=== PATIENT | male | born 1945 | race Caucasian/White ===

== ENCOUNTER 2020-07-26 14:06 | Inpatient (IN) | payer MEDICARE, MEDICAID, SELFPAY ==
[2020-07-29 03:23] VITALS: BMI 21.7
[2020-07-30] VITALS (7 sets, daily range): BP systolic 111–156; BP diastolic 56–92; PULSE 70–107; RESP 16–18; TEMP 36.6–37.3; O2SAT 96–99
--- NOTE | 2020-07-30 | CT_ITS ---
EXAMINATION: FACIAL CT WITH CONTRAST CLINICAL INFORMATION: Evaluate for abscess. Deeper infection. COMPARISON: Soft tissue neck CT scan 07/26/2020. TECHNIQUE: Road Driver images were obtained. A CT acquisition of the face was performed after the intravenous administration of 85 mL Omnipaque 350. Data was reformatted into multiplanar images at the acquisition workstation. This CT examination was performed using dose optimization techniques as appropriate, including one or more of the following: Automated exposure control, iterative reconstruction, and adjustment of technique factors (mA and/or kVp) according to patient size (this includes techniques or standardized protocols for targeted exams where dose is matched to indication/reason for exam). DLP: 496 mGy-cm. FINDINGS: There is asymmetric inflammation and enhancement of the right buccal soft tissues and the patient's lower lobe. Mild inflammatory stranding is also visualized within the subcutaneous soft tissues of the anterior neck. No discrete drainable fluid collection. There is a remnant of tooth within a socket visualized at the posterior margin of the right mandibular alveolar process best illustrated on coronal image 37 of 102 series 6 that could theoretically represent the site of inflammatory disease. Otherwise no evidence of a retained foreign body. A few scattered symmetrically seated cervical lymph nodes are visualized within levels IA and II, none of which demonstrate evidence of capsular invasion or central necrosis. The pharyngeal mucosal spaces are symmetric. Parapharyngeal fat is preserved. Press Pipe Inspector spaces are unremarkable. The parotid and submandibular glands are normal. The tongue base and epiglottis are normal. Preepiglottic fat is preserved. Glottic and subglottic airways are patent. 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 There is some heterogeneity within the left lobe the thyroid gland indicating the presence of a few small cysts and/or nodules. The remainder of the visualized visceral soft tissues are normal. Lung apices are clear. Scattered atheromatous caliber indication involve the aortic arch apex and both carotid bifurcations. The left vertebral artery appears chronically occluded. Internal jugular veins fill symmetrically. There is no acute osseous finding. Specifically no worrisome lytic or blastic osseous lesion. There is relatively advanced degenerative arthrosis of the atlantodental joint. Incidental note of atlantooccipital assimilation. Limited visualization of the intracranial compartment reveals no abnormal finding. IMPRESSION: There is inflammatory stranding within the right buccal soft tissues and the subcutaneous soft tissues of the anterior neck with no evidence of a discrete drainable fluid collection. The source of inflammation is difficult to accurately determine on the basis of this examination. There is a rim of lucency surrounding a retained tooth fragment located at the posterior margin of the right mandibular alveolar process that could theoretically represent the source of infection. Otherwise no evidence of a retained foreign body or abscess elsewhere within the [id number] of this examination. There are a few scattered symmetrically distributed cervical lymph nodes that are likely reactive.
[2020-07-30] MEDS: Ampicillin Sodium/Sulbactam Na 3 GM in 0.9 % Sodium Chloride 100 ML IV ×4 (04:44→23:23)
[2020-07-30] MEDS: 0.9 % Sodium Chloride Flush 3 ML SYRINGE 2 ML IVFLUSH ×3 (04:44→15:59)
[2020-07-30] MEDS: Heparin Sodium,Porcine 5,000 UNIT/ML VIAL 5000 UNIT SUBCUT ×2 (04:44→15:58)
[2020-07-30 06:46] LABS: Hematocrit 41.4 % (42-52); Hemoglobin 13.9 g/dl (14.0-18.0); Mean Corpuscular HGB Conc 33.6 g/dl (31.0-36.0); Mean Corpuscular Hemoglobin 32.4 pg (27.0-33.0); Mean Corpuscular Volume 96.5 fL (80-98); Mean Platelet Volume 10.9 fL (9.4-12.4); Platelet Count 185 X10*3/uL (160-400); Red Blood Count 4.29 X10*6/uL (4.60-5.80); Red Cell Distribution Width 13.4 % (11.0-16.0); White Blood Count 7.8 X10*3/uL (4.8-10.8)
[2020-07-30 06:54] LABS: Anion Gap 14 (12-20); Blood Urea Nitrogen 15 mg/dL (9-16); Carbon Dioxide 21 mmol/L (22-29); Chloride 108 mmol/L (96-108); Creatinine Clr Calc Pharmacy 80.4; Estimated Glomerular Filt Rate > 60; Glucose Random 87 mg/dL (60-115); Potassium 3.7 mmol/l (3.3-5.1); Sodium 139 mmol/L (135-145)
--- NOTE | 2020-07-30 09:09 | MHC.SLORD ---
[address] [address] Speech & Hearing [phone] Patient was seen on 07/27/20 for a bedside dysphagia evaluation. Patient displayed limited ROM of oral structures and significant anterior loss of bolus. Due to oral dysphagia secondary to significant facial swelling, patient was recommended PUREED (NDD1) solids and THIN liquids by teaspoon, with pills CRUSHED in PUREE. OUTCOMES ANALYST recommended spoon to be placed posteriorly on blade of tongue when patient is being fed to reduce anterior spillage and improve AP transport. Further ST intervention is no longer warranted as of 07/29/20 as patient consistently tolerated this diet. There is potential for upgrade if patient's swelling significantly improves. Please re-refer to speech as needed. Name: Javi Hardy Date of : 1945 Age: 74 Date of Registration: 07/26/20 Speech Language Pathology Order Status: Patient Seen
[2020-07-30] MEDS: OXcarbazepine 150 MG TABLET PO ×2 (09:38→23:23)
[2020-07-30] MEDS: amLODIPine Besylate 2.5 MG TABLET PO (09:39)
[2020-07-30] MEDS: Dolutegravir Sodium 50 MG TABLET PO (09:39)
--- NOTE | 2020-07-30 10:15 | PM.IMPN ---
Subjective Subjective Date of Service: 07/30/20 Interval History: Patient seen and examined this morning He denies any difficulty swallowing Feels his swelling is less Physical Exam Vital Signs and I&O and Narrative: Vital Signs and I&O: Vital Signs Temp 97.9 F 07/30/20 08:00 Pulse 78 07/30/20 08:00 Resp 18 07/30/20 08:00 BP 156/69 H 07/30/20 08:00 Pulse Ox 98 07/30/20 08:00 Intake & Output 07/29/20 07/30/20 07/30/20 18:59 06:59 18:59 Intake Total 340 / 340 Balance 340 / 340 Intake: Intake, Oral Coral unt 240 / 240 Intake, IV Amoun t 100 / 100 Ampicillin Sod ium/Sulbactam Na 100 / 100 3 gm In 0.9 % Sodium Chloride 100 ml @ 200 m ls/hr IV Q6H [facility] Rx#:[id number] Body Mass Index 21.7 Const: General: cooperative HENMT: Head images: 1. edema, lip Resp: Effort & Inspection: normal respiratory effort Auscultation: clear to auscultation bilaterally Cardio: Heart sounds: S1 normal heart sound present and S2 normal heart sound present Objective Data Current Medications Generic Name Dose Route Start Last Admin Trade Name Freq PRN Reason Stop Dose Admin Abacavir/Lamivudine 1 tab 07/30/20 09:00 Abacavir/Lamivudine 600/300 Tablet PO DAILY [facility] Acetaminophen 650 mg 07/30/20 00:00 Acetaminophen 325 Mg Tablet PO Q6H PRN FEVER/PAIN,MILD (SCALE 1-3) Albuterol Sulfate 2 puff 07/30/20 00:00 Albuterol Sulfate 90 Mcg 18 Gm Inhaler INHALE Q4H PRN Shortness of Breath/Wheezing Amlodipine Besylate 2.5 mg 07/30/20 09:00 Amlodipine Besylate 2.5 Mg Tablet PO DAILY [facility] Artificial Tears 2 drop 07/30/20 05:00 Artificial Tears 15 Ml Drops EYE-BOTH Q4H PRN Dry Eyes Dolutegravir Sodium 50 mg 07/30/20 09:00 Dolutegravir Sodium 50 Mg Tablet PO DAILY [facility] Heparin Sodium (Porcine) 5,000 unit 07/30/20 04:00 07/30/20 04:44 Heparin Sodium,Porcine 5,000 Unit/Ml Vial SUBCUT 5,000 unit Q12H [facility] Administration Ampicillin Sodium/Sulbactam 100 mls @ 200 mls/hr 07/30/20 04:00 07/30/20 05:51 Sodium 3 gm/ Sodium Chloride IV Infused Q6H [facility] Infusion Levothyroxine Sodium 75 mcg 07/30/20 06:00 07/30/20 06:09 Levothyroxine Sodium 75 Mcg Tablet PO Not Given DAILY@0600 [facility] Methylprednisolone Sodium Succinate 40 mg 07/30/20 10:15 Methylprednisolone Sod Succ/Pf 40 Mg/Ml Vial IVPUSH Q12H [facility] Morphine Sulfate 3 mg 07/30/20 00:00 Morphine Sulfate 4 Mg/Ml Cartridge IVPUSH Q4H PRN Pain, Severe (Pain Scale 7-10) Multivitamins/Minerals 1 tab 07/30/20 09:00 Multivitamin With Minerals Tablet PO DAILY [facility] Omeprazole 20 mg 07/30/20 06:30 07/30/20 06:09 Omeprazole 20 Mg Capsule.Dr PO Not Given BID@0630,1630 [facility] Ondansetron HCl 4 mg 07/30/20 00:00 Ondansetron Hcl 4 Mg/2 Ml Vial IVPUSH Q8H PRN Nausea and Vomiting Oxcarbazepine 150 mg 07/30/20 09:00 Oxcarbazepine 150 Mg Tablet PO BID [facility] Senna 8.6 mg 07/30/20 00:00 Sennosides 8.6 Mg Tablet PO BEDTIME PRN Constipation Sodium Chloride 2 ml 07/30/20 00:00 07/30/20 04:44 0.9 % Sodium Chloride Flush 3 Ml Syringe IVFLUSH 2 ml QSHIFT [facility] Administration Tamsulosin HCl 0.4 mg 07/30/20 09:00 Tamsulosin Hcl 0.4 Mg Capsule PO DAILY [facility] Labs CBC & Chem 7: 07/30/20 06:00 07/30/20 05:30 Labs: Laboratory Results - last 24 hr 07/27/20 07/27/20 07/27/20 05:28 05:28 21:00 MCV 95.3 MCH 33.0 MCHC 34.6 RDW RDW Coeff of Luis Alfredo 13.4 Plt Count 189 MPV 10.7 Immature Gran % (Auto) 0.8 H Neut % (Auto) 90.6 H Lymph % (Auto) 3.6 L [place] % (Auto) 4.9 Eos % (Auto) 0.0 Baso % (Auto) 0.1 Abs Immat Gran (auto) 0.16 H Absolute Lymphs (auto) 0.8 L Absolute Monos (auto) 1.0 Absolute Eos (auto) 0.0 Absolute Basos (auto) 0.0 Absolute Nucleated RBC 0.000 Nucleated RBC % (auto) 0.0 Absolute Neutrophils 18.8 H Smear Tech's Comments VERIFIED Bicarbonate 20 L Anion Gap 14 Estimated Creat Clear 80.4 Estim Creat Clear Calc Estimated GFR Est GFR (Non-Af Amer) > 60 Random Glucose 106 Fasting Glucose Calcium 9.2 D Vancomycin Trough Cancelled 07/28/20 07/28/20 07/29/20 05:36 05:36 05:35 MCV 95.2 MCH 32.9 MCHC 34.6 RDW RDW Coeff of Luis Alfredo 13.4 Plt Count 195 MPV 10.7 Immature Gran % (Auto) Neut % (Auto) Lymph % (Auto) [place] % (Auto) Eos % (Auto) Baso % (Auto) Abs Immat Gran (auto) Absolute Lymphs (auto) Absolute Monos (auto) Absolute Eos (auto) Absolute Basos (auto) Absolute Nucleated RBC 0.000 Nucleated RBC % (auto) 0.0 Absolute Neutrophils Smear Tech's Comments Bicarbonate 22 21 L Anion Gap 15 16 Estimated Creat Clear 80.4 82.5 Estim Creat Clear Calc Estimated GFR Est GFR (Non-Af Amer) > 60 > 60 Random Glucose 73 Fasting Glucose 80 Calcium 9.1 Vancomycin Trough 07/29/20 07/30/20 07/30/20 05:35 05:30 05:30 MCV 97.0 96.5 MCH 32.7 32.4 MCHC 33.7 33.6 RDW 13.4 RDW Coeff of Luis Alfredo 13.5 Plt Count 172 185 MPV 11.4 10.9 Immature Gran % (Auto) Neut % (Auto) Lymph % (Auto) [place] % (Auto) Eos % (Auto) Baso % (Auto) Abs Immat Gran (auto) Absolute Lymphs (auto) Absolute Monos (auto) Absolute Eos (auto) Absolute Basos (auto) Absolute Nucleated RBC 0.000 0.000 Nucleated RBC % (auto) 0.0 0.0 Absolute Neutrophils Smear Tech's Comments Bicarbonate Anion Gap 14 Estimated Creat Clear Estim Creat Clear Calc 80.4 Estimated GFR > 60 Est GFR (Non-Af Amer) Random Glucose 87 Fasting Glucose Calcium 9.0 Vancomycin Trough 07/30/20 07/30/20 06:00 06:00 MCV Not Rcvd MCH Not Rcvd MCHC Not Rcvd RDW RDW Coeff of Luis Alfredo Not Rcvd Plt Count Not Rcvd MPV Not Rcvd Immature Gran % (Auto) Neut % (Auto) Lymph % (Auto) [place] % (Auto) Eos % (Auto) Baso % (Auto) Abs Immat Gran (auto) Absolute Lymphs (auto) Absolute Monos (auto) Absolute Eos (auto) Absolute Basos (auto) Absolute Nucleated RBC Not Rcvd Nucleated RBC % (auto) Not Rcvd Absolute Neutrophils Smear Tech's Comments Bicarbonate Cancelled Anion Gap Cancelled Estimated Creat Clear Cancelled Estim Creat Clear Calc Estimated GFR Est GFR (Non-Af Amer) Cancelled Random Glucose Cancelled Fasting Glucose Calcium Vancomycin Trough Progress Note: A&P (1) Facial cellulitis: Status: Acute Assessment and Plan: this is a 74-year-old male of [place] with a past medical history of HIV who presented to the hospital with sepsis and severe facial swelling likely secondary to facial cellulitis presumably from a dental source. 1. Sepsis due to facial cellulitis Sepsis resolved Status post vancomycin, Zosyn, clinda Now on Unasyn Will repeat CT scan of the facial bones as there has been no significant improvement in his edema Start Solu-Medrol 40 b.i.d. 2. Hypertension, stable Lisinopril discontinue Continue Norvasc, up titrate as needed 3. COPD Not in exacerbation Continue p.r.n. bronchodilators 4. HIV continueu HAART 5. Hypothyroidism Synthroid DVT prophylaxis, heparin
[2020-07-30] MEDS: Abacavir/lamiVUDine 600/300 TABLET 1 TAB PO (10:36)
[2020-07-30] MEDS: Tamsulosin HCL 0.4 MG CAPSULE PO (10:37)
[2020-07-30] MEDS: iohexoL 350 MG/ML 100 ML INFUS..BTL 85 ML IV (12:18)
[2020-07-30] MEDS: Omeprazole 20 MG CAPSULE.DR PO (15:58)
[2020-07-31 03:36] VITALS: BP 132/60; PULSE 72; RESP 16; TEMP 36.2; O2SAT 97
[2020-07-31] MEDS: Ampicillin Sodium/Sulbactam Na 3 GM in 0.9 % Sodium Chloride 100 ML IV ×4 (04:13→21:54)
[2020-07-31] MEDS: Heparin Sodium,Porcine 5,000 UNIT/ML VIAL 5000 UNIT SUBCUT (04:14)
[2020-07-31] MEDS: Levothyroxine Sodium 75 MCG TABLET PO (05:52)
[2020-07-31] MEDS: Omeprazole 20 MG CAPSULE.DR PO (05:52)
[2020-07-31 07:00] VITALS: BP 136/65; PULSE 68; RESP 18; TEMP 36.7; O2SAT 97
[2020-07-31 07:07] LABS: Anion Gap 17 (12-20); Blood Urea Nitrogen 19 mg/dL (9-16); Carbon Dioxide 18 mmol/L (22-29); Chloride 108 mmol/L (96-108); Creatinine Clr Calc Pharmacy 77.3; Estimated Glomerular Filt Rate > 60; Glucose Random 138 mg/dL (60-115); Potassium 4.1 mmol/l (3.3-5.1); Sodium 139 mmol/L (135-145)
[2020-07-31] MEDS: 0.9 % Sodium Chloride Flush 3 ML SYRINGE 2 ML IVFLUSH ×4 (07:51→23:40)
[2020-07-31 09:57] VITALS: BP 136/65; PULSE 68
[2020-07-31] MEDS: Dolutegravir Sodium 50 MG TABLET PO (09:57)
[2020-07-31] MEDS: lamiVUDine 150 MG TABLET 300 MG PO (09:57)
[2020-07-31] MEDS: amLODIPine Besylate 2.5 MG TABLET PO (09:57)
[2020-07-31] MEDS: Tamsulosin HCL 0.4 MG CAPSULE PO (09:57)
[2020-07-31] MEDS: OXcarbazepine 150 MG TABLET PO ×2 (09:58→19:59)
[2020-07-31 11:00] VITALS: BP 136/72; PULSE 77; RESP 18; TEMP 36.9; O2SAT 99
--- NOTE | 2020-07-31 11:32 | P.PNIM_ITS ---
Subjective Subjective Interval History: Seen in follow up for facial swelling ? Cellulitis vs allergic reaction of some sort. Swelling is much better today Physical Exam Vital Signs and I&O and Narrative: Vital Signs and I&O: Vital Signs Temp 98.1 F 07/31/20 07:00 Pulse 68 07/31/20 09:57 Resp 18 07/31/20 07:00 BP 136/65 07/31/20 09:57 Pulse Ox 97 07/31/20 07:00 Intake & Output Const: General: cooperative Resp: Effort & Inspection: normal respiratory effort Auscultation: clear to auscultation bilaterally Cardio: Heart sounds: S1 normal heart sound present and S2 normal heart sound present Skin: Full body images: 1. swelling Objective Data Current Medications Generic Name Dose Route Start Last Admin Trade Name Freq PRN Reason Stop Dose Admin Abacavir Sulfate 600 mg 07/31/20 09:00 07/31/20 09:57 Abacavir Sulfate 300 Mg Tablet PO 600 mg DAILY [facility] Administration Acetaminophen 650 mg 07/30/20 00:00 Acetaminophen 325 Mg Tablet PO Q6H PRN FEVER/PAIN,MILD (SCALE 1-3) Albuterol Sulfate 2 puff 07/30/20 00:00 Albuterol Sulfate 90 Mcg 18 Gm Inhaler INHALE Q4H PRN Shortness of Breath/Wheezing Amlodipine Besylate 2.5 mg 07/30/20 09:00 07/31/20 09:57 Amlodipine Besylate 2.5 Mg Tablet PO 2.5 mg DAILY [facility] Administration Artificial Tears 2 drop 07/30/20 05:00 Artificial Tears 15 Ml Drops EYE-BOTH Q4H PRN Dry Eyes Dolutegravir Sodium 50 mg 07/30/20 09:00 07/31/20 09:57 Dolutegravir Sodium 50 Mg Tablet PO 50 mg DAILY [facility] Administration Heparin Sodium (Porcine) 5,000 unit 07/30/20 04:00 07/31/20 04:14 Heparin Sodium,Porcine 5,000 Unit/Ml Vial SUBCUT 5,000 unit Q12H [facility] Administration Ampicillin Sodium/Sulbactam 100 mls @ 200 mls/hr 07/30/20 04:00 07/31/20 10:58 Sodium 3 gm/ Sodium Chloride IV Infused Q6H [facility] Infusion Lamivudine 300 mg 07/31/20 09:00 07/31/20 09:57 Lamivudine 150 Mg Tablet PO 300 mg DAILY [facility] Administration Levothyroxine Sodium 75 mcg 07/30/20 06:00 07/31/20 05:52 Levothyroxine Sodium 75 Mcg Tablet PO 75 mcg DAILY@0600 [facility] Administration Methylprednisolone Sodium Succinate 40 mg 07/30/20 11:00 07/31/20 09:58 Methylprednisolone Sod Succ/Pf 40 Mg/Ml Vial IVPUSH 40 mg Q12H [facility] Administration Morphine Sulfate 3 mg 07/30/20 00:00 Morphine Sulfate 4 Mg/Ml Cartridge IVPUSH Q4H PRN Pain, Severe (Pain Scale 7-10) Multivitamins/Minerals 1 tab 07/30/20 09:00 07/31/20 09:57 Multivitamin With Minerals Tablet PO 1 tab DAILY [facility] Administration Omeprazole 20 mg 07/30/20 06:30 07/31/20 05:52 Omeprazole 20 Mg Capsule. PO 20 mg BID@0630,1630 [facility] Administration Ondansetron HCl 4 mg 07/30/20 00:00 Ondansetron Hcl 4 Mg/2 Ml Vial IVPUSH Q8H PRN Nausea and Vomiting Oxcarbazepine 150 mg 07/30/20 09:00 07/31/20 09:58 Oxcarbazepine 150 Mg Tablet PO 150 mg BID [facility] Administration Senna 8.6 mg 07/30/20 00:00 Sennosides 8.6 Mg Tablet PO BEDTIME PRN Constipation Sodium Chloride 2 ml 07/30/20 00:00 07/31/20 07:51 0.9 % Sodium Chloride Flush 3 Ml Syringe IVFLUSH 2 ml QSHIFT [facility] Administration Tamsulosin HCl 0.4 mg 07/30/20 09:00 07/31/20 09:57 Tamsulosin Hcl 0.4 Mg Capsule PO 0.4 mg DAILY [facility] Administration Labs CBC & Chem 7: 07/30/20 06:00 07/31/20 05:17 Labs: Laboratory Results - last 24 hr 07/31/20 05:17 Anion Gap 17 Estim Creat Clear Calc 77.3 Estimated GFR > 60 Random Glucose 138 H D Calcium 9.0 Assessment and Plan (1) Facial cellulitis: Status: Acute Assessment and Plan: 74-year-old male of [employer] [facility] with a past medical history of HIV who presented to the hospital with sepsis and severe facial swelling likely seconda ry to facial cellulitis presumably from a dental source. 1. Sepsis due to facial cellulitis Sepsis resolved Status post vancomycin, Zosyn, clinda Now on Unasyn Will repeat CT 07/30 shows inflamatory changes of but no abscess continue IV solumedrol for one more day 2. Hypertension, stable Lisinopril discontinued Continue Norvasc, up titrate as needed 3. COPD Not in exacerbation Continue p.r.n. bronchodilators 4. HIV continueu HAART 5. Hypothyroidism Synthroid Anticipate d/c in one to 2 days DVT prophylaxis, heparin
--- NOTE | 2020-07-31 13:27 | MHC.CM.PN ---
Patient continues on steroids and IV ABT with some improvement to cellulitis. Discharge plan is to return to [facility] possibly tomorrow. CM will continue to follow for discharge needs.
[2020-07-31 15:00] VITALS: BP 117/58; PULSE 71; RESP 18; O2SAT 97
[2020-07-31] MEDS: Acetaminophen 325 MG TABLET 650 MG PO (20:00)
[2020-07-31] MEDS: Artificial Tears 15 ML DROPS 2 DROP EYE-BOTH (20:02)
[2020-07-31 21:44] VITALS: BP 132/61; PULSE 62; O2SAT 99
[2020-08-01 02:00] VITALS: BP 166/77; RESP 16; O2SAT 96
[2020-08-01] MEDS: Ampicillin Sodium/Sulbactam Na 3 GM in 0.9 % Sodium Chloride 100 ML IV ×3 (03:58→14:47)
[2020-08-01] MEDS: Heparin Sodium,Porcine 5,000 UNIT/ML VIAL 5000 UNIT SUBCUT ×2 (04:03→14:48)
[2020-08-01 04:45] VITALS: BP 141/66; PULSE 65; RESP 16; TEMP 35.8; O2SAT 95
--- NOTE | 2020-08-01 06:07 | PC.NURSE ---
PT IMPULSIVE, KEPT TRYING TO GET UP OUT OF RECLINER. DID NOT FOLLOW DIRECTIONS AND AT TIMES WAS COMBATIVE, KICKING AND SHOVING. PT GIVEN A BEDSIDE PSYCH NP FOR SAFETY REASONS. BACK TO BED WITH 2 ASSISTS FOR SLEEP. SLEEPING MOSTLY IN NAPS. RIGHT FACE IS SLIGHTLY EDEMATOUS. NO DIFFICULTY SWALLOWING. PT SLEEPING FOR MEDS DUE AT 0630 AND REFUSING TO TAKE AT THIS TIME. WILL PASS ON TO NEXT RN TO TRY TO GIVE THESE ON THE NEXT ROUNDS, LEVOTHYROXINE AND PRILOSEC.
[2020-08-01] MEDS: 0.9 % Sodium Chloride Flush 3 ML SYRINGE 2 ML IVFLUSH ×2 (07:50→14:48)
[2020-08-01 08:00] VITALS: BP 141/74; PULSE 56; RESP 18; TEMP 36.1; O2SAT 99
[2020-08-01] MEDS: Dolutegravir Sodium 50 MG TABLET PO (09:20)
[2020-08-01] MEDS: lamiVUDine 150 MG TABLET 300 MG PO (09:21)
[2020-08-01] MEDS: OXcarbazepine 150 MG TABLET PO (09:21)
[2020-08-01] MEDS: Tamsulosin HCL 0.4 MG CAPSULE PO (09:21)
[2020-08-01 09:28] VITALS: PULSE 56
[2020-08-01 12:00] VITALS: BP 128/60; PULSE 70; RESP 18; TEMP 37.5; O2SAT 100
--- NOTE | 2020-08-01 12:40 | P.DS_ITS ---
DS: Providers Provider Date of admission: 07/26/20 14:06 Primary care physician: Adrián Singh DO Consults: 07/29/20 03:26 Consult to Infectious Diseases Routine Consulting Provider: Yesenia Rothman Reason for consultation: Facial Cellulitis DS: Diagnosis Discharge Diagnosis (1) Facial cellulitis: Status: Acute (2) Sepsis: Status: Acute DS: Summary Hospital Course Hospital Course: Patient was admitted for sepsis due to facial cellulitis. He was given vancomycin Zosyn and clinda, he was seen by infectious disease recommended changing to Unasyn. He was also given some IV steroids which improved swelling. Patient's sepsis resolved, Erythema improved, he will be transitioned to Augmentin for 1 week. Patient's lips were swollen and there was some concern of angioedema, therefore his lisinopril will be discontinued. Time Spent with Patient Time attestation: Total time spent providing and/or coordinating discharge services: Physical Exam Vital Signs and I&O and Narrative: Vital Signs and I&O: Vital Signs Temp 96.9 F 08/01/20 08:00 Pulse 56 08/01/20 09:28 Resp 18 08/01/20 08:00 BP 141/74 H 08/01/20 08:00 Pulse Ox 99 08/01/20 08:00 Intake & Output 07/31/20 08/01/20 08/01/20 18:59 06:59 18:59 Intake Total 680 / 1080 400 / 1080 280 / 280 Balance 680 / 1080 400 / 1080 280 / 280 Intake: Intake, Oral Coral unt 480 / 480 180 / 180 Intake, Other Am ount 200 / 200 Intake, IV Amoun t 200 / 400 200 / 400 100 / 100 Ampicillin Sod ium/Sulbactam Na 200 / 400 200 / 400 100 / 100 3 gm In 0.9 % Sodium Chloride 100 ml @ 200 m ls/hr IV Q6H [facility] Rx#:[id number] Other: Meal Refused No NPO No Breakfast % Eate n 25% 100% Lunch % Eaten 75% Number of Incont inent Voids 2 Number of Bowel Movements 2 Number of Incont inent Bowel 2 Movements Stool Inct Stool Color Brown Stool Consistenc y Formed Body Mass Index 21.7 Const: General: cooperative Resp: Effort & Inspection: normal respiratory effort Auscultation: clear to auscultation bilaterally Cardio: Heart sounds: S1 normal heart sound present and S2 normal heart sound present Discharge Plan Discharge Patient Disposition: [facility] Referrals: Adrián Singh DO [Primary Care Provider] - Discharge Medications: New amoxicillin-pot clavulanate [Augmentin] 875-125 mg tablet 1 tab PO Q12H Qty: 14 RF: 0 Continued albuterol sulfate 90 mcg/actuation Hfa Aerosol Inhaler 2 puff INHALATION Q4H PRN (Reason: Shortness Of Breath Or Wheezing) RF: 0 Triumeq 600-50-300 mg Tablet 1 tab PO DAILY RF: 0 lactulose 20 gram Packet 20 g PO DAILY PRN (Reason: Constipation) RF: 0 levothyroxine 75 mcg Tablet 75 mcg PO DAILY RF: 0 multivitamin with iron Tablet 1 tab PO DAILY RF: 0 oxcarbazepine [Trileptal] 150 mg Tablet 150 mg PO BID RF: 0 tamsulosin [Flomax] 0.4 mg Capsule 0.4 mg PO DAILY RF: 0 sennosides 8.6 mg Capsule 8.6 mg PO BEDTIME PRN (Reason: Constipation) RF: 0 omeprazole 20 mg Tablet,Delayed Release (Dr/Ec) 20 mg PO BID RF: 0 Discontinued lisinopril 5 mg Tablet 5 mg PO DAILY RF: 0 Discharge Orders: Discharge Order (Routine); Ordered 08/01/20 Ordered By: Jac Fan Activity on Discharge: As tolerated Visit Report Forms: Patient Portal Discharge page Care Plan Goals: recovery Health Concerns: facial cellultis Plan of Treatment: augmentin for one week, stop lisinopril as some suspicion for angioedema
--- NOTE | 2020-08-01 13:57 | MHC.CM.PN ---
at approximatley 1000 hours, TIFFANY alerted [facility] liaison that pt is cleared to DC today. TIFFANY informed the pts clinicals will have to be reviewed by the admin on duty as they will have to approve the pts return. Clinicals were forwarded for review. Once [facility] approves pts return, he will need a rapid covid swab and Dian nolasco ([phone]) will be notified
[2020-08-01 14:19] LABS: SARS COV2 PCR INHOUSE NEGATIVE (Negative)
[2020-08-01] MEDS: Omeprazole 20 MG CAPSULE.DR PO (14:49)
--- NOTE | 2020-08-01 15:10 | MHC.CM.PN ---
PT CLEARED TO DC TODAY BACK TO [facility] [place] AT 1630 HOURS. CM CONTACTED PTS GUARDIAN, NIMESH RUSSO ([phone]) WHO IS IN AGREEMENT WITH DC PLAN. PER NOTES, SECOND IMM DELIVERED ON 07/31/20
[2020-08-01 15:59] VITALS: BP 140/69; PULSE 65; RESP 19; TEMP 36.4; O2SAT 100
== END 2020-08-01 16:35 | disposition skilled nursing facility (03) | DRG 872 ==
PROVIDERS: Internal Medicine; Admitting Provider Family Medicine; Emergency Provider Physician Assistant; PCP Hospitalist; Visit Provider Internal Medicine
DX: A41.9 Sepsis, unspecified organism (principal); L03.211 Cellulitis of face; I10 Essential (primary) hypertension; J44.9 Chronic obstructive pulmonary disease, unspecified; N40.0 Benign prostatic hyperplasia without lower urinary tract symptoms; Z21 Asymptomatic human immunodeficiency virus [HIV] infection status; T78.3XXA Angioneurotic edema, initial encounter; T46.4X5A Adverse effect of angiotensin-converting-enzyme inhibitors, initial encounter; Y92.9 Unspecified place or not applicable; F03.90 Unspecified dementia, unspecified severity, without behavioral disturbance, psychotic disturbance, mood disturbance, and anxiety; K08.9 Disorder of teeth and supporting structures, unspecified; E78.5 Hyperlipidemia, unspecified; E03.9 Hypothyroidism, unspecified; Z79.890 Hormone replacement therapy; Z79.899 Other long term (current) drug therapy
CPT/HCPCS: 36415; 70487; 70491; 71045; 80048; 80051; 80076; 81001; 82565; 82947; 83605; 83735; 84520; 85025; 85027; 87040; 87088; 87635; 92526; 92610; 96361; 96365; 96375; 99285; J0295; J2060; J2543; J2920; J3370; Q9967

== ENCOUNTER 2020-11-17 22:09 | Inpatient (IN) | payer MEDICARE, MEDICAID, SELFPAY ==
[2020-11-17 22:16] VITALS: BP 194/101; PULSE 83; RESP 18; TEMP 36.9; O2SAT 98; BMI 26.6
--- NOTE | 2020-11-17 22:21 | ED_ITS ---
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 Currently, patient denies any chest pain and en-route declined nitro. Otherwise, patient denies shortness of breath, headache, dizziness. Of note, patient is a poor historian. Related Data Home Medications Medication Instructions Recorded Confirmed Triumeq 1 tab PO DAILY 07/30/20 11/17/20 albuterol sulfate 2 puff INHALATION Q4H PRN 07/30/20 11/17/20 lactulose 20 g PO DAILY PRN 07/30/20 11/17/20 levothyroxine 75 mcg PO DAILY 07/30/20 11/17/20 multivitamin with iron 1 tab PO DAILY 07/30/20 11/17/20 omeprazole 20 mg PO BID 07/30/20 11/17/20 oxcarbazepine [Trileptal] 150 mg PO BID 07/30/20 11/17/20 sennosides 8.6 mg PO BEDTIME PRN 07/30/20 11/17/20 tamsulosin [Flomax] 0.4 mg PO DAILY 07/30/20 11/17/20 acetaminophen 650 mg PO Q4H PRN 11/17/20 11/17/20 albuterol sulfate [ProAir HFA] 2 puff INHALATION Q4-6H PRN 11/17/20 11/17/20 artificial tears solution 1 drp OPHTHALMIC (EYE) Q4H 11/17/20 11/17/20 benztropine 1 mg PO BID 11/17/20 11/17/20 guaifenesin 200 mg PO Q4H PRN 11/17/20 11/17/20 guaifenesin [Guaifenesin LA] 600 mg PO BID 11/17/20 11/17/20 haloperidol lactate 1.2 mg PO BID 11/17/20 11/17/20 loperamide 2 mg PO Q6H PRN 11/17/20 11/17/20 megestrol 400 mg PO DAILY 11/17/20 11/17/20 nystatin 1 appl TOPICAL BID 11/17/20 11/17/20 sucralfate 10 ml PO QID 11/17/20 11/17/20 Allergies Allergy/AdvReac Type Severity Reaction Status Date / Time chlorpromazine Allergy Unknown UNKNOWN Verified 07/31/20 15:42 [From THORAZINE] Review of Systems Review of Systems: Pertinent positives and negatives as stated in HPI and 10 point review of systems is otherwise negative. [facility] Past Medical History Source: nursing notes reviewed Medical History Anemia BPH (benign prostatic hyperplasia) CHF (congestive heart failure) Constipation Dementia Duodenal ulcer Dysphagia GERD (gastroesophageal reflux disease) HIV (human immunodeficiency virus infection) Hyperlipidemia Hypertension Hypothyroid Social History Social History Advance Directives: No Physical Exam Vital Signs: Vital Signs: Last Vital Signs Temp 98.4 F 11/17/20 22:16 Pulse 83 11/17/20 22:16 Resp 18 11/17/20 22:16 BP 194/101 H 11/17/20 22:16 Pulse Ox 98 11/17/20 22:16 Body Mass Index 26.6 VITAL SIGNS: Reviewed. GENERAL: Well developed, well nourished, in no acute distress. HEAD: Normocephalic/atraumatic, EYES: PERRLA, EOMI EARS: Ext canals without abnormality, TMs non-bulging and non-erythematous NOSE: Nares patent bilateral OROPHARYNX: no oral lesions noted, posterior pharynx clear NECK: Supple, no adenopathy LUNGS: Normal breath sounds. SpO2<98> CARDIOVASCULAR: Regular rate and rhythm without noted murmurs, no JVD or lower extremity edema. ABDOMEN: Soft, mild tenderness in epigastrium, non-distended with bowel sounds. MUSCULOSKELETAL: No tenderness, deformities, or effusions noted on gross inspe ction. EXTREMITIES: No cyanosis, clubbing or edema. SKIN: Inspection of the skin reveals no rashes NEUROLOGIC: Arousable and oriented x 1. Strength and sensation to light touch were grossly intact x 4. Course Course Course Narrative: This is a 74-year-old male with history and clinical presentation consistent with ACS, and on review of initial EKG there is noted deepening of ST segments in V4 V5 as well as deep and T-wave inversions in V2 and V3 despite patient being asymptomatic at present. Review of all investigations This case was discussed with the inpatient hospitalist team after discussing with Cardiology and they are aware that patient is to be admitted for ACS, trend troponins, and if troponins are positive to treat with Lovenox. Reevaluation(s) Reevaluation #1: I spoke with Dr. Khoury regarding the EKG changes and his recommendations are to admit the patient and trend troponins and if they are p ositive to treat with Lovenox and he will see the patient in the morning. Time: 22:40 MDM - Chest Pain Lab Data Result diagrams: 11/17/20 23:19 11/17/20 23:19 Labs: Lab Results 11/17/20 11/17/20 Range/Units 23:19 23:19 WBC 7.4 (4.8-10.8) X10*3/uL RBC 4.54 L (4.60-5.80) X10*6/uL Hgb 14.8 (14.0-18.0) g/dl Hct 42.9 (42-52) % MCV 94.5 (80-98) fL MCH 32.6 (27.0-33.0) pg MCHC 34.5 (31.0-36.0) g/dl RDW 13.4 (11.0-16.0) % Plt Count 221 (160-400) X10*3/uL MPV 9.6 (9.4-12.4) fL Immature Gran % (Auto) 0.5 H (0.0-0.4) % Neut % (Auto) 66.9 (45-73) % Lymph % (Auto) 22.7 (20-40) % [place] % (Auto) 7.9 (2-11) % Eos % (Auto) 1.3 (0-4) % Baso % (Auto) 0.7 (0-2) % Lymph # (Auto) 1.7 (1.2-4.9) X10*3/uL [place] # (Auto) 0.6 (0.1-1.2) X10*3/uL Eos # (Auto) 0.1 (0.0-0.4) X10*3/uL Baso # (Auto) 0.1 (0.0-0.2) X10*3/uL Abs Immat Gran (auto) 0.04 H (0.00-0.03) X10*3/uL Absolute Neuts (auto) 5.0 (2.0-8.3) X10*3/uL Absolute Nucleated RBC 0.000 (0.0-0.012) X10*3/uL Nucleated RBC % (auto) 0.0 (0.0-0.2) /100WBC Troponin I High Sens 24.1 (<3.5-35.0) ng/L ECG Data ECG #1: Attestation: I personally reviewed and interpreted this ECG as follows: Prior ECG tracings: available for review (01/11/2019 there are some subtle changes as annotated below.) Interpretation: Sinus rhythm, HR -69, noted ischemic changes with ST depressions in V3-V5, with T-wave inversions in V2, MD/QRS/QTC are within normal limits. Discharge Plan Discharge Clinical Impression: ACS (acute coronary syndrome) Patient Disposition: Admitted As Inpatient Prescriptions: No Action albuterol sulfate 90 mcg/actuation Hfa Aerosol Inhaler 2 puff INHALATION Q4H PRN (Reason: Shortness Of Breath Or Wheezing) RF: 0 Triumeq 600-50-300 mg Tablet 1 tab PO DAILY RF: 0 lactulose 20 gram Packet 20 g PO DAILY PRN (Reason: Constipation) RF: 0 levothyroxine 75 mcg Tablet 75 mcg PO DAILY RF: 0 multivitamin with iron Tablet 1 tab PO DAILY RF: 0 oxcarbazepine [Trileptal] 150 mg Tablet 150 mg PO BID RF: 0 tamsulosin [Flomax] 0.4 mg Capsule 0.4 mg PO DAILY RF: 0 sennosides 8.6 mg Capsule 8.6 mg PO BEDTIME PRN (Reason: Constipation) RF: 0 omeprazole 20 mg Tablet,Delayed Release (Dr/Ec) 20 mg PO BID RF: 0 acetaminophen 325 mg Tablet 650 mg PO Q4H PRN (Reason: Mild Pain (Scale Score 1-4)) RF: 0 Guaifenesin LA 600 mg Tablet Extended Release 600 mg PO BID RF: 0 sucralfate 100 mg/mL Suspension 10 ml PO QID RF: 0 artificial tears solution Drops 1 drp OPHTHALMIC (EYE) Q4H RF: 0 loperamide 2 mg Tablet 2 mg PO Q6H PRN (Reason: Diarrhea) RF: 0 guaifenesin 100 mg/5 mL Liquid 200 mg PO Q4H PRN (Reason: Cough) RF: 0 benztropine 1 mg Tablet 1 mg PO BID RF: 0 nystatin 100,000 unit/gram Powder 1 appl TOPICAL BID RF: 0 albuterol sulfate [ProAir HFA] 90 mcg/actuation Hfa Aerosol Inhaler 2 puff INHALATION Q4-6H PRN (Reason: Dyspnea) RF: 0 haloperidol lactate 2 mg/mL Concentrate 1.2 mg PO BID RF: 0 megestrol 400 mg/10 mL (10 mL) Suspension 400 mg PO DAILY RF: 0
--- NOTE | 2020-11-17 22:27 | XR_ITS ---
EXAMINATION: XR CHEST CLINICAL INFORMATION: Chest pain COMPARISON: 07/26/2020 TECHNIQUE: Frontal view of the chest was obtained. FINDINGS: Cardiac leads overlie the chest. The lungs are well expanded. Patchy opacities are seen at the right mid to lower lung and possibly at the left midlung. No pleural effusion or pneumothorax. The cardiomediastinal silhouette is normal in size with a tortuous and calcified aorta. XR/XR chest 1V IMPRESSION: Patchy right mid to lower lung opacities and possible left midlung opacities could be infectious or inflammatory.
--- NOTE | 2020-11-17 22:27 | ECG_ITS ---
Test Reason : CHEST PAIN Blood Pressure : / mmHG Vent. Rate : 069 BPM Atrial Rate : 069 BPM P-R Int : 156 ms QRS Dur : 092 ms QT Int : 430 ms P-R-T Axes : 029 017 173 degrees QTc Int : 460 ms Normal sinus rhythm ST & T wave abnormality, consider anterolateral ischemia Prolonged QT Abnormal ECG When compared to the previous EKG of 11 january 2019, T inversion more prominent Referred By: Randi Haider Electronically Signed By:VINEET WILLS
[2020-11-17 23:27] LABS: MANUAL DIFF FLAG NO
[2020-11-17 23:28] LABS: Basophils Absolute Auto 0.1 X10*3/uL (0.0-0.2); Basophils Percent Auto 0.7 % (0-2); Eosinophils Absolute Auto 0.1 X10*3/uL (0.0-0.4); Eosinophils Percent Auto 1.3 % (0-4); Hematocrit 42.9 % (42-52); Hemoglobin 14.8 g/dl (14.0-18.0); Imm Gran Abs Auto 0.04 X10*3/uL (0.00-0.03); Imm Gran Pct Auto 0.5 % (0.0-0.4); Lymphocytes Absolute Auto 1.7 X10*3/uL (1.2-4.9); Lymphocytes Percent Auto 22.7 % (20-40); Mean Corpuscular HGB Conc 34.5 g/dl (31.0-36.0); Mean Corpuscular Hemoglobin 32.6 pg (27.0-33.0); Mean Corpuscular Volume 94.5 fL (80-98); Mean Platelet Volume 9.6 fL (9.4-12.4); Monocytes Absolute Auto 0.6 X10*3/uL (0.1-1.2); Monocytes Percent Auto 7.9 % (2-11); Neutrophils Percent Auto 66.9 % (45-73); Platelet Count 221 X10*3/uL (160-400); Red Blood Count 4.54 X10*6/uL (4.60-5.80); Red Cell Distribution Width 13.4 % (11.0-16.0); White Blood Count 7.4 X10*3/uL (4.8-10.8)
[2020-11-17 23:52] LABS: Troponin-I High Sensitivity 24.1 ng/L (<3.5-35.0)
[2020-11-17 23:56] VITALS: BP 201/110; PULSE 76
[2020-11-17 23:56] LABS: Alanine Aminotransferase 17 U/L (0-40); Albumin Level 4.4 g/dL (3.5-5.0); Alkaline Phosphatase 83 U/L (39-117); Anion Gap 15 (12-20); Aspartate Amino Transferase 15 U/L (5-37); Bilirubin Total 0.7 mg/dL (0.0-1.0); Blood Urea Nitrogen 14 mg/dL (9-16); Calcium 9.4 mg/dL (8.4-10.2); Carbon Dioxide 24 mmol/L (22-29); Chloride 102 mmol/L (96-108); Creatinine Clr Calc Pharmacy 75.3; Estimated Glomerular Filt Rate > 60; Glucose Random 97 mg/dL (60-115); Lipase 27 U/L (8-78); Potassium 3.9 mmol/l (3.3-5.1); Sodium 137 mmol/L (135-145); Total Protein 7.3 g/dL (6.5-8.0)
[2020-11-17] MEDS: Labetalol HCL 100 MG/20 ML VIAL IVPUSH (23:56)
[2020-11-18] VITALS (12 sets, daily range): BP systolic 149–202; BP diastolic 70–96; PULSE 56–71; RESP 16–19; TEMP 36.9; O2SAT 96–98
[2020-11-18 00:07] LABS: Influenza A PCR NEGATIVE (Negative); Influenza B PCR NEGATIVE (Negative); Resp Syncy Virus RNA Qual PCR NEGATIVE (Negative); SARS COV2 PCR INHOUSE NEGATIVE (Negative)
[2020-11-18 00:36] LABS: Procalcitonin 0.03 ng/mL
[2020-11-18] MEDS: Enoxaparin Sodium 40 MG/0.4 ML SYRINGE SUBCUT (01:18)
--- NOTE | 2020-11-18 05:24 | PM.IMHP ---
History of Present Illness Date of Service: 11/17/20 Chief Complaint: Chest pain This is a pleasantly confused 74-year-old male with past medical history of CHF, hypertension, HIV, HLD, hypothyroidism, baseline dementia, BPH, anemia who presents to the hospital from [facility] with complaints of chest pain. Patient is Scottish-speaking, completely not oriented to place or time and unable to give much history therefore history is obtained mostly from EMR as well as ED staff. According to the report from EMS patient woke up complaining of midsternal chest pain, 1 episode of vomiting then felt better. He currently denies any chest pain, abdominal pain, no nausea or vomiting and answers no to all my questions of review of system. On arrival to the ED patient has a temp of 98.4?, heart rate of 83, respiratory rate of 18, blood pressure 194/101, satting 98% on room air Labs are significant for WBC count 7.4, hemoglobin 14.8, sodium of 137, potassium 3.9, COVID-19 negative, initial troponin of 24.1. Has procalcitonin level of 0.[address] depressions in the lateral leads V4 V6 which were present on previous EKG. 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 management Chest x-ray is also demonstrating patchy right mid to lower lung opacities and possible left mid lung opacity History is obtained from chart as patient is confused and unable to give any Past medical history: COVID positive in December, CHF, hypertension, HIV, hyperlipidemia, hypothyroidism, dementia, BPH on my anemia surgical history:Unknown Family history: Unknown Social history: Unknown Review of Systems Review of Systems: Yes Unobtainable due to mental condition and Unobtainable due to mental status [facility] Medical History Anemia BPH (benign prostatic hyperplasia) CHF (congestive heart failure) Constipation Dementia Duodenal ulcer Dysphagia GERD (gastroesophageal reflux disease) HIV (human immunodeficiency virus infection) Hyperlipidemia Hypertension Hypothyroid Social History Advance Directives: No Meds Allergies Allergy/AdvReac Type Severity Reaction Status Date / Time chlorpromazine Allergy Unknown UNKNOWN Verified 07/31/20 15:42 [From THORAZINE] Home Medications Medication Instructions Recorded Confirmed Type Triumeq 1 tab PO DAILY 07/30/20 11/17/20 History albuterol sulfate 2 puff INHALATION Q4H PRN 07/30/20 11/17/20 History lactulose 20 g PO DAILY PRN 07/30/20 11/17/20 History levothyroxine 75 mcg PO DAILY 07/30/20 11/17/20 History multivitamin with iron 1 tab PO DAILY 07/30/20 11/17/20 History omeprazole 20 mg PO BID 07/30/20 11/17/20 History oxcarbazepine [Trileptal] 150 mg PO BID 07/30/20 11/17/20 History sennosides 8.6 mg PO BEDTIME PRN 07/30/20 11/17/20 History tamsulosin [Flomax] 0.4 mg PO DAILY 07/30/20 11/17/20 History acetaminophen 650 mg PO Q4H PRN 11/17/20 11/17/20 History albuterol sulfate [ProAir HFA] 2 puff INHALATION Q4-6H PRN 11/17/20 11/17/20 History artificial tears solution 1 drp OPHTHALMIC (EYE) Q4H 11/17/20 11/17/20 History benztropine 1 mg PO BID 11/17/20 11/17/20 History guaifenesin 200 mg PO Q4H PRN 11/17/20 11/17/20 History guaifenesin [Guaifenesin LA] 600 mg PO BID 11/17/20 11/17/20 History haloperidol lactate 1.2 mg PO BID 11/17/20 11/17/20 History loperamide 2 mg PO Q6H PRN 11/17/20 11/17/20 History megestrol 400 mg PO DAILY 11/17/20 11/17/20 History nystatin 1 appl TOPICAL BID 11/17/20 11/17/20 History sucralfate 10 ml PO QID 11/17/20 11/17/20 History Physical Exam Vital Signs and Narrative: Vital Signs: Last Vital Signs Temp 98.4 F 11/17/20 22:16 Pulse 71 11/18/20 00:05 Resp 18 11/18/20 00:05 BP 177/79 H 11/18/20 04:40 Pulse Ox 98 11/17/20 22:16 Body Mass Index 26.6 Const: Other: Scottish-speaking, pleasantly confused, oriented to self not place or time General: cooperative and no acute distress Eyes: General: appearance normal, both eyes and all related structures Resp: Effort & Inspection: normal respiratory effort and able to speak in complete sentences Cardio: Rate: regular rate Rhythm: regular rhythm GI: Palpation (GI): Soft to palpation Auscultation: normal bowel sounds Skin: General skin exam: no rashes or lesions noted Neuro: Cognition (Neuro): normal cognition Extrem: General: Yes normal to inspection and Yes no pedal edema Results Labs CBC and Chem 7: 11/17/20 23:19 11/17/20 23:19 Labs: Laboratory Results - last 24 hr 11/17/20 11/17/20 11/17/20 23:14 23:19 23:19 MCV 94.5 MCH 32.6 MCHC 34.5 RDW 13.4 Plt Count 221 MPV 9.6 Immature Gran % (Auto) 0.5 H Neut % (Auto) 66.9 Lymph % (Auto) 22.7 [place] % (Auto) 7.9 Eos % (Auto) 1.3 Baso % (Auto) 0.7 Lymph # (Auto) 1.7 [place] # (Auto) 0.6 Eos # (Auto) 0.1 Baso # (Auto) 0.1 Abs Immat Gran (auto) 0.04 H Absolute Neuts (auto) 5.0 Absolute Nucleated RBC 0.000 Nucleated RBC % (auto) 0.0 Anion Gap 15 Estim Creat Clear Calc 75.3 Estimated GFR > 60 Random Glucose 97 Calcium 9.4 Total Bilirubin 0.7 AST 15 ALT 17 Alkaline Phosphatase 83 Troponin I High Sens Total Protein 7.3 Albumin 4.4 Lipase 27 Procalcitonin Coronavirus (PCR) NEGATIVE Influenza Type A (PCR) NEGATIVE Influenza Type B (PCR) NEGATIVE RSV RNA Qual (PCR) NEGATIVE 11/17/20 11/17/20 23:19 23:19 MCV MCH MCHC RDW Plt Count MPV Immature Gran % (Auto) Neut % (Auto) Lymph % (Auto) [place] % (Auto) Eos % (Auto) Baso % (Auto) Lymph # (Auto) [place] # (Auto) Eos # (Auto) Baso # (Auto) Abs Immat Gran (auto) Absolute Neuts (auto) Absolute Nucleated RBC Nucleated RBC % (auto) Anion Gap Estim Creat Clear Calc Estimated GFR Random Glucose Calcium Total Bilirubin AST ALT Alkaline Phosphatase Troponin I High Sens 24.1 Total Protein Albumin Lipase Procalcitonin 0.03 Coronavirus (PCR) Influenza Type A (PCR) Influenza Type B (PCR) RSV RNA Qual (PCR) Imaging Radiologist's Impressions: Impressions Chest X-Ray 11/17/20 22:27 IMPRESSION: Patchy right mid to lower lung opacities and possible left midlung opacities could be infectious or inflammatory. Assessment and Plan (1) ACS (acute coronary syndrome): Status: Acute (2) Chest pain: Status: Acute (3) Pulmonary infiltrate on chest x-ray: Status: Acute This is a 74-year-old male with past medical history as above who presents with a reported complaint of chest pain. # chest pain - possibly secondary to ACS although the EKG changes seen on leads V4 to V5 are chronic and not new - initial high sensitivity troponin of 24 pending repeat - patient was also very hypertensive when he came in so this elevated troponin may be type 2 Plan: - pending 2nd troponin, if delta positive will start him on Lovenox - will obtain echocardiogram - cardiology consulted # pulmonary infiltrate on chest x-ray - patient has no clinical cough, has no hypoxia, no leukocytosis, afebrile - procalcitonin level of 0.03 - COVID-19 PCR negative - has history of COVID infection in December Plan: - given 0 evidence of respiratory infection will hold off on given him any antibiotics - monitor respiratory status and for any signs or evidence of infection including fever or leukocytosis # hypothyroidism - Continue levothyroxine For all his other chronic issues will continue his home medications DVT prophylaxis: Lovenox
[2020-11-18 05:38] LABS: Basophils Absolute Auto 0.1 X10*3/uL (0.0-0.2); Basophils Percent Auto 0.7 % (0-2); Eosinophils Absolute Auto 0.1 X10*3/uL (0.0-0.4); Eosinophils Percent Auto 1.2 % (0-4); Hematocrit 42.7 % (42-52); Hemoglobin 14.7 g/dl (14.0-18.0); Imm Gran Abs Auto 0.05 X10*3/uL (0.00-0.03); Imm Gran Pct Auto 0.7 % (0.0-0.4); Lymphocytes Absolute Auto 1.7 X10*3/uL (1.2-4.9); Lymphocytes Percent Auto 22.9 % (20-40); MANUAL DIFF FLAG NO; Mean Corpuscular HGB Conc 34.4 g/dl (31.0-36.0); Mean Corpuscular Hemoglobin 32.3 pg (27.0-33.0); Mean Corpuscular Volume 93.8 fL (80-98); Monocytes Absolute Auto 0.7 X10*3/uL (0.1-1.2); Monocytes Percent Auto 9.3 % (2-11); Neutrophils Absolute Auto 4.8 X10*3/uL (2.0-8.3); Neutrophils Percent Auto 65.2 % (45-73); Platelet Count 216 X10*3/uL (160-400); Red Blood Count 4.55 X10*6/uL (4.60-5.80); Red Cell Distribution Width 13.4 % (11.0-16.0); White Blood Count 7.3 X10*3/uL (4.8-10.8)
[2020-11-18 06:14] LABS: Anion Gap 14 (12-20); Blood Urea Nitrogen 11 mg/dL (9-16); Calcium 9.6 mg/dL (8.4-10.2); Carbon Dioxide 24 mmol/L (22-29); Chloride 105 mmol/L (96-108); Estimated Glomerular Filt Rate > 60; Glucose Random 86 mg/dL (60-115); Potassium 3.7 mmol/l (3.3-5.1); Sodium 139 mmol/L (135-145)
[2020-11-18 06:19] LABS: Troponin-I High Sensitivity 30.8 ng/L (<3.5-35.0)
--- NOTE | 2020-11-18 07:00 | PC.NURSE ---
received report from kiara nazario pt is currently resting in the stretcher, respirations even and unlabored. pt awaiting room assignment
[2020-11-18] MEDS: Sucralfate Oral Suspension 1 GM/10 ML ORAL.SUSP PO ×4 (07:55→21:28)
[2020-11-18] MEDS: Levothyroxine Sodium 75 MCG TABLET PO (07:57)
[2020-11-18] MEDS: Tamsulosin HCL 0.4 MG CAPSULE PO (07:57)
[2020-11-18] MEDS: OXcarbazepine 150 MG TABLET PO ×2 (07:58→21:31)
[2020-11-18] MEDS: Omeprazole 20 MG CAPSULE.DR PO ×2 (07:58→21:29)
[2020-11-18] MEDS: Benztropine Mesylate 1 MG TABLET PO ×2 (07:58→21:31)
[2020-11-18] MEDS: Megestrol Acetate 400 MG/10 ML ORAL.SUSP PO (07:58)
--- NOTE | 2020-11-18 08:27 | PC.NURSE ---
pt given his morning medications crushed with ice cream pt incontinent of urine, changed over into clean hospital attire. pt provided breakfast [place]
--- NOTE | 2020-11-18 09:26 | PC.NURSE ---
Pt resting in be with eyes closed.
[2020-11-18] MEDS: 0.9 % Sodium Chloride Flush 3 ML SYRINGE IVFLUSH ×2 (09:27→18:31)
--- NOTE | 2020-11-18 10:48 | P.CONCA_ITS ---
History of Present Illness History of Present Illness Date of Service: 11/18/20 Consult reason: chest pain Chief complaint: NSTEMI Narrative: This is a cardiology consultation regarding chest pain and abnormal EKG. Patient himself is a very poor historian. In spite of using a deckhand crab boat, he is not able to really say much. As a questioned him as to why he is here, he states that he really does not know. Then I asked him if he had any chest pain and then he points towards his lower abdomen near the scrotum. Hence not entirely clear as to how reliable he is. He initially presented with chest pain. Even at that time, he was not completely oriented to time or place unable to give much history. He apparently has had complaint of midsternal chest pain and then 1 episode of vomiting and then subsequently felt better. At this time however, he states he does not know why he is here. Review of Systems Review of Systems: Yes Unobtainable due to mental status [facility] Past Medical History Medical History Anemia BPH (benign prostatic hyperplasia) CHF (congestive heart failure) Constipation Dementia Duodenal ulcer Dysphagia GERD (gastroesophageal reflux disease) HIV (human immunodeficiency virus infection) Hyperlipidemia Hypertension Hypothyroid Social History Social History Advance Directives: No Meds Allergies Allergy/AdvReac Type Severity Reaction Status Date / Time chlorpromazine Allergy Unknown UNKNOWN Verified 07/31/20 15:42 [From THORAZINE] Home Medications Medication Instructions Recorded Confirmed Type Triumeq 1 tab PO DAILY 07/30/20 11/17/20 History albuterol sulfate 2 puff INHALATION Q4H PRN 07/30/20 11/17/20 History lactulose 20 g PO DAILY PRN 07/30/20 11/17/20 History levothyroxine 75 mcg PO DAILY 07/30/20 11/17/20 History multivitamin with iron 1 tab PO DAILY 07/30/20 11/17/20 History omeprazole 20 mg PO BID 07/30/20 11/17/20 History oxcarbazepine [Trileptal] 150 mg PO BID 07/30/20 11/17/20 History sennosides 8.6 mg PO BEDTIME PRN 07/30/20 11/17/20 History tamsulosin [Flomax] 0.4 mg PO DAILY 07/30/20 11/17/20 History acetaminophen 650 mg PO Q4H PRN 11/17/20 11/17/20 History albuterol sulfate [ProAir HFA] 2 puff INHALATION Q4-6H PRN 11/17/20 11/17/20 History artificial tears solution 1 drp OPHTHALMIC (EYE) Q4H 11/17/20 11/17/20 History benztropine 1 mg PO BID 11/17/20 11/17/20 History guaifenesin 200 mg PO Q4H PRN 11/17/20 11/17/20 History guaifenesin [Guaifenesin LA] 600 mg PO BID 11/17/20 11/17/20 History haloperidol lactate 1.2 mg PO BID 11/17/20 11/17/20 History loperamide 2 mg PO Q6H PRN 11/17/20 11/17/20 History megestrol 400 mg PO DAILY 11/17/20 11/17/20 History nystatin 1 appl TOPICAL BID 11/17/20 11/17/20 History sucralfate 10 ml PO QID 11/17/20 11/17/20 History Physical Exam Vital Signs: Vital Signs: Last Vital Signs Temp 98.4 F 11/17/20 22:16 Pulse 56 11/18/20 08:16 Resp 18 11/18/20 08:16 BP 186/84 H 11/18/20 08:16 Pulse Ox 96 11/18/20 08:16 Body Mass Index 26.6 Const: General: cooperative, comfortable and no acute distress Orien tation/consciousness: patient oriented x3 HENMT: Other: Unremarkable Neck: Neck: Yes normal visual inspection Chest: Chest palpation & inspection: normal inspection of the chest Resp: Auscultation: clear to auscultation bilaterally, no crackles and no wheezes Cardio: Jugular venous distension: no JVD Palpation: normal PMI Heart sounds: S1 normal heart sound present, S2 abnormal (soft), no gallops, Murmur heart sound present systolic early, III/ and at the right sternal border and no rubs GI: Palpation (GI): Soft to palpation Back/Spine/Pelvis: Other: unremarkable Skin: General skin exam: no rashes or lesions noted Neuro: General: patient oriented x3 Extrem: General: Yes no clubbing, cyanosis or edema Psych: Mental Status: mental status grossly normal Results Labs and Meds Result diagrams: 11/18/20 05:32 11/18/20 05:32 Lab results: Laboratory Results - last 24 hr 11/17/20 11/17/20 11/17/20 23:14 23:19 23:19 WBC 7.4 RBC 4.54 L Hgb 14.8 Hct 42.9 MCV 94.5 MCH 32.6 MCHC 34.5 RDW 13.4 Plt Count 221 MPV 9.6 Immature Gran % (Auto) 0.5 H Neut % (Auto) 66.9 Lymph % (Auto) 22.7 [place] % (Auto) 7.9 Eos % (Auto) 1.3 Baso % (Auto) 0.7 Lymph # (Auto) 1.7 [place] # (Auto) 0.6 Eos # (Auto) 0.1 Baso # (Auto) 0.1 Abs Immat Gran (auto) 0.04 H Absolute Neuts (auto) 5.0 Absolute Nucleated RBC 0.000 Nucleated RBC % (auto) 0.0 Sodium 137 Potassium 3.9 Chloride 102 Carbon Dioxide 24 Anion Gap 15 BUN 14 Creatinine 0.86 Estim Creat Clear Calc 75.3 Estimated GFR > 60 Random Glucose 97 Calcium 9.4 Total Bilirubin 0.7 AST 15 ALT 17 Alkaline Phosphatase 83 Troponin I High Sens Total Protein 7.3 Albumin 4.4 Lipase 27 Procalcitonin Coronavirus (PCR) NEGATIVE Influenza Type A (PCR) NEGATIVE Influenza Type B (PCR) NEGATIVE RSV RNA Qual (PCR) NEGATIVE 11/17/20 11/17/20 11/18/20 23:19 23:19 05:32 WBC 7.3 RBC 4.55 L Hgb 14.7 Hct 42.7 MCV 93.8 MCH 32.3 MCHC 34.4 RDW 13.4 Plt Count 216 MPV 10.0 Immature Gran % (Auto) 0.7 H Neut % (Auto) 65.2 Lymph % (Auto) 22.9 [place] % (Auto) 9.3 Eos % (Auto) 1.2 Baso % (Auto) 0.7 Lymph # (Auto) 1.7 [place] # (Auto) 0.7 Eos # (Auto) 0.1 Baso # (Auto) 0.1 Abs Immat Gran (auto) 0.05 H Absolute Neuts (auto) 4.8 Absolute Nucleated RBC 0.000 Nucleated RBC % (auto) 0.0 Sodium Potassium Chloride Carbon Dioxide Anion Gap BUN Creatinine Estim Creat Clear Calc Estimated GFR Random Glucose Calcium Total Bilirubin AST ALT Alkaline Phosphatase Troponin I High Sens 24.1 Total Protein Albumin Lipase Procalcitonin 0.03 Coronavirus (PCR) Influenza Type A (PCR) Influenza Type B (PCR) RSV RNA Qual (PCR) 11/18/20 11/18/20 05:32 05:32 WBC RBC Hgb Hct MCV MCH MCHC RDW Plt Count MPV Immature Gran % (Auto) Neut % (Auto) Lymph % (Auto) [place] % (Auto) Eos % (Auto) Baso % (Auto) Lymph # (Auto) [place] # (Auto) Eos # (Auto) Baso # (Auto) Abs Immat Gran (auto) Absolute Neuts (auto) Absolute Nucleated RBC Nucleated RBC % (auto) Sodium 139 Potassium 3.7 Chloride 105 Carbon Dioxide 24 Anion Gap 14 BUN 11 Creatinine 0.81 Estim Creat Clear Calc 80.0 Estimated GFR > 60 Random Glucose 86 Calcium 9.6 Total Bilirubin AST ALT Alkaline Phosphatase Troponin I High Sens 30.8 Total Protein Albumin Lipase Procalcitonin Coronavirus (PCR) Influenza Type A (PCR) Influenza Type B (PCR) RSV RNA Qual (PCR) ECG Attestation: I personally reviewed and interpreted this ECG as follows: Interpretation: EKG with sinus rhythm and T inversions across the precordial chest leads as well as anterolateral leads to a smaller extent. Findings were seen before. Imaging Radiologist's impression: Impressions Chest X-Ray 11/17/20 22:27 IMPRESSION: Patchy right mid to lower lung opacities and possible left midlung opacities could be infectious or inflammatory. Assessment and Plan (1) Precordial chest pain: Status: Acute (2) Uncontrolled hypertension: Status: Acute EKG shows T inversions across the precordium that are chronic. High sensitivity troponins are 24 and 30 which are still within limits. His blood pressure seems to be quite high. As much as 201/110mmHg. Chest pain could be from uncontrolled hypertension. At this time, no clear evidence of any ACS. Due to dementia and lack of any understanding, recommend conservative medical care. Aggressive blood pressure management. We can get an echocardiogram but otherwise no specific ischemia workup at this time.
--- NOTE | 2020-11-18 12:21 | P.PNIM_ITS ---
Subjective Subjective Date of Service: 11/18/20 Interval History: Patient being followed for chest pain, patient is unable to provide any meaningful history denies chest pain, no complaints since admission noted to have elevated blood pressure overnight. Review of system unable to obtain due to underlying dementia Physical Exam Vital Signs: Vital Signs: Last Vital Signs Temp 98.5 F 11/18/20 11:15 Pulse 67 11/18/20 11:15 Resp 19 11/18/20 11:15 BP 165/96 H 11/18/20 11:15 Pulse Ox 98 11/18/20 11:15 Body Mass Index 26.6 Const: Other: General patient resting comfortably in no acute distress, pleasantly confused. Neck no JVD. CVS regular rate rhythm, Respiratory lungs clear to auscultation, no respiratory distress Gastrointestinal abdomen soft, nontender, bowel sounds audible, Extremities no edema. Neuro moving all 4 extremity speech clear. Skin no rash Objective Data Current Medications Generic Name Dose Route Start Last Admin Trade Name Freq PRN Reason Stop Dose Admin Acetaminophen 650 mg 11/17/20 23:46 Acetaminophen 325 Mg Tablet PO Q6H PRN Pain, Mild (Pain Scale 1-3) Albuterol Sulfate 2 puff 11/17/20 23:46 Albuterol Sulfate 90 Mcg 8 Gm Inhaler INHALE Q4H PRN Dyspnea Artificial Tears 1 drop 11/18/20 06:30 11/18/20 11:13 Artificial Tears 15 Ml Drops EYE-BOTH Not Given Q4H [facility] Benztropine Mesylate 1 mg 11/18/20 09:00 11/18/20 11:11 Benztropine Mesylate 1 Mg Tablet PO Not Given BID [facility] Docusate Sodium 100 mg 11/17/20 23:46 Docusate Sodium 100 Mg Capsule PO DAILY PRN Constipation Enoxaparin Sodium 40 mg 11/17/20 23:46 11/18/20 01:18 Enoxaparin Sodium 40 Mg/0.4 Ml Syringe SUBCUT 40 mg Q24H KYRA Administration Guaifenesin 10 ml 11/17/20 23:46 Guaifenesin 100 Mg/5 Ml Liquid PO Q4H PRN Cough Haloperidol Lactate 1.2 mg 11/17/20 23:46 11/18/20 11:11 Haloperidol Lactate 10 Mg/5 Ml Oral.Conc PO Not Given BID KYRA Lactulose 20 gm 11/17/20 23:46 Lactulose 20 Gm/30 Ml Solution PO DAILY PRN Constipation Levothyroxine Sodium 75 mcg 11/18/20 09:00 11/18/20 11:11 Levothyroxine Sodium 75 Mcg Tablet PO Not Given DAILY [facility] Lisinopril 10 mg 11/18/20 11:45 Lisinopril 10 Mg Tablet PO DAILY [facility] Protocol Megestrol Acetate 400 mg 11/18/20 09:00 11/18/20 11:11 Megestrol Acetate 400 Mg/10 Ml Oral.Susp PO Not Given DAILY [facility] Metoprolol Succinate 25 mg 11/18/20 11:45 Metoprolol Succinate Er 25 Mg Tab.Er.24h PO DAILY [facility] Protocol Non-Formulary Medication 1 tab 11/18/20 09:00 [id number]-Nkuubvt [Triumeq] PO DAILY [facility] Nystatin 1 appl 11/18/20 09:00 11/18/20 11:12 Nystatin Powder 15 Gm Bottle TOPICAL Not Given BID [facility] Protocol Omeprazole 20 mg 11/18/20 09:00 11/18/20 11:12 Omeprazole 20 Mg Capsule.Dr PO Not Given BID [facility] Ondansetron HCl 4 mg 11/17/20 23:46 Ondansetron Hcl 4 Mg/2 Ml Vial IVPUSH Q8H PRN Nausea and Vomiting Oxcarbazepine 150 mg 11/18/20 09:00 11/18/20 11:12 Oxcarbazepine 150 Mg Tablet PO Not Given BID [facility] Sodium Chloride 3 ml 11/18/20 00:00 11/18/20 09:27 0.9 % Sodium Chloride Flush 3 Ml Syringe IVFLUSH 3 ml QSHIFT [facility] Administration Sucralfate 1 gm 11/18/20 07:30 11/18/20 07:55 Sucralfate Oral Suspension 1 Gm/10 Ml Oral.Susp PO 1 gm QIDACHS [facility] Administration Tamsulosin HCl 0.4 mg 11/18/20 09:00 11/18/20 11:12 Tamsulosin Hcl 0.4 Mg Capsule PO Not Given DAILY [facility] Labs CBC & Chem 7: 11/18/20 05:32 11/18/20 05:32 Assessment and Plan (1) ACS (acute coronary syndrome): Status: Acute (2) Chest pain: Status: Acute (3) Pulmonary infiltrate on chest x-ray: Status: Acute Assessment and Plan: This is a 74-year-old male with past medical history of CHF, hypertension, HIV, hyperlipidemia, hypothyroidism dementia BPH anemia was brought into [facility] from [facility] and since patient Complained of midsternal chest pain and had 1 episode of vomiting, patient in the emergency room denies any chest pain abdominal pain nausea or vomiting. # chest pain no ACS Resolved, EKG with chronic changes, troponin remains flat patient seen by [facility] diology they do not feel patient has acute coronary syndrome, the field G chest pain likely related to uncontrolled hypertension Follow echocardiogram Continue conservative medical management will add low-dose beta blockers, Arpit, check lipid profile, blood sugars stable, add aspirin # pulmonary infiltrate on chest x-ray patient has no clinical cough, has no hypoxia, no leukocytosis, afebrile, procalcitonin level of 0.03, COVID-19 PCR negative, has history of COVID infection in December Hold off on antibiotic and follow clinical course # hypothyroidism Continue levothyroxine For all his other chronic issues will continue his home medications DVT prophylaxis: Lovenox
[2020-11-18 12:52] LABS: Glucose, Whole Blood 89 mg/dL (60-115)
--- NOTE | 2020-11-18 13:01 | MHC.CM.PN ---
Attempted to meet with patient in regards to discharge planning. Patient has a history of dementia and has a guardian. Patient is a [facility] care resident [facility]. Attempted to speak with patient's guardian, Dian Charles via telephone at [phone]. Dian did not answer the phone and her voicemail was full, so a message could not be left. IMM sent via certified mail. Anticipate patient will return to [facility] via [facility] when medically stable. Continue to monitor for d/c needs.
[2020-11-18] MEDS: Aspirin Enteric Coated 81 MG TABLET.DR PO (13:14)
[2020-11-18] MEDS: Metoprolol Succinate ER 25 MG TAB.ER.24H PO (13:15)
--- NOTE | 2020-11-18 13:40 | PC.NURSE ---
Update given to Caroline at [facility]. Pt cooperative but does not wish to eat his lunch. He spit back the turkey and the rice but it willingly eating a cupcake. Per report he ate most of his breakfast.
--- NOTE | 2020-11-18 17:33 | PC.NURSE ---
Pt cleaned of urine by ED techs. Pt remains calm and cooperative with care.
--- NOTE | 2020-11-18 21:02 | PC.NURSE ---
pt transferred to hospital bed for comfort, sleeping since 7pm.
[2020-11-18 22:02] LABS: Glucose Urine UA NEG (NEG); Nitrite Urine NEG (NEG); Specific Gravity - Urine 1.025 (1.005-1.025); Urine Blood 2+ (NEG); Urine Ketones NEG (NEG); Urine Protein 2+ MG/DL (NEG-TRACE)
[2020-11-18 22:14] LABS: Appearance Urine TURBID; Color Urine YELLOW; Leukocyte Esterase Urine 3+ (NEG)
[2020-11-18 22:15] LABS: Bacteria Urine 1+ /LPF; Mucus Urine 1+ /LPF; Squamous Epithelial Cell Urine TRACE /LPF; WBC Urine TNTC /HPF (0-4)
--- NOTE | 2020-11-18 22:30 | PC.NURSE ---
pt took all medications crushed in apple sauce, also took prilosec capsule whole with apple sauce. pt needed urinal. sample sent down was yellow and cloudy, was not clean catch.
[2020-11-18] MEDS: Nystatin Powder 15 GM BOTTLE 1 APPL TOPICAL (22:49)
[2020-11-18] MEDS: Artificial Tears 15 ML DROPS 1 DROP EYE-BOTH (22:50)
--- NOTE | 2020-11-18 23:46 | CA_ITS ---
Transthoracic Echocardiogram Patient (Last, First, Middle): Javi Hardy, Gender: Male Date of : 1945 Age: 74 Procedure Date: 11/18/2020 Procedure Type: Transthoracic Echocardiogram Location: ER Height: 175.26 cm Weight: 81.65 kg BSA: 1.98 m2 Heart Rate: bpm BP: 163 / 84 mmHg Certified Ophthalmic Medical Technician: Referring MD: Greta Dey MD Symptoms: NSTEMI Study Quality: Fair ECG Rhythm: Sinus Conclusions: - The left ventricular systolic function is normal. The visually estimated ejection fraction is between 55-60%. - There is mild to moderate aortic valve stenosis. Findings Left Ventricle Normal left ventricular cavity size. There is moderately increased left ventricular wall thickness. The left ventricular systolic function is normal. The visually estimated ejection fraction is between 55-60%. E/E prime ratio is between 8 and 15 consistent with indeterminate filling pressures. Evidence suggests grade I (mild) diastolic dysfunction. Right Ventricle Normal right ventricular cavity size and systolic function. Atria The left atrium is mildly dilated. The right atrium is normal in size. Aortic Valve The aortic valve was not well visualized. There is severe calcification of the aortic valve. There is mild to moderate aortic valve stenosis. The peak aortic velocity is 3.20 m/s with a calculated peak gradient of 41 mmHg. The mean gradient is 23 mmHg. The aortic valve area is 1.02 cm2. There is trace (trivial) aortic valve regurgitation. Mitral Valve The mitral valve appears normal. There is trace mitral valve regurgitation. There is no mitral valve stenosis. Pulmonic Valve The pulmonic valve was not well visualized. Tricuspid Valve Normal tricuspid valve structure. There is trace tricuspid valve regurgitation. The pulmonary artery systolic pressure is normal. Great Vessels The aortic annulus, sinuses of valsalva, and asc aorta are normal in size. Venous The inferior vena cava is normal in size and collapses greater than 50% with inspiration. Pericardium/Pleural There is no evidence of pericardial effusion. Prior Study Comparison No significant change compared to prior study dated: 10/12/2018. Measurements 2D Linear Measurements IVSd: 1.39 0.6-0.9/0.6-1.0 cm LVIDd: 4.13 3.9-5.3/4.2-5.9 cm LVIDd Index: 2.09 2.4-3.2/2.2-3.1 cm/m2 LVIDs: 2.81 2.0-3.6 cm LVPWd: 1.32 0.7-1.1 cm Ao Root: 3.40 2.1-3.5 cm LA Diam: 3.50 2.7-3.8/3.0-4.0 cm LAIDs Index: 1.77 1.5-2.3 cm/m2 LV Mass: 259.55 67-162/88-224 g LV Mass Index: 131.09 43-95/49-115 g/m2 LVOT Diam: 2.30 3.0+(-)1.3 cm 2D Systolic Function EF 4C: 60.20 >55% EF 2C: 57.70 >55% EF BiP: 59.80 >55% Mitral Valve MV Pk E: 0.71 MV PK A: 0.69 MV Decel Time: 232.00 E/A: 1.00 E'Lateral: 6.58 E'Medial: 4.84 E/E' Med: 14.70 E/E' Lat: 10.80 PHT: 68.00 MVA PHT: 3.24 Decel [place]: 3.07 Aortic Valve AoV Pk Donte: 3.20 AoV Mn Donte: 2.23 AoV VTI: 0.70 AoV Pk Grad: 41.00 Aov Mn Grad: 23.00 BALDO Cont.VTI: 1.02 LVOT LVOT Pk Donte: 0.81 LVOT Mn Donte: 0.50 LVOT VTI: 0.17 LVOT Pk Grad: 3.00 LVOT Mn Grad: 1.00 LVOT Diam: 2.30 LVOT Area: 4.15 Diastolic Function MV Pk E: 0.71 MV Pk A: 0.69 E/A: 1.00 E'Medial: 4.84 E/E' Med: 14.70 E' Laterial: 6.58 E/E' Lat: 10.80 Tricuspid Valve TR Pk Donte: 1.82 TR Pk Grad: 13.00 Great Vessels Aorta Ao Root-2D: 3.40 2.0-3.7 cm Pulmonary Valve PV Pk Donte: 1.03 Peak PV Grad: 4.00 Updated in Other Vendor System with Status of Final Jeffery Khoury MD electronically signed on 11/18/2020 5:05:17 PM with status of Final
[2020-11-19] VITALS: BP 152/76; PULSE 61; RESP 16; TEMP 36.4; O2SAT 96
[2020-11-19 00:06] LABS: Glucose, Whole Blood 94 mg/dL (60-115)
[2020-11-19] MEDS: Artificial Tears 15 ML DROPS 1 DROP EYE-BOTH ×2 (00:38→09:17)
[2020-11-19] MEDS: cefTRIAXone sodium 1 GM in 0.9 % Sodium Chloride 50 ML IV (00:40)
[2020-11-19] MEDS: 0.9 % Sodium Chloride Flush 3 ML SYRINGE IVFLUSH ×2 (00:45→09:17)
[2020-11-19] MEDS: Enoxaparin Sodium 40 MG/0.4 ML SYRINGE SUBCUT (01:44)
[2020-11-19 05:40] VITALS: RESP 16
[2020-11-19 05:52] LABS: Glucose, Whole Blood 73 mg/dL (60-115)
--- NOTE | 2020-11-19 08:20 | PC.NURSE ---
ATE A SMALL AMT OF BREAKFAST, AGITATED AT TIMES BUT SITTER WAS ABLE TO REDIRECT, SAT IN [place] CHAIR FOR ABOUT AN HOUR, REMOVED MONITOR AND AT THIS TIME WILL NOT ALLOW US TO PLACE BACK ON, RESP EVEN AND UNLABORED AND NOW RESTING W EYES CLOSED
[2020-11-19] MEDS: Sucralfate Oral Suspension 1 GM/10 ML ORAL.SUSP PO (09:08)
[2020-11-19 09:09] VITALS: BP 138/66; PULSE 62
[2020-11-19] MEDS: Levothyroxine Sodium 75 MCG TABLET PO (09:09)
[2020-11-19] MEDS: OXcarbazepine 150 MG TABLET PO (09:09)
[2020-11-19] MEDS: Megestrol Acetate 400 MG/10 ML ORAL.SUSP PO (09:09)
[2020-11-19] MEDS: Metoprolol Succinate ER 25 MG TAB.ER.24H PO (09:09)
[2020-11-19 09:11] VITALS: BP 138/66; PULSE 62
[2020-11-19] MEDS: Tamsulosin HCL 0.4 MG CAPSULE PO (09:11)
[2020-11-19] MEDS: Aspirin Enteric Coated 81 MG TABLET.DR PO (09:11)
[2020-11-19] MEDS: Omeprazole 20 MG CAPSULE.DR PO (09:11)
[2020-11-19] MEDS: Benztropine Mesylate 1 MG TABLET PO (09:11)
[2020-11-19] MEDS: lamiVUDine 150 MG TABLET 300 MG PO (09:23)
[2020-11-19] MEDS: Dolutegravir Sodium 50 MG TABLET PO (09:23)
--- NOTE | 2020-11-19 09:40 | MHC.CM.PN ---
Received notification from Dr Sorenson that patient can discharge back to [facility] today. Reached out to [facility] Specialist, Elva. Waiting for return telephone call. Continue to monitor for d/c needs.
--- NOTE | 2020-11-19 10:17 | MHC.CM.PN ---
Addendum entered by Mckenzie Shanks 11/19/20 12:04: Attempted to notify guardian, Dian. Left a voicemail at [phone] explainging discharge plan with contact info. Original Note: Spoke with Caroline Wolff of [facility] via telephone at [phone]. Patient can return. Caroline requesting Covid swab be ordered and patient leave at 2pm. Dr Sorenson aware. [facility] booked. Continue to monitor for d/c needs.
[2020-11-19 11:01] VITALS: BP 170/73; PULSE 63; RESP 16; O2SAT 96
[2020-11-19 11:52] LABS: COVID-19 Test Negative (Negative)
[2020-11-19 12:28] LABS: Cholesterol 181 mg/dL; HDL Cholesterol 26 mg/dL; LDL Cholesterol Calculated 107 mg/dl; Triglycerides 243 mg/dL
--- NOTE | 2020-11-19 12:51 | PM.DS ---
DS: Providers Provider Date of Service: 11/19/20 Date of admission: 11/17/20 23:46 Primary care physician: Unknown Physician Consults: 11/17/20 23:46 Consult to Cardiology Routine Consulting Provider: Jeffery Khoury Reason for consultation: NSTEMI Has provider been notified: Yes DS: Diagnosis Discharge Diagnosis (1) ACS (acute coronary syndrome): Status: Acute (2) Chest pain: Status: Acute (3) Pulmonary infiltrate on chest x-ray: Status: Acute DS: Medications Discharge Medications Home Medications: Home Medications Medication Instructions Recorded Confirmed Triumeq 1 tab PO DAILY 07/30/20 11/17/20 albuterol sulfate 2 puff INHALATION Q4H PRN 07/30/20 11/17/20 lactulose 20 g PO DAILY PRN 07/30/20 11/17/20 levothyroxine 75 mcg PO DAILY 07/30/20 11/17/20 multivitamin with iron 1 tab PO DAILY 07/30/20 11/17/20 omeprazole 20 mg PO BID 07/30/20 11/17/20 oxcarbazepine [Trileptal] 150 mg PO BID 07/30/20 11/17/20 sennosides 8.6 mg PO BEDTIME PRN 07/30/20 11/17/20 tamsulosin [Flomax] 0.4 mg PO DAILY 07/30/20 11/17/20 acetaminophen 650 mg PO Q4H PRN 11/17/20 11/17/20 albuterol sulfate [ProAir HFA] 2 puff INHALATION Q4-6H PRN 11/17/20 11/17/20 artificial tears solution 1 drp OPHTHALMIC (EYE) Q4H 11/17/20 11/17/20 benztropine 1 mg PO BID 11/17/20 11/17/20 guaifenesin 200 mg PO Q4H PRN 11/17/20 11/17/20 guaifenesin [Guaifenesin LA] 600 mg PO BID 11/17/20 11/17/20 haloperidol lactate 1.2 mg PO BID 11/17/20 11/17/20 loperamide 2 mg PO Q6H PRN 11/17/20 11/17/20 megestrol 400 mg PO DAILY 11/17/20 11/17/20 nystatin 1 appl TOPICAL BID 11/17/20 11/17/20 sucralfate 10 ml PO QID 11/17/20 11/17/20 DS: Summary Hospital Course Hospital Course: History of presenting illness Chief Complaint: Chest pain 74-year-old male resident of [facility] with past medical history of CHF, hypertension, HIV, HLD, hypothyroidism, baseline dementia, BPH, anemia who presents to the hospital from [facility] with complaints of chest pain. Patient is Mongolian-speaking, completely not oriented to place or time and unable to give much history therefore history is obtained mostly from EMR as well as ED staff. According to the report from EMS patient woke up complaining of midsternal chest pain, 1 episode of vomiting then felt better. He currently denies any chest pain, abdominal pain, no nausea or vomiting and answers no to all my questions of review of system. On arrival to the ED patient has a temp of 98.4?, heart rate of 83, respiratory rate of 18, blood pressure 194/101, satting 98% on room air Labs are significant for WBC count 7.4, hemoglobin 14.8, sodium of 137, potassium 3.9, COVID-19 negative, initial troponin of 24.1. Has procalcitonin level of 0.[address] depressions in the lateral leads V4 V6 which were present on previous EKG. 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 # chest pain patient had no further complaints of chest pain,EKG with chronic changes, troponin remains flat patient seen by Cardiology they do not feel patient has acute coronary syndrome, chest pain likely related to uncontrolled hypertension, an echocardiogram showed an EF 55-60% and grade 1 mild diastolic dysfunction with moderately increased left ventricular wall thickness likely related to hypertension patient has been started on metoprolol XL 25 mg and lisinopril 10 mg daily, lipid profile showed an LDL of 107, blood sugars stable Will discharge patient on aspirin statin beta cedric and RAMU-inhibitor, recommend to follow BP closely and increase dose of lisinopril if BP remains elevated. # pulmonary infiltrate on chest x-ray patient has no clinical cough, has no hypoxia, no leukocytosis, afebrile, procalcitonin level of 0.03, COVID-19 PCR negative, has history of COVID infection in December # abnormal UA urine culture is pending patient treated with 2 days of IV ceftriaxone now being discharged on by mouth Ceftin for 3 more days please follow blood culture and urine culture that are currently pending # hypothyroidism Continue levothyroxine Recommend to continue all other home medications as previously prescribed Time Spent with Patient Time attestation: Total time spent providing and/or coordinating discharge services: Discharge coordination time: Greater than 30 minutes Physical Exam Vital Signs: Vital Signs: Last Vital Signs Temp 97.6 F 11/19/20 00:00 Pulse 63 11/19/20 11:01 Resp 16 11/19/20 11:01 BP 170/73 H 11/19/20 11:01 Pulse Ox 96 11/19/20 11:01 Body Mass Index 26.6 General patient resting comfortably in no acute distress, pleasantly confused. Neck no JVD. CVS regular rate rhythm, Respiratory lungs clear to auscultation, no respiratory distress Gastrointestinal abdomen soft, nontender, bowel sounds audible, Extremities no edema. Neuro moving all 4 extremity Skin no rash DS: Data Data Completed and Pending Labs on day of discharge: Laboratory Tests 11/17/20 11/17/20 11/17/20 23:14 23:19 23:19 WBC 7.4 RBC 4.54 L Hgb 14.8 Hct 42.9 MCV 94.5 MCH 32.6 MCHC 34.5 RDW 13.4 Plt Count 221 MPV 9.6 Immature Gran % (Auto) 0.5 H Neut % (Auto) 66.9 Lymph % (Auto) 22.7 [place] % (Auto) 7.9 Eos % (Auto) 1.3 Baso % (Auto) 0.7 Lymph # (Auto) 1.7 [place] # (Auto) 0.6 Eos # (Auto) 0.1 Baso # (Auto) 0.1 Abs Immat Gran (auto) 0.04 H Absolute Neuts (auto) 5.0 Absolute Nucleated RBC 0.000 Nucleated RBC % (auto) 0.0 Sodium 137 Potassium 3.9 Chloride 102 Carbon Dioxide 24 Anion Gap 15 BUN 14 Creatinine 0.86 Estim Creat Clear Calc 75.3 Estimated GFR > 60 POC Glucose Random Glucose 97 Calcium 9.4 Total Bilirubin 0.7 AST 15 ALT 17 Alkaline Phosphatase 83 Troponin I High Sens Total Protein 7.3 Albumin 4.4 Triglycerides Cholesterol LDL Cholesterol, Calc HDL Cholesterol Lipase 27 Procalcitonin Urine Color Urine Appearance Urine pH Ur Specific [place] Urine Protein Urine Glucose (UA) Urine Ketones Urine Blood Urine Nitrite Ur Leukocyte Esterase Urine RBC Urine WBC Ur Squamous Epith Cells Urine Bacteria Urine Mucus Coronavirus (PCR) NEGATIVE COVID-19 (MARY) COVID-19 Clin Com Influenza Type A (PCR) NEGATIVE Influenza Type B (PCR) NEGATIVE RSV RNA Qual (PCR) NEGATIVE 11/17/20 11/17/20 11/18/20 23:19 23:19 05:32 WBC 7.3 RBC 4.55 L Hgb 14.7 Hct 42.7 MCV 93.8 MCH 32.3 MCHC 34.4 RDW 13.4 Plt Count 216 MPV 10.0 Immature Gran % (Auto) 0.7 H Neut % (Auto) 65.2 Lymph % (Auto) 22.9 [place] % (Auto) 9.3 Eos % (Auto) 1.2 Baso % (Auto) 0.7 Lymph # (Auto) 1.7 [place] # (Auto) 0.7 Eos # (Auto) 0.1 Baso # (Auto) 0.1 Abs Immat Gran (auto) 0.05 H Absolute Neuts (auto) 4.8 Absolute Nucleated RBC 0.000 Nucleated RBC % (auto) 0.0 Sodium Potassium Chloride Carbon Dioxide Anion Gap BUN Creatinine Estim Creat Clear Calc Estimated GFR POC Glucose Random Glucose Calcium Total Bilirubin AST ALT Alkaline Phosphatase Troponin I High Sens 24.1 Total Protein Albumin Triglycerides Cholesterol LDL Cholesterol, Calc HDL Cholesterol Lipase Procalcitonin 0.03 Urine Color Urine Appearance Urine pH Ur Specific [place] Urine Protein Urine Glucose (UA) Urine Ketones Urine Blood Urine Nitrite Ur Leukocyte Esterase Urine RBC Urine WBC Ur Squamous Epith Cells Urine Bacteria Urine Mucus Coronavirus (PCR) COVID-19 (MARY) COVID-19 Clin Com Influenza Type A (PCR) Influenza Type B (PCR) RSV RNA Qual (PCR) 11/18/20 11/18/20 11/18/20 05:32 05:32 12:48 WBC RBC Hgb Hct MCV MCH MCHC RDW Plt Count MPV Immature Gran % (Auto) Neut % (Auto) Lymph % (Auto) [place] % (Auto) Eos % (Auto) Baso % (Auto) Lymph # (Auto) [place] # (Auto) Eos # (Auto) Baso # (Auto) Abs Immat Gran (auto) Absolute Neuts (auto) Absolute Nucleated RBC Nucleated RBC % (auto) Sodium 139 Potassium 3.7 Chloride 105 Carbon Dioxide 24 Anion Gap 14 BUN 11 Creatinine 0.81 Estim Creat Clear Calc 80.0 Estimated GFR > 60 POC Glucose 89 Random Glucose 86 Calcium 9.6 Total Bilirubin AST ALT Alkaline Phosphatase Troponin I High Sens 30.8 Total Protein Albumin Triglycerides Cholesterol LDL Cholesterol, Calc HDL Cholesterol Lipase Procalcitonin Urine Color Urine Appearance Urine pH Ur Specific [place] Urine Protein Urine Glucose (UA) Urine Ketones Urine Blood Urine Nitrite Ur Leukocyte Esterase Urine RBC Urine WBC Ur Squamous Epith Cells Urine Bacteria Urine Mucus Coronavirus (PCR) COVID-19 (MARY) COVID-19 Clin Com Influenza Type A (PCR) Influenza Type B (PCR) RSV RNA Qual (PCR) 11/18/20 11/19/20 11/19/20 21:46 00:02 05:47 WBC RBC Hgb Hct MCV MCH MCHC RDW Plt Count MPV Immature Gran % (Auto) Neut % (Auto) Lymph % (Auto) [place] % (Auto) Eos % (Auto) Baso % (Auto) Lymph # (Auto) [place] # (Auto) Eos # (Auto) Baso # (Auto) Abs Immat Gran (auto) Absolute Neuts (auto) Absolute Nucleated RBC Nucleated RBC % (auto) Sodium Potassium Chloride Carbon Dioxide Anion Gap BUN Creatinine Estim Creat Clear Calc Estimated GFR POC Glucose 94 73 Random Glucose Calcium Total Bilirubin AST ALT Alkaline Phosphatase Troponin I High Sens Total Protein Albumin Triglycerides Cholesterol LDL Cholesterol, Calc HDL Cholesterol Lipase Procalcitonin Urine Color YELLOW Urine Appearance TURBID Urine pH 7.0 Ur Specific [place] 1.025 Urine Protein 2+ H Urine Glucose (UA) NEG Urine Ketones NEG Urine Blood 2+ H Urine Nitrite NEG Ur Leukocyte Esterase 3+ H Urine RBC 5-9 H Urine WBC TNTC H Ur Squamous Epith Cells TRACE Urine Bacteria 1+ Urine Mucus 1+ Coronavirus (PCR) COVID-19 (MARY) COVID-19 Clin Com Influenza Type A (PCR) Influenza Type B (PCR) RSV RNA Qual (PCR) 11/19/20 11/19/20 11:29 11:46 WBC RBC Hgb Hct MCV MCH MCHC RDW Plt Count MPV Immature Gran % (Auto) Neut % (Auto) Lymph % (Auto) [place] % (Auto) Eos % (Auto) Baso % (Auto) Lymph # (Auto) [place] # (Auto) Eos # (Auto) Baso # (Auto) Abs Immat Gran (auto) Absolute Neuts (auto) Absolute Nucleated RBC Nucleated RBC % (auto) Sodium Potassium Chloride Carbon Dioxide Anion Gap BUN Creatinine Estim Creat Clear Calc Estimated GFR POC Glucose Random Glucose Calcium Total Bilirubin AST ALT Alkaline Phosphatase Troponin I High Sens Total Protein Albumin Triglycerides 243 Cholesterol 181 LDL Cholesterol, Calc 107 HDL Cholesterol 26 Lipase Procalcitonin Urine Color Urine Appearance Urine pH Ur Specific [place] Urine Protein Urine Glucose (UA) Urine Ketones Urine Blood Urine Nitrite Ur Leukocyte Esterase Urine RBC Urine WBC Ur Squamous Epith Cells Urine Bacteria Urine Mucus Coronavirus (PCR) COVID-19 (MARY) Negative COVID-19 Clin Com See Note Influenza Type A (PCR) Influenza Type B (PCR) RSV RNA Qual (PCR) Preliminary micro results at discharge 11/18/20 22:00 Urine Culture - Preliminary Urine clean catch - Clean Catch Midstream Culture in progress. Discharge Plan Discharge Patient Disposition: Xfer SNF Referrals: [facility] [Outside] Adrián Singh DO [Physician] - Discharge Medications: New aspirin 81 mg Tablet,Delayed Release (Dr/Ec) 81 mg PO DAILY Qty: 30 RF: 0 lisinopril 10 mg Tablet 10 mg PO DAILY Qty: 30 RF: 0 metoprolol succinate 25 mg Tablet Extended Release 24 Hr 25 mg PO DAILY Qty: 30 RF: 0 atorvastatin [Lipitor] 40 mg tablet 40 mg PO BEDTIME Qty: 30 RF: 0 cefuroxime axetil 500 mg Tablet 500 mg PO Q12H Qty: 6 RF: 0 Continued Triumeq 600-50-300 mg Tablet 1 tab PO DAILY RF: 0 lactulose 20 gram Packet 20 g PO DAILY PRN (Reason: Constipation) RF: 0 levothyroxine 75 mcg Tablet 75 mcg PO DAILY RF: 0 multivitamin with iron Tablet 1 tab PO DAILY RF: 0 oxcarbazepine [Trileptal] 150 mg Tablet 150 mg PO BID RF: 0 tamsulosin [Flomax] 0.4 mg Capsule 0.4 mg PO DAILY RF: 0 sennosides 8.6 mg Capsule 8.6 mg PO BEDTIME PRN (Reason: Constipation) RF: 0 omeprazole 20 mg Tablet,Delayed Release (Dr/Ec) 20 mg PO BID RF: 0 acetaminophen 325 mg Tablet 650 mg PO Q4H PRN (Reason: Mild Pain (Scale Score 1-4)) RF: 0 sucralfate 100 mg/mL Suspension 10 ml PO QID RF: 0 artificial tears solution Drops 1 drp OPHTHALMIC (EYE) Q4H RF: 0 loperamide 2 mg Tablet 2 mg PO Q6H PRN (Reason: Diarrhea) RF: 0 guaifenesin 100 mg/5 mL Liquid 200 mg PO Q4H PRN (Reason: Cough) RF: 0 benztropine 1 mg Tablet 1 mg PO BID RF: 0 nystatin 100,000 unit/gram Powder 1 appl TOPICAL BID RF: 0 albuterol sulfate [ProAir HFA] 90 mcg/actuation Hfa Aerosol Inhaler 2 puff INHALATION Q4-6H PRN (Reason: Dyspnea) RF: 0 haloperidol lactate 2 mg/mL Concentrate 1.2 mg PO BID RF: 0 megestrol 400 mg/10 mL (10 mL) Suspension 400 mg PO DAILY RF: 0 Discontinued albuterol sulfate 90 mcg/actuation Hfa Aerosol Inhaler 2 puff INHALATION Q4H PRN (Reason: Shortness Of Breath Or Wheezing) RF: 0 Guaifenesin LA 600 mg Tablet Extended Release 600 mg PO BID RF: 0 Discharge Orders: Discharge Order (Routine); Ordered 11/19/20 Ordered By: Gian Sorenson Diet: low fat, low cholesterol Activity on Discharge: As tolerated Stand Alone Forms: Patient Portal Discharge page Care Plan Goals: Continue all medications as before Health Concerns: Hypertension Plan of Treatment: Follow-up with primary care physician in 1 week
--- NOTE | 2020-11-19 14:00 | PC.NURSE ---
PT REFUSED ABT RX AND SUCRALFATE THIS AM. REPORT GIVEN TO ROSANGELA ORELLANA. TRANSPORTED THERE VIA [facility]
== END 2020-11-19 14:46 | disposition skilled nursing facility (03) | DRG 313 ==
LOC: HO.ED 23:54 → HO.EDOVER 11-18 03:54
PROVIDERS: Hospitalist; Admitting Provider Internal Medicine; Emergency Provider Student in an Organized Health Care Education/Training Program; Visit Provider Internal Medicine
DX: R07.9 Chest pain, unspecified (principal); F03.90 Unspecified dementia, unspecified severity, without behavioral disturbance, psychotic disturbance, mood disturbance, and anxiety; K21.9 Gastro-esophageal reflux disease without esophagitis; E03.9 Hypothyroidism, unspecified; R91.8 Other nonspecific abnormal finding of lung field; N40.0 Benign prostatic hyperplasia without lower urinary tract symptoms; I50.9 Heart failure, unspecified; E78.5 Hyperlipidemia, unspecified; I11.0 Hypertensive heart disease with heart failure; Z21 Asymptomatic human immunodeficiency virus [HIV] infection status; Z86.16 Personal history of COVID-19; Z79.82 Long term (current) use of aspirin; Z79.890 Hormone replacement therapy; Z79.899 Other long term (current) drug therapy
CPT/HCPCS: 0241U; 36415; 71045; 80048; 80053; 80061; 81001; 81003; 82947; 83690; 84145; 84484; 85025; 87040; 87086; 87088; 87186; 87635; 93005; 93306; 99284; J0696; J1650

== ENCOUNTER → 2021-03-25 13:23 | Outpatient (BNVA) | payer MEDICARE, MEDICAID, SELFPAY | PROVIDERS: PCP Hospitalist; Visit Provider Urology | DX: N40.0 Benign prostatic hyperplasia without lower urinary tract symptoms (principal); R39.15 Urgency of urination | CPT/HCPCS: 51798; 99212 ==

== ENCOUNTER 2021-08-17 22:20 | Emergency (ER) | payer MEDICARE, MEDICAID, SELFPAY ==
--- NOTE | 2021-08-17 | ECG_ITS ---
Test Reason : cp Blood Pressure : / mmHG Vent. Rate : 072 BPM Atrial Rate : 072 BPM P-R Int : 160 ms QRS Dur : 090 ms QT Int : 402 ms P-R-T Axes : 047 008 149 degrees QTc Int : 440 ms Normal sinus rhythm with sinus arrhythmia ST & T wave abnormality, consider anterolateral ischemia Abnormal ECG No significant changes seen Referred By: Ivis Garcia Electronically Signed By:MANOLO MEYER MD
--- NOTE | ~2021-08-17 | CT_ITS ---
EXAMINATION: CT ABDOMEN AND PELVIS WITHOUT CONTRAST CLINICAL INFORMATION: Abdominal pain and vomiting COMPARISON: CT abdomen pelvis 11/03/2016 TECHNIQUE: Multidetector volumetric imaging was performed from the superior aspect of the liver through the pubic symphysis. Sagittal and coronal reformatted images were obtained on the technologist's workstation. The exam is suboptimal secondary to the patient's inability to cooperate and inability to suspend respirations. In addition, the patient could not lay supine and the scan was performed in the left lateral decubitus position. This CT examination was performed using dose optimization techniques as appropriate, variously including the following: *Automated exposure control *Adjustment of mA and/or kV according to patient size (this includes techniques or standardized protocols for targeted exams where dose is matched to indication/reason for exam; i.e. extremities or head) *Use of iterative reconstruction technique DLP: 816 mGy-cm FINDINGS: LUNG BASES: The visualized lung bases show no gross abnormality. LIVER, GALLBLADDER, AND BILIARY TREE: The liver is normal in size, shape, and attenuation. No focal hepatic lesion or biliary ductal dilatation is present. The gallbladder is unremarkable with no evidence of radiopaque gallstones, gallbladder wall thickening, or obvious pericholecystic inflammatory changes. PANCREAS: Unremarkable. SPLEEN: Unremarkable. ADRENAL GLANDS: Unremarkable. KIDNEYS AND URETERS: The kidneys are normal in size, shape, and attenuation. Intrarenal calcifications are most likely vascular. No hydronephrosis, hydroureter, or definite collecting system calculi seen. No perinephric stranding. BLADDER: Unremarkable. GASTROINTESTINAL TRACT: The small and large bowel are unremarkable. There are a few scattered colonic diverticula without diverticulitis. The appendix is unremarkable. ABDOMINAL WALL: No significant hernia is appreciated. LYMPH NODES: No retroperitoneal lymphadenopathy. VASCULAR: Calcific plaque present in the aorta and iliofemoral vessels. No aneurysm. PELVIC VISCERA: Prostate and seminal vesicles appear normal. OSSEOUS STRUCTURES: Minimal degenerative changes present in the spine. No bony destructive lesions seen. CT/CT abdomen pelvis wo con IMPRESSION: No acute abnormality is seen to account for the patient's abdominal pain and vomiting.
--- NOTE | 2021-08-17 22:42 | ED.GENADULT ---
HPI - General Adult General Chief complaint: Chest Pain Stated complaint: cp Time Seen by Provider: 08/17/21 22:27 Source: EMS Mode of arrival: EMS Limitations: other (Advanced dementia, [place]er-speaking) History of Present Illness HPI narrative: Patient comes to emergency room complaining of chest pain/abdominal pain. According to EMS, patient was picked up from [facility], the nurses report that the patient was complaining of chest pain. On arrival to the emergency room, patient states that he is nauseous and has abdominal pain, denies chest pain, no shortness of breath. Patient has history of advanced dementia, patient is poor historian. Reviewing patient's records, patient was seen here on 11/19/2020 for a similar episode. Patient presented with chest pain, was admitted for chest pain and EKG changes. Per discharge summary, patient symptoms and EKG changes likely related to uncontrolled hypertension, echocardiogram showed an ejection fraction of 55-60%, patient was started on metoprolol 25 mg daily and lisinopril 10 mg daily. On arrival, patient had 1 episode of emesis. Related Data Home Medications Medication Instructions Recorded Confirmed abacavir 600 mg-dolutegravir 50 1 tab PO DAILY 07/30/20 11/17/20 mg-lamivudine 300 mg tablet (Triumeq) lactulose 20 gram oral packet 20 g PO DAILY PRN 07/30/20 11/17/20 levothyroxine 75 mcg tablet 75 mcg PO DAILY 07/30/20 11/17/20 multivitamin with iron 1 tab PO DAILY 07/30/20 11/17/20 omeprazole 20 mg tablet,delayed 20 mg PO BID 07/30/20 11/17/20 release oxcarbazepine 150 mg tablet 150 mg PO BID 07/30/20 11/17/20 (Trileptal) sennosides 8.6 mg capsule 8.6 mg PO BEDTIME PRN 07/30/20 11/17/20 tamsulosin 0.4 mg capsule (Flomax) 0.4 mg PO DAILY 07/30/20 11/17/20 acetaminophen 325 mg tablet 650 mg PO Q4H PRN 11/17/20 11/17/20 albuterol sulfate 90 mcg/actuation 2 puff INHALATION Q4-6H PRN 11/17/20 11/17/20 aerosol inhaler (ProAir HFA) artificial tears solution eye drops 1 drp OPHTHALMIC (EYE) Q4H 11/17/20 11/17/20 benztropine 1 mg tablet 1 mg PO BID 11/17/20 11/17/20 guaifenesin 100 mg/5 mL oral liquid 200 mg PO Q4H PRN 11/17/20 11/17/20 haloperidol lactate 2 mg/mL oral 1.2 mg PO BID 11/17/20 11/17/20 concentrate loperamide 2 mg tablet 2 mg PO Q6H PRN 11/17/20 11/17/20 megestrol 400 mg/10 mL (10 mL) 400 mg PO DAILY 11/17/20 11/17/20 oral suspension nystatin 100,000 unit/gram topical 1 appl TOPICAL BID 11/17/20 11/17/20 powder sucralfate 100 mg/mL oral 10 ml PO QID 11/17/20 11/17/20 suspension Previous Rx's Medication Instructions Recorded aspirin 81 mg tablet,delayed 81 mg PO DAILY #30 tab 11/19/20 release atorvastatin 40 mg tablet (Lipitor) 40 mg PO BEDTIME #30 tab 11/19/20 cefuroxime axetil 500 mg tablet 500 mg PO Q12H #6 tab 11/19/20 lisinopril 10 mg tablet 10 mg PO DAILY #30 tab 11/19/20 metoprolol succinate 25 mg 25 mg PO DAILY #30 tab 11/19/20 tablet,extended release 24 hr tamsulosin 0.4 mg capsule 0.8 mg PO BEDTIME 90 Days #180 cap 03/25/21 ondansetron HCl 4 mg tablet 4 mg PO Q6H PRN #14 tab 08/18/21 (Zofran) Allergies Allergy/AdvReac Type Severity Reaction Status Date / Time chlorpromazine Allergy Unknown UNKNOWN Verified 03/25/21 14:07 [From [facility]OR[facility]] Review of Systems Review of Systems: Complaining of nausea and abdominal pain Yes Unobtainable due to mental condition PMFSH Past Medical History Medical History Anemia BPH (benign prostatic hyperplasia) CHF (congestive heart failure) Constipation Dementia Duodenal ulcer Dysphagia GERD (gastroesophageal reflux disease) HIV (human immunodeficiency virus infection) Hyperlipidemia Hypertension Hypothyroid Social History Social History Advance Directives: No Advance Directives Information Provided: No service: No Current occupational status: disabled Physical Exam Vital Signs: Vital Signs: Last Vital Signs Temp 99.1 F 08/17/21 22:44 Pulse 55 08/18/21 01:33 Resp 14 08/18/21 01:33 BP 157/69 H 08/18/21 01:33 Pulse Ox 99 08/17/21 22:44 Body Mass Index 22.7 Const: Other: Appearance: Alert. Oriented x1, complaining of nausea Eyes: Pupils equal, round and reactive to light. ENT: Pharynx normal. Neck: Normal inspection. Neck supple. No lymph nodes noted. No crepitus CVS: Normal heart rate and rhythm. Pulses normal. Normal S1 and S2 Respiratory: No respiratory distress. Breath sounds normal. No Wheezing. No rales Abdomen: Soft , seems to have mild to moderate abdominal pain to palpation in epigastric area, No rigidity. No distention Skin: Skin warm and dry. Normal skin color. Normal skin turgor. Extremities: No lower extremity edema. No Lacerations. No Rash Neuro: Oriented X 3. No motor deficit. No sensory deficit. Moving all extermities. No slurred speech. Course Course Course Narrative: Patient was asked repeatedly if he has chest pain or shortness of breath , patient denies both, patient had 1 episode of vomiting, states he feels better now. Patient was given Zofran, patient no longer vomiting, no longer complaining of chest pain or abdominal pain. Troponins are at baseline. As mentioned above EKG shows no acute abnormality Medical Decision Making Lab Data Result diagrams: 08/17/21 22:38 08/17/21 22:38 Labs: Lab Results 08/17/21 08/17/21 08/17/21 Range/Units 22:38 22:38 22:38 WBC 8.1 (4.8-10.8) X10*3/uL RBC 4.68 (4.60-5.80) X10*6/uL Hgb 14.7 (14.0-18.0) g/dl Hct 43.2 (42-52) % MCV 92.3 (80-98) fL MCH 31.4 (27.0-33.0) pg MCHC 34.0 (31.0-36.0) g/dl RDW 13.6 (11.0-16.0) % Plt Count 212 (160-400) X10*3/uL MPV 10.1 (9.4-12.4) fL Immature Gran % (Auto) 0.6 H (0.0-0.4) % Neut % (Auto) 68.6 (45-73) % Lymph % (Auto) 21.2 (20-40) % Victoria % (Auto) 7.9 (2-11) % Eos % (Auto) 1.2 (0-4) % Baso % (Auto) 0.5 (0-2) % Lymph # (Auto) 1.7 (1.2-4.9) X10*3/uL Victoria # (Auto) 0.6 (0.1-1.2) X10*3/uL Eos # (Auto) 0.1 (0.0-0.4) X10*3/uL Baso # (Auto) 0.0 (0.0-0.2) X10*3/uL Abs Immat Gran (auto) 0.05 H (0.00-0.03) X10*3/uL Absolute Neuts (auto) 5.6 (2.0-8.3) X10*3/uL Absolute Nucleated RBC 0.000 (0.0-0.012) X10*3/uL Nucleated RBC % (auto) 0.0 (0.0-0.2) /100WBC PT 15.5 H (9.9-13.0) SEC INR 1.4 H (0.9-1.1) Sodium 138 (135-145) mmol/L Potassium 4.8 (3.3-5.1) mmol/L Chloride 103 (96-108) mmol/L Carbon Dioxide 21 L (22-29) mmol/L Anion Gap 19 (12-20) BUN 21 H D (9-16) mg/dL Creatinine 1.11 (0.5-1.4) mg/dL Estim Creat Clear Calc 56.8 Estimated GFR > 60 Random Glucose 124 H D (60-115) mg/dL Calcium 10.2 D (8.4-10.2) mg/dL Total Bilirubin 0.9 (0.0-1.0) mg/dL Direct Bilirubin 0.3 (0.0-0.5) mg/dL AST 19 (5-37) U/L ALT 12 (0-40) U/L Alkaline Phosphatase 96 (39-117) U/L Troponin I High Sens (<3.5-35.0) ng/L Total Protein 7.8 (6.5-8.0) g/dL Albumin 4.7 (3.5-5.0) g/dL Lipase 43 (8-78) U/L COVID-19 (MARY) (Negative) COVID-19 Clin Com 08/17/21 08/17/21 08/18/21 Range/Units 22:38 22:38 01:48 WBC (4.8-10.8) X10*3/uL RBC (4.60-5.80) X10*6/uL Hgb (14.0-18.0) g/dl Hct (42-52) % MCV (80-98) fL MCH (27.0-33.0) pg MCHC (31.0-36.0) g/dl RDW (11.0-16.0) % Plt Count (160-400) X10*3/uL MPV (9.4-12.4) fL Immature Gran % (Auto) (0.0-0.4) % Neut % (Auto) (45-73) % Lymph % (Auto) (20-40) % Victoria % (Auto) (2-11) % Eos % (Auto) (0-4) % Baso % (Auto) (0-2) % Lymph # (Auto) (1.2-4.9) X10*3/uL Victoria # (Auto) (0.1-1.2) X10*3/uL Eos # (Auto) (0.0-0.4) X10*3/uL Baso # (Auto) (0.0-0.2) X10*3/uL Abs Immat Gran (auto) (0.00-0.03) X10*3/uL Absolute Neuts (auto) (2.0-8.3) X10*3/uL Absolute Nucleated RBC (0.0-0.012) X10*3/uL Nucleated RBC % (auto) (0.0-0.2) /100WBC PT (9.9-13.0) SEC INR (0.9-1.1) Sodium (135-145) mmol/L Potassium (3.3-5.1) mmol/L Chloride (96-108) mmol/L Carbon Dioxide (22-29) mmol/L Anion Gap (12-20) BUN (9-16) mg/dL Creatinine (0.5-1.4) mg/dL Estim Creat Clear Calc Estimated GFR Random Glucose (60-115) mg/dL Calcium (8.4-10.2) mg/dL Total Bilirubin (0.0-1.0) mg/dL Direct Bilirubin (0.0-0.5) mg/dL AST (5-37) U/L ALT (0-40) U/L Alkaline Phosphatase (39-117) U/L Troponin I High Sens 10.7 12.7 (<3.5-35.0) ng/L Total Protein (6.5-8.0) g/dL Albumin (3.5-5.0) g/dL Lipase (8-78) U/L COVID-19 (MARY) Negative (Negative) COVID-19 Clin Com See Note Imaging Data CT scan - abdomen: Radiologist's impression: FINDINGS: LUNG BASES: The visualized lung bases show no gross abnormality.? LIVER, GALLBLADDER, AND BILIARY TREE: The liver is normal in size, shape, and attenuation. No focal hepatic lesion or biliary ductal dilatation is present. The gallbladder is unremarkable with no evidence of radiopaque gallstones, gallbladder wall thickening, or obvious pericholecystic inflammatory changes.? PANCREAS: Unremarkable.? SPLEEN: Unremarkable.? ADRENAL GLANDS: Unremarkable.? KIDNEYS AND URETERS: The kidneys are normal in size, shape, and attenuation. Intrarenal calcifications are most likely vascular. No hydronephrosis, hydroureter, or definite collecting system calculi seen. No perinephric stranding. ? BLADDER: Unremarkable.? GASTROINTESTINAL TRACT: The small and large bowel are unremarkable. There are a few scattered colonic diverticula without diverticulitis. The appendix is unremarkable.? ABDOMINAL WALL: No significant hernia is appreciated.? LYMPH NODES: No retroperitoneal lymphadenopathy. VASCULAR: Calcific plaque present in the aorta and iliofemoral vessels. No aneurysm. PELVIC VISCERA: Prostate and seminal vesicles appear normal.? OSSEOUS STRUCTURES: Minimal degenerative changes present in the spine. No bony destructive lesions seen.? CT/CT abdomen pelvis wo con IMPRESSION: No acute abnormality is seen to account for the patient's abdominal pain and vomiting.? ECG Data Attestation: I personally reviewed and interpreted this ECG as follows: (Sinus rhythm, heart rate 72, ST segment depression in V3 through V6, T-wave inversion in V2 through V6, no EKG changes since October 2020, QTC 440) Discharge Plan Discharge Clinical Impression: Abdominal pain, Vomiting Patient Disposition: Xfer Other Transfer Details: [facility] Instructions: Acute Nausea and Vomiting (ED), Abdominal Pain (ED) Additional Instructions: Please follow-up with your primary care physician tomorrow. If you have any worsening or new symptoms, please return to the emergency room or call 911 Prescriptions: New ondansetron HCl [Zofran] 4 mg tablet 4 mg PO Q6H PRN (Reason: nausea and vomiting) Qty: 14 RF: 0 No Action Triumeq 600-50-300 mg Tablet 1 tab PO DAILY RF: 0 lactulose 20 gram Packet 20 g PO DAILY PRN (Reason: Constipation) RF: 0 levothyroxine 75 mcg Tablet 75 mcg PO DAILY RF: 0 multivitamin with iron Tablet 1 tab PO DAILY RF: 0 oxcarbazepine [Trileptal] 150 mg Tablet 150 mg PO BID RF: 0 tamsulosin [Flomax] 0.4 mg Capsule 0.4 mg PO DAILY RF: 0 sennosides 8.6 mg Capsule 8.6 mg PO BEDTIME PRN (Reason: Constipation) RF: 0 omeprazole 20 mg Tablet,Delayed Release (Dr/Ec) 20 mg PO BID RF: 0 acetaminophen 325 mg Tablet 650 mg PO Q4H PRN (Reason: Mild Pain (Scale Score 1-4)) RF: 0 sucralfate 100 mg/mL Suspension 10 ml PO QID RF: 0 artificial tears solution Drops 1 drp OPHTHALMIC (EYE) Q4H RF: 0 loperamide 2 mg Tablet 2 mg PO Q6H PRN (Reason: Diarrhea) RF: 0 guaifenesin 100 mg/5 mL Liquid 200 mg PO Q4H PRN (Reason: Cough) RF: 0 benztropine 1 mg Tablet 1 mg PO BID RF: 0 nystatin 100,000 unit/gram Powder 1 appl TOPICAL BID RF: 0 albuterol sulfate [ProAir HFA] 90 mcg/actuation Hfa Aerosol Inhaler 2 puff INHALATION Q4-6H PRN (Reason: Dyspnea) RF: 0 haloperidol lactate 2 mg/mL Concentrate 1.2 mg PO BID RF: 0 megestrol 400 mg/10 mL (10 mL) Suspension 400 mg PO DAILY RF: 0 aspirin 81 mg Tablet,Delayed Release (Dr/Ec) 81 mg PO DAILY Qty: 30 RF: 0 lisinopril 10 mg Tablet 10 mg PO DAILY Qty: 30 RF: 0 metoprolol succinate 25 mg Tablet Extended Release 24 Hr 25 mg PO DAILY Qty: 30 RF: 0 atorvastatin [Lipitor] 40 mg tablet 40 mg PO BEDTIME Qty: 30 RF: 0 cefuroxime axetil 500 mg Tablet 500 mg PO Q12H Qty: 6 RF: 0 tamsulosin 0.4 mg capsule 0.8 mg PO BEDTIME 90 Days Qty: 180 RF: 1
[2021-08-17 22:44] VITALS: BP 209/81; PULSE 58; RESP 16; TEMP 37.3; O2SAT 99; BMI 22.7
[2021-08-17 22:44] LABS: MANUAL DIFF FLAG NO
[2021-08-17 22:45] LABS: Basophils Percent Auto 0.5 % (0-2); Eosinophils Absolute Auto 0.1 X10*3/uL (0.0-0.4); Eosinophils Percent Auto 1.2 % (0-4); Hematocrit 43.2 % (42-52); Hemoglobin 14.7 g/dl (14.0-18.0); Imm Gran Abs Auto 0.05 X10*3/uL (0.00-0.03); Imm Gran Pct Auto 0.6 % (0.0-0.4); Lymphocytes Absolute Auto 1.7 X10*3/uL (1.2-4.9); Lymphocytes Percent Auto 21.2 % (20-40); Mean Corpuscular Hemoglobin 31.4 pg (27.0-33.0); Mean Corpuscular Volume 92.3 fL (80-98); Mean Platelet Volume 10.1 fL (9.4-12.4); Monocytes Absolute Auto 0.6 X10*3/uL (0.1-1.2); Monocytes Percent Auto 7.9 % (2-11); Neutrophils Absolute Auto 5.6 X10*3/uL (2.0-8.3); Neutrophils Percent Auto 68.6 % (45-73); Platelet Count 212 X10*3/uL (160-400); Red Blood Count 4.68 X10*6/uL (4.60-5.80); Red Cell Distribution Width 13.6 % (11.0-16.0); White Blood Count 8.1 X10*3/uL (4.8-10.8)
[2021-08-17] MEDS: ondansetron HCL 4 MG/2 ML VIAL IVPUSH (22:50)
[2021-08-17] MEDS: 0.9 % Sodium Chloride 1,000 ML 999 ML IVCONT (22:50)
[2021-08-17 23:00] LABS: COVID-19 Test Negative (Negative)
[2021-08-17 23:04] LABS: INTERNATIONAL NORM RATIO 1.4 (0.9-1.1); Prothrombin Time 15.5 SEC (9.9-13.0)
[2021-08-17 23:16] LABS: Troponin-I High Sensitivity 10.7 ng/L (<3.5-35.0)
[2021-08-17 23:18] LABS: Alanine Aminotransferase 12 U/L (0-40); Albumin Level 4.7 g/dL (3.5-5.0); Alkaline Phosphatase 96 U/L (39-117); Anion Gap 19 (12-20); Aspartate Amino Transferase 19 U/L (5-37); Bilirubin Direct 0.3 mg/dL (0.0-0.5); Bilirubin Total 0.9 mg/dL (0.0-1.0); Blood Urea Nitrogen 21 mg/dL (9-16); Calcium 10.2 mg/dL (8.4-10.2); Carbon Dioxide 21 mmol/L (22-29); Chloride 103 mmol/L (96-108); Creatinine Clr Calc Pharmacy 56.8; Estimated Glomerular Filt Rate > 60; Glucose Random 124 mg/dL (60-115); Lipase 43 U/L (8-78); Potassium 4.8 mmol/L (3.3-5.1); Sodium 138 mmol/L (135-145); Total Protein 7.8 g/dL (6.5-8.0)
[2021-08-18 01:33] VITALS: BP 157/69; PULSE 55; RESP 14
[2021-08-18 02:12] LABS: Troponin-I High Sensitivity 12.7 ng/L (<3.5-35.0)
[2021-08-18 04:00] VITALS: BP 167/62; PULSE 57; RESP 18; O2SAT 97
[2021-08-18 06:00] VITALS: BP 164/68; PULSE 57; RESP 16; O2SAT 97
--- NOTE | 2021-08-18 07:18 | PC.NURSE ---
rn report given to dr. singletary on pt's return to facility. pt aware of plan of care for transfer via ambulance to facility. pt's eating breakfast at this time.
== END 2021-08-18 08:34 | disposition skilled nursing facility (03) ==
PROVIDERS: Emergency Provider Emergency Medicine
DX: R10.9 Unspecified abdominal pain (principal); R11.10 Vomiting, unspecified; I11.0 Hypertensive heart disease with heart failure; I50.9 Heart failure, unspecified; F03.90 Unspecified dementia, unspecified severity, without behavioral disturbance, psychotic disturbance, mood disturbance, and anxiety; Z79.899 Other long term (current) drug therapy; Z20.822 Contact with and (suspected) exposure to COVID-19
CPT/HCPCS: 36415; 74176; 80048; 80076; 83690; 84484; 85025; 85610; 87635; 93005; 96361; 96374; 99284; J2405

== ENCOUNTER → 2022-02-10 08:46 | Outpatient (BNVA) | payer MEDICARE, MEDICAID, SELFPAY | PROVIDERS: PCP Hospitalist; Visit Provider Urology | DX: N40.1 Benign prostatic hyperplasia with lower urinary tract symptoms (principal); R39.15 Urgency of urination | CPT/HCPCS: 51798; 99212 ==

== ENCOUNTER 2022-04-07 07:03 | Emergency (ER) | payer MEDICARE, MEDICAID, SELFPAY ==
--- NOTE | ~2022-04-07 | XR_ITS ---
EXAMINATION: XR CHEST CLINICAL INFORMATION: Cough. COMPARISON: 11/17/2020 chest radiograph. TECHNIQUE: Frontal view of the chest was obtained. FINDINGS: No significant abnormality is noted involving the heart, lungs, mediastinum, bony thorax or soft tissues. XR/XR chest 1V IMPRESSION: No acute cardiopulmonary process.
--- NOTE | ~2022-04-07 | CT_ITS ---
EXAMINATION: CT HEAD WITHOUT CONTRAST CLINICAL INFORMATION: Unwitnessed fall COMPARISON: CT head from 07/04/2020 TECHNIQUE: Contiguous axial imaging was performed from the skull base to vertex without intravenous administration of contrast. This CT examination was performed using dose optimization techniques as appropriate, variously including the following: *Automated exposure control *Adjustment of mA and/or kV according to patient size (this includes techniques or standardized protocols for targeted exams where dose is matched to indication/reason for exam; i.e. extremities or head) *Use of iterative reconstruction technique DLP: 670.12mGy/cm2 FINDINGS: There is no evidence of acute intracranial hemorrhage or territorial infarction. Chronic white matter small vessel ischemic changes. Cerebral atrophy with commensurate ventricular prominence. No abnormal mass effect or midline shift is seen. Gtz to white matter differentiation is well preserved. No extra-axial fluid collections are identified. There is no abnormal attenuation within the brain parenchyma. The osseous structures and soft tissues are normal. The mastoid air cells and visualized portions of the paranasal sinuses are well aerated. CT/CT cervical spine wo con IMPRESSION: 1. No acute intracranial pathology. 2. Chronic white matter small vessel ischemic changes. 3. Cerebral atrophy with commensurate ventricular prominence. EXAMINATION: Noncontrast CT scan of the cervical spine. INDICATION: Unwitnessed fall COMPARISON: CT cervical spine from 07/04/2020 TECHNIQUE: Helical, multidetector axial images were obtained from the occiput to the upper thorax. Coronal and sagittal reformats of the cervical spine were provided for interpretation. DLP: 670.12mGy/cm2 FINDINGS: Motion artifact slightly limits evaluation. No acute fractures or dislocations of the cervical spine are seen. Moderate multilevel degenerative changes disc space narrowing, endplate sclerosis, osteophyte formation, and facet arthropathy. Anatomic alignment and positioning of the vertebral bodies and posterior elements is noted. The atlantoaxial joint and craniovertebral articulations are normal without evidence of subluxation. There is no prevertebral soft tissue swelling. The thyroid gland and visualized portions of the lung apices and mediastinum are unremarkable. IMPRESSION: 1. Motion artifact slightly limits evaluation. 2. No acute fractures or dislocations. 3. Moderate multilevel degenerative changes.
[2022-04-07 07:30] VITALS: BP 166/74; BP 186/82; PULSE 55; RESP 16; TEMP 36.7; O2SAT 100; O2SAT 99; BMI 22.8
[2022-04-07 07:33] VITALS: PULSE 52
--- NOTE | 2022-04-07 07:42 | PC.NURSE ---
Pt able to answer simple questions but noted with difficulty following commands. Denies dizziness prior or after fall. Laceration to posterior head dsg intact from EMS. David on tele rate 50s.
--- NOTE | 2022-04-07 07:58 | ED_ITS ---
HPI - Fall General Chief Complaint: Fall Stated Complaint: fall Time Seen by Provider: 04/07/22 07:57 Source: patient and EMS Mode of arrival: EMS Limitations: no limitations History of Present Illness HPI Narrative: 76 y/o male with history of HIV, HLD, hypothyroidiam, dementia, anemia, HFpEF who presents to the ER via EMS from [facility] after an unwitnessed fall. He reportedly was standing and fell, hit the back of his head on the ground. He sustained a laceration that was controlled with direct pressure. He arrives the bandage on the back of his head. He says he has a headache. He denies any neck pain. He is not on anticoagulation. He is a poor historian. MD complaint: fall Onset (ago): hour(s) Fall from: standing Fall witnessed: no Place fall occurred: long[facility]term[facility] Loss of consciousness: unsure Prolonged down time: no Location of injury: head Severity: moderate Quality: aching Associated symptoms (after fall): headache Related Data Home Medications Medication Instructions Recorded Confirmed abacavir 600 mg-dolutegravir 50 1 tab PO DAILY 07/30/20 11/17/20 mg-lamivudine 300 mg tablet (Triumeq) lactulose 20 gram oral packet 20 g PO DAILY PRN Constipation 07/30/20 11/17/20 levothyroxine 75 mcg tablet 75 mcg PO DAILY 07/30/20 11/17/20 multivitamin with iron 1 tab PO DAILY 07/30/20 11/17/20 omeprazole 20 mg tablet,delayed 20 mg PO BID 07/30/20 11/17/20 release oxcarbazepine 150 mg tablet 150 mg PO BID 07/30/20 11/17/20 (Trileptal) sennosides 8.6 mg capsule 8.6 mg PO BEDTIME PRN Constipation 07/30/20 11/17/20 tamsulosin 0.4 mg capsule (Flomax) 0.4 mg PO DAILY 07/30/20 11/17/20 acetaminophen 325 mg tablet 650 mg PO Q4H PRN Mild Pain (Scale 11/17/20 11/17/20 Score 1-4) albuterol sulfate 90 mcg/actuation 2 puff inhalation Q4-6H PRN Dyspnea 11/17/20 11/17/20 aerosol inhaler (ProAir HFA) artificial tears solution eye drops 1 drp ophthalmic (eye) Q4H 11/17/20 11/17/20 benztropine 1 mg tablet 1 mg PO BID 11/17/20 11/17/20 guaifenesin 100 mg/5 mL oral liquid 200 mg PO Q4H PRN Cough 11/17/20 11/17/20 haloperidol lactate 2 mg/mL oral 1.2 mg PO BID 11/17/20 11/17/20 concentrate loperamide 2 mg tablet 2 mg PO Q6H PRN Diarrhea 11/17/20 11/17/20 megestrol 400 mg/10 mL (10 mL) 400 mg PO DAILY 11/17/20 11/17/20 oral suspension nystatin 100,000 unit/gram topical 1 appl topical BID 11/17/20 11/17/20 powder sucralfate 100 mg/mL oral 10 ml PO QID 11/17/20 11/17/20 suspension Previous Rx's Medication Instructions Recorded aspirin 81 mg tablet,delayed 81 mg PO DAILY #30 tabs 11/19/20 release atorvastatin 40 mg tablet (Lipitor) 40 mg PO BEDTIME #30 tabs 11/19/20 cefuroxime axetil 500 mg tablet 500 mg PO Q12H #6 tabs 11/19/20 lisinopril 10 mg tablet 10 mg PO DAILY #30 tabs 11/19/20 metoprolol succinate 25 mg 25 mg PO DAILY #30 tabs 11/19/20 tablet,extended release 24 hr tamsulosin 0.4 mg capsule 0.8 mg PO BEDTIME 90 days #180 caps 03/25/21 ondansetron HCl 4 mg tablet 4 mg PO Q6H PRN nausea and 08/18/21 (Zofran) vomiting #14 tabs mirabegron 25 mg tablet,extended 25 mg PO DAILY 90 days #90 tabs 02/10/22 release 24 hr cefuroxime axetil 250 mg tablet 250 mg PO BID 7 days #14 tabs 04/07/22 Allergies Allergy/AdvReac Type Severity Reaction Status Date / Time chlorpromazine Allergy Unknown UNKNOWN Verified 02/10/22 08:55 [From [facility]OR[facility]] Review of Systems Review of Systems: Constitutional: No Fever, No Chills ENT/Mouth: No sore throat, No Rhinorrhea, No Swallowing Difficulty Eyes: No Eye Pain, No Swelling, No Redness Cardiovascular: No Chest Pain, No SOB, No Orthopnea, No Edema Respiratory: No Cough, No Sputum, No Wheezing, No dyspnea Gastrointestinal: No Nausea, No Vomiting, No Diarrhea, No abdominal Pain, No Hematochezia, No Melena Genitourinary: No Dysuria, No Urinary Frequency, No Hematuria Musculoskeletal: No joint pain, No Myalgias Skin:+ Skin Lesions, No rash Neuro: No Weakness, No Numbness, No Dizziness, + Headache Psych: No Anxiety/Panic, No Depression Heme/Lymph: No Bruising, No Lymphadenopathy Endocrine: No Polyuria, No Polydipsia [facility] Past Medical History Medical History Anemia BPH (benign prostatic hyperplasia) CHF (congestive heart failure) Constipation Dementia Duodenal ulcer Dysphagia GERD (gastroesophageal reflux disease) HIV (human immunodeficiency virus infection) Hyperlipidemia Hypertension Hypothyroid Social History Social History Patient Tobacco Use Status: Never used Tobacco Use of substances other than those prescribed or required for medical reasons: No Advance Directives: No Advance Directives Information Provided: No service: No Current occupational status: disabled Physical Exam Vital Signs: Vital Signs: Last Vital Signs Temp 98.1 F 04/07/22 07:30 Pulse 61 04/07/22 13:51 Resp 20 04/07/22 13:51 BP 183/83 H 04/07/22 13:51 Pulse Ox 98 04/07/22 13:51 O2 Del Method 04/07/22 13:51 BMI result Body Mass Index 22.8 Appearance: Alert. Oriented X3. No acute distress. Head: vertical linear laceration x4 cm with superficial abrasion above and below, no active bleeding. no palpable skull fracture or depression. Eyes: Pupils equal, round and reactive to light. ENT: Pharynx normal. Neck: In cervical collar. no midline tenderness CVS: Normal heart rate and rhythm. Pulses normal. Respiratory: No respiratory distress. Breath sounds normal. Abdomen: Soft and nontender. +BS x4 Skin: Skin warm and dry. Normal skin color. Normal skin turgor. No rashes. Extremities: No lower extremity edema. No evidence of traumatic injury x4. Neuro: Oriented X 1. Speech is difficult to understand at times. Moves all extremities and follows simple commands. Course Course Course Narrative: 76 y/o male with history of HIV, dementia, HTN, HFpEF who presents to the ER with a head laceration s/p unwitnessed fall. He is awake and alert and at his baseline mental status per nursing. Nonfocal neuro exam. He has a head lace ration posteriorly amenable to staple closure. Will get EKG and basic labs along with CT head/neck. Reevaluation(s) Reevaluation #1: CT head/neck without acute injuries. C-collar removed, no tenderness. Labs are unremarkable. EKG with deep t-wave inversions which are old. Troponin only 11 which is less than his baseline. He has a congested cough, hx PNA on prior CXR in 2020. Will get CXR today. He also has a pending UA with history of UTI in the past. Straight cath ordered. Reevaluation #2: UA is consistent with infection. Hx proteus UTI in the past, sensitive to ceft riaxone. Will start on ceftin PO. He has no leukocytosis or evidence of sepsis at this time. He is stable for discharge back to [facility]. Procedures Laceration Laceration 1: Site: scalp Size (cm): 4 Description: linear Depth: simple, single layer Pre-repair: irrigated extensively and deep structures intact Skin layer closed with: other (luis x4) MDM - Fall Medical Records Attestation: I reviewed the patient's medical records. Lab Data Attestation: I reviewed the patient's lab results. Result diagrams: 04/07/22 08:54 04/07/22 08:54 Labs: Lab Results 04/07/22 04/07/22 04/07/22 Range/Units 08:54 08:54 08:54 WBC 7.7 (4.8-10.8) X10*3/uL RBC 4.59 L (4.60-5.80) X10*6/uL Hgb 15.0 (14.0-18.0) g/dl Hct 44.1 (42.0-52.0) % MCV 96.1 (80.0-98.0) fL MCH 32.7 (27.0-33.0) pg MCHC 34.0 (31.0-36.0) g/dl RDW 14.2 (11.0-16.0) % Plt Count 162 (160-400) X10*3/uL MPV 10.8 (9.4-12.4) fL Immature Gran % (Auto) 0.5 H (0.0-0.4) % Neut % (Auto) 71.1 (45-73) % Lymph % (Auto) 18.2 L (20-40) % Pepin % (Auto) 8.1 (2-11) % Eos % (Auto) 1.4 (0-4) % Baso % (Auto) 0.7 (0-2) % Lymph # (Auto) 1.4 (1.2-4.9) X10*3/uL Pepin # (Auto) 0.6 (0.1-1.2) X10*3/uL Eos # (Auto) 0.1 (0.0-0.4) X10*3/uL Baso # (Auto) 0.1 (0.0-0.2) X10*3/uL Abs Immat Gran (auto) 0.04 H (0.00-0.03) X10*3/uL Absolute Neuts (auto) 5.4 (2.0-8.3) x10*3/uL Absolute Nucleated RBC 0.000 (0.0-0.012) X10*3/uL Nucleated RBC % (auto) 0.0 (0.0-0.2) /100WBC Sodium 137 (135-145) mmol/L Potassium 4.2 (3.3-5.1) mmol/L Chloride 107 (96-108) mmol/L Carbon Dioxide 20 L (22-29) mmol/L Anion Gap 14 (12-20) BUN 12 (9-16) mg/dL Creatinine 0.97 (0.5-1.4) mg/dL Estim Creat Clear Calc 64.4 Estimated GFR > 60 Random Glucose 90 (60-115) mg/dL Calcium 9.9 (8.4-10.2) mg/dL Magnesium 2.3 (1.6-2.6) mg/dL Total Bilirubin 1.3 H (0.0-1.0) mg/dL Direct Bilirubin 0.5 (0.0-0.5) mg/dL AST 22 (5-37) U/L ALT 19 (0-40) U/L Alkaline Phosphatase 84 (39-117) U/L Total Creatine Kinase 125 (38-174) U/L Troponin I High Sens 11.4 (<3.5-35.0) ng/L Total Protein 7.9 (6.5-8.0) g/dL Albumin 4.6 (3.5-5.0) g/dL Urine Color Urine Appearance Urine pH (5.0-8.0) Ur Specific Haines (1.005-1.025) Urine Protein (NEG-TRACE) MG/DL Urine Glucose (UA) (NEG) MG/DL Urine Ketones (NEG) MG/DL Urine Blood (NEG) Urine Nitrite (NEG) Ur Leukocyte Esterase (NEG) Urine RBC (0) /HPF Urine WBC (0-4) /HPF Ur Squamous Epith Cells /LPF Urine Bacteria /LPF 04/07/22 Range/Units 12:38 WBC (4.8-10.8) X10*3/uL RBC (4.60-5.80) X10*6/uL Hgb (14.0-18.0) g/dl Hct (42.0-52.0) % MCV (80.0-98.0) fL MCH (27.0-33.0) pg MCHC (31.0-36.0) g/dl RDW (11.0-16.0) % Plt Count (160-400) X10*3/uL MPV (9.4-12.4) fL Immature Gran % (Auto) (0.0-0.4) % Neut % (Auto) (45-73) % Lymph % (Auto) (20-40) % Pepin % (Auto) (2-11) % Eos % (Auto) (0-4) % Baso % (Auto) (0-2) % Lymph # (Auto) (1.2-4.9) X10*3/uL Pepin # (Auto) (0.1-1.2) X10*3/uL Eos # (Auto) (0.0-0.4) X10*3/uL Baso # (Auto) (0.0-0.2) X10*3/uL Abs Immat Gran (auto) (0.00-0.03) X10*3/uL Absolute Neuts (auto) (2.0-8.3) x10*3/uL Absolute Nucleated RBC (0.0-0.012) X10*3/uL Nucleated RBC % (auto) (0.0-0.2) /100WBC Sodium (135-145) mmol/L Potassium (3.3-5.1) mmol/L Chloride (96-108) mmol/L Carbon Dioxide (22-29) mmol/L Anion Gap (12-20) BUN (9-16) mg/dL Creatinine (0.5-1.4) mg/dL Estim Creat Clear Calc Estimated GFR Random Glucose (60-115) mg/dL Calcium (8.4-10.2) mg/dL Magnesium (1.6-2.6) mg/dL Total Bilirubin (0.0-1.0) mg/dL Direct Bilirubin (0.0-0.5) mg/dL AST (5-37) U/L ALT (0-40) U/L Alkaline Phosphatase (39-117) U/L Total Creatine Kinase (38-174) U/L Troponin I High Sens (<3.5-35.0) ng/L Total Protein (6.5-8.0) g/dL Albumin (3.5-5.0) g/dL Urine Color YELLOW Urine Appearance CLOUDY Urine pH 7.0 (5.0-8.0) Ur Specific Haines 1.020 (1.005-1.025) Urine Protein TRACE (NEG-TRACE) MG/DL Urine Glucose (UA) NEG (NEG) MG/DL Urine Ketones NEG (NEG) MG/DL Urine Blood 1+ H (NEG) Urine Nitrite NEG (NEG) Ur Leukocyte Esterase 3+ H (NEG) Urine RBC 1-4 (0) /HPF Urine WBC TNTC H (0-4) /HPF Ur Squamous Epith Cells TRACE /LPF Urine Bacteria 3+ /LPF ECG Data Attestation: I personally reviewed and interpreted this ECG as follows: ECG interpretation date: 04/07/22 ECG interpretation time: 08:27 Prior ECG tracings: available for review Interpretation: sinus bradycardia, HR 50 bpm, VA interval normal 172 MS, deep t-wave inversions in V2-V6 which are old compared to prior Critical Care Time Critical Care Time Critical Care Time: No Discharge Plan Discharge Clinical Impression: Laceration of head, Acute UTI Patient Disposition: er [facility] Transfer Details[facility] Instructions: Urinary Tract Infection in Men (ED), Head Laceration (ED) Additional Instructions: Your luis will need to be removed in 10 days. Your urine test showed infection - take the prescribed antibiotic as directed - complete the entire course Follow up with your doctor. If you develop new or worsening symptoms call 911 or come back to the ER for further evaluation. Prescriptions: New cefuroxime axetil 250 mg tablet 250 mg PO BID 7 Days Qty: 14 0RF No Action Triumeq 600-50-300 mg Tablet 1 tab PO DAILY lactulose 20 gram Packet 20 g PO DAILY PRN (Reason: Constipation) levothyroxine 75 mcg Tablet 75 mcg PO DAILY multivitamin with iron Tablet 1 tab PO DAILY oxcarbazepine [Trileptal] 150 mg Tablet 150 mg PO BID tamsulosin [Flomax] 0.4 mg Capsule 0.4 mg PO DAILY sennosides 8.6 mg Capsule 8.6 mg PO BEDTIME PRN (Reason: Constipation) omeprazole 20 mg Tablet,Delayed Release (Dr/Ec) 20 mg PO BID acetaminophen 325 mg Tablet 650 mg PO Q4H PRN (Reason: Mild Pain (Scale Score 1-4)) Rx Instructions: OR FEVER sucralfate 100 mg/mL Suspension 10 ml PO QID artificial tears solution Drops 1 drp OPHTHALMIC (EYE) Q4H loperamide 2 mg Tablet 2 mg PO Q6H PRN (Reason: Diarrhea) guaifenesin 100 mg/5 mL Liquid 200 mg PO Q4H PRN (Reason: Cough) benztropine 1 mg Tablet 1 mg PO BID nystatin 100,000 unit/gram Powder 1 appl TOPICAL BID Rx Instructions: TO GROINS albuterol sulfate [ProAir HFA] 90 mcg/actuation Hfa Aerosol Inhaler 2 puff INHALATION Q4-6H PRN (Reason: Dyspnea) haloperidol lactate 2 mg/mL Concentrate 1.2 mg PO BID megestrol 400 mg/10 mL (10 mL) Suspension 400 mg PO DAILY aspirin 81 mg Tablet,Delayed Release (Dr/Ec) 81 mg PO DAILY Qty: 30 0RF lisinopril 10 mg Tablet 10 mg PO DAILY Qty: 30 0RF Protocol: Hold for SBP< HOLD for SBP < : 90 metoprolol succinate 25 mg Tablet Extended Release 24 Hr 25 mg PO DAILY Qty: 30 0RF Protocol: Hold for SBP/HR < HOLD for SBP < : 90 HOLD for HR < : 60 atorvastatin [Lipitor] 40 mg tablet 40 mg PO BEDTIME Qty: 30 0RF cefuroxime axetil 500 mg Tablet 500 mg PO Q12H Qty: 6 0RF ondansetron HCl [Zofran] 4 mg tablet 4 mg PO Q6H PRN (Reason: nausea and vomiting) Qty: 14 0RF tamsulosin 0.4 mg capsule 0.8 mg PO BEDTIME 90 Days Qty: 180 1RF mirabegron 25 mg tablet extended release 24 hr 25 mg PO DAILY 90 Days Qty: 90 1RF Print Language: Welsh
--- NOTE | 2022-04-07 07:58 | ECG_ITS ---
Test Reason : fall Blood Pressure : / mmHG Vent. Rate : 050 BPM Atrial Rate : 050 BPM P-R Int : 172 ms QRS Dur : 088 ms QT Int : 508 ms P-R-T Axes : 000 -12 254 degrees QTc Int : [address] & Marked T wave abnormality, consider anterolateral ischemia Prolonged QT Abnormal ECG When compared with ECG of 17-AUG-2021 22:31, T wave inversion now evident in Inferior leads T wave inversion less evident in Lateral leads Referred By: April Perales Electronically Signed By:VINEET WILLS
[2022-04-07 08:59] LABS: MANUAL DIFF FLAG NO
[2022-04-07 09:02] LABS: Basophils Absolute Auto 0.1 X10*3/uL (0.0-0.2); Basophils Percent Auto 0.7 % (0-2); Eosinophils Absolute Auto 0.1 X10*3/uL (0.0-0.4); Eosinophils Percent Auto 1.4 % (0-4); Hematocrit 44.1 % (42.0-52.0); Imm Gran Abs Auto 0.04 X10*3/uL (0.00-0.03); Imm Gran Pct Auto 0.5 % (0.0-0.4); Lymphocytes Absolute Auto 1.4 X10*3/uL (1.2-4.9); Lymphocytes Percent Auto 18.2 % (20-40); Mean Corpuscular Hemoglobin 32.7 pg (27.0-33.0); Mean Corpuscular Volume 96.1 fL (80.0-98.0); Mean Platelet Volume 10.8 fL (9.4-12.4); Monocytes Absolute Auto 0.6 X10*3/uL (0.1-1.2); Monocytes Percent Auto 8.1 % (2-11); Neutrophils Absolute Auto 5.4 x10*3/uL (2.0-8.3); Neutrophils Percent Auto 71.1 % (45-73); Platelet Count 162 X10*3/uL (160-400); Red Blood Count 4.59 X10*6/uL (4.60-5.80); Red Cell Distribution Width 14.2 % (11.0-16.0); White Blood Count 7.7 X10*3/uL (4.8-10.8)
[2022-04-07 09:24] LABS: Alanine Aminotransferase 19 U/L (0-40); Albumin Level 4.6 g/dL (3.5-5.0); Alkaline Phosphatase 84 U/L (39-117); Anion Gap 14 (12-20); Aspartate Amino Transferase 22 U/L (5-37); Bilirubin Direct 0.5 mg/dL (0.0-0.5); Bilirubin Total 1.3 mg/dL (0.0-1.0); Blood Urea Nitrogen 12 mg/dL (9-16); Calcium 9.9 mg/dL (8.4-10.2); Carbon Dioxide 20 mmol/L (22-29); Chloride 107 mmol/L (96-108); Creatinine Clr Calc Pharmacy 64.4; Estimated Glomerular Filt Rate > 60; Glucose Random 90 mg/dL (60-115); Magnesium 2.3 mg/dL (1.6-2.6); Potassium 4.2 mmol/L (3.3-5.1); Sodium 137 mmol/L (135-145); Total Protein 7.9 g/dL (6.5-8.0)
[2022-04-07 09:25] LABS: Troponin-I High Sensitivity 11.4 ng/L (<3.5-35.0)
[2022-04-07 13:00] LABS: Appearance Urine CLOUDY; Color Urine YELLOW; Glucose Urine UA NEG (NEG); Leukocyte Esterase Urine 3+ (NEG); Nitrite Urine NEG (NEG); UACC Culture Trigger YES; Urine Blood 1+ (NEG); Urine Ketones NEG (NEG); Urine Protein TRACE MG/DL (NEG-TRACE)
[2022-04-07 13:12] LABS: Squamous Epithelial Cell Urine TRACE /LPF; WBC Urine TNTC /HPF (0-4)
[2022-04-07 13:14] LABS: Bacteria Urine 3+ /LPF
[2022-04-07 13:51] VITALS: BP 183/83; PULSE 61; RESP 20; O2SAT 98
== END 2022-04-07 15:44 | disposition skilled nursing facility (03) ==
PROVIDERS: Physician Assistant; Emergency Provider Emergency Medicine; PCP Hospitalist
DX: S01.01XA Laceration without foreign body of scalp, initial encounter (principal); W17.89XA Other fall from one level to another, initial encounter; Z91.81 History of falling; Y93.89 Activity, other specified; Y92.129 Unspecified place in nursing home as the place of occurrence of the external cause; Y99.9 Unspecified external cause status
CPT/HCPCS: 12002; 36415; 51701; 70450; 71045; 72125; 80048; 80076; 81001; 81003; 82550; 83735; 84484; 85025; 87086; 87088; 93005; 99284

== ENCOUNTER 2022-10-15 12:39 | Emergency (ER) | payer MEDICARE, MEDICAID, SELFPAY ==
--- NOTE | ~2022-10-15 | XR_ITS ---
EXAMINATION: XR CHEST CLINICAL INFORMATION: Cough with yellow sputum COMPARISON: 04/07/2022 TECHNIQUE: 2 views of the chest were obtained. FINDINGS: Chronic atelectasis or scar in the right lateral midlung. Chronic coarse interstitial opacity. No focal consolidation. No pleural effusion or pneumothorax. Normal heart size. Degenerative changes of the shoulders and spine. XR/XR chest 2V IMPRESSION: No acute pulmonary disease. Chronic coarse interstitial opacity can be seen in the setting of chronic bronchitis or reactive airways disease.
--- NOTE | ~2022-10-15 | CT_ITS ---
EXAMINATION: CT FACIAL BONES WITHOUT CONTRAST CLINICAL INFORMATION: Right facial redness. COMPARISON: CT head 04/07/2022. Facial bone CT 07/30/2020. CT neck 07/26/2020. TECHNIQUE: Unenhanced maxillofacial CT with multiple coronal and sagittal reformatted images. This CT examination was performed using dose optimization techniques as appropriate, variously including the following: *Automated exposure control *Adjustment of mA and/or kV according to patient size (this includes techniques or standardized protocols for targeted exams where dose is matched to indication/reason for exam; i.e. extremities or head) *Use of iterative reconstruction technique DLP: 538 mGy-cm FINDINGS: Reticulation of the subcutaneous fat and adjacent dermal thickening is noted adjacent to the right body of the mandible extending to the right premaxillary region. No associated soft tissue tissue fluid collections are identified. Mild prominence of the right subdural mandibular lymph nodes is noted with lymph nodes in this region remain within normal limits of size. Multiple absent teeth are noted in the mandibular dentition. Close scrutiny of the mandible demonstrates no periapical lucencies or periodontal erosions associated with the remaining teeth. Multifocal mandibular crown erosions are present consistent with chronic dental caries. The maxillary dentition is edentulous. Minimal scattered mucosal thickening and retained secretions are noted within the right maxillary sinuses which are within expected limits of physiologic variation. Mild mucosal thickening is present in the alveolar recess of the left maxillary sinus. Opacification of a minimal number scattered ethmoid air cells is noted. The frontal sinuses and sphenoid sinus are clear. No mastoid or middle ear cavity effusions identified. Within the incidentally visualized intracranial structures, moderate-marked diffuse commensurate prominence of ventricles and sulci is noted. The orbits and globes are normal in appearance and no orbital emphysema. The parotid, submandibular and visualized components of the sublingual glands are normal in appearance. The larynx is not entirely included in the image [id number]. CT/CT facial bones wo IV con IMPRESSION: *Right maxillofacial cutaneous and subcutaneous soft tissue inflammatory changes most prominent adjacent to the right mandibular body and right premaxillary region. Findings are suspicious for cellulitis. No associated soft tissue fluid collections. No evidence of odontogenic origin of inflammatory changes.
[2022-10-15 12:53] VITALS: BP 170/105; BP 186/91; PULSE 62; PULSE 64; RESP 16; TEMP 37.1; O2SAT 94; O2SAT 95; BMI 26.6
--- NOTE | 2022-10-15 12:53 | ED.SKABFB ---
HPI - Skin/Abscess/Foreign Bdy General Chief complaint: Skin/Abscess/Foreign Body Stated complaint: FACIAL SWELLING XS 2 DAYS,? NEW MED/AUGMENTIN PER Time Seen by Provider: 10/15/22 12:44 Source: patient, EMS and RN notes reviewed Mode of arrival: EMS History of Present Illness HPI narrative: Patient presents from [facility] with increasing facial swelling with redness. No fever, has been on 1 day of augmentin. Patient is poor historian, can give some details, but most comes from nursing notes. MD complaint: rash Onset (ago): day(s) Location: face Severity: mild Associated symptoms: denies other symptoms Related Data Home Medications Medication Instructions Recorded Confirmed abacavir 600 mg-dolutegravir 50 1 tab PO DAILY 07/30/20 11/17/20 mg-lamivudine 300 mg tablet (Triumeq) lactulose 20 gram oral packet 20 g PO DAILY PRN Constipation 07/30/20 11/17/20 levothyroxine 75 mcg tablet 75 mcg PO DAILY 07/30/20 11/17/20 multivitamin with iron 1 tab PO DAILY 07/30/20 11/17/20 omeprazole 20 mg tablet,delayed 20 mg PO BID 07/30/20 11/17/20 release oxcarbazepine 150 mg tablet 150 mg PO BID 07/30/20 11/17/20 (Trileptal) sennosides 8.6 mg capsule 8.6 mg PO BEDTIME PRN Constipation 07/30/20 11/17/20 tamsulosin 0.4 mg capsule (Flomax) 0.4 mg PO DAILY 07/30/20 11/17/20 acetaminophen 325 mg tablet 650 mg PO Q4H PRN Mild Pain (Scale 11/17/20 11/17/20 Score 1-4) albuterol sulfate 90 mcg/actuation 2 puff inhalation Q4-6H PRN Dyspnea 11/17/20 11/17/20 aerosol inhaler (ProAir HFA) artificial tears solution eye drops 1 drp ophthalmic (eye) Q4H 11/17/20 11/17/20 benztropine 1 mg tablet 1 mg PO BID 11/17/20 11/17/20 guaifenesin 100 mg/5 mL oral liquid 200 mg PO Q4H PRN Cough 11/17/20 11/17/20 haloperidol lactate 2 mg/mL oral 1.2 mg PO BID 11/17/20 11/17/20 concentrate loperamide 2 mg tablet 2 mg PO Q6H PRN Diarrhea 11/17/20 11/17/20 megestrol 400 mg/10 mL (10 mL) 400 mg PO DAILY 11/17/20 11/17/20 oral suspension nystatin 100,000 unit/gram topical 1 appl topical BID 11/17/20 11/17/20 powder sucralfate 100 mg/mL oral 10 ml PO QID 11/17/20 11/17/20 suspension Previous Rx's Medication Instructions Recorded aspirin 81 mg tablet,delayed 81 mg PO DAILY #30 tabs 11/19/20 release atorvastatin 40 mg tablet (Lipitor) 40 mg PO BEDTIME #30 tabs 11/19/20 cefuroxime axetil 500 mg tablet 500 mg PO Q12H #6 tabs 11/19/20 lisinopril 10 mg tablet 10 mg PO DAILY #30 tabs 11/19/20 metoprolol succinate 25 mg 25 mg PO DAILY #30 tabs 11/19/20 tablet,extended release 24 hr tamsulosin 0.4 mg capsule 0.8 mg PO BEDTIME 90 days #180 caps 03/25/21 ondansetron HCl 4 mg tablet 4 mg PO Q6H PRN nausea and 08/18/21 (Zofran) vomiting #14 tabs cefuroxime axetil 250 mg tablet 250 mg PO BID 7 days #14 tabs 04/07/22 doxycycline monohydrate 100 mg 100 mg PO BID #20 caps 10/15/22 capsule Allergies Allergy/AdvReac Type Severity Reaction Status Date / Time chlorpromazine Allergy Unknown UNKNOWN Verified 02/10/22 08:55 [From [facility]] Review of Systems Review of Systems: Yes Unobtainable due to mental status Neurologic: Denies Sensory deficit (Neuro) ON LICENSE OF [facility] Past Medical History Medical History Anemia BPH (benign prostatic hyperplasia) CHF (congestive heart failure) Constipation Dementia Duodenal ulcer Dysphagia GERD (gastroesophageal reflux disease) HIV (human immunodeficiency virus infection) Hyperlipidemia Hypertension Hypothyroid Social History Social History Patient Tobacco Use Status: Never used Tobacco Smoked in Last 30 Days: No Use of substances other than those prescribed or required for medical reasons: No Advance Directives: No Advance Directives Information Provided: No service: No Current occupational status: disabled Physical Exam Vital Signs: Vital Signs: Last Vital Signs Temp 98.8 F 10/15/22 12:53 Pulse 64 10/15/22 12:53 Resp 16 10/15/22 12:53 BP 186/91 H 10/15/22 12:53 Pulse Ox 95 10/15/22 12:53 O2 Del Method 10/15/22 12:53 BMI result Body Mass Index 26.6 Const: Other: 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 able to answer simple questions Nutritional Appearance: average body habitus Orientation/consciousness: oriented to person Limitations: behavioral limitations HEENT: Other: right cheek with swelling and erythema Head: Yes normal to inspection Ears: external ears normal General nose exam: Normal external nose present Mouth: Normal oral and palatal mucosa present and oropharynx normal Throat: Yes posterior oropharynx normal Eyes: General: appearance normal, both eyes and all related structures Neck: Other: supple Neck: Yes normal visual inspection Chest: Chest palpation & inspection: normal inspection of the chest Resp: Auscultation: clear to auscultation bilaterally Cardio: Jugular venous distension: no JVD Rate: regular rate Rhythm: regular rhythm Heart sounds: S1 normal heart sound present and S2 normal heart sound present GI: Inspection: Yes normal to inspection Palpation (GI): Soft to palpation, nontender and No hepatosplenomegaly present Auscultation: normal bowel sounds : General: Yes no CVA tenderness Back/Spine/Pelvis: Back: no CVA tenderness Skin: Other: right cheek redness Neuro: General: oriented to person Cranial nerves: Yes CN's II-XII intact bilaterally Motor exam (neuro): 5/5 motor strength present throughout Sensory Exam: No Sensory deficit (Neuro) Extrem: General: Yes normal to inspection Psych: Appearance: grossly normal Course Reevaluation(s) Reevaluation #1: Will add doxy to cover pneumonia atypical and cellulitis MRsa and continue agumentin Time: 14:53 Medical Decision Making Differential Diagnosis erysipelas, sinusitis, dental abscess and cellulitis and pneumonia Admission/Observation Admission was considered but after discussion with Dr Samantha john dc home and add doxycycline Lab Data Result Diagrams: 10/15/22 13:05 10/15/22 13:05 Labs: Lab Results 12/17/22 12/17/22 Range/Units 13:05 13:05 WBC 11.8 H (4.8-10.8) X10*3/uL RBC 4.42 L (4.60-5.80) X10*6/uL Hgb 14.0 (14.0-18.0) g/dl Hct 40.8 L (42.0-52.0) % MCV 92.3 (80.0-98.0) fL MCH 31.7 (27.0-33.0) pg MCHC 34.3 (31.0-36.0) g/dl RDW 13.5 (11.0-16.0) % Plt Count 231 D (160-400) X10*3/uL MPV 10.0 (9.4-12.4) fL Immature Gran % (Auto) 0.5 H (0.0-0.4) % Neut % (Auto) 78.9 H (45-73) % Lymph % (Auto) 11.3 L (20-40) % [place] % (Auto) 8.0 (2-11) % Eos % (Auto) 1.0 (0-4) % Baso % (Auto) 0.3 (0-2) % Lymph # (Auto) 1.3 (1.2-4.9) X10*3/uL [place] # (Auto) 1.0 (0.1-1.2) X10*3/uL Eos # (Auto) 0.1 (0.0-0.4) X10*3/uL Baso # (Auto) 0.0 (0.0-0.2) X10*3/uL Abs Immat Gran (auto) 0.06 H (0.00-0.03) X10*3/uL Absolute Neuts (auto) 9.3 H (2.0-8.3) x10*3/uL Absolute Nucleated RBC 0.000 (0.0-0.012) X10*3/uL Nucleated RBC % (auto) 0.0 (0.0-0.2) /100WBC Sodium 136 (135-145) mmol/L Potassium 3.9 (3.3-5.1) mmol/L Chloride 104 (96-108) mmol/L Carbon Dioxide 23 (22-29) mmol/L Anion Gap 13 (12-20) BUN 9 (9-16) mg/dL Creatinine 0.98 (0.5-1.4) mg/dL Estim Creat Clear Calc 64.1 Estimated GFR > 60 Random Glucose 83 (60-115) mg/dL Calcium 9.6 (8.4-10.2) mg/dL Independent Interpretation I performed an independent interpretation of an: Plain X-Ray (Independent review of CXR show right upper lobe infiltrate) Discharge Plan Discharge Clinical Impression: Facial cellulitis, Pneumonia Patient Disposition: Home, Self-Care Instructions: Cellulitis (ED), Pneumonia (ED) Additional Instructions: doxycycline added to augmentin Prescriptions: New doxycycline monohydrate 100 mg capsule 100 mg PO BID Qty: 20 0RF No Action Triumeq 600-50-300 mg Tablet 1 tab PO DAILY lactulose 20 gram Packet 20 g PO DAILY PRN (Reason: Constipation) levothyroxine 75 mcg Tablet 75 mcg PO DAILY multivitamin with iron Tablet 1 tab PO DAILY oxcarbazepine [Trileptal] 150 mg Tablet 150 mg PO BID tamsulosin [Flomax] 0.4 mg Capsule 0.4 mg PO DAILY sennosides 8.6 mg Capsule 8.6 mg PO BEDTIME PRN (Reason: Constipation) omeprazole 20 mg Tablet,Delayed Release (Dr/Ec) 20 mg PO BID acetaminophen 325 mg Tablet 650 mg PO Q4H PRN (Reason: Mild Pain (Scale Score 1-4)) Rx Instructions: OR FEVER sucralfate 100 mg/mL Suspension 10 ml PO QID artificial tears solution Drops 1 drp OPHTHALMIC (EYE) Q4H loperamide 2 mg Tablet 2 mg PO Q6H PRN (Reason: Diarrhea) guaifenesin 100 mg/5 mL Liquid 200 mg PO Q4H PRN (Reason: Cough) benztropine 1 mg Tablet 1 mg PO BID nystatin 100,000 unit/gram Powder 1 appl TOPICAL BID Rx Instructions: TO GROINS albuterol sulfate [ProAir HFA] 90 mcg/actuation Hfa Aerosol Inhaler 2 puff INHALATION Q4-6H PRN (Reason: Dyspnea) haloperidol lactate 2 mg/mL Concentrate 1.2 mg PO BID megestrol 400 mg/10 mL (10 mL) Suspension 400 mg PO DAILY aspirin 81 mg Tablet,Delayed Release (Dr/Ec) 81 mg PO DAILY Qty: 30 0RF lisinopril 10 mg Tablet 10 mg PO DAILY Qty: 30 0RF Protocol: Hold for SBP< HOLD for SBP < : 90 metoprolol succinate 25 mg Tablet Extended Release 24 Hr 25 mg PO DAILY Qty: 30 0RF Protocol: Hold for SBP/HR < HOLD for SBP < : 90 HOLD for HR < : 60 atorvastatin [Lipitor] 40 mg tablet 40 mg PO BEDTIME Qty: 30 0RF cefuroxime axetil 500 mg Tablet 500 mg PO Q12H Qty: 6 0RF ondansetron HCl [Zofran] 4 mg tablet 4 mg PO Q6H PRN (Reason: nausea and vomiting) Qty: 14 0RF cefuroxime axetil 250 mg tablet 250 mg PO BID 7 Days Qty: 14 0RF tamsulosin 0.4 mg capsule 0.8 mg PO BEDTIME 90 Days Qty: 180 1RF Referrals: [facility] [Primary Care Provider] -
[2022-10-15 13:13] LABS: MANUAL DIFF FLAG NO
[2022-10-15 13:17] LABS: Basophils Percent Auto 0.3 % (0-2); Eosinophils Absolute Auto 0.1 X10*3/uL (0.0-0.4); Hematocrit 40.8 % (42.0-52.0); Imm Gran Abs Auto 0.06 X10*3/uL (0.00-0.03); Imm Gran Pct Auto 0.5 % (0.0-0.4); Lymphocytes Absolute Auto 1.3 X10*3/uL (1.2-4.9); Lymphocytes Percent Auto 11.3 % (20-40); Mean Corpuscular HGB Conc 34.3 g/dl (31.0-36.0); Mean Corpuscular Hemoglobin 31.7 pg (27.0-33.0); Mean Corpuscular Volume 92.3 fL (80.0-98.0); Neutrophils Absolute Auto 9.3 x10*3/uL (2.0-8.3); Neutrophils Percent Auto 78.9 % (45-73); Platelet Count 231 X10*3/uL (160-400); Red Blood Count 4.42 X10*6/uL (4.60-5.80); Red Cell Distribution Width 13.5 % (11.0-16.0); White Blood Count 11.8 X10*3/uL (4.8-10.8)
[2022-10-15 13:32] LABS: Anion Gap 13 (12-20); Blood Urea Nitrogen 9 mg/dL (9-16); Calcium 9.6 mg/dL (8.4-10.2); Carbon Dioxide 23 mmol/L (22-29); Chloride 104 mmol/L (96-108); Creatinine Clr Calc Pharmacy 64.1; Estimated Glomerular Filt Rate > 60; Glucose Random 83 mg/dL (60-115); Potassium 3.9 mmol/L (3.3-5.1); Sodium 136 mmol/L (135-145)
--- NOTE | 2022-10-15 13:44 | PC.NURSE ---
Right sided cheek and lip swelling and redness. Pt also noted with productive cough, CXR to be ordered
--- NOTE | 2022-10-15 15:22 | PC.NURSE ---
Pt is resting comfortably on stretcher at this time, awaiting ambulance transportation back to facility. Pt requesting food, this RN provided pt with ham sandwich. Pt reports feeling much better
== END 2022-10-15 17:47 | disposition skilled nursing facility (03) ==
PROVIDERS: Emergency Provider Emergency Medicine
DX: L03.211 Cellulitis of face (principal); J18.9 Pneumonia, unspecified organism; I11.0 Hypertensive heart disease with heart failure; I50.9 Heart failure, unspecified; E78.5 Hyperlipidemia, unspecified; B20 Human immunodeficiency virus [HIV] disease; Z79.82 Long term (current) use of aspirin; Z79.899 Other long term (current) drug therapy
CPT/HCPCS: 36415; 70486; 71046; 80048; 85025; 99284

== ENCOUNTER 2022-11-07 06:18 | Emergency (ER) | payer MEDICARE, MEDICAID, SELFPAY ==
--- NOTE | ~2022-11-07 | XR_ITS ---
EXAMINATION: XR CHEST CLINICAL INFORMATION: Recent pneumonia. COMPARISON: 10/15/2022 TECHNIQUE: Frontal view of the chest was obtained. FINDINGS: The patient is slightly rotated into a left anterior oblique position. Compared to 10/15/2022, there appear to be new small patchy opacities in the right mid to lower lung zone. Difficult to exclude any trace right pleural effusion on this limited exam. Cardiomediastinal silhouette has stable size and contour. There is atherosclerotic calcification of the aorta. Pulmonary vascular pattern is normal. No acute skeletal findings. XR/XR chest 1V IMPRESSION: Small patchy opacities in the right lung could represent infectious bronchiolitis and/or pneumonia and are new compared to 10/15/2022.
[2022-11-07 06:22] VITALS: BP 108/56; BP 121/48; PULSE 62; PULSE 73; RESP 20; TEMP 36.8; O2SAT 94; O2SAT 96; BMI 23.4
--- NOTE | 2022-11-07 06:53 | ED_ITS ---
HPI - URI/Sore Throat General Chief Complaint: Upper Respiratory Symptoms Stated Complaint: Cough Time Seen by Provider: 11/07/22 06:46 Source: patient Mode of arrival: ambulatory Limitations: other History of Present Illness HPI Narrative: 76 year old male unable to give any history he does not that his name is Javi Hardy. He was sent here from the senior care as they were concerned he wasn't wearing his nasal cannula. REcently treated for pneumonia and recieved prednisone. I saw a note showing pneumonia and facial cellulitis. Patient unable to give any history Related Data Home Medications Medication Instructions Recorded Confirmed abacavir 600 mg-dolutegravir 50 1 tab PO DAILY 07/30/20 11/17/20 mg-lamivudine 300 mg tablet (Triumeq) lactulose 20 gram oral packet 20 g PO DAILY PRN Constipation 07/30/20 11/17/20 levothyroxine 75 mcg tablet 75 mcg PO DAILY 07/30/20 11/17/20 multivitamin with iron 1 tab PO DAILY 07/30/20 11/17/20 omeprazole 20 mg tablet,delayed 20 mg PO BID 07/30/20 11/17/20 release oxcarbazepine 150 mg tablet 150 mg PO BID 07/30/20 11/17/20 (Trileptal) sennosides 8.6 mg capsule 8.6 mg PO BEDTIME PRN Constipation 07/30/20 11/17/20 tamsulosin 0.4 mg capsule (Flomax) 0.4 mg PO DAILY 07/30/20 11/17/20 acetaminophen 325 mg tablet 650 mg PO Q4H PRN Mild Pain (Scale 11/17/20 11/17/20 Score 1-4) albuterol sulfate 90 mcg/actuation 2 puff inhalation Q4-6H PRN Dyspnea 11/17/20 11/17/20 aerosol inhaler (ProAir HFA) artificial tears solution eye drops 1 drp ophthalmic (eye) Q4H 11/17/20 11/17/20 benztropine 1 mg tablet 1 mg PO BID 11/17/20 11/17/20 guaifenesin 100 mg/5 mL oral liquid 200 mg PO Q4H PRN Cough 11/17/20 11/17/20 haloperidol lactate 2 mg/mL oral 1.2 mg PO BID 11/17/20 11/17/20 concentrate loperamide 2 mg tablet 2 mg PO Q6H PRN Diarrhea 11/17/20 11/17/20 megestrol 400 mg/10 mL (10 mL) 400 mg PO DAILY 11/17/20 11/17/20 oral suspension nystatin 100,000 unit/gram topical 1 appl topical BID 11/17/20 11/17/20 powder sucralfate 100 mg/mL oral 10 ml PO QID 11/17/20 11/17/20 suspension Previous Rx's Medication Instructions Recorded aspirin 81 mg tablet,delayed 81 mg PO DAILY #30 tabs 11/19/20 release atorvastatin 40 mg tablet (Lipitor) 40 mg PO BEDTIME #30 tabs 11/19/20 cefuroxime axetil 500 mg tablet 500 mg PO Q12H #6 tabs 11/19/20 lisinopril 10 mg tablet 10 mg PO DAILY #30 tabs 11/19/20 metoprolol succinate 25 mg 25 mg PO DAILY #30 tabs 11/19/20 tablet,extended release 24 hr tamsulosin 0.4 mg capsule 0.8 mg PO BEDTIME 90 days #180 caps 03/25/21 ondansetron HCl 4 mg tablet 4 mg PO Q6H PRN nausea and 08/18/21 (Zofran) vomiting #14 tabs cefuroxime axetil 250 mg tablet 250 mg PO BID 7 days #14 tabs 04/07/22 doxycycline monohydrate 100 mg 100 mg PO BID #20 caps 10/15/22 capsule doxycycline monohydrate 100 mg 100 mg PO BID #20 caps 11/07/22 capsule Allergies Allergy/AdvReac Type Severity Reaction Status Date / Time chlorpromazine Allergy Unknown UNKNOWN Verified 02/10/22 08:55 [From [facility]] Review of Systems Review of Systems: Review of systems: unable to obtain very poor historian Yes all other systems are reviewed and are negative [facility] Past Medical History Medical History Anemia BPH (benign prostatic hyperplasia) CHF (congestive heart failure) Constipation Dementia Duodenal ulcer Dysphagia GERD (gastroesophageal reflux disease) HIV (human immunodeficiency virus infection) Hyperlipidemia Hypertension Hypothyroid Social History Social History Patient Tobacco Use Status: Never used Tobacco Advance Directives: Yes Advance Directives on File: Yes Advance Directives Date on File: 08/21/15 service: No Current occupational status: disabled Physical Exam Vital Signs: Vital Signs: Last Vital Signs Temp 98.3 F 11/07/22 06:22 Pulse 67 11/07/22 06:56 Resp 18 11/07/22 06:56 BP 102/51 L 11/07/22 06:56 Pulse Ox 91 L 11/07/22 06:56 O2 Del Method Nasal Cannula 11/07/22 06:56 O2 Flow Rate 3 11/07/22 06:56 BMI result Body Mass Index 23.4 General: Well-appearing well-nourished in no signs of distress HEENT: Normocephalic atraumatic Neck: No signs of JVD, no masses no tenderness or lymphadenopathy Cardiovascular: Regular rate and rhythm Respiratory: Clear to auscultation bilaterally Abdomen: Soft nontender no masses Extremities: Normal pedal pulses no signs of edema Skin: Dry warm no rashes Back: No tenderness full ROM Medical Decision Making Medical Decision Making [facility] Narrative: Patient here because the medical facility with these today was upset that he was not wearing his nasal cannula given his O2 saturation was in the 90s patient arrives here not requiring and patient is unable to give history since patient recently had pneumonia get an x-ray check labs including a lactic the patient septic and reassess. [id number] XR shows new infiltrates, labs are much improved no WBC count negative lactic. I will send home on doxycycline and have patient follow up with PCP. Differential Diagnosis Differential Diagnoses: The differential diagnosis associated with the presentation includes Pneumonia, sepsis noncompliance inappropriate transfer for medical care. Admission/Observation Consideration of admission/observation: Escalation of care including admission/observation considered Lab Data [facility] Lab Attestation statement: I reviewed the patient's lab results. 11/07/22 08:25 11/07/22 08:25 Labs: Lab Results 11/07/22 11/07/22 11/07/22 Range/Units 06:37 08:25 08:25 WBC 10.4 (4.8-10.8) X10*3/uL RBC 4.41 L (4.60-5.80) X10*6/uL Hgb 14.2 (14.0-18.0) g/dl Hct 40.8 L (42.0-52.0) % MCV 92.5 (80.0-98.0) fL MCH 32.2 (27.0-33.0) pg MCHC 34.8 (31.0-36.0) g/dl RDW 13.9 (11.0-16.0) % Plt Count 184 (160-400) X10*3/uL MPV 10.3 (9.4-12.4) fL Sodium 135 (135-145) mmol/L Potassium 3.9 (3.3-5.1) mmol/L Chloride 105 (96-108) mmol/L Carbon Dioxide 21 L (22-29) mmol/L Anion Gap 13 (12-20) BUN 14 (9-16) mg/dL Creatinine 0.83 (0.5-1.4) mg/dL Estim Creat Clear Calc 73.2 Estimated GFR > 60 Random Glucose 104 (60-115) mg/dL Lactic Acid (0.5-2.0) mmol/L Calcium 9.7 (8.4-10.2) mg/dL Influenza Type A (PCR) NEGATIVE (Negative) Influenza Type B (PCR) NEGATIVE (Negative) RSV RNA Qual (PCR) NEGATIVE (Negative) SARS-CoV-2 RNA (RT-PCR) NEGATIVE (Negative) 11/07/22 Range/Units 08:25 WBC (4.8-10.8) X10*3/uL RBC (4.60-5.80) X10*6/uL Hgb (14.0-18.0) g/dl Hct (42.0-52.0) % MCV (80.0-98.0) fL MCH (27.0-33.0) pg MCHC (31.0-36.0) g/dl RDW (11.0-16.0) % Plt Count (160-400) X10*3/uL MPV (9.4-12.4) fL Sodium (135-145) mmol/L Potassium (3.3-5.1) mmol/L Chloride (96-108) mmol/L Carbon Dioxide (22-29) mmol/L Anion Gap (12-20) BUN (9-16) mg/dL Creatinine (0.5-1.4) mg/dL Estim Creat Clear Calc Estimated GFR Random Glucose (60-115) mg/dL Lactic Acid 1.3 (0.5-2.0) mmol/L Calcium (8.4-10.2) mg/dL Influenza Type A (PCR) (Negative) Influenza Type B (PCR) (Negative) RSV RNA Qual (PCR) (Negative) SARS-CoV-2 RNA (RT-PCR) (Negative) Independent Interpretation I performed an independent interpretation of an: EKG and Plain X-Ray Radiology Impression Discussion of test interpretation with radiology: I have reviewed the radiologist's reading. Discharge Plan Discharge Clinical Impression: Pulmonary infiltrate on chest x-ray, Pneumonia Patient Disposition: Home, Self-Care Instructions: Pneumonia (ED) Additional Instructions: Please call to followup. Prescriptions: New doxycycline monohydrate 100 mg capsule 100 mg PO BID Qty: 20 0RF No Action Triumeq 600-50-300 mg Tablet 1 tab PO DAILY lactulose 20 gram Packet 20 g PO DAILY PRN (Reason: Constipation) levothyroxine 75 mcg Tablet 75 mcg PO DAILY multivitamin with iron Tablet 1 tab PO DAILY oxcarbazepine [Trileptal] 150 mg Tablet 150 mg PO BID tamsulosin [Flomax] 0.4 mg Capsule 0.4 mg PO DAILY sennosides 8.6 mg Capsule 8.6 mg PO BEDTIME PRN (Reason: Constipation) omeprazole 20 mg Tablet,Delayed Release (Dr/Ec) 20 mg PO BID acetaminophen 325 mg Tablet 650 mg PO Q4H PRN (Reason: Mild Pain (Scale Score 1-4)) Rx Instructions: OR FEVER sucralfate 100 mg/mL Suspension 10 ml PO QID artificial tears solution Drops 1 drp OPHTHALMIC (EYE) Q4H loperamide 2 mg Tablet 2 mg PO Q6H PRN (Reason: Diarrhea) guaifenesin 100 mg/5 mL Liquid 200 mg PO Q4H PRN (Reason: Cough) benztropine 1 mg Tablet 1 mg PO BID nystatin 100,000 unit/gram Powder 1 appl TOPICAL BID Rx Instructions: TO GROINS albuterol sulfate [ProAir HFA] 90 mcg/actuation Hfa Aerosol Inhaler 2 puff INHALATION Q4-6H PRN (Reason: Dyspnea) haloperidol lactate 2 mg/mL Concentrate 1.2 mg PO BID megestrol 400 mg/10 mL (10 mL) Suspension 400 mg PO DAILY aspirin 81 mg Tablet,Delayed Release (Dr/Ec) 81 mg PO DAILY Qty: 30 0RF lisinopril 10 mg Tablet 10 mg PO DAILY Qty: 30 0RF Protocol: Hold for SBP< HOLD for SBP < : 90 metoprolol succinate 25 mg Tablet Extended Release 24 Hr 25 mg PO DAILY Qty: 30 0RF Protocol: Hold for SBP/HR < HOLD for SBP < : 90 HOLD for HR < : 60 atorvastatin [Lipitor] 40 mg tablet 40 mg PO BEDTIME Qty: 30 0RF cefuroxime axetil 500 mg Tablet 500 mg PO Q12H Qty: 6 0RF ondansetron HCl [Zofran] 4 mg tablet 4 mg PO Q6H PRN (Reason: nausea and vomiting) Qty: 14 0RF cefuroxime axetil 250 mg tablet 250 mg PO BID 7 Days Qty: 14 0RF doxycycline monohydrate 100 mg capsule 100 mg PO BID Qty: 20 0RF tamsulosin 0.4 mg capsule 0.8 mg PO BEDTIME 90 Days Qty: 180 1RF
[2022-11-07 06:56] VITALS: BP 102/51; PULSE 67; RESP 18; O2SAT 91
[2022-11-07 07:18] LABS: Influenza A PCR NEGATIVE (Negative); Influenza B PCR NEGATIVE (Negative); Resp Syncy Virus RNA Qual PCR NEGATIVE (Negative); SARS COV2 PCR INHOUSE NEGATIVE (Negative)
--- NOTE | 2022-11-07 07:20 | PC.NURSE ---
patient refuses blood work
--- NOTE | 2022-11-07 07:27 | PC.NURSE ---
pt sleeping, wakes to verbal stimulus, vss, pt refusing labs/treatment, refusing to answer additional questions, provider notified.
[2022-11-07 08:29] LABS: Basophils Percent Auto 0.4 % (0-2); Eosinophils Percent Auto 0.1 % (0-4); Hematocrit 40.8 % (42.0-52.0); Hemoglobin 14.2 g/dl (14.0-18.0); Imm Gran Abs Auto 0.06 X10*3/uL (0.00-0.03); Imm Gran Pct Auto 0.6 % (0.0-0.4); Lymphocytes Absolute Auto 0.5 X10*3/uL (1.2-4.9); Lymphocytes Percent Auto 4.3 % (20-40); MANUAL DIFF FLAG SCAN; Mean Corpuscular HGB Conc 34.8 g/dl (31.0-36.0); Mean Corpuscular Hemoglobin 32.2 pg (27.0-33.0); Mean Corpuscular Volume 92.5 fL (80.0-98.0); Mean Platelet Volume 10.3 fL (9.4-12.4); Monocytes Absolute Auto 0.3 X10*3/uL (0.1-1.2); Monocytes Percent Auto 3.1 % (2-11); Neutrophils Absolute Auto 9.6 x10*3/uL (2.0-8.3); Neutrophils Percent Auto 91.5 % (45-73); Platelet Count 184 X10*3/uL (160-400); Red Blood Count 4.41 X10*6/uL (4.60-5.80); Red Cell Distribution Width 13.9 % (11.0-16.0); SCAN SMEAR FLAG 1; White Blood Count 10.4 X10*3/uL (4.8-10.8)
[2022-11-07 08:50] LABS: Anion Gap 13 (12-20); Blood Urea Nitrogen 14 mg/dL (9-16); Calcium 9.7 mg/dL (8.4-10.2); Carbon Dioxide 21 mmol/L (22-29); Chloride 105 mmol/L (96-108); Creatinine Clr Calc Pharmacy 73.2; Estimated Glomerular Filt Rate > 60; Glucose Random 104 mg/dL (60-115); Potassium 3.9 mmol/L (3.3-5.1); Sodium 135 mmol/L (135-145)
[2022-11-07 08:51] LABS: Lactic Acid 1.3 mmol/L (0.5-2.0)
[2022-11-07 09:10] LABS: SLIDE REVIEW VERIFIED
--- NOTE | 2022-11-07 09:35 | PC.NURSE ---
called report to [facility], they stated patient had his dose of doxy before coming to the ed, let provider know and will not give the dose of doxy here, will continue to monitor
== END 2022-11-07 11:25 ==
PROVIDERS: Emergency Medicine; Emergency Provider Student in an Organized Health Care Education/Training Program; PCP Hospitalist
DX: J18.9 Pneumonia, unspecified organism (principal); R91.8 Other nonspecific abnormal finding of lung field; Z20.822 Contact with and (suspected) exposure to COVID-19; Z20.828 Contact with and (suspected) exposure to other viral communicable diseases; B20 Human immunodeficiency virus [HIV] disease; I11.0 Hypertensive heart disease with heart failure; I50.9 Heart failure, unspecified; E78.5 Hyperlipidemia, unspecified; F03.90 Unspecified dementia, unspecified severity, without behavioral disturbance, psychotic disturbance, mood disturbance, and anxiety; Z79.899 Other long term (current) drug therapy; Z79.82 Long term (current) use of aspirin; Z79.02 Long term (current) use of antithrombotics/antiplatelets
CPT/HCPCS: 0241U; 36415; 71045; 80048; 83605; 85025; 99283

== ENCOUNTER → 2022-11-22 10:07 | Outpatient (BNVA) | payer MEDICARE, MEDICAID, SELFPAY | PROVIDERS: PCP Hospitalist; Visit Provider Urology | DX: N40.1 Benign prostatic hyperplasia with lower urinary tract symptoms (principal); R39.15 Urgency of urination | CPT/HCPCS: 51798; 99212 ==

== ENCOUNTER 2022-11-26 14:01 | Emergency (ER) | payer MEDICARE, MEDICAID, SELFPAY ==
--- NOTE | ~2022-11-26 | XR_ITS ---
EXAMINATION: XR CHEST CLINICAL INFORMATION: Cough. COMPARISON: Chest x-ray 11/07/2022 TECHNIQUE: Frontal view of the chest was obtained. FINDINGS: The lungs are well-expanded with patchy opacity seen in the right lung base. Rest of the lungs are clear. The heart size is borderline normal. Pulmonary vascularity is normal. No gross bony abnormality seen. XR/XR chest 1V IMPRESSION: 1. Patchy opacity right lung base likely infiltrate. Patient had a similar findings on the previous exam 11/07/2022 2. Borderline normal heart.
--- NOTE | 2022-11-26 14:01 | PC.NURSE ---
Addendum entered by Tabby Dumont 11/26/22 14:03: per facility pt just finished a course of abx/steroids, productive cough with thick yellow sputum, cultured by facility - culture came back negative. Original Note: expect from [facility]: pt had nose bleed for 10 mins, packed nostril, applied ice. pt is not on blood thinners, vss. per facility this happens when pt picks nose.
[2022-11-26 14:12] VITALS: BP 176/76; PULSE 54; RESP 20; TEMP 36.5; O2SAT 98; BMI 24.3
[2022-11-26] MEDS: Oxymetazoline HCl 0.05 % Nasal 15 ML SPRAY 2 SPRAY NOSTRIL-B (14:26)
[2022-11-26 16:31] LABS: MANUAL DIFF FLAG NO
[2022-11-26 16:33] LABS: Basophils Absolute Auto 0.1 X10*3/uL (0.0-0.2); Basophils Percent Auto 0.7 % (0-2); Eosinophils Absolute Auto 0.1 X10*3/uL (0.0-0.4); Eosinophils Percent Auto 1.4 % (0-4); Hematocrit 37.4 % (42.0-52.0); Hemoglobin 12.9 g/dl (14.0-18.0); Imm Gran Abs Auto 0.03 X10*3/uL (0.00-0.03); Imm Gran Pct Auto 0.4 % (0.0-0.4); Lymphocytes Absolute Auto 1.1 X10*3/uL (1.2-4.9); Lymphocytes Percent Auto 14.8 % (20-40); Mean Corpuscular HGB Conc 34.5 g/dl (31.0-36.0); Mean Corpuscular Hemoglobin 31.9 pg (27.0-33.0); Mean Corpuscular Volume 92.6 fL (80.0-98.0); Monocytes Absolute Auto 0.5 X10*3/uL (0.1-1.2); Monocytes Percent Auto 7.4 % (2-11); Neutrophils Absolute Auto 5.5 x10*3/uL (2.0-8.3); Neutrophils Percent Auto 75.3 % (45-73); Platelet Count 253 X10*3/uL (160-400); Red Blood Count 4.04 X10*6/uL (4.60-5.80); Red Cell Distribution Width 13.7 % (11.0-16.0); White Blood Count 7.3 X10*3/uL (4.8-10.8)
[2022-11-26 16:37] VITALS: BP 177/77; PULSE 53; RESP 20; TEMP 36.6; O2SAT 95
[2022-11-26 16:37] LABS: INTERNATIONAL NORM RATIO 1.4 (0.9-1.1); Prothrombin Time 16.7 SEC (10.0-13.1)
--- NOTE | 2022-11-26 17:00 | PC.NURSE ---
[facility]. PT ALERT, ORIENTED TO SELF. PER [facility] PT HAD A COUGHING SPELL THEN HIS R NOSTRIL STARTED BLEEDING, NURSE NOT ABLE TO STOP BLEED. TAMPON PLACED IN R NOSTRIL AND PT PULLED IT OUT X2. R NOSTRIL CAUTERIZED, BLEED STOPPED.
[2022-11-26 17:06] LABS: Anion Gap 12 (12-20); Blood Urea Nitrogen 13 mg/dL (9-16); Carbon Dioxide 23 mmol/L (22-29); Chloride 103 mmol/L (96-108); Creatinine Clr Calc Pharmacy 78.9; Estimated Glomerular Filt Rate > 60; Glucose Random 100 mg/dL (60-115); Potassium 3.9 mmol/L (3.3-5.1); Sodium 134 mmol/L (135-145)
--- NOTE | 2022-11-26 17:45 | ED_ITS ---
History of Present Illness General Chief Complaint: Epistaxis Stated Complaint: NOSEBLEED FROM SNF Time Seen by Provider: 11/26/22 14:21 Source: patient and EMS Mode of arrival: EMS Limitations: altered mental status History of Present Illness HPI Narrative: 76 y/o male with history of HIV, HLD, hypothyroidiam, dementia, anemia, HFpEF, currently being treated for pneumonia with doxycycline who [place] [facility] [place] [facility] with epistaxis for 20 minutes. No known injury or trauma. Patient has had a cough for the last few weeks with no reports of shortness of breath, chest pain or fever. Patient is not on any anticoagulation. Patient unable to provide any history of present illness. Patient is at baseline per staff Related Data Home Medications Medication Instructions Recorded Confirmed abacavir 600 mg-dolutegravir 50 1 tab PO DAILY 07/30/20 11/17/20 mg-lamivudine 300 mg tablet (Triumeq) lactulose 20 gram oral packet 20 g PO DAILY PRN Constipation 07/30/20 11/17/20 levothyroxine 75 mcg tablet 75 mcg PO DAILY 07/30/20 11/17/20 multivitamin with iron 1 tab PO DAILY 07/30/20 11/17/20 omeprazole 20 mg tablet,delayed 20 mg PO BID 07/30/20 11/17/20 release oxcarbazepine 150 mg tablet 150 mg PO BID 07/30/20 11/17/20 (Trileptal) sennosides 8.6 mg capsule 8.6 mg PO BEDTIME PRN Constipation 07/30/20 11/17/20 tamsulosin 0.4 mg capsule (Flomax) 0.4 mg PO DAILY 07/30/20 11/17/20 acetaminophen 325 mg tablet 650 mg PO Q4H PRN Mild Pain (Scale 11/17/20 11/17/20 Score 1-4) albuterol sulfate 90 mcg/actuation 2 puff inhalation Q4-6H PRN Dyspnea 11/17/20 11/17/20 aerosol inhaler (ProAir HFA) artificial tears solution eye drops 1 drp ophthalmic (eye) Q4H 11/17/20 11/17/20 benztropine 1 mg tablet 1 mg PO BID 11/17/20 11/17/20 guaifenesin 100 mg/5 mL oral liquid 200 mg PO Q4H PRN Cough 11/17/20 11/17/20 haloperidol lactate 2 mg/mL oral 1.2 mg PO BID 11/17/20 11/17/20 concentrate loperamide 2 mg tablet 2 mg PO Q6H PRN Diarrhea 11/17/20 11/17/20 megestrol 400 mg/10 mL (10 mL) 400 mg PO DAILY 11/17/20 11/17/20 oral suspension nystatin 100,000 unit/gram topical 1 appl topical BID 11/17/20 11/17/20 powder sucralfate 100 mg/mL oral 10 ml PO QID 11/17/20 11/17/20 suspension Previous Rx's Medication Instructions Recorded aspirin 81 mg tablet,delayed 81 mg PO DAILY #30 tabs 11/19/20 release atorvastatin 40 mg tablet (Lipitor) 40 mg PO BEDTIME #30 tabs 11/19/20 cefuroxime axetil 500 mg tablet 500 mg PO Q12H #6 tabs 11/19/20 lisinopril 10 mg tablet 10 mg PO DAILY #30 tabs 11/19/20 metoprolol succinate 25 mg 25 mg PO DAILY #30 tabs 11/19/20 tablet,extended release 24 hr tamsulosin 0.4 mg capsule 0.8 mg PO BEDTIME 90 days #180 caps 03/25/21 ondansetron HCl 4 mg tablet 4 mg PO Q6H PRN nausea and 08/18/21 (Zofran) vomiting #14 tabs cefuroxime axetil 250 mg tablet 250 mg PO BID 7 days #14 tabs 04/07/22 doxycycline monohydrate 100 mg 100 mg PO BID #20 caps 10/15/22 capsule doxycycline monohydrate 100 mg 100 mg PO BID #20 caps 11/07/22 capsule Allergies Allergy/AdvReac Type Severity Reaction Status Date / Time chlorpromazine Allergy Unknown UNKNOWN Verified 02/10/22 08:55 [From THORAZINE] Review of Systems Review of Systems: Yes all other systems are reviewed and are negative Constitutional: Constitutional: Reports no additional constitutional complaints, Denies body ache(s), Denies chills, Denies fever(s), Denies headache(s) and Denies weakness Eyes: Eyes: Reports no additional eye complaints and Denies change in vision ENT: Reports system reviewed and no additional complaints, except as documented, Denies dizziness, Denies headache(s), Reports epistaxis, Denies nasal congestion, Denies nasal discharge and Denies neck pain Cardiovascular: Cardiovascular: Reports no additional cardiovascular complaints, Denies chest pain, Denies leg edema and Denies dyspnea Respiratory: Respiratory: Reports no additional respiratory complaints, Reports cough and Denies dyspnea Gastrointestinal: Gastrointestinal: Reports no additional gastrointestinal complaints, Denies abdominal pain, Denies diarrhea, Denies nausea and Denies vomiting Genitourinary: Genitourinary: Denies urinary incontinence Musculoskeletal: Musculoskeletal: Reports no additional musculoskeletal complaints, Denies back pain, Denies arthralgias, Denies joint swelling, Denies neck pain, Denies numbness and Denies tingling Integumentary/Breasts: Skin/Breast: Reports system reviewed and no additional complaints, except as docu and Denies rash Neurologic: Reports system reviewed and no additional complaints, except as documented, Reports confusion, Denies dizziness, Denies headache(s), Denies numbness, Denies tingling and Denies weakness Psychiatric: Psychiatric: Reports confusion PMFSH Past Medical History Attestation statement: The following information was validated with the patient. Source: old records reviewed and nursing notes reviewed Medical History Anemia BPH (benign prostatic hyperplasia) CHF (congestive heart failure) Constipation Dementia Duodenal ulcer Dysphagia GERD (gastroesophageal reflux disease) HIV (human immunodeficiency virus infection) Hyperlipidemia Hypertension Hypothyroid Social History Social History Patient Tobacco Use Status: Never used Tobacco Advance Directives: No Advance Directives Date on File: 08/21/15 service: No Current occupational status: disabled Physical Exam Vital Signs: Vital Signs: Last Vital Signs Temp 97.9 F 11/26/22 16:37 Pulse 53 11/26/22 16:37 Resp 20 11/26/22 16:37 BP 177/77 H 11/26/22 16:37 Pulse Ox 95 11/26/22 16:37 O2 Del Method 11/26/22 16:37 BMI result Body Mass Index 24.3 Const: Other: At baseline General: cooperative, healthy appearing, comfortable, no acute distress, alert and confusion Orientation/consciousness: confusion Limitations: no limitations HEENT: Head: Yes normal to inspection Ears: hearing grossly normal bilaterally and TM's normal bilaterally General nose exam: Normal external nose present and Other nasal findings present (Active epistaxis right now) Face and sinus: Yes normal facial exam Mouth: Normal oral and palatal mucosa present Throat: Yes posterior oropharynx normal Eyes: General: appearance normal, both eyes and all related structures Pupils: Equal, round and reactive pupils present Neck: Neck: Yes normal visual inspection Chest: Chest palpation & inspection: normal inspection of the chest Resp: Effort & Inspection: normal respiratory effort Auscultation: clear to auscultation bilaterally Cardio: Rate: regular rate Rhythm: regular rhythm Peripheral pulses: Peripheral pulses 2+ throughout GI: Inspection: Yes normal to inspection Palpation (GI): Soft to palpation and nontender Auscultation: normal bowel sounds Back/Spine/Pelvis: Thoracic/Lumbar Spine: thoracic and lumbar spine normal to inspection Skin: General skin exam: no rashes or lesions noted Neuro: General: moves all extremities, normal sensation to monofilament and confusion Cranial nerves: Yes Equal, round and reactive pupils present Extrem: General: Yes normal to inspection Course Course Course Narrative: On discharge patient self removed the 2nd round of packing. We were able to vis ualize then nare (Dr Medina). There was no active bleeding at this time. Patient received additional dose of Afrin and he will be discharged back to [facility] with no packing in place Medications Administered Discontinued Medications Generic Name Dose Route Start Last Admin Trade Name Freq PRN Reason Stop Dose Admin Oxymetazoline HCl 2 spray 11/26/22 14:21 11/26/22 14:26 Oxymetazoline Hcl 0.05 % Nasal 15 Ml [place] NOSTRIL-B 11/26/22 14:22 2 spray ONCE ONE Administration Medical Decision Making Medical Decision Making [facility] Narrative: 76-year-old male coming from a senior care who is currently being treated for pneumonia with doxycycline who has had a cough for several weeks who presents with epistaxis for 20 minutes unrelieved with direct pressure at the senior care. On arrival patient with active right Arceo epistaxis. Unable to visualize due to bleeding. Patient received 4 sprays of Afrin and direct pressure was applied. 30 minutes later patient continues with active bleeding. Nasal packing was placed to the right Arceo. Patient removed the initial nasal packing. A 2nd nasal packing was placed with bleeding controlled Patient monitored in the emergency room for several hours with no additional bl eeding. Labs ordered as well as repeat chest x-ray to evaluate the patient's pneumonia Differential Diagnosis Differential Diagnoses: The differential diagnosis associated with the presentation includes Epistaxis, pneumonia Lab Data MDM Lab Attestation statement: I reviewed the patient's lab results. 11/26/22 16:24 11/26/22 16:24 Labs: Lab Results 11/26/22 11/26/22 11/26/22 Range/Units 16:24 16:24 16:24 WBC 7.3 (4.8-10.8) X10*3/uL RBC 4.04 L (4.60-5.80) X10*6/uL Hgb 12.9 L (14.0-18.0) g/dl Hct 37.4 L (42.0-52.0) % MCV 92.6 (80.0-98.0) fL MCH 31.9 (27.0-33.0) pg MCHC 34.5 (31.0-36.0) g/dl RDW 13.7 (11.0-16.0) % Plt Count 253 D (160-400) X10*3/uL MPV 10.0 (9.4-12.4) fL Immature Gran % (Auto) 0.4 (0.0-0.4) % Neut % (Auto) 75.3 H (45-73) % Lymph % (Auto) 14.8 L (20-40) % [place] % (Auto) 7.4 (2-11) % Eos % (Auto) 1.4 (0-4) % Baso % (Auto) 0.7 (0-2) % Lymph # (Auto) 1.1 L (1.2-4.9) X10*3/uL [place] # (Auto) 0.5 (0.1-1.2) X10*3/uL Eos # (Auto) 0.1 (0.0-0.4) X10*3/uL Baso # (Auto) 0.1 (0.0-0.2) X10*3/uL Abs Immat Gran (auto) 0.03 (0.00-0.03) X10*3/uL Absolute Neuts (auto) 5.5 (2.0-8.3) x10*3/uL Absolute Nucleated RBC 0.000 (0.0-0.012) X10*3/uL Nucleated RBC % (auto) 0.0 (0.0-0.2) /100WBC PT 16.7 H (10.0-13.1) SEC INR 1.4 H (0.9-1.1) Sodium 134 L (135-145) mmol/L Potassium 3.9 (3.3-5.1) mmol/L Chloride 103 (96-108) mmol/L Carbon Dioxide 23 (22-29) mmol/L Anion Gap 12 (12-20) BUN 13 (9-16) mg/dL Creatinine 0.77 (0.5-1.4) mg/dL Estim Creat Clear Calc 78.9 Estimated GFR > 60 Random Glucose 100 (60-115) mg/dL Calcium 9.0 D (8.4-10.2) mg/dL Independent Interpretation I performed an independent interpretation of an: Plain X-Ray Radiology Impression Discussion of test interpretation with radiology: I have reviewed the radiologist's reading. Radiologist Impression: [place] [id number] XRay Report Signed Patient: Javi Hardy MR#: [id number] : 1945 Acct:[id number] Age/Sex: 76 / M ADM Date: 11/26/22 Loc: .ED Attending Dr: Ordering Physician: Ariella Rich NP Date of Service: 11/26/22 Procedure(s): XR chest 1V Accession Number(s): [id number] cc: Ariella Rich NP~ EXAMINATION: XR CHEST CLINICAL INFORMATION: Cough. COMPARISON: Chest x-ray 11/07/2022 TECHNIQUE: Frontal view of the chest was obtained. FINDINGS: The lungs are well-expanded with patchy opacity seen in the right lung base. Rest of the lungs are clear. The heart size is borderline normal. Pulmonary vascularity is normal. No gross bony abnormality seen. XR/XR chest 1V IMPRESSION: 1.? Patchy opacity right lung base likely infiltrate. Patient had a similar findings on the previous exam 11/07/2022 ? 2. Borderline normal heart. Discharge Plan Discharge Clinical Impression: Pulmonary infiltrate on chest x-ray, Epistaxis Patient Disposition: Xfer SNF Transfer Details[facility] Instructions: Nosebleed (ED), Pneumonia (ED) Additional Instructions: Javi's x-ray shows that he continues to have a small area of pneumonia. He should continue his antibiotics. Nose bleed stopped in the ER He needs to also be taking the second antibiotic I am prescribing Prescriptions: No Action Triumeq 600-50-300 mg Tablet 1 tab PO DAILY lactulose 20 gram Packet 20 g PO DAILY PRN (Reason: Constipation) levothyroxine 75 mcg Tablet 75 mcg PO DAILY multivitamin with iron Tablet 1 tab PO DAILY oxcarbazepine [Trileptal] 150 mg Tablet 150 mg PO BID tamsulosin [Flomax] 0.4 mg Capsule 0.4 mg PO DAILY sennosides 8.6 mg Capsule 8.6 mg PO BEDTIME PRN (Reason: Constipation) omeprazole 20 mg Tablet,Delayed Release (Dr/Ec) 20 mg PO BID acetaminophen 325 mg Tablet 650 mg PO Q4H PRN (Reason: Mild Pain (Scale Score 1-4)) Rx Instructions: OR FEVER sucralfate 100 mg/mL Suspension 10 ml PO QID artificial tears solution Drops 1 drp OPHTHALMIC (EYE) Q4H loperamide 2 mg Tablet 2 mg PO Q6H PRN (Reason: Diarrhea) guaifenesin 100 mg/5 mL Liquid 200 mg PO Q4H PRN (Reason: Cough) benztropine 1 mg Tablet 1 mg PO BID nystatin 100,000 unit/gram Powder 1 appl TOPICAL BID Rx Instructions: TO GROINS albuterol sulfate [ProAir HFA] 90 mcg/actuation Hfa Aerosol Inhaler 2 puff INHALATION Q4-6H PRN (Reason: Dyspnea) haloperidol lactate 2 mg/mL Concentrate 1.2 mg PO BID megestrol 400 mg/10 mL (10 mL) Suspension 400 mg PO DAILY aspirin 81 mg Tablet,Delayed Release (Dr/Ec) 81 mg PO DAILY Qty: 30 0RF lisinopril 10 mg Tablet 10 mg PO DAILY Qty: 30 0RF Protocol: Hold for SBP< HOLD for SBP < : 90 metoprolol succinate 25 mg Tablet Extended Release 24 Hr 25 mg PO DAILY Qty: 30 0RF Protocol: Hold for SBP/HR < HOLD for SBP < : 90 HOLD for HR < : 60 atorvastatin [Lipitor] 40 mg tablet 40 mg PO BEDTIME Qty: 30 0RF cefuroxime axetil 500 mg Tablet 500 mg PO Q12H Qty: 6 0RF ondansetron HCl [Zofran] 4 mg tablet 4 mg PO Q6H PRN (Reason: nausea and vomiting) Qty: 14 0RF doxycycline monohydrate 100 mg capsule 100 mg PO BID Qty: 20 0RF cefuroxime axetil 250 mg tablet 250 mg PO BID 7 Days Qty: 14 0RF doxycycline monohydrate 100 mg capsule 100 mg PO BID Qty: 20 0RF tamsulosin 0.4 mg capsule 0.8 mg PO BEDTIME 90 Days Qty: 180 1RF Print Language: Indonesian
--- NOTE | 2022-11-26 17:59 | MHC.EDTECH ---
Changed patients gown and bedding multiple times. Sweta Dacosta
--- NOTE | 2022-11-26 18:39 | PC.NURSE ---
PT CLEARED FOR DISCHARGE, AMBULANCE HERE TO TRANSPORT PT TO [facility]. REPORT GIVEN TO NEIL, NURSING ANIMAL EVISCERATOR AT [facility].
== END 2022-11-26 18:59 | disposition skilled nursing facility (03) ==
PROVIDERS: Nurse Practitioner Family; Emergency Provider Internal Medicine; PCP Hospitalist
DX: R04.0 Epistaxis (principal); R91.8 Other nonspecific abnormal finding of lung field; I10 Essential (primary) hypertension; B20 Human immunodeficiency virus [HIV] disease; E78.5 Hyperlipidemia, unspecified; F03.90 Unspecified dementia, unspecified severity, without behavioral disturbance, psychotic disturbance, mood disturbance, and anxiety; D64.9 Anemia, unspecified; Z79.82 Long term (current) use of aspirin; Z79.02 Long term (current) use of antithrombotics/antiplatelets; Z79.899 Other long term (current) drug therapy
CPT/HCPCS: 30901; 36415; 71045; 80048; 85025; 85610; 99284

== ENCOUNTER → 2022-12-13 14:19 | Outpatient (BNVA) | payer MEDICARE, MEDICAID, SELFPAY | PROVIDERS: PCP Hospitalist; Visit Provider Internal Medicine | DX: J18.9 Pneumonia, unspecified organism (principal); R91.8 Other nonspecific abnormal finding of lung field | CPT/HCPCS: 99202 ==

== ENCOUNTER → 2022-12-15 09:50 | Outpatient (BNVA) | payer MEDICARE, MEDICAID, SELFPAY | PROVIDERS: PCP Hospitalist; Visit Provider Physician Assistant | DX: Z12.11 Encounter for screening for malignant neoplasm of colon (principal) | CPT/HCPCS: 99202 ==

== ENCOUNTER 2022-12-19 12:56 | Inpatient (IN) | payer MEDICARE, MEDICAID, SELFPAY ==
--- NOTE | ~2022-12-19 | XR_ITS ---
EXAMINATION: XR CHEST CLINICAL INFORMATION: Cough. Recurrent pneumonia. COMPARISON: Previous chest x-ray most recent October 2022 TECHNIQUE: Frontal view of the chest was obtained. FINDINGS: The cardiac silhouette is enlarged but stable. Hilar and mediastinal contours are unremarkable. There is increasing airspace disease at both lung bases, right greater than left. This probably represents pneumonia. There may be a small right pleural effusion. There is no left pleural effusion or pneumothorax. No acute bone abnormality. Increasing bibasilar airspace disease, right greater than left, probably representing pneumonia.
[2022-12-19 13:06] VITALS: BP 160/90; BP 171/61; PULSE 75; PULSE 77; RESP 22; TEMP 36.9; O2SAT 86; O2SAT 90; BMI 22.2
--- NOTE | 2022-12-19 13:15 | ECG_ITS ---
Test Reason : DYSPNEA Blood Pressure : / mmHG Vent. Rate : 069 BPM Atrial Rate : 000 BPM P-R Int : 000 ms QRS Dur : 094 ms QT Int : 422 ms P-R-T Axes : 000 -04 164 degrees QTc Int : 452 ms Normal sinus rhythm ST & T wave abnormality, consider anterolateral ischemia Abnormal ECG When compared with ECG of 07-APR-2022 08:13, T wave inversion less evident in Anterior leads Referred By: Ivis Garcia Electronically Signed By:VINEET WILLS
--- NOTE | 2022-12-19 13:18 | ED.SOB ---
HPI - SOB/Dyspnea General Chief Complaint: Dyspnea Stated Complaint: From SNF, coughing episode per EMS Time Seen by Provider: 12/19/22 13:06 Source: EMS Mode of arrival: EMS Limitations: other History of Present Illness HPI Narrative: Patient comes to the emergency room via EMS coming from [facility]. According to the staff, patient was eating dinner, he started coughing violently, his oxygen saturation dropped to the low 80s. Patient was placed on a non-rebreather and was brought to the emergency room. EMS gave him 125 mg of Solu-Medrol. Patient is unable to give any significant history. Patient awake and alert but due to dementia, he can express himself very limitedly Related Data Home Medications Medication Instructions Recorded Confirmed abacavir 600 mg-dolutegravir 50 1 tab PO DAILY 07/30/20 12/15/22 mg-lamivudine 300 mg tablet (Triumeq) lactulose 20 gram oral packet 20 g PO DAILY PRN Constipation 07/30/20 12/15/22 levothyroxine 75 mcg tablet 75 mcg PO DAILY 07/30/20 12/15/22 multivitamin with iron 1 tab PO DAILY 07/30/20 12/15/22 omeprazole 20 mg tablet,delayed 20 mg PO BID 07/30/20 12/15/22 release oxcarbazepine 150 mg tablet 150 mg PO BID 07/30/20 12/15/22 (Trileptal) sennosides 8.6 mg capsule 8.6 mg PO BEDTIME PRN Constipation 07/30/20 12/15/22 acetaminophen 325 mg tablet 650 mg PO Q4H PRN Mild Pain (Scale 11/17/20 12/15/22 Score 1-4) albuterol sulfate 90 mcg/actuation 2 puff inhalation Q4-6H PRN Dyspnea 11/17/20 12/15/22 aerosol inhaler (ProAir HFA) artificial tears solution eye drops 1 drp ophthalmic (eye) Q4H 11/17/20 12/15/22 benztropine 1 mg tablet 1 mg PO BID 11/17/20 12/15/22 guaifenesin 100 mg/5 mL oral liquid 200 mg PO Q4H PRN Cough 11/17/20 12/15/22 haloperidol lactate 2 mg/mL oral 1.2 mg PO BID 11/17/20 12/15/22 concentrate loperamide 2 mg tablet 2 mg PO Q6H PRN Diarrhea 11/17/20 12/15/22 megestrol 400 mg/10 mL (10 mL) 400 mg PO DAILY 11/17/20 12/15/22 oral suspension bisacodyl 10 mg rectal suppository 10 mg DE DAILY PRN 12/15/22 12/15/22 (Dulcolax (bisacodyl)) Previous Rx's Medication Instructions Recorded aspirin 81 mg tablet,delayed 81 mg PO DAILY #30 tabs 11/19/20 release atorvastatin 40 mg tablet (Lipitor) 40 mg PO BEDTIME #30 tabs 11/19/20 metoprolol succinate 25 mg 25 mg PO DAILY #30 tabs 11/19/20 tablet,extended release 24 hr tamsulosin 0.4 mg capsule 0.8 mg PO BEDTIME 90 days #180 caps 03/25/21 ondansetron HCl 4 mg tablet 4 mg PO Q6H PRN nausea and 08/18/21 (Zofran) vomiting #14 tabs Allergies Allergy/AdvReac Type Severity Reaction Status Date / Time chlorpromazine Allergy Unknown UNKNOWN Verified 12/15/22 10:01 [From THORAZINE] Review of Systems Review of Systems: Yes Unobtainable due to mental condition [facility] Past Medical History Medical History Anemia BPH (benign prostatic hyperplasia) CHF (congestive heart failure) Constipation Dementia Duodenal ulcer Dysphagia GERD (gastroesophageal reflux disease) HIV (human immunodeficiency virus infection) Hyperlipidemia Hypertension Hypothyroid Recurrent pneumonia Social History Social History Patient Tobacco Use Status: Never used Tobacco Advance Directives: Yes Advance Directives Information Provided: Yes Advance Directives on File: No Advance Directives Date on File: 08/21/15 service: No Current occupational status: disabled Physical Exam Vital Signs: Vital Signs: Last Vital Signs Temp 98.3 F 12/19/22 13:55 Pulse 74 12/19/22 13:55 Resp 17 12/19/22 13:55 BP 171/94 H 12/19/22 13:55 Pulse Ox 92 12/19/22 13:55 O2 Del Method 12/19/22 13:55 O2 Flow Rate 6 12/19/22 13:55 BMI result Body Mass Index 22.2 Const: Other: Appearance: Alert. Coughing continuously Eyes: Pupils equal, round and reactive to light. ENT: Pharynx normal. Neck: Normal inspection. Neck supple. No lymph nodes noted. No crepitus CVS: Normal heart rate and rhythm. Pulses normal. Normal S1 and S2 Respiratory: Coughing continuously, bilateral crackles and rales, no wheezing Abdomen: Soft and nontender. No rigidity. No distention. Skin: Skin warm and dry. Normal skin color. Normal skin turgor. Extremities: No lower extremity edema. No Lacerations. No Rash Neuro: Oriented X 3. No motor deficit. No sensory deficit. Moving all extremities. No slurred speech. CN 2 through 12 grossly intact Psych: calm, cooperative, normal affect Course Course Course Narrative: -patient was given 125 mg of Solu-Medrol by EMS. -patient continues coughing, oxygen saturation 90% on non-rebreather. Medications Administered Discontinued Medications Generic Name Dose Route Start Last Admin Trade Name Freq PRN Reason Stop Dose Admin Piperacillin Sod/Tazobactam 50 mls @ 100 mls/hr 12/19/22 13:16 12/19/22 14:50 Sod 3.375 gm/ Sodium Chloride IV 12/19/22 13:45 Infused ONCE ONE Infusion Lorazepam 2 mg 12/19/22 14:38 12/19/22 14:45 Lorazepam 2 Mg/Ml Vial IVPUSH 12/19/22 14:39 2 mg ONCE ONE Administration Medical Decision Making Medical Decision Making [facility] Narrative: -at this time, 16:50, patient's chest x-ray shows pneumonia. Patient has already been treated empirically with Zosyn. At this time, patient's blood pressure is 171/94, lactic acid 1.5, white blood cell count 9.7. No fever. Sepsis is not suspected. Patient's fluid running at 100 cc/hour, patient has CHF. -also, patient's BNP is slightly elevated compared to baseline, 378. Patient was very combative, punching and kicking people. Getting out of bed, patient yearly fell. patient had to be given 2 mg of Ativan to help him stay in bed -I discussed the patient with Dr. Sorenson, pt being admitted -we were able to wean down the patient from a non-rebreather to 6 L, oxygen saturation 90-92% on 6 L Differential Diagnosis Differential Diagnoses: The differential diagnosis associated with the presentation includes (Pneumonia, COVID, influenza) Admission/Observation Consideration of admission/observation: Escalation of care including admission/observation considered Consult Healthcare Provider Management of the patient was discussed with: Hospitalist Lab Data MDM Lab Attestation statement: I reviewed the patient's lab results. 12/19/22 13:50 12/19/22 13:50 Labs: Lab Results 12/19/22 12/19/22 12/19/22 Range/Units 13:50 13:50 13:50 WBC 9.7 (4.8-10.8) X10*3/uL RBC 4.45 L (4.60-5.80) X10*6/uL Hgb 14.1 (14.0-18.0) g/dl Hct 41.4 L (42.0-52.0) % MCV 93.0 (80.0-98.0) fL MCH 31.7 (27.0-33.0) pg MCHC 34.1 (31.0-36.0) g/dl RDW 14.2 (11.0-16.0) % Plt Count 282 (160-400) X10*3/uL MPV 10.0 (9.4-12.4) fL Immature Gran % (Auto) 0.5 H (0.0-0.4) % Neut % (Auto) 78.3 H (45-73) % Lymph % (Auto) 14.6 L (20-40) % [place] % (Auto) 4.8 (2-11) % Eos % (Auto) 1.1 (0-4) % Baso % (Auto) 0.7 (0-2) % Lymph # (Auto) 1.4 (1.2-4.9) X10*3/uL [place] # (Auto) 0.5 (0.1-1.2) X10*3/uL Eos # (Auto) 0.1 (0.0-0.4) X10*3/uL Baso # (Auto) 0.1 (0.0-0.2) X10*3/uL Abs Immat Gran (auto) 0.05 H (0.00-0.03) X10*3/uL Absolute Neuts (auto) 7.6 (2.0-8.3) x10*3/uL Absolute Nucleated RBC 0.000 (0.0-0.012) X10*3/uL Nucleated RBC % (auto) 0.0 (0.0-0.2) /100WBC PT (10.0-13.1) SEC INR (0.9-1.1) VBG pH (7.32-7.43) VBG pCO2 mmHg VBG pO2 mmHg VBG HCO3 (22-26) mmol/L VBG O2 Saturation % VBG Base Excess mmol/L Sodium 137 (135-145) mmol/L Potassium 4.3 (3.3-5.1) mmol/L Chloride 106 (96-108) mmol/L Carbon Dioxide 20 L (22-29) mmol/L Anion Gap 15 (12-20) BUN 11 (9-16) mg/dL Creatinine 0.87 (0.5-1.4) mg/dL Estim Creat Clear Calc 69.7 Estimated GFR > 60 Random Glucose 86 (60-115) mg/dL Lactic Acid 1.5 (0.5-2.0) mmol/L Calcium 9.4 (8.4-10.2) mg/dL Magnesium 2.0 (1.6-2.6) mg/dL Total Bilirubin 0.8 (0.0-1.0) mg/dL Direct Bilirubin 0.2 (0.0-0.5) mg/dL AST 20 (5-37) U/L ALT 16 (0-40) U/L Alkaline Phosphatase 81 (39-117) U/L Troponin I High Sens (<3.5-35.0) ng/L B-Natriuretic Peptide (<100) pg/mL Total Protein 7.0 (6.5-8.0) g/dL Albumin 4.0 (3.5-5.0) g/dL TSH (0.32-4.0) uIU/mL COVID-19 (MARY) (Negative) COVID-19 Clin Com 12/19/22 12/19/22 12/19/22 Range/Units 13:50 13:50 13:50 WBC (4.8-10.8) X10*3/uL RBC (4.60-5.80) X10*6/uL Hgb (14.0-18.0) g/dl Hct (42.0-52.0) % MCV (80.0-98.0) fL MCH (27.0-33.0) pg MCHC (31.0-36.0) g/dl RDW (11.0-16.0) % Plt Count (160-400) X10*3/uL MPV (9.4-12.4) fL Immature Gran % (Auto) (0.0-0.4) % Neut % (Auto) (45-73) % Lymph % (Auto) (20-40) % [place] % (Auto) (2-11) % Eos % (Auto) (0-4) % Baso % (Auto) (0-2) % Lymph # (Auto) (1.2-4.9) X10*3/uL [place] # (Auto) (0.1-1.2) X10*3/uL Eos # (Auto) (0.0-0.4) X10*3/uL Baso # (Auto) (0.0-0.2) X10*3/uL Abs Immat Gran (auto) (0.00-0.03) X10*3/uL Absolute Neuts (auto) (2.0-8.3) x10*3/uL Absolute Nucleated RBC (0.0-0.012) X10*3/uL Nucleated RBC % (auto) (0.0-0.2) /100WBC PT 16.4 H (10.0-13.1) SEC INR 1.4 H (0.9-1.1) VBG pH (7.32-7.43) VBG pCO2 mmHg VBG pO2 mmHg VBG HCO3 (22-26) mmol/L VBG O2 Saturation % VBG Base Excess mmol/L Sodium (135-145) mmol/L Potassium (3.3-5.1) mmol/L Chloride (96-108) mmol/L Carbon Dioxide (22-29) mmol/L Anion Gap (12-20) BUN (9-16) mg/dL Creatinine (0.5-1.4) mg/dL Estim Creat Clear Calc Estimated GFR Random Glucose (60-115) mg/dL Lactic Acid (0.5-2.0) mmol/L Calcium (8.4-10.2) mg/dL Magnesium (1.6-2.6) mg/dL Total Bilirubin (0.0-1.0) mg/dL Direct Bilirubin (0.0-0.5) mg/dL AST (5-37) U/L ALT (0-40) U/L Alkaline Phosphatase (39-117) U/L Troponin I High Sens 8.8 (<3.5-35.0) ng/L B-Natriuretic Peptide (<100) pg/mL Total Protein (6.5-8.0) g/dL Albumin (3.5-5.0) g/dL TSH (0.32-4.0) uIU/mL COVID-19 (MARY) Negative (Negative) COVID-19 Clin Com See Note 12/19/22 12/19/22 12/19/22 Range/Units 13:50 13:50 13:59 WBC (4.8-10.8) X10*3/uL RBC (4.60-5.80) X10*6/uL Hgb (14.0-18.0) g/dl Hct (42.0-52.0) % MCV (80.0-98.0) fL MCH (27.0-33.0) pg MCHC (31.0-36.0) g/dl RDW (11.0-16.0) % Plt Count (160-400) X10*3/uL MPV (9.4-12.4) fL Immature Gran % (Auto) (0.0-0.4) % Neut % (Auto) (45-73) % Lymph % (Auto) (20-40) % [place] % (Auto) (2-11) % Eos % (Auto) (0-4) % Baso % (Auto) (0-2) % Lymph # (Auto) (1.2-4.9) X10*3/uL [place] # (Auto) (0.1-1.2) X10*3/uL Eos # (Auto) (0.0-0.4) X10*3/uL Baso # (Auto) (0.0-0.2) X10*3/uL Abs Immat Gran (auto) (0.00-0.03) X10*3/uL Absolute Neuts (auto) (2.0-8.3) x10*3/uL Absolute Nucleated RBC (0.0-0.012) X10*3/uL Nucleated RBC % (auto) (0.0-0.2) /100WBC PT (10.0-13.1) SEC INR (0.9-1.1) VBG pH 7.41 (7.32-7.43) VBG pCO2 29 mmHg VBG pO2 64 mmHg VBG HCO3 19 L (22-26) mmol/L VBG O2 Saturation 91.0 % VBG Base Excess -4.1 mmol/L Sodium (135-145) mmol/L Potassium (3.3-5.1) mmol/L Chloride (96-108) mmol/L Carbon Dioxide (22-29) mmol/L Anion Gap (12-20) BUN (9-16) mg/dL Creatinine (0.5-1.4) mg/dL Estim Creat Clear Calc Estimated GFR Random Glucose (60-115) mg/dL Lactic Acid (0.5-2.0) mmol/L Calcium (8.4-10.2) mg/dL Magnesium (1.6-2.6) mg/dL Total Bilirubin (0.0-1.0) mg/dL Direct Bilirubin (0.0-0.5) mg/dL AST (5-37) U/L ALT (0-40) U/L Alkaline Phosphatase (39-117) U/L Troponin I High Sens (<3.5-35.0) ng/L B-Natriuretic Peptide 378 H (<100) pg/mL Total Protein (6.5-8.0) g/dL Albumin (3.5-5.0) g/dL TSH 1.85 (0.32-4.0) uIU/mL COVID-19 (MARY) (Negative) COVID-19 Clin Com Independent Interpretation I performed an independent interpretation of an: Plain X-Ray (Interpretation of chest x-ray: Right lower lobe pneumonia) Radiology Impression Discussion of test interpretation with radiology: I have reviewed the radiologist's reading. Radiologist Impression: FINDINGS: The cardiac silhouette is enlarged but stable. Hilar and mediastinal contours are unremarkable. There is increasing airspace disease at both lung bases, right greater than left. This probably represents pneumonia. There may be a small right pleural effusion. There is no left pleural effusion or pneumothorax. No acute bone abnormality. Increasing bibasilar airspace disease, right greater than left, probably representing pneumonia. Critical Care Time Critical Care Time Critical Care Time: Yes Total Critical Care Time: 60 Attestation: I have personally provided critical care time. Time includes review of lab data, radiology results, discussion with consultants, and monitoring for potential decompensation. Intervention performed as documented. Discharge Plan Discharge Clinical Impression: Aspiration pneumonia Patient Disposition: Home, Self-Care Prescriptions: No Action Triumeq 600-50-300 mg Tablet 1 tab PO DAILY lactulose 20 gram Packet 20 g PO DAILY PRN (Reason: Constipation) levothyroxine 75 mcg Tablet 75 mcg PO DAILY multivitamin with iron Tablet 1 tab PO DAILY oxcarbazepine [Trileptal] 150 mg Tablet 150 mg PO BID sennosides 8.6 mg Capsule 8.6 mg PO BEDTIME PRN (Reason: Constipation) omeprazole 20 mg Tablet,Delayed Release (Dr/Ec) 20 mg PO BID acetaminophen 325 mg Tablet 650 mg PO Q4H PRN (Reason: Mild Pain (Scale Score 1-4)) Rx Instructions: OR FEVER artificial tears solution Drops 1 drp OPHTHALMIC (EYE) Q4H loperamide 2 mg Tablet 2 mg PO Q6H PRN (Reason: Diarrhea) guaifenesin 100 mg/5 mL Liquid 200 mg PO Q4H PRN (Reason: Cough) benztropine 1 mg Tablet 1 mg PO BID albuterol sulfate [ProAir HFA] 90 mcg/actuation Hfa Aerosol Inhaler 2 puff INHALATION Q4-6H PRN (Reason: Dyspnea) haloperidol lactate 2 mg/mL Concentrate 1.2 mg PO BID megestrol 400 mg/10 mL (10 mL) Suspension 400 mg PO DAILY aspirin 81 mg Tablet,Delayed Release (Dr/Ec) 81 mg PO DAILY Qty: 30 0RF metoprolol succinate 25 mg Tablet Extended Release 24 Hr 25 mg PO DAILY Qty: 30 0RF Protocol: Hold for SBP/HR < HOLD for SBP < : 90 HOLD for HR < : 60 atorvastatin [Lipitor] 40 mg tablet 40 mg PO BEDTIME Qty: 30 0RF ondansetron HCl [Zofran] 4 mg tablet 4 mg PO Q6H PRN (Reason: nausea and vomiting) Qty: 14 0RF tamsulosin 0.4 mg capsule 0.8 mg PO BEDTIME 90 Days Qty: 180 1RF bisacodyl [Dulcolax (bisacodyl)] 10 mg suppository 10 mg DE DAILY PRN
[2022-12-19 13:55] VITALS: BP 171/94; PULSE 74; RESP 17; TEMP 36.8; O2SAT 92
[2022-12-19 13:57] LABS: MANUAL DIFF FLAG NO
[2022-12-19 13:59] LABS: Basophils Absolute Auto 0.1 X10*3/uL (0.0-0.2); Basophils Percent Auto 0.7 % (0-2); Eosinophils Absolute Auto 0.1 X10*3/uL (0.0-0.4); Eosinophils Percent Auto 1.1 % (0-4); Hematocrit 41.4 % (42.0-52.0); Hemoglobin 14.1 g/dl (14.0-18.0); Imm Gran Abs Auto 0.05 X10*3/uL (0.00-0.03); Imm Gran Pct Auto 0.5 % (0.0-0.4); Lymphocytes Absolute Auto 1.4 X10*3/uL (1.2-4.9); Lymphocytes Percent Auto 14.6 % (20-40); Mean Corpuscular HGB Conc 34.1 g/dl (31.0-36.0); Mean Corpuscular Hemoglobin 31.7 pg (27.0-33.0); Monocytes Absolute Auto 0.5 X10*3/uL (0.1-1.2); Monocytes Percent Auto 4.8 % (2-11); Neutrophils Absolute Auto 7.6 x10*3/uL (2.0-8.3); Neutrophils Percent Auto 78.3 % (45-73); Platelet Count 282 X10*3/uL (160-400); Red Blood Count 4.45 X10*6/uL (4.60-5.80); Red Cell Distribution Width 14.2 % (11.0-16.0); White Blood Count 9.7 X10*3/uL (4.8-10.8)
[2022-12-19 14:05] LABS: INTERNATIONAL NORM RATIO 1.4 (0.9-1.1); Prothrombin Time 16.4 SEC (10.0-13.1)
[2022-12-19 14:09] LABS: Lactic Acid 1.5 mmol/L (0.5-2.0)
[2022-12-19 14:11] LABS: Venous Blood Gas Refer to POC result
[2022-12-19 14:11] LABS: VBG Base Excess -4.1 mmol/L; VBG HCO3 19 mmol/L (22-26); VBG pCO2 29 mmHg; VBG pH 7.41 (7.32-7.43); VBG pO2 64 mmHg
[2022-12-19 14:15] LABS: Alanine Aminotransferase 16 U/L (0-40); Alkaline Phosphatase 81 U/L (39-117); Anion Gap 15 (12-20); Aspartate Amino Transferase 20 U/L (5-37); Bilirubin Direct 0.2 mg/dL (0.0-0.5); Bilirubin Total 0.8 mg/dL (0.0-1.0); Blood Urea Nitrogen 11 mg/dL (9-16); Calcium 9.4 mg/dL (8.4-10.2); Carbon Dioxide 20 mmol/L (22-29); Chloride 106 mmol/L (96-108); Creatinine Clr Calc Pharmacy 69.7; Estimated Glomerular Filt Rate > 60; Glucose Random 86 mg/dL (60-115); Potassium 4.3 mmol/L (3.3-5.1); Sodium 137 mmol/L (135-145)
[2022-12-19 14:19] LABS: B Type Natriuretic Peptide 378 pg/mL (<100)
[2022-12-19 14:20] LABS: Troponin-I High Sensitivity 8.8 ng/L (<3.5-35.0)
[2022-12-19] MEDS: Piperacillin Sodium/Tazobactam 3.375 GM in 0.9 % Sodium Chloride 50 ML IV (14:20)
--- NOTE | 2022-12-19 14:20 | PC.NURSE ---
EKG obtained, labs drawn, blood cultures drawn. Pt increased agitation and not wanting to stay in bed. Unable to obtain chest x ray due to agitation.
--- NOTE | 2022-12-19 14:22 | PC.NURSE ---
abx hung per order.
[2022-12-19 14:28] LABS: COVID-19 Test Negative (Negative); IDNOW Serial# 55D5AD1C
[2022-12-19 14:35] LABS: TSH reflex Free T4 1.85 uIU/mL (0.32-4.0)
[2022-12-19] MEDS: LORazepam 2 MG/ML VIAL IVPUSH (14:45)
--- NOTE | 2022-12-19 14:53 | PC.NURSE ---
pt increased in agitation. 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 Provider was notified, obtained order for IV Ativan. pt medicated per order
--- NOTE | 2022-12-19 17:46 | PM.IMHP ---
History of Present Illness Date of Service: 12/19/22 Attending physician on admission: Gian Sorenson Chief Complaint: aspiration 76-year-old gentleman resident of [facility] was sent to emergency room for evaluation of aspiration pneumonia, patient was eating dinner started coughing violently oxygen saturation dropped to 86% on 2 L, in ED patient noted to be aggressive both verbally and physical, was trying to get out of bed and noted to have unsteady gait was treated with 2 mg of IV Ativan at present patient is somnolent unable to obtain history also has baseline dementia unable to provide meaningful history. Review of Systems Review of Systems: Yes Unobtainable due to mental status [facility] Medical History Anemia BPH (benign prostatic hyperplasia) CHF (congestive heart failure) Constipation Dementia Duodenal ulcer Dysphagia GERD (gastroesophageal reflux disease) HIV (human immunodeficiency virus infection) Hyperlipidemia Hypertension Hypothyroid Recurrent pneumonia Pertinent family history: Patient is sedated and has dementia unable to obtain family history Social History Household Members: None Housing: Alf Patient Tobacco Use Status: Never used Tobacco Use of substances other than those prescribed or required for medical reasons: No Currently Displaying Signs/Symptoms of Drug Intoxication Withdrawal: No Advance Directives: Yes Advance Directives Information Provided: Yes Advance Directives on File: No Advance Directives Date on File: 12/19/22 Recently lost weight without trying: Unsure Nutrition Risks: On aspiration precautions service: No Current occupational status: disabled Meds Allergies Allergy/AdvReac Type Severity Reaction Status Date / Time chlorpromazine Allergy Unknown UNKNOWN Verified 12/15/22 10:01 [From THORAZINE] Active Medications: Current Medications Sodium Chloride (Ns) 1,000 mls @ 100 mls/hr IVCONT .Q10H ONE Stop: 12/20/22 02:54 Home Medications Medication Instructions Recorded Confirmed Last Taken Type abacavir 600 mg-dolutegravir 50 1 tab PO DAILY 07/30/20 12/19/22 07/26/20 History mg-lamivudine 300 mg tablet (Triumeq) lactulose 20 gram oral packet 30 ml PO DAILY PRN Constipation 07/30/20 12/19/22 07/26/20 History levothyroxine 75 mcg tablet 75 mcg PO DAILY 07/30/20 12/19/22 07/26/20 History multivitamin with iron 1 tab PO DAILY 07/30/20 12/19/22 07/26/20 History oxcarbazepine 150 mg tablet 150 mg PO BID 07/30/20 12/19/22 07/26/20 History (Trileptal) sennosides 8.6 mg capsule 8.6 mg PO BEDTIME PRN Constipation 07/30/20 12/19/22 07/25/20 History acetaminophen 325 mg tablet 650 mg PO Q4H PRN Mild Pain (Scale 11/17/20 12/19/22 Unknown History Score 1-4) OR TEMP >100 albuterol sulfate 90 mcg/actuation 2 puff inhalation Q6H PRN Dyspnea 11/17/20 12/19/22 Unknown History aerosol inhaler (ProAir HFA) artificial tears solution eye drops 1 drp ophthalmic (eye) Q4H PRN Dry 11/17/20 12/19/22 Unknown History Eye(S) benztropine 1 mg tablet 1 mg PO BID 11/17/20 12/19/22 Unknown History guaifenesin 100 mg/5 mL oral liquid 200 mg PO Q4H PRN Cough 11/17/20 12/19/22 Unknown History loperamide 2 mg tablet 2 mg PO Q6H PRN Diarrhea 11/17/20 12/19/22 Unknown History megestrol 400 mg/10 mL (10 mL) 400 mg PO DAILY 11/17/20 12/19/22 Unknown History oral suspension bisacodyl 10 mg rectal suppository 10 mg TN DAILY PRN Constipation 12/15/22 12/19/22 Unknown History (Dulcolax (bisacodyl)) albuterol sulfate 2.5 mg/3 mL 2.5 mg inhalation Q6H PRN 12/19/22 12/19/22 Unknown History (0.083 %) solution for nebulization Shortness Of Breath atorvastatin 20 mg tablet 20 mg PO BEDTIME 12/19/22 12/19/22 Unknown History famotidine 20 mg tablet 20 mg PO BEDTIME 12/19/22 12/19/22 Unknown History guaifenesin 600 mg tablet, 600 mg PO BID 12/19/22 12/19/22 Unknown History extended release 12 hr (Mucinex) haloperidol 1 mg tablet 1 mg PO BID 12/19/22 12/19/22 Unknown History omeprazole 40 mg capsule,delayed 40 mg PO DAILY 12/19/22 12/19/22 Unknown History release sodium phosphates 19 gram-7 118 ml TN DAILY PRN Constipation 12/19/22 12/19/22 Unknown History gram/118 mL enema (Fleet Enema) Physical Exam Vital Signs and Narrative: Vital Signs: Last Vital Signs Temp 98.3 F 12/19/22 13:55 Pulse 74 12/19/22 13:55 Resp 17 12/19/22 13:55 BP 171/94 H 12/19/22 13:55 Pulse Ox 92 12/19/22 13:55 O2 Del Method 12/19/22 13:55 O2 Flow Rate 6 12/19/22 13:55 BMI result Body Mass Index 22.2 Const: Other: General somnolent, in no acute distress Neck no JVD. CVS? regular rate rhythm, Respiratory lungs coarse breath sound,no respiratory distress Gastrointestinal abdomen soft, bowel sounds audible, Extremities no? edema. Neuro moving all 4 extremity Skin no rash Results Labs 12/19/22 13:50 12/19/22 13:50 Labs: Laboratory Results - last 24 hr 12/19/22 12/19/22 12/19/22 13:50 13:50 13:50 MCV 93.0 MCH 31.7 MCHC 34.1 RDW 14.2 Plt Count 282 MPV 10.0 Immature Gran % (Auto) 0.5 H Neut % (Auto) 78.3 H Lymph % (Auto) 14.6 L [place] % (Auto) 4.8 Eos % (Auto) 1.1 Baso % (Auto) 0.7 Lymph # (Auto) 1.4 [place] # (Auto) 0.5 Eos # (Auto) 0.1 Baso # (Auto) 0.1 Abs Immat Gran (auto) 0.05 H Absolute Neuts (auto) 7.6 Absolute Nucleated RBC 0.000 Nucleated RBC % (auto) 0.0 PT INR VBG pH VBG pCO2 VBG pO2 VBG HCO3 VBG O2 Saturation VBG Base Excess Anion Gap 15 Estim Creat Clear Calc 69.7 Estimated GFR > 60 Random Glucose 86 Lactic Acid 1.5 Calcium 9.4 Magnesium 2.0 Total Bilirubin 0.8 Direct Bilirubin 0.2 AST 20 ALT 16 Alkaline Phosphatase 81 Troponin I High Sens B-Natriuretic Peptide Total Protein 7.0 Albumin 4.0 TSH COVID-19 (MARY) COVID-19 Clin Com 12/19/22 12/19/22 12/19/22 13:50 13:50 13:50 MCV MCH MCHC RDW Plt Count MPV Immature Gran % (Auto) Neut % (Auto) Lymph % (Auto) [place] % (Auto) Eos % (Auto) Baso % (Auto) Lymph # (Auto) [place] # (Auto) Eos # (Auto) Baso # (Auto) Abs Immat Gran (auto) Absolute Neuts (auto) Absolute Nucleated RBC Nucleated RBC % (auto) PT 16.4 H INR 1.4 H VBG pH VBG pCO2 VBG pO2 VBG HCO3 VBG O2 Saturation VBG Base Excess Anion Gap Estim Creat Clear Calc Estimated GFR Random Glucose Lactic Acid Calcium Magnesium Total Bilirubin Direct Bilirubin AST ALT Alkaline Phosphatase Troponin I High Sens 8.8 B-Natriuretic Peptide Total Protein Albumin TSH COVID-19 (MARY) Negative COVID-19 Clin Com See Note 12/19/22 12/19/22 12/19/22 13:50 13:50 13:59 MCV MCH MCHC RDW Plt Count MPV Immature Gran % (Auto) Neut % (Auto) Lymph % (Auto) [place] % (Auto) Eos % (Auto) Baso % (Auto) Lymph # (Auto) [place] # (Auto) Eos # (Auto) Baso # (Auto) Abs Immat Gran (auto) Absolute Neuts (auto) Absolute Nucleated RBC Nucleated RBC % (auto) PT INR VBG pH 7.41 VBG pCO2 29 VBG pO2 64 VBG HCO3 19 L VBG O2 Saturation 91.0 VBG Base Excess -4.1 Anion Gap Estim Creat Clear Calc Estimated GFR Random Glucose Lactic Acid Calcium Magnesium Total Bilirubin Direct Bilirubin AST ALT Alkaline Phosphatase Troponin I High Sens B-Natriuretic Peptide 378 H Total Protein Albumin TSH 1.85 COVID-19 (MARY) COVID-19 [email or web address] Com Assessment and Plan (1) Aspiration pneumonia: Status: Acute Plan 76-year-old male with past medical history of CHF, hypertension, HIV, hyperlipidemia, hypothyroidism dementia BPH anemia was brought into [facility] from [facility] due to violent coughing at dinner. # acute hypoxic respiratory failure likely due to aspiration pneumonia bilateral airspace disease on chest x-ray ?? no leukocytosis, afebrile, COVID negative, IV Zosyn , follow blood cultures # HIV continue HAART # Hypertension, elevated blood pressure resume home medication, follow BP. # hypothyroidism ?? Continue levothyroxine # dementia with behavioral issues continue home medications Haldol, Cogentin and Trileptal ? For all his other chronic issues will continue his home medications ? DVT prophylaxis:? Lovenox Code status full code In my clinical judgment patient will need 2 night inpatient stay for management of acute hypoxic respiratory failure due to pneumonia requiring IV antibiotic and oxygen support Time Spent With Patient Time: Total time managing care of this patient today ____ minutes. Quality Stroke Does the patient have a stroke diagnosis?: No VTE Prior VTE?: No VTE Risk Level:: Medical - moderate - high VTE Device Contraindication: Treatment Not Indicated VTE Drug Contraindication: N/A - Med Ordered
[2022-12-19 18:00] VITALS: BP 181/82; PULSE 68; RESP 16; O2SAT 99
--- NOTE | 2022-12-19 18:22 | PHA.MEDREC ---
MED REC COMPLETE, NO ISSUES Pharmacy Consult ? Medication Reconciliation Pharmacy has completed the medication reconciliation.
--- NOTE | 2022-12-19 19:05 | PC.NURSE ---
patient continues to sleep, vitals stable, call osullivan within reach,will continue to monitor
[2022-12-19 19:43] VITALS: BP 189/80; PULSE 66; RESP 20; TEMP 36.7; O2SAT 99
--- NOTE | 2022-12-19 20:02 | PC.NURSE ---
attempted to call in report to [facility], RN Tigertexed to call ED.
--- NOTE | 2022-12-19 20:15 | PC.NURSE ---
RN-RN report given to [facility].
[2022-12-19 21:24] VITALS: BP 149/70; PULSE 67; RESP 18; TEMP 36.3; O2SAT 100
[2022-12-19] MEDS: Piperacillin Sodium/Tazobactam 4.5 GM in 0.9 % Sodium Chloride 100 ML IV (22:27)
[2022-12-19] MEDS: Enoxaparin Sodium 40 MG/0.4 ML SYRINGE SUBCUT (22:27)
[2022-12-19] MEDS: Benztropine Mesylate 1 MG TABLET PO (22:28)
[2022-12-19] MEDS: HaloperidoL 1 MG TABLET PO (22:28)
[2022-12-20] MEDS: Piperacillin Sodium/Tazobactam 4.5 GM in 0.9 % Sodium Chloride 100 ML IV ×4 (02:59→20:08)
[2022-12-20] MEDS: 0.9 % Sodium Chloride Flush 3 ML SYRINGE IVFLUSH ×4 (03:00→20:08)
[2022-12-20 04:00] VITALS: BP 154/71; PULSE 65; RESP 18; TEMP 37.1; O2SAT 98
[2022-12-20 07:48] VITALS: BP 124/58; PULSE 65; RESP 20; TEMP 36.4; O2SAT 94
--- NOTE | 2022-12-20 09:20 | MHC.CM.PN ---
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
[2022-12-20] MEDS: HaloperidoL 1 MG TABLET PO ×2 (10:40→20:07)
[2022-12-20] MEDS: Aspirin Enteric Coated 81 MG TABLET.DR PO (10:40)
[2022-12-20] MEDS: Benztropine Mesylate 1 MG TABLET PO ×2 (10:40→20:07)
[2022-12-20] MEDS: Metoprolol Succinate ER 25 MG TAB.ER.24H PO (10:40)
[2022-12-20] MEDS: Levothyroxine Sodium 75 MCG TABLET PO (10:40)
--- NOTE | 2022-12-20 13:09 | HO.PM.IMPN ---
Subjective Subjective Date of Service: 12/20/22 Interval History: Patient resting in bed not verbalizing or communicating, no issues overnight, no fevers no chills oxygenation 94% on 4 L Review of Systems Review of Systems: Yes Unobtainable due to mental status Physical Exam Vital Signs: Vital Signs: Last Vital Signs Temp 97.6 F 12/20/22 07:48 Pulse 65 12/20/22 07:48 Resp 20 12/20/22 07:48 BP 124/58 L 12/20/22 07:48 Pulse Ox 94 12/20/22 07:48 O2 Del Method 12/20/22 07:48 O2 Flow Rate 4 12/20/22 07:48 BMI result Body Mass Index 22.2 Const: Other: General somnolent, in no acute distress Neck no JVD. CVS? regular rate rhythm, Respiratory lungs b/l coarse breath sound,no respiratory distress. Gastrointestinal abdomen soft, bowel sounds audible, Extremities no? edema. Neuro moving all 4 extremity Skin no rash Objective Data Active Medications Albuterol Sulfate (Albuterol Sulfate (0.083%) 2.5 Mg/3 Ml Vial.Neb) 2.5 mg INHALE Q6H PRN PRN Reason: Shortness Of Breath Albuterol Sulfate (Albuterol Sulfate 90 Mcg 8 Gm Inhaler) 2 puff INHALE RQ6H PRN PRN Reason: Dyspnea Aspirin (Aspirin Enteric Coated 81 Mg Tablet.Dr) 81 mg PO DAILY [facility] Last Admin: 12/20/22 10:40 Dose: 81 mg Documented By: DEANA Atorvastatin Calcium (Atorvastatin Calcium 20 Mg Tablet) 20 mg PO BEDTIME [facility] Benztropine Mesylate (Benztropine Mesylate 1 Mg Tablet) 1 mg PO BID [facility] Last Admin: 12/20/22 10:40 Dose: 1 mg Documented By: DEANA Bisacodyl (Bisacodyl 10 Mg Supp.Rect) 10 mg [place] DAILY PRN PRN Reason: Constipation Enoxaparin Sodium (Enoxaparin Sodium 40 Mg/0.4 Ml Syringe) 40 mg SUBCUT Q24H [facility] Last Admin: 12/19/22 22:27 Dose: 40 mg Documented By: WALE Famotidine (Famotidine 20 Mg Tablet) 20 mg PO BEDTIME [facility] Guaifenesin (Guaifenesin 100 Mg/5 Ml Liquid) 10 ml PO Q4H PRN PRN Reason: Cough Haloperidol (Haloperidol 1 Mg Tablet) 1 mg PO BID [facility] Last Admin: 12/20/22 10:40 Dose: 1 mg Documented By: DEANA Piperacillin Sod/Tazobactam (Sod 4.5 gm/ Sodium Chloride) 100 mls @ 200 mls/hr IV Q6H [facility] Last Infusion: 12/20/22 10:41 Dose: 0 mls/hr Documented By: DEANA Levothyroxine Sodium (Levothyroxine Sodium 75 Mcg Tablet) 75 mcg PO DAILY@0600 [facility] Last Admin: 12/20/22 10:40 Dose: 75 mcg Documented By: DEANA Megestrol Acetate (Megestrol Acetate 400 Mg/10 Ml Oral.Susp) 400 mg PO DAILY [facility] Metoprolol Succinate (Metoprolol Succinate Er 25 Mg Tab.Er.24h) 25 mg PO DAILY [facility]; Protocol Last Admin: 12/20/22 10:40 Dose: 25 mg Documented By: DEANA Omeprazole (Omeprazole 40 Mg Capsule.Dr) 40 mg PO DAILY@0630 [facility] Oxcarbazepine (Oxcarbazepine 150 Mg Tablet) 150 mg PO BID [facility] Sodium Biphosphate/Sodium Phosphate (Sodium Phosphate,[place]-Dibasic 133 Ml Enema) 118 ml [place] DAILY PRN PRN Reason: Constipation Sodium Chloride (0.9 % Sodium Chloride Flush 3 Ml Syringe) 3 ml IVFLUSH QSHIFT [facility] Last Admin: 12/20/22 09:02 Dose: 3 ml Documented By: BISHNU Tamsulosin HCl (Tamsulosin Hcl 0.4 Mg Capsule) 0.8 mg PO BEDTIME [facility] Labs 12/19/22 13:50 12/19/22 13:50 Labs: Laboratory Results - last 24 hr 12/19/22 12/19/22 12/19/22 13:50 13:50 13:50 MCV 93.0 MCH 31.7 MCHC 34.1 RDW 14.2 Plt Count 282 MPV 10.0 Immature Gran % (Auto) 0.5 H Neut % (Auto) 78.3 H Lymph % (Auto) 14.6 L [place] % (Auto) 4.8 Eos % (Auto) 1.1 Baso % (Auto) 0.7 Lymph # (Auto) 1.4 [place] # (Auto) 0.5 Eos # (Auto) 0.1 Baso # (Auto) 0.1 Abs Immat Gran (auto) 0.05 H Absolute Neuts (auto) 7.6 Absolute Nucleated RBC 0.000 Nucleated RBC % (auto) 0.0 PT INR VBG pH VBG pCO2 VBG pO2 VBG HCO3 VBG O2 Saturation VBG Base Excess Anion Gap 15 Estim Creat Clear Calc 69.7 Estimated GFR > 60 Random Glucose 86 Lactic Acid 1.5 Calcium 9.4 Magnesium 2.0 Total Bilirubin 0.8 Direct Bilirubin 0.2 AST 20 ALT 16 Alkaline Phosphatase 81 Troponin I High Sens B-Natriuretic Peptide Total Protein 7.0 Albumin 4.0 TSH COVID-19 ([facility]) [facility] 12/19/22 12/19/22 12/19/22 13:50 13:50 13:50 MCV MCH MCHC RDW Plt Count MPV Immature Gran % (Auto) Neut % (Auto) Lymph % (Auto) [place] % (Auto) Eos % (Auto) Baso % (Auto) Lymph # (Auto) [place] # (Auto) Eos # (Auto) Baso # (Auto) Abs Immat Gran (auto) Absolute Neuts (auto) Absolute Nucleated RBC Nucleated RBC % (auto) PT 16.4 H INR 1.4 H VBG pH VBG pCO2 VBG pO2 VBG HCO3 VBG O2 Saturation VBG Base Excess Anion Gap Estim Creat Clear Calc Estimated GFR Random Glucose Lactic Acid Calcium Magnesium Total Bilirubin Direct Bilirubin AST ALT Alkaline Phosphatase Troponin I High Sens 8.8 B-Natriuretic Peptide Total Protein Albumin TSH COVID-19 ([facility]) Negative [facility] See Note 12/19/22 12/19/22 12/19/22 13:50 13:50 13:59 MCV MCH MCHC RDW Plt Count MPV Immature Gran % (Auto) Neut % (Auto) Lymph % (Auto) [place] % (Auto) Eos % (Auto) Baso % (Auto) Lymph # (Auto) [place] # (Auto) Eos # (Auto) Baso # (Auto) Abs Immat Gran (auto) Absolute Neuts (auto) Absolute Nucleated RBC Nucleated RBC % (auto) PT INR VBG pH 7.41 VBG pCO2 29 VBG pO2 64 VBG HCO3 19 L VBG O2 Saturation 91.0 VBG Base Excess -4.1 Anion Gap Estim Creat Clear Calc Estimated GFR Random Glucose Lactic Acid Calcium Magnesium Total Bilirubin Direct Bilirubin AST ALT Alkaline Phosphatase Troponin I High Sens B-Natriuretic Peptide 378 H Total Protein Albumin TSH 1.85 COVID-19 ([facility]) COVID-19 Clin Com Assessment and Plan (1) Aspiration pneumonia: Status: Acute Plan 76-year-old male with past medical history of CHF, hypertension, HIV, hyperlipidemia, hypothyroidism dementia BPH anemia was brought into [facility] from [facility] due to violent coughing at dinner. # acute hypoxic respiratory failure likely due to aspiration pneumonia Appears comfortable gradually wean oxygen, continue modified diet with one-to-one feeds and aspiration precaution ?? bilateral airspace disease on chest x-ray ?? no leukocytosis, afebrile, COVID negative, IV Zosyn , blood cultures pending. # HIV continue HAART # Hypertension, blood pressure better controlled continue metoprolol follow blood pressure # hypothyroidism-? Continue levothyroxine # dementia with behavioral issues continue home medications Haldol, Cogentin and Trileptal ? For all his other chronic issues will continue his home medications ? DVT prophylaxis:? Lovenox ? Code status full code ? In my clinical judgment patient will need continued inpatient stay for management of acute hypoxic respiratory failure due to pneumonia requiring IV antibiotic and oxygen support Time Spent With Patient Time: Total time managing care of this patient today ____ minutes. Quality Stroke Does the patient have a stroke diagnosis?: No VTE Prior VTE?: No VTE Risk Level:: Medical - moderate - high VTE Device Contraindication: Treatment Not Indicated VTE Drug Contraindication: N/A - Med Ordered
[2022-12-20 15:19] VITALS: BP 128/58; PULSE 55; RESP 20; TEMP 36.4; O2SAT 97
[2022-12-20] MEDS: Megestrol Acetate 400 MG/10 ML ORAL.SUSP PO (15:42)
[2022-12-20] MEDS: OXcarbazepine 150 MG TABLET PO ×2 (15:42→20:07)
[2022-12-20 19:01] VITALS: BP 162/72; PULSE 71; RESP 20; TEMP 37; O2SAT 98
[2022-12-20] MEDS: Tamsulosin HCL 0.4 MG CAPSULE 0.8 MG PO (20:06)
[2022-12-20] MEDS: Atorvastatin Calcium 20 MG TABLET PO (20:07)
[2022-12-20] MEDS: Famotidine 20 MG TABLET PO (20:07)
[2022-12-20] MEDS: Enoxaparin Sodium 40 MG/0.4 ML SYRINGE SUBCUT (20:08)
[2022-12-21] MEDS: Piperacillin Sodium/Tazobactam 4.5 GM in 0.9 % Sodium Chloride 100 ML IV ×3 (02:07→14:08)
[2022-12-21] MEDS: guaiFENesin 100 MG/5 ML LIQUID 10 ML PO ×2 (03:11→07:52)
[2022-12-21 03:34] VITALS: BP 154/71; PULSE 56; RESP 20; TEMP 36.5; O2SAT 95
[2022-12-21] MEDS: Omeprazole 40 MG CAPSULE.DR PO (06:18)
[2022-12-21] MEDS: Levothyroxine Sodium 75 MCG TABLET PO (06:18)
[2022-12-21 07:16] VITALS: BP 155/81; PULSE 85; RESP 17; TEMP 36.6; O2SAT 95
[2022-12-21] MEDS: OXcarbazepine 150 MG TABLET PO (07:52)
[2022-12-21] MEDS: Benztropine Mesylate 1 MG TABLET PO (07:52)
[2022-12-21] MEDS: Aspirin Enteric Coated 81 MG TABLET.DR PO (07:52)
[2022-12-21] MEDS: Megestrol Acetate 400 MG/10 ML ORAL.SUSP PO (07:52)
[2022-12-21] MEDS: 0.9 % Sodium Chloride Flush 3 ML SYRINGE IVFLUSH (07:52)
[2022-12-21] MEDS: Metoprolol Succinate ER 25 MG TAB.ER.24H PO (07:52)
[2022-12-21] MEDS: HaloperidoL 1 MG TABLET PO (07:53)
--- NOTE | 2022-12-21 10:17 | P.DS_ITS ---
DS: Providers Provider Date of Service: 12/21/22 Date of admission: 12/19/22 17:55 Primary care physician: Adrián Singh, DS: Diagnosis Discharge Diagnosis (1) Aspiration pneumonia: Status: Acute DS: Summary Hospital Course Hospital Course: History of presenting illness. Date of Service: 12/19/22 Attending physician on admission: Gian Sorenson Chief Complaint: aspiration 76-year-old gentleman resident of [facility] was sent to emergency room for evaluation of aspiration pneumonia, patient was eating dinner started coughing violently oxygen saturation dropped to 86% on 2 L, in ED patient noted to be aggressive both verbally and physical, was trying to get out of bed and noted to have unsteady gait was treated with 2 mg of IV Ativan at present patient is somnolent unable to obtain history also has baseline dementia unable to provide meaningful history. Hospital course 76-year-old male with past medical history of CHF, hypertension, HIV, hyperlipidemia, hypothyroidism dementia BPH anemia was brought into [facility] from [facility] due to violent coughing at dinner. # acute hypoxic respiratory failure likely due to aspiration pneumonia, patient admitted to medical floor treated with IV Zosyn, patient remained afebrile normal WBC count COVID test negative chest x-ray showed bilateral airspace disease blood cultures remain negative therefore patient is being discharged home on by mouth Augmentin x 5 days to finish 7 daycourse of antibiotics recomm end to continue pureed diet and thin liquids recommend continued speech therapy follow-up. ?? # HIV continue HAART # Hypertension, blood pressure is stable continue baseline medications # hypothyroidism-? Continue levothyroxine # dementia with behavioral issues continue home medications Haldol, Cogentin and Trileptal Time Spent with Patient Time attestation: Total time managing care of this patient today ____ minutes. Discharge coordination time: Greater than 30 minutes Quality: Safe Use of Opioids Does Pt have an Active Cancer Diagnosis on the Problem List?: No Quality: Stroke Does the patient have a stroke diagnosis?: No Physical Exam Vital Signs: Vital Signs: Last Vital Signs Temp 97.8 F 12/21/22 07:16 Pulse 85 12/21/22 07:16 Resp 17 12/21/22 07:16 BP 155/81 H 12/21/22 07:16 Pulse Ox 95 12/21/22 07:16 O2 Del Method 12/21/22 07:16 O2 Flow Rate 2 12/20/22 19:01 BMI result Body Mass Index 22.2 Const: Other: General awake alert this a.m., in no acute distress Neck no JVD. CVS? regular rate rhythm, Respiratory lungs b/l coarse breath sound,no respiratory distress. Gastrointestinal abdomen soft, bowel sounds audible. Extremities no? edema. Neuro moving all 4 extremity, speech clear Skin no rash DS: Data Data Completed and Pending Labs on day of discharge: Preliminary micro results at discharge 12/19/22 14:11 Blood Culture - Preliminary Blood - Venous No growth after 24 hours. 12/19/22 14:11 Blood Culture - Preliminary Blood - Venous No growth after 24 hours. Discharge Plan Discharge Anticipated Discharge Date/Time: 12/21/22 10:21 Patient Disposition: er Discharge Diagnosis: Aspiration pneumonia Acute hypoxic respiratory failure Referrals: Adrián Singh DO [Primary Care Provider] - 1 Week Discharge Medications: New amoxicillin-pot clavulanate 875-125 mg tablet 1 tab PO BID Qty: 10 0RF Continued Triumeq 600-50-300 mg Tablet 1 tab PO DAILY lactulose 20 gram Packet 30 ml PO DAILY PRN (Reason: Constipation) levothyroxine 75 mcg Tablet 75 mcg PO DAILY multivitamin with iron Tablet 1 tab PO DAILY oxcarbazepine [Trileptal] 150 mg Tablet 150 mg PO BID sennosides 8.6 mg Capsule 8.6 mg PO BEDTIME PRN (Reason: Constipation) acetaminophen 325 mg Tablet 650 mg PO Q4H PRN (Reason: Mild Pain (Scale Score 1-4) OR TEMP >100) Rx Instructions: OR FEVER artificial tears solution Drops 1 drp OPHTHALMIC (EYE) Q4H PRN (Reason: Dry Eye(S)) loperamide 2 mg Tablet 2 mg PO Q6H PRN (Reason: Diarrhea) guaifenesin 100 mg/5 mL Liquid 200 mg PO Q4H PRN (Reason: Cough) benztropine 1 mg Tablet 1 mg PO BID albuterol sulfate [ProAir HFA] 90 mcg/actuation Hfa Aerosol Inhaler 2 puff INHALATION Q6H PRN (Reason: Dyspnea) megestrol 400 mg/10 mL (10 mL) Suspension 400 mg PO DAILY aspirin 81 mg Tablet,Delayed Release (Dr/Ec) 81 mg PO DAILY Qty: 30 0RF metoprolol succinate 25 mg Tablet Extended Release 24 Hr 25 mg PO DAILY Qty: 30 0RF Protocol: Hold for SBP/HR < HOLD for SBP < : 90 HOLD for HR < : 60 albuterol sulfate 2.5 mg /3 mL (0.083 %) Solution For Nebulization 2.5 mg INHALATION Q6H PRN (Reason: Shortness Of Breath) Fleet Enema 19-7 gram/118 mL Enema 118 ml NE DAILY PRN (Reason: Constipation) Rx Instructions: USE ONLY IF BISACODYL IS INEFFECTIVE haloperidol 1 mg Tablet 1 mg PO BID atorvastatin 20 mg Tablet 20 mg PO BEDTIME guaifenesin [Mucinex] 600 mg Tablet Extended Release 12hr 600 mg PO BID omeprazole 40 mg Capsule,Delayed Release(Dr/Ec) 40 mg PO DAILY famotidine 20 mg Tablet 20 mg PO BEDTIME tamsulosin 0.4 mg capsule 0.8 mg PO BEDTIME 90 Days Qty: 180 1RF bisacodyl [Dulcolax (bisacodyl)] 10 mg suppository 10 mg NE DAILY PRN (Reason: Constipation) Discharge Orders: Discharge Order (Routine); Ordered 12/21/22 Ordered By: Gian Sorenson Diet: Advance to usual diet Activity on Discharge: As tolerated Stand Alone Forms: Patient Portal Discharge page Care Plan Goals: Continue by mouth Augmentin twice daily for 5 more days, take aspiration precautions, follow-up with speech therapy, Recommend pureed diet and thin liquids by tsp and pills crushed in pureed Health Concerns: Continue all home medications as before Plan of Treatment: Outpatient follow-up with primary care physician Assessment: As above
--- NOTE | 2022-12-21 10:47 | MHC.CM.PN ---
DP: PT HAS BEEN MEDICALLY CLEARED FOR DC BACK TO [facility]. FACILITY UPDATED. RN MADE AWARE. [facility] UPDATED VIA . BLS TRANSPORT BOOKED FOR 2 PM VIA [facility].
[2022-12-21 11:59] LABS: COVID-19 Test Negative (Negative); IDNOW Serial# 9DB6401D
== END 2022-12-21 15:06 | disposition intermediate care facility (04) | DRG 177 ==
LOC: HO.ED 17:05 → HO.EDOVER 18:40 → HO.IMC 19:13
PROVIDERS: Admitting Provider Hospitalist; Emergency Provider Emergency Medicine; PCP Hospitalist; Visit Provider Hospitalist
DX: J69.0 Pneumonitis due to inhalation of food and vomit (principal); J96.01 Acute respiratory failure with hypoxia; F03.918 Unspecified dementia, unspecified severity, with other behavioral disturbance; I50.32 Chronic diastolic (congestive) heart failure; I11.0 Hypertensive heart disease with heart failure; N40.0 Benign prostatic hyperplasia without lower urinary tract symptoms; Z21 Asymptomatic human immunodeficiency virus [HIV] infection status; E78.5 Hyperlipidemia, unspecified; E03.9 Hypothyroidism, unspecified; Z20.822 Contact with and (suspected) exposure to COVID-19; Z87.01 Personal history of pneumonia (recurrent); Z79.82 Long term (current) use of aspirin; Z79.890 Hormone replacement therapy; Z79.899 Other long term (current) drug therapy
CPT/HCPCS: 36415; 71045; 80048; 80076; 82803; 83605; 83735; 83880; 84443; 84484; 85025; 85610; 87040; 87635; 93005; 99285; J1650; J2060; J2543

== ENCOUNTER 2023-01-16 12:51 | Emergency (ER) | payer MEDICARE, MEDICAID, SELFPAY ==
--- NOTE | ~2023-01-16 | XR_ITS ---
EXAMINATION: XR CHEST CLINICAL INFORMATION: Chest pain. COMPARISON: Chest radiographs 12/19/2022, 11/26/2022, 11/07/2022, 10/15/2022 TECHNIQUE: 2 frontal views of the chest are obtained. FINDINGS: There is mild atelectasis and airspace opacity right base, slightly decreased from prior exam 12/19/2022. The remainder the lungs are clear. There is no pneumothorax. Left costophrenic angle is well-defined. The vascularity is normal. The cardiopericardial silhouette is similar to previous exam. No acute abnormality. XR/XR chest 1V IMPRESSION: -Mild atelectasis and airspace opacity right base, slightly decreased from prior exam 12/19/2022. -No acute intrathoracic disease.
[2023-01-16 13:03] VITALS: BP 150/73; BP 190/102; PULSE 50; RESP 11; TEMP 36.9; O2SAT 97; BMI 21.6
--- NOTE | 2023-01-16 13:09 | PC.NURSE ---
Upon arrival patient is sinus sophie on the monitor. Patient is alert and oriented to self, able to answer questions. Patient complaining of chest pain that goes along the front of his chest. Patient states that he really doesn't have pain unless he presses on his chest.
--- NOTE | 2023-01-16 13:12 | ECG_ITS ---
Test Reason : CHEST PAIN Blood Pressure : / mmHG Vent. Rate : 054 BPM Atrial Rate : 054 BPM P-R Int : 176 ms QRS Dur : 090 ms QT Int : 498 ms P-R-T Axes : 000 -03 219 degrees QTc Int : 472 ms Sinus bradycardia with Premature atrial complexes ST & T wave abnormality, consider anterolateral ischemia Prolonged QT Abnormal ECG When compared with ECG of 19-DEC-2022 13:49, No significant change was found Referred By: Generic ED Physician Electronically Signed By:ANAIS GILMORE MD
[2023-01-16 13:48] LABS: MANUAL DIFF FLAG NO
[2023-01-16 13:49] LABS: Basophils Absolute Auto 0.1 X10*3/uL (0.0-0.2); Basophils Percent Auto 1.2 % (0-2); Eosinophils Absolute Auto 0.2 X10*3/uL (0.0-0.4); Eosinophils Percent Auto 2.8 % (0-4); Hematocrit 47.3 % (42.0-52.0); Hemoglobin 15.7 g/dl (14.0-18.0); Imm Gran Abs Auto 0.01 X10*3/uL (0.00-0.03); Imm Gran Pct Auto 0.2 % (0.0-0.4); Lymphocytes Percent Auto 18.3 % (20-40); Mean Corpuscular HGB Conc 33.2 g/dl (31.0-36.0); Mean Corpuscular Hemoglobin 30.8 pg (27.0-33.0); Mean Corpuscular Volume 92.7 fL (80.0-98.0); Mean Platelet Volume 10.5 fL (9.4-12.4); Monocytes Absolute Auto 0.4 X10*3/uL (0.1-1.2); Monocytes Percent Auto 7.2 % (2-11); Neutrophils Percent Auto 70.3 % (45-73); Platelet Count 181 X10*3/uL (160-400); Red Cell Distribution Width 13.3 % (11.0-16.0); White Blood Count 5.7 X10*3/uL (4.8-10.8)
--- NOTE | 2023-01-16 13:49 | ED.CHESTPAIN ---
HPI - Chest Pain General Chief Complaint: Chest Pain Stated Complaint: CP TO R ARM FROM SNF PER EMS Time Seen by Provider: 01/16/23 13:44 Source: patient, EMS, RN notes reviewed and old records reviewed Mode of arrival: EMS Limitations: no limitations History of Present Illness HPI narrative: 77-year-old male who is a resident of [facility] was sent to the ER for evaluation of chest pain. Pain started 2 days ago on both side of the chest with no radiation pain was constant patient stated that the pain is gone now, no SOB, no radiation, no relieving factor, no aggravating factor. No fever, no chills. No trauma to the chest. Related Data Home Medications Medication Instructions Recorded Confirmed abacavir 600 mg-dolutegravir 50 1 tab PO DAILY 07/30/20 12/19/22 mg-lamivudine 300 mg tablet (Triumeq) lactulose 20 gram oral packet 30 ml PO DAILY PRN Constipation 07/30/20 12/19/22 levothyroxine 75 mcg tablet 75 mcg PO DAILY 07/30/20 12/19/22 multivitamin with iron 1 tab PO DAILY 07/30/20 12/19/22 oxcarbazepine 150 mg tablet 150 mg PO BID 07/30/20 12/19/22 (Trileptal) sennosides 8.6 mg capsule 8.6 mg PO BEDTIME PRN Constipation 07/30/20 12/19/22 acetaminophen 325 mg tablet 650 mg PO Q4H PRN Mild Pain (Scale 11/17/20 12/19/22 Score 1-4) OR TEMP >100 albuterol sulfate 90 mcg/actuation 2 puff inhalation Q6H PRN Dyspnea 11/17/20 12/19/22 aerosol inhaler (ProAir HFA) artificial tears solution eye drops 1 drp ophthalmic (eye) Q4H PRN Dry 11/17/20 12/19/22 Eye(S) benztropine 1 mg tablet 1 mg PO BID 11/17/20 12/19/22 guaifenesin 100 mg/5 mL oral liquid 200 mg PO Q4H PRN Cough 11/17/20 12/19/22 loperamide 2 mg tablet 2 mg PO Q6H PRN Diarrhea 11/17/20 12/19/22 megestrol 400 mg/10 mL (10 mL) 400 mg PO DAILY 11/17/20 12/19/22 oral suspension bisacodyl 10 mg rectal suppository 10 mg [place] DAILY PRN Constipation 12/15/22 12/19/22 (Dulcolax (bisacodyl)) albuterol sulfate 2.5 mg/3 mL 2.5 mg inhalation Q6H PRN 12/19/22 12/19/22 (0.083 %) solution for nebulization Shortness Of Breath atorvastatin 20 mg tablet 20 mg PO BEDTIME 12/19/22 12/19/22 famotidine 20 mg tablet 20 mg PO BEDTIME 12/19/22 12/19/22 guaifenesin 600 mg tablet, 600 mg PO BID 12/19/22 12/19/22 extended release 12 hr (Mucinex) haloperidol 1 mg tablet 1 mg PO BID 12/19/22 12/19/22 omeprazole 40 mg capsule,delayed 40 mg PO DAILY 12/19/22 12/19/22 release sodium phosphates 19 gram-7 118 ml W[place] DAILY PRN Constipation 12/19/22 12/19/22 gram/118 mL enema (Fleet Enema) Previous Rx's Medication Instructions Recorded aspirin 81 mg tablet,delayed 81 mg PO DAILY #30 tabs 11/19/20 release metoprolol succinate 25 mg 25 mg PO DAILY #30 tabs 11/19/20 tablet,extended release 24 hr tamsulosin 0.4 mg capsule 0.8 mg PO BEDTIME 90 days #180 caps 03/25/21 amoxicillin 875 mg-potassium 1 tab PO BID #10 tabs 12/21/22 clavulanate 125 mg tablet Allergies Allergy/AdvReac Type Severity Reaction Status Date / Time chlorpromazine Allergy Unknown UNKNOWN Verified 12/15/22 10:01 [From [facility]] Review of Systems Review of Systems: All other systems are reviewed and are negative Constitutional: Reports as per HPI and Reports no additional constitutional complaints Eyes: Reports as per HPI and Reports no additional eye complaints Reports system reviewed and no additional complaints, except as documented Cardiovascular: Reports as per HPI and Reports no additional cardiovascular complaints Respiratory: Reports as per HPI and Reports no additional respiratory complaints Gastrointestinal: Reports as per HPI and Reports no additional gastrointestinal complaints Genitourinary: Reports no additional female genitourinary complaints Musculoskeletal: Reports no additional musculoskeletal complaints Skin/Breast: Reports system reviewed and no additional complaints, except as docu Psychiatric: Reports no additional psychiatric complaints Endocrine: Reports no additional endocrine complaints Hematologic/Lymphatic: Reports no additional hematologic/lymphatic complaints Allergic/Immunologic: Reports no additional allergic/immunologic complaints Reports system reviewed and no additional complaints, except as documented and Reports Abnormal speech present [facility] Past Medical History Medical History Anemia BPH (benign prostatic hyperplasia) CHF (congestive heart failure) Constipation Dementia Duodenal ulcer Dysphagia GERD (gastroesophageal reflux disease) HIV (human immunodeficiency virus infection) Hyperlipidemia Hypertension Hypothyroid Recurrent pneumonia Social History Social History Household Members: None Housing: Long Term Alcohol intake: never Patient Tobacco Use Status: Never used Tobacco Smoked in Last 30 Days: No Use of substances other than those prescribed or required for medical reasons: No Advance Directives: Yes Advance Directives on File: Yes Advance Directives Date on File: 12/19/22 service: No Current occupational status: disabled Physical Exam Vital Signs: Vital Signs: Last Vital Signs Temp 98.5 F 01/16/23 13:03 Pulse 50 01/16/23 13:03 Resp 11 L 01/16/23 13:03 BP 150/73 H 01/16/23 13:03 Pulse Ox 97 01/16/23 13:03 O2 Del Method 01/16/23 13:03 BMI result Body Mass Index 21.6 Vital signs have been reviewed as appeared to be correct. Blood pressure normal. Heart rate normal. Respiration rate normal. Temperature normal. Oxygen saturation normal. Appearance: Alert.. No acute distress. Head: Normal external exam. Normocephalic. Atraumatic. No Ochoa signs noted. No raccoon eyes noted Eyes: PERRLA. EOMI. Conjunctiva and sclera normal. Eyelids normal. ENT: TM's Normal. Pharynx normal. Uvula midline. Moist mucous membranes. No trismus noted. No drooling noted. No muffled voice noted. Neck: Normal inspection. Neck supple. FROM. No adenopathy. Thyroid Normal. No meningeal signs. No neck mass noted. CVS: Normal heart rate and rhythm. Heart sound normal. No murmurs noted. Pulses normal throughout. Respiratory: No respiratory distress. Painless inspiration. Breath sounds normal. No wheezes/rales/rhonchi noted. Chest nontender. No accessory muscle usage noted or decreased air movement noted. Abdomen: Soft and nontender. Bowel sounds normal in all 4 quadrants. No distention noted. No organomegaly noted. No visible injury noted. Back: No CVA tenderness. Full range of motion noted. Skin: Skin warm and dry. Normal skin color. Normal skin turgor. No rashes/lesions/lacerations noted. Extremities: No lower extremity edema. Extremities exhibit normal range of motion. Extremities nontender. Neuro: Cranial nerve exam: II-XII are grossly intact No motor deficit. No sensory deficit. Reflexes normal. Course Course Course Narrative: 77-year-old male from [facility] came in for evaluation of CP, patient has unremarkable workup for chest pain. Medical Decision Making Differential Diagnosis Differential Diagnoses: The differential diagnosis associated with the presentation includes (Chest wall pain, ACS, pneumonia, pleural effusion, pneumothorax.) Lab Data MDM Lab Attestation statement: I reviewed the patient's lab results. 01/16/23 13:43 01/16/23 13:43 Labs: Lab Results 01/16/23 01/16/23 01/16/23 Range/Units 13:43 13:43 13:43 WBC 5.7 (4.8-10.8) X10*3/uL RBC 5.10 (4.60-5.80) X10*6/uL Hgb 15.7 (14.0-18.0) g/dl Hct 47.3 (42.0-52.0) % MCV 92.7 (80.0-98.0) fL MCH 30.8 (27.0-33.0) pg MCHC 33.2 (31.0-36.0) g/dl RDW 13.3 (11.0-16.0) % Plt Count 181 D (160-400) X10*3/uL MPV 10.5 (9.4-12.4) fL Immature Gran % (Auto) 0.2 (0.0-0.4) % Neut % (Auto) 70.3 (45-73) % Lymph % (Auto) 18.3 L (20-40) % D[place]y % (Auto) 7.2 (2-11) % Eos % (Auto) 2.8 (0-4) % Baso % (Auto) 1.2 (0-2) % Lymph # (Auto) 1.0 L (1.2-4.9) X10*3/uL [place] # (Auto) 0.4 (0.1-1.2) X10*3/uL Eos # (Auto) 0.2 (0.0-0.4) X10*3/uL Baso # (Auto) 0.1 (0.0-0.2) X10*3/uL Abs Immat Gran (auto) 0.01 (0.00-0.03) X10*3/uL Absolute Neuts (auto) 4.0 (2.0-8.3) x10*3/uL Absolute Nucleated RBC 0.000 (0.0-0.012) X10*3/uL Nucleated RBC % (auto) 0.0 (0.0-0.2) /100WBC Sodium 138 (135-145) mmol/L Potassium 4.3 (3.3-5.1) mmol/L Chloride 106 (96-108) mmol/L Carbon Dioxide 24 (22-29) mmol/L Anion Gap 12 (12-20) BUN 14 (9-16) mg/dL Creatinine 1.11 (0.5-1.4) mg/dL Estim Creat Clear Calc 52.3 Estimated GFR > 60 Random Glucose 89 (60-115) mg/dL Calcium 9.6 (8.4-10.2) mg/dL Total Bilirubin 1.1 H (0.0-1.0) mg/dL Direct Bilirubin 0.4 (0.0-0.5) mg/dL AST 18 (5-37) U/L ALT 18 (0-40) U/L Alkaline Phosphatase 101 (39-117) U/L Troponin I High Sens 11.3 (<3.5-35.0) ng/L Total Protein 7.1 (6.5-8.0) g/dL Albumin 4.3 (3.5-5.0) g/dL Lipase 14 (8-78) U/L Independent Interpretation I performed an independent interpretation of an: EKG and Plain X-Ray (No acute intrathoracic pathology.) Interpretation: Sinus bradycardia at 54 beats per minutes, normal intervals, Radiology Impression Discussion of test interpretation with radiology: I have reviewed the radiologist's reading. Discharge Plan Discharge Clinical Impression: Chest pain Patient Disposition: [facility] Prescriptions: No Action Triumeq 600-50-300 mg Tablet 1 tab PO DAILY lactulose 20 gram Packet 30 ml PO DAILY PRN (Reason: Constipation) levothyroxine 75 mcg Tablet 75 mcg PO DAILY multivitamin with iron Tablet 1 tab PO DAILY oxcarbazepine [Trileptal] 150 mg Tablet 150 mg PO BID sennosides 8.6 mg Capsule 8.6 mg PO BEDTIME PRN (Reason: Constipation) acetaminophen 325 mg Tablet 650 mg PO Q4H PRN (Reason: Mild Pain (Scale Score 1-4) OR TEMP >100) Rx Instructions: OR FEVER artificial tears solution Drops 1 drp OPHTHALMIC (EYE) Q4H PRN (Reason: Dry Eye(S)) loperamide 2 mg Tablet 2 mg PO Q6H PRN (Reason: Diarrhea) guaifenesin 100 mg/5 mL Liquid 200 mg PO Q4H PRN (Reason: Cough) benztropine 1 mg Tablet 1 mg PO BID albuterol sulfate [ProAir HFA] 90 mcg/actuation Hfa Aerosol Inhaler 2 puff INHALATION Q6H PRN (Reason: Dyspnea) megestrol 400 mg/10 mL (10 mL) Suspension 400 mg PO DAILY aspirin 81 mg Tablet,Delayed Release (Dr/Ec) 81 mg PO DAILY Qty: 30 0RF metoprolol succinate 25 mg Tablet Extended Release 24 Hr 25 mg PO DAILY Qty: 30 0RF Protocol: Hold for SBP/HR < HOLD for SBP < : 90 HOLD for HR < : 60 albuterol sulfate 2.5 mg /3 mL (0.083 %) Solution For Nebulization 2.5 mg INHALATION Q6H PRN (Reason: Shortness Of Breath) Fleet Enema 19-7 gram/118 mL Enema 118 ml W[place] DAILY PRN (Reason: Constipation) Rx Instructions: USE ONLY IF BISACODYL IS INEFFECTIVE haloperidol 1 mg Tablet 1 mg PO BID atorvastatin 20 mg Tablet 20 mg PO BEDTIME guaifenesin [Mucinex] 600 mg Tablet Extended Release 12hr 600 mg PO BID omeprazole 40 mg Capsule,Delayed Release(Dr/Ec) 40 mg PO DAILY famotidine 20 mg Tablet 20 mg PO BEDTIME amoxicillin-pot clavulanate 875-125 mg tablet 1 tab PO BID Qty: 10 0RF tamsulosin 0.4 mg capsule 0.8 mg PO BEDTIME 90 Days Qty: 180 1RF bisacodyl [Dulcolax (bisacodyl)] 10 mg suppository 10 mg [place] DAILY PRN (Reason: Constipation)
[2023-01-16 14:09] LABS: Alanine Aminotransferase 18 U/L (0-40); Albumin Level 4.3 g/dL (3.5-5.0); Alkaline Phosphatase 101 U/L (39-117); Anion Gap 12 (12-20); Aspartate Amino Transferase 18 U/L (5-37); Bilirubin Direct 0.4 mg/dL (0.0-0.5); Bilirubin Total 1.1 mg/dL (0.0-1.0); Blood Urea Nitrogen 14 mg/dL (9-16); Calcium 9.6 mg/dL (8.4-10.2); Carbon Dioxide 24 mmol/L (22-29); Chloride 106 mmol/L (96-108); Creatinine Clr Calc Pharmacy 52.3; Estimated Glomerular Filt Rate > 60; Glucose Random 89 mg/dL (60-115); Lipase 14 U/L (8-78); Potassium 4.3 mmol/L (3.3-5.1); Sodium 138 mmol/L (135-145); Total Protein 7.1 g/dL (6.5-8.0)
[2023-01-16 14:10] LABS: Troponin-I High Sensitivity 11.3 ng/L (<3.5-35.0)
[2023-01-16 15:36] VITALS: BP 138/49; PULSE 49; RESP 13; TEMP 37; O2SAT 97
[2023-01-16 18:21] VITALS: BP 159/61; PULSE 50; RESP 14; TEMP 36.6; O2SAT 98
--- NOTE | 2023-01-16 19:03 | PC.NURSE ---
Report called to [facility] all questions answers at this time. Patient resting on stretcher at this time.
[2023-01-16 19:25] VITALS: BP 149/71; PULSE 72; RESP 16; TEMP 36.6; O2SAT 97
== END 2023-01-16 19:58 | disposition skilled nursing facility (03) ==
PROVIDERS: Emergency Provider Emergency Medicine
DX: R07.9 Chest pain, unspecified (principal); I11.0 Hypertensive heart disease with heart failure; I50.9 Heart failure, unspecified; N40.0 Benign prostatic hyperplasia without lower urinary tract symptoms; D64.9 Anemia, unspecified; E78.5 Hyperlipidemia, unspecified
CPT/HCPCS: 36415; 71045; 80048; 80076; 83690; 84484; 85025; 93005; 99284; 99285

== ENCOUNTER 2023-04-21 13:44 | Outpatient (REF) | payer MEDICARE, MEDICAID, SELFPAY ==
--- NOTE | ~2023-04-21 | XR_ITS ---
EXAMINATION: XR CHEST CLINICAL INFORMATION: Cough, unspecified. COMPARISON: 01/16/2023 chest radiograph. TECHNIQUE: 2 views of the chest were obtained. FINDINGS: Mild bulging of the right costophrenic angle and sulcus are seen with mild superjacent linear markings. A subtle opacity overlies the right midlung. The left lung is clear. The heart and mediastinal structures are unremarkable. XR/XR chest 2V IMPRESSION: Right basilar findings appear more pronounced, component which may be projectional. This could represent a small right pleural effusion and/or pleural scarring with superjacent atelectasis or scarring. A hazy opacity in the right midlung could represent summation artifact however a developing infiltrate cannot be excluded. Short-term PA and lateral chest radiographic follow-up is recommended to assess for more acute change.
== END 2023-04-21 13:45 | disposition home or self-care (01) ==
LOC: HO.XRAY 13:44
PROVIDERS: PCP Hospitalist; Visit Provider Nurse Practitioner Family
DX: R05.9 Cough, unspecified (principal); J18.0 Bronchopneumonia, unspecified organism
CPT/HCPCS: 71046; 99212

== ENCOUNTER 2023-05-11 13:37 | Outpatient (REF) | payer MEDICARE, MEDICAID, SELFPAY ==
--- NOTE | ~2023-05-11 | XR_ITS ---
EXAMINATION: XR CHEST CLINICAL INFORMATION: Bronchopneumonia. COMPARISON: 04/21/2023. TECHNIQUE: 2 views of the chest were obtained. FINDINGS: Heart size is mildly enlarged. No evidence of CHF. The aorta is ectatic and unfolded. There may be some minimal improvement in the appearances of the atelectasis/infiltrate at the right lung base with slight possible decrease in opacity. There has certainly been no worsening. Left lung remains clear. A small right pleural effusion or posterior costophrenic angle blunting is unchanged. No left effusion. XR/XR chest 2V IMPRESSION: Continued presence of right lower lobe infiltrate/atelectasis with some possible minimal improvement.
== END 2023-05-11 13:38 | disposition home or self-care (01) ==
LOC: HO.XRAY 13:37
PROVIDERS: PCP Hospitalist; Visit Provider Nurse Practitioner Family
DX: J18.0 Bronchopneumonia, unspecified organism (principal); R05.9 Cough, unspecified
CPT/HCPCS: 71046

== ENCOUNTER 2023-05-22 14:26 | Outpatient (REF) | payer MEDICARE, MEDICAID, SELFPAY ==
--- NOTE | ~2023-05-22 | FL_ITS ---
EXAMINATION: XR BARIUM SWALLOW CLINICAL INFORMATION: Pneumonitis due to inhalation of food and prominent COMPARISON: None available. TECHNIQUE: Fluoroscopy guidance was provided for modified barium swallow performed by the speech and hearing department. Patient was administered various thicknesses of liquid barium and food mixed with barium. FINDINGS: There is consistent penetration and some aspiration seen with liquid barium. There is less penetration seen with thickened liquid barium. There is no aspiration seen with thickened liquid barium. There is some retention seen with solid material mixed with barium. See speech and hearing report for detailed findings. FLUOROSCOPY TIME: 2.9 minutes DOSE AREA PRODUCT: 6.8 Gtz per centimeter squared. Total dose 23 mgy. 1 saved fluoroscopic image. FL/FL barium swallow modified IMPRESSION: Fluoroscopy guidance for modified barium swallow.
--- NOTE | 2023-05-26 15:03 | MHC.SL.IMP ---
Date of Plan of Treatment: 05/22/23 Onset of Symptoms/Illness: 04/21/23 Date Treatment Started: 05/22/23 Admitting Diagnosis: Pneumonitis due to inhalation of food and vomit Primary Speech & Language Diagnosis: R13.12 Oropharyngeal Phase Dysphagia Reason for Today's Visit: 74418 Modified Barium Swallow Study Pre-evaluation Dietary Consistencies: Pureed (NDD1) Medical History: [place], [place] Modified Barium Swallow Study Fluoroscopic Evaluation of Swallowing Function CPT Code 44478 Evaluation Year: 2022 Reason for Study: Recurrent PNA d/t aspiration Referring Physician: Ivis Dobson NP Evaluating Clinician: Nilam Medina MA, CCC-SEWER CONTRACTOR Study Number: 1 Patient Name: Javi Hardy Status: Outpatient Age: 77 Gender: Male Medical History Medical History Anemia BPH (benign prostatic hyperplasia) CHF (congestive heart failure) Constipation Dementia Duodenal ulcer Dysphagia GERD (gastroesophageal reflux disease) HIV (human immunodeficiency virus infection) Hyperlipidemia Hypertension Hypothyroid Recurrent pneumonia Current (pre-evaluation) Intake/Diet: Route: PO Diet Grade: Puree Pre-Study Functional Oral Intake Scale (FOIS): 5- Total oral intake of multiple consistencies requiring special preparation SUBJECTIVE: Pt is a 77 year old male LTC resident of [facility]. Pt was seen by the Pulmonology office for bronchitic symptoms. Pt was presenting with productive cough, thick yellow sputum, and congestion for a few weeks. His chest x-ray on 05/11 revealed right lower lobe infiltrate/atelectasis. Pt?s history is significant for CHF, dementia, dysphagia, and GERD, among other diagnoses. Pt has had recurrent pneumonia due to aspiration. He is on a pureed diet per report of Ivis Dobson NP and was referred for this exam to further evaluate the extent of his dysphagia and identify possible changes to his current recommendations. Oral Motor Exam Mouth Occlusion: Normal Oral-Facial Teeth Characteristics: Partially Missing Spaces Oral-Facial Teeth Miscellaneous Observation: Limited dentition Tongue Size: Normal Tongue Excursion Description: Normal Tongue Range of Movement Description: Normal Tongue Speed of Movement Description: Reduced Tongue Strength of Movement (against opposing pressure): Reduced Food and Liquid Trials: Oral Impairment: Lip Closure: Did not test Oral Impairment: Tongue Control During Bolus Hold: 1=Escape to lateral buccal cavity/floor of mouth (FOM) Oral Impairment: Bolus Preparation/Mastication: Did not test Oral Impairment: Bolus Transport/Lingual Motion: 2=Slowed tongue motion Oral Impairment: Oral Residue: 2=Residue collection on oral structures Oral Impairment:Initiation of Pharyngeal Swallow: 2=Bolus head at posterior laryngeal surface of epiglottis Pharyngeal Impairment: Soft Palate Elevation: 0=No bolus between soft palate (SP)/pharyngeal wall (PW) Pharyngeal Impairment: Laryngeal Elevation: 1=Partial thyroid cartilage/arytenoids to epiglottic petiole movement Pharyngeal Impairment: Anterior Hyoid Excursion: 1=Partial anterior movement Pharyngeal Impairment: Epiglottic Movement: 1=Partial inversion Pharyngeal Impairment: Laryngeal Vestibular Closure:: 1=Incomplete: narrow column air/contrast in laryngeal vestibule Pharyngeal Impairment: Pharyngeal Stripping Wave: 1=Present: diminished Pharyngeal Impairment: Pharyngeal Contraction: Did not test Pharyngeal Impairment: Pharyngoesophageal Segment Openin=Complete distension and complete duration: no obstruction of flow Pharyngeal Impairment: Tongue Base (TB) Retraction: 2=Narrow column of contrast/air between TB and posterior PW Pharyngeal Impairment: Pharyngeal Residue: 2=Collection of residue within or on pharyngeal structures Pharyngeal Impairment: Esophageal Clearance Upright Position: Did not test Impressions and Recommendations Clinical Observations: OBJECTIVE: Time-out: performed at 15:15 Evaluation Start: 15:00; Stop: 15:08 Patient Positioning: Seated 70-90 degrees Viewing Planes: LATERAL ONLY Contrast: MBSImP? Standardized Protocol using commercially prepared, standardized Barium viscosities, including: Varibar? THIN LIQUID (40% w/v, <15 cps) , Varibar? NECTAR (40% w/v, <150-450 cps) , Varibar? THIN HONEY (40% w/v, <800-1800 cps) MBSImP ID: [id number] MBSImP Results: Lip closure for intraoral bolus containment could not be assessed due to logistical reasons not related to physiologic impairment. Tongue control during bolus hold allowed bolus escape to the lateral buccal cavity/floor of mouth. Bolus preparation and mastication received the highest impairment score; solid not given due to patient safety concerns related to oral impairment. Bolus transport/lingual motion was with slowed tongue motion. Oral residue was a collection on oral structures. Initiation of the pharyngeal swallow occurred as the bolus head was at the posterior laryngeal surface of the epiglottis. Soft palate elevation resulted in no bolus between the soft palate and the pharyngeal wall. Laryngeal elevation was decreased, with partial superior movement of the thyroid cartilage/partial approximation of the arytenoids to the epiglottic petiole. Anterior hyoid excursion demonstrated partial anterior movement. Epiglottic movement resulted in partial inversion. Laryngeal vestibular closure was incomplete, with a narrow column of air/contrast noted within the laryngeal vestibule at the height of the swallow. Pharyngeal stripping wave was present, but diminished. Pharyngeal contraction could not be determined due to logistical reasons not related to physiologic impairment. Pharyngoesophageal segment opening was completely distended for complete duration with no obstruction of bolus flow. Tongue base retraction allowed a narrow column of contrast or air between the retracted tongue base and the posterior pharyngeal wall. Pharyngeal residue was a collection of residue within or on pharyngeal structures. Esophageal clearance in the upright position could not be assessed due to logistical reasons not related to physiologic impairment. Oral Impairment Score: 10 (absence of score, component 1) Pharyngeal Impairment Score: 9 (absence of score, component 13) Esophageal Impairment Score: --- (absence of score, component 17) Laryngeal Penetration and Aspiration: Both Penetration and Aspiration were observed in today's study. Honey-thick, Penasco-thick Contrast entered the airway, remained above the vocal folds, and were ejected from the airway. Honey-thick, Penasco-thick, Thin Contrast entered the airway, contacted the vocal folds, and were ejected from the airway. Thin Contrast entered the airway, contacted the vocal folds, and was not ejected from the airway. Thin Contrast entered the airway, passed below the vocal folds, and no effort was made to eject. ASSESSMENT: This exam was conducted by a multidisciplinary team, which included a speech pathologist, radiologist, and mortuary technician. Pt was seated upright at 90 degrees for lateral view only. Pt trialed the following liquid and solid consistencies: thin liquid barium by spoon, cup, straw; nectar thick liquid barium by cup; honey thick liquid barium by spoon, cup; pureed solid (applesauce mixed with barium paste) via spoon. Unable to visualize labial seal. Posterior lingual motion was slowed and mildly delayed. There was mild residue on the tongue and in the floor of mouth, which was reduced with subsequent swallows. Pharyngeal swallow trigger initiated as the bolus head reached the posterior laryngeal surface of the epiglottis. There was no nasopharyngeal reflux. Incomplete laryngeal elevation. Incomplete epiglottic inversion. Incomplete laryngeal vestibular closure. Consistent deep penetration with sips of thin liquid via spoon, cup, and straw. There was subsequent aspiration with trials of thin liquid by cup. Pt did not produce a reflexive cough or throat clear in response to episodes of aspiration. Reduction in penetration with trials of nectar thick and honey thick liquids. Trace amount of contrast entered the airway above or to the level of the vocal folds and spontaneously ejected. No evidence of aspiration on trials of nectar thick liquid, honey thick liquid, and pureed solids. With thicker textures, there was mild retention in the valleculae, on the posterior pharyngeal wall, and in the pyriforms. Pharyngeal residue was reduced with subsequent swallows. Patient history with the following compensatory strategies is unknown. When employed during today's study, these strategies improved swallowing function: Penasco-thick Liquid eliminated Aspiration Penasco-thick Liquid decreased Penetration Honey-thick Liquid eliminated Aspiration Honey-thick Liquid decreased Penetration Additional Swallow(s) per Bolus decreased Oral Residue, Pharyngeal Residue Liquid Intake Recommendation: Penasco Thick Liquid Intake Strategies: Small Sips, No Straws Dietary Recommendations: Pureed (NDD1) Medication Administration: Crushed with Puree Please contact the pharmacy regarding appropriate crushable or liquid drug formulations that are available whenever modified delivery is recommended. Compensatory Strategies Recommended: Sitting Upright (90 deg), Double Swallow, No Straw, Liquids from Cup, Liquids from Spoon, Small Bites and Sips, Rate of Ingestion Change, Oral Check, Avoid Specific Foods Supervision during eating and or drinking: Total Assistance (1:1) Recommended Treatments: Compens. Strategy Educat. Recommendation for Speech Therapy: Speech Therapy through Rehab Facility Text Comment: PLAN: Intake Recommendations: Route: PO Diet Grade: Puree Liquid Consistencies: Penasco Post-Study Functional Oral Intake Scale (FOIS): 5- Total oral intake of multiple consistencies requiring special preparation This exam revealed moderate impairments of the oral and pharyngeal phases. Silent aspiration on trials of thin liquid. Decreased penetration with nectar thick liquid and honey thick liquid. Mild pharyngeal retention with thicker consistencies, which cleared with subsequent swallows. Per notes provided by the assistant teaching professor, pt has history of aspiration pneumonia and is currently on a pureed diet. Recommend continue w/ modified diet PUREED (NDD1) solids and NECTAR THICK liquids with STRICT ASPIRATION PRECAUTIONS: -Take small bites of food -Avoid: hard to chew, tough solids; dry foods; sticky or crunchy textures; mixed consistencies; -Follow each bite with 1-2 additional dry swallows to promote pharyngeal clearance -Maintain upright 90 degree position while eating and drinking and for at least 30 minutes afterwards -Ensure daily oral care routine before first meal and after each subsequent meal -Pills crushed with puree (consult with pharmacy) -Liquid by teaspoon or controlled cup -Avoid the use of straws -Take small, individual sips of liquid -Avoid taking consecutive sips Recommend continue dysphagia treatment with a speech language pathologist at pt?s LTC facility for further education RE: MBSS results, risks of aspiration, dietary textures, and recommended strategies. Recommend continued monitoring of pt?s dysphagia. If there are any changes or worsening of symptoms, consult with MD, at which point a re-evaluation may be indicated. Ultimately, decisions regarding medical care are up to the patient and his medical team. Therapy Recommendations: Therapy will be continued The following compensatory strategies and/or therapeutic exercises will be part of the upcoming therapy/management plan: Penasco-thick Liquid Additional Swallow(s) per Bolus Prognosis for Improvement: The prognosis for the patient to meet nutritional needs by mouth is fair based on degree of impairment, stimulability for treatment. Environmental Studies Professor Goals: ? The patient will tolerate the least restrictive diet with a safe/efficient swallow to maintain adequate nutrition and hydration. ? The patient and/or family will participate in further education for swallowing goals. Short Term Goals: ? Diet - The patient will tolerate a pureed diet with nectar thick liquids without signs or symptoms of penetration/aspiration 100% of the time. - The patient will participate in therapeutic PO trials with the SEWER CONTRACTOR. ? Guidelines - The patient will comply with/recall the following guidelines/strategies 100% of the time with moderate cuing: Penasco-thick Liquid, Bolus Volume Change, Rate of Ingestion Change, Additional Swallow(s) per Bolus, No Straws. ? Education - The patient, family, caregiver, nurse will verbalize/demonstrate understanding of the results of this evaluation, the above recommendations, and the swallowing guidelines. Clinician - Supplemental, Miscellaneous Communication: It is important to note MBSS objective studies are snapshots in time and Patient function might vary with factors such as time of day or concomitant medical conditions. For this reason, the final treatment plan for this patient should rest with their medical care team. Additional recommendations should be considered with the totality of the Patient in mind. Thank for the opportunity to participate in the care of this patient. If you have any questions about the content of this report, please contact the [facility] at [facility]. Education: Education regarding findings from today's study and plans for therapy were provided to Patient and family/caregiver through Verbal Instruction, Written Instruction. Understanding was expressed by the Patient and family/caregiver. Cable Reeler Clinician/Clinical Fellow: No Supervisory Statement: N/A Speech Language Pathologist: Nilam Medina M.A., CCC-SEWER CONTRACTOR
== END 2023-05-22 14:27 | disposition home or self-care (01) ==
LOC: HO.XRAY 14:26
PROVIDERS: PCP Hospitalist; Visit Provider Nurse Practitioner Family
DX: J69.0 Pneumonitis due to inhalation of food and vomit (principal); R13.12 Dysphagia, oropharyngeal phase
CPT/HCPCS: 74230; 92611

== ENCOUNTER → 2023-05-22 14:27 | Outpatient (BNV) | payer MEDICARE, MEDICAID, SELFPAY | PROVIDERS: PCP Hospitalist; Visit Provider Radiology Diagnostic Radiology | DX: J69.0 Pneumonitis due to inhalation of food and vomit (principal) | CPT/HCPCS: 74230 ==

== ENCOUNTER 2023-05-31 13:11 | Outpatient (AMB) | payer MEDICARE, MEDICAID, SELFPAY ==
--- NOTE | 2023-05-31 13:13 | MHC.OFFVIS ---
Intake Vital Signs 05/31/23 13:18 BP 126/68 Blood Pressure Location Lt brachial Position Sitting Pulse 63 Pulse Source Pulse Oximeter Pulse Oximetry (%) 97 Oxygen Delivery Method Room Air Intake Visit Reasons: COPD Orthophotography Technician Required: No Fraud Examiner: Fraud Examiner offered & declined Accompanied by: Nurses aid Allergies chlorpromazine [From THORAZINE] Allergy (Unknown, Verified 05/31/23 13:21) UNKNOWN HPI COPD HPI Details Javi is pleasant 77 year old male with multiple comorbidities including COPD, recurrent pneumonia due to aspiration, dysphagia, HIV on antivirals, dementia, residing at [facility]. Today he presents for a routine visit accompanied by floor care specialist. He reports improvements in cough after augmentin but now with worsening productive cough that is quite persistent. Denies any fevers or sick contacts. Since the last visit, he was sent for a barium swallow evaluation and it was recommended he stay on nectar thick liquids and purees. The floor care specialist recalled he is on a mechanical diet but does not believe he is on nectar thick liquids. [facility] Medical History Anemia BPH (benign prostatic hyperplasia) CHF (congestive heart failure) Constipation Dementia Duodenal ulcer Dysphagia GERD (gastroesophageal reflux disease) HIV (human immunodeficiency virus infection) Hyperlipidemia Hypertension Hypothyroid Recurrent pneumonia Social History (Updated 05/31/23 @ 13:22 by Winnie Small LPN) Household Members: None Housing: Halfway Alcohol intake: never Patient Tobacco Use Status: Former Tobacco user Advance Directives Date on File: 12/19/22 service: No Current occupational status: disabled Review of Systems Const Unobtainable due to mental status (pt with dementia, difficult to obtain history) ENT Reports Normal hearing present Neuro Reports Normal hearing present Physical Exam Vital Signs: Last Vital Signs Pulse 63 05/31/23 13:18 BP 126/68 05/31/23 13:18 Pulse Ox 97 05/31/23 13:18 Oxygen Delivery Method Room Air 05/31/23 13:18 Const General: cooperative, comfortable, no acute distress, well developed and alert Orientation/consciousness: oriented to person HEENT Head: Yes normal to inspection, Yes normocephalic and Yes atraumatic Ears: hearing grossly normal bilaterally and external ears normal Eyes General: appearance normal, both eyes and all related structures Eyelids: Yes eyelids normal Sclerae: sclerae normal EOM: EOMs intact bilaterally Neck Neck: Yes normal visual inspection and Yes no lymphadenopathy Lymphatic: no lymphadenopathy noted Chest Chest palpation & inspection: normal inspection of the chest Resp Effort & Inspection: normal respiratory effort, able to speak in complete sentences, no audible wheezes, Actively coughing Quality: productive, no stridor, not tachypneic, no tripod positioning and no use of accessory muscles Auscultation: crackles, rhonchi, no wheezes and diminished lung sounds Cardio Rate: regular rate Rhythm: regular rhythm Skin Other: warm, dry General skin exam: no rashes or lesions noted Neuro General: oriented to person Cranial nerves: Yes Normal hearing present Gait exam (Neuro): Assisted gait required Extrem General: Yes normal to inspection, Yes capillary refill normal, Yes no clubbing, cyanosis or edema and Yes no pedal edema Psych Appearance: grossly normal Speech and movement: Normal speech and movement present and Clear speech present Affect: normal affect Attitude: cooperative Insight: Fair insight present (Psych) Judgement: Fair judgement present (Psych) Assessment & Plan Assessment & Plan (1) Aspiration pneumonia: Code(s): J69.0 - Pneumonitis due to inhalation of food and vomit (2) Cough: Code(s): R05.9 - Cough, unspecified Plan Javi presents with bronchitic symptoms that have been ongoing and noted some improvement after Augmentin that was prescribed at the end of March. Throughout the visit, patient with persistent productive cough. Will treat with Levaquin and obtain CXR if symptoms persist. Aware if symptoms do not improve, to contact the office. Will also notify [facility] of diet recommendations including nectar thick liquids and pureed diet, to minimize risk for recurrent aspiration pneumonia. All questions were answered and patient is in agreement of plan. Will follow up one month. Medications: New levofloxacin 750 mg PO DAILY 7 tabs 0RF Coding Level of Care Code Est Pt Level 4 (59924) Diagnoses Aspiration pneumonia J69.0 Cough R05.9
[2023-05-31 13:18] VITALS: BP 126/68; PULSE 63; O2SAT 97
== END 2023-05-31 13:34 | disposition home or self-care (01) ==
PROVIDERS: PCP Hospitalist; Visit Provider Nurse Practitioner Family
DX: J69.0 Pneumonitis due to inhalation of food and vomit (principal); R05.9 Cough, unspecified
CPT/HCPCS: 99214

== ENCOUNTER → 2023-05-31 13:11 | Outpatient (BNVA) | payer MEDICARE, MEDICAID, SELFPAY | PROVIDERS: PCP Hospitalist; Visit Provider Nurse Practitioner Family | DX: J69.0 Pneumonitis due to inhalation of food and vomit (principal); R05.9 Cough, unspecified; J44.9 Chronic obstructive pulmonary disease, unspecified; R13.10 Dysphagia, unspecified; B20 Human immunodeficiency virus [HIV] disease; F03.90 Unspecified dementia, unspecified severity, without behavioral disturbance, psychotic disturbance, mood disturbance, and anxiety | CPT/HCPCS: 99212 ==

== ENCOUNTER 2023-07-05 13:29 | Outpatient (AMB) | payer MEDICARE, MEDICAID, SELFPAY ==
[2023-07-05 13:37] VITALS: BP 122/62; PULSE 69; O2SAT 97
--- NOTE | 2023-07-05 13:37 | A.OFFVIS_ITS ---
Intake Vital Signs 07/05/23 13:37 BP 122/62 Blood Pressure Location Rt brachial Position Sitting Pulse 69 Pulse Source Pulse Oximeter Pulse Oximetry (%) 97 Oxygen Delivery Method Room Air Intake Visit Reasons: COPD College Coach Required: No Addiction Social Worker: Addiction Social Worker offered & declined Allergies chlorpromazine [From THORAZINE] Allergy (Unknown, Verified 07/05/23 13:41) UNKNOWN Medication List - Last Reconciled 07/05/23 by Winnie Small LPN pabveknx-gkhmqsrkjbsk-rdpkyyy 600-50-300 mg (Triumeq) 1 tab PO DAILY acetaminophen 650 mg PO Q4H PRN albuterol sulfate 90 mcg/actuation (ProAir HFA) 2 puffs inhalation Q6H PRN albuterol sulfate 2.5 mg inhalation Q6H PRN amoxicillin-pot clavulanate 875-125 mg 1 tab PO BID amoxicillin-pot clavulanate 875-125 mg 1 tab PO Q12H 10 days artificial tears solution 1 drp ophthalmic (eye) Q4H PRN aspirin 81 mg PO DAILY atorvastatin 20 mg PO BEDTIME benztropine 1 mg PO BID bisacodyl (Dulcolax (bisacodyl)) 10 mg ID DAILY PRN famotidine 20 mg PO BEDTIME guaifenesin 200 mg PO Q4H PRN guaifenesin ER (Mucinex) 600 mg PO BID haloperidol 1 mg PO BID lactulose 30 mL PO DAILY PRN levofloxacin 750 mg PO DAILY levothyroxine 75 mcg PO DAILY loperamide 2 mg PO Q6H PRN megestrol 400 mg PO DAILY metoprolol succinate ER 25 mg See Protocol PO DAILY multivitamin with iron 1 tab PO DAILY omeprazole 40 mg PO DAILY oxcarbazepine (Trileptal) 150 mg PO BID sennosides 8.6 mg PO BEDTIME PRN sodium phosphates 19-7 gram/118 mL (Fleet Enema) 118 mL ID DAILY PRN tamsulosin 0.8 mg (2 x 0.4 mg) PO BEDTIME 90 days HPI COPD HPI Details Javi is pleasant 77 year old male with multiple comorbidities including COPD,? recurrent pneumonia due to aspiration, dysphagia, HIV on antivirals, dementia, residing at [facility]. At the last visit, he was supposed to start on purees and nectar thick liquids, after a speech evaluation, but it is not clear if his diet was changed. He continues with intermittent wet cough. [facility] Medical History Anemia BPH (benign prostatic hyperplasia) CHF (congestive heart failure) Constipation Dementia Duodenal ulcer Dysphagia GERD (gastroesophageal reflux disease) HIV (human immunodeficiency virus infection) Hyperlipidemia Hypertension Hypothyroid Recurrent pneumonia Social History (Updated 05/31/23 @ 13:22 by Winnie Small LPN) Household Members: None Housing: Longterm Alcohol intake: never Patient Tobacco Use Status: Former Tobacco user Advance Directives Date on File: 12/19/22 service: No Current occupational status: disabled Review of Systems Const Unobtainable due to mental status (pt with dementia, difficult to obtain history) ENT Reports Normal hearing present Resp Reports cough, Denies hemoptysis, Denies excessive phlegm production, Denies pain with cough and Denies wheezing Neuro Reports Normal hearing present Aller/Immun Denies wheezing Physical Exam Vital Signs: Last Vital Signs Pulse 69 07/05/23 13:37 BP 122/62 07/05/23 13:37 Pulse Ox 97 07/05/23 13:37 Oxygen Delivery Method Room Air 07/05/23 13:37 Const General: cooperative, comfortable, no acute distress, well developed and alert Orientation/consciousness: oriented to person HEENT Head: Yes normal to inspection, Yes normocephalic and Yes atraumatic Ears: hearing grossly normal bilaterally and external ears normal Eyes General: appearance normal, both eyes and all related structures Eyelids: Yes eyelids normal Sclerae: sclerae normal EOM: EOMs intact bilaterally Neck Neck: Yes normal visual inspection and Yes no lymphadenopathy Lymphatic: no lymphadenopathy noted Chest Chest palpation & inspection: normal inspection of the chest Resp Effort & Inspection: normal respiratory effort, able to speak in complete sentences, no audible wheezes, Actively coughing Quality: productive, no stridor, not tachypneic, no tripod positioning and no use of accessory muscles Auscultation: no wheezes and diminished lung sounds Cardio Rate: regular rate Rhythm: regular rhythm Skin Other: warm, dry General skin exam: no rashes or lesions noted Neuro General: oriented to person Cranial nerves: Yes Normal hearing present Gait exam (Neuro): Assisted gait required Extrem General: Yes normal to inspection, Yes capillary refill normal, Yes no clubbing, cyanosis or edema and Yes no pedal edema Psych Appearance: grossly normal Speech and movement: Normal speech and movement present and Clear speech present Affect: normal affect Attitude: cooperative Insight: Fair insight present (Psych) Judgement: Fair judgement present (Psych) Assessment & Plan Assessment & Plan (1) Cough: Code(s): R05.9 - Cough, unspecified (2) Aspiration of food: Code(s): T17.928A - Food in respiratory tract, part unspecified causing other injury, initial encounter Plan Javi presents with bronchitic symptoms that have been waxing and waning. At the last visit he was prescribed levaquin and reports minimal changes with cough but on examination there are no crackles, rhonchi or wheezes. Discussed importance of diet changes to minimize risk for recurrent aspiration pneumonia. Written recommendations of nectar thick liquids and pureed diet sent with patient. All questions were answered and patient is in agreement of plan. Will follow up in three months or sooner if needed. Coding Level of Care Code Est Pt Level 3 (94737) Diagnoses Cough R05.9 Aspiration of food T17.920A
== END 2023-07-05 13:58 | disposition home or self-care (01) ==
LOC: HO.HPS 13:29
PROVIDERS: PCP Hospitalist; Visit Provider Nurse Practitioner Family
DX: R05.9 Cough, unspecified (principal); T17.928A Food in respiratory tract, part unspecified causing other injury, initial encounter
CPT/HCPCS: 99213

== ENCOUNTER → 2023-07-05 13:29 | Outpatient (BNVA) | payer MEDICARE, MEDICAID, SELFPAY | PROVIDERS: PCP Hospitalist; Visit Provider Nurse Practitioner Family | DX: T17.928A Food in respiratory tract, part unspecified causing other injury, initial encounter (principal); R05.9 Cough, unspecified; J44.9 Chronic obstructive pulmonary disease, unspecified | CPT/HCPCS: 99212 ==

== ENCOUNTER 2023-08-18 11:17 | Outpatient (AMB) | payer MEDICARE, MEDICAID, SELFPAY ==
--- NOTE | 2023-08-18 11:59 | MHC.OFFVIS ---
Intake Intake Visit Reasons: 6m follow up Intake Note: Patient is Present for Follow Up Urology Medication:Tamsulosin Antibiotic Allergies:None Blood Thinners: Aspirin Allergies chlorpromazine [From THORAZINE] Allergy (Unknown, Verified 07/05/23 13:41) UNKNOWN Medication List - Last Reconciled 08/18/23 by Jamshid Szymanski MD [id number] 600-50-300 mg (Triumeq) 1 tab PO DAILY acetaminophen 650 mg PO Q4H PRN albuterol sulfate 90 mcg/actuation (ProAir HFA) 2 puffs inhalation Q6H PRN albuterol sulfate 2.5 mg inhalation Q6H PRN amoxicillin-pot clavulanate 875-125 mg 1 tab PO BID amoxicillin-pot clavulanate 875-125 mg 1 tab PO Q12H 10 days artificial tears solution 1 drp ophthalmic (eye) Q4H PRN aspirin 81 mg PO DAILY atorvastatin 20 mg PO BEDTIME benztropine 1 mg PO BID bisacodyl (Dulcolax (bisacodyl)) 10 mg OH DAILY PRN famotidine 20 mg PO BEDTIME guaifenesin 200 mg PO Q4H PRN guaifenesin ER (Mucinex) 600 mg PO BID haloperidol 1 mg PO BID lactulose 30 mL PO DAILY PRN levofloxacin 750 mg PO DAILY levothyroxine 75 mcg PO DAILY loperamide 2 mg PO Q6H PRN megestrol 400 mg PO DAILY metoprolol succinate ER 25 mg See Protocol PO DAILY multivitamin with iron 1 tab PO DAILY omeprazole 40 mg PO DAILY oxcarbazepine (Trileptal) 150 mg PO BID sennosides 8.6 mg PO BEDTIME PRN sodium phosphates 19-7 gram/118 mL (Fleet Enema) 118 mL OH DAILY PRN tamsulosin 0.8 mg (2 x 0.4 mg) PO BEDTIME 90 days HPI HPI Comments History of Present Illness Details Javi is a pleasant male. Greek speaker. He is seen for the following urologic conditions - lower urinary tract symptoms - background HIV dementia Accompanied by PHARMACY TECH CUSTOMER SERVICE from [employer] who is translating With diaper Minimal urgency Managed with timed voiding and high-dose tamsulosin Lower urinary tract symptoms Longstanding treatment with tamsulosin Has nocturia with unsensed voiding Uses diapers Prompted voiding every 2 hours Current therapy tamsulosin PSA 01/17 0.3 Therapeutic plan - continue with tamsulosin PFSH Medical History Anemia BPH (benign prostatic hyperplasia) CHF (congestive heart failure) Constipation Dementia Duodenal ulcer Dysphagia GERD (gastroesophageal reflux disease) HIV (human immunodeficiency virus infection) Hyperlipidemia Hypertension Hypothyroid Recurrent pneumonia Social History (Updated 05/31/23 @ 13:22 by Winnie Small LPN) Household Members: None Housing: [facility] Alcohol intake: never Patient Tobacco Use Status: Former Tobacco user Advance Directives Date on File: 12/19/22 service: No Current occupational status: disabled Review of Systems Const Denies chills and Denies fever(s) Card Reports no additional complaints and Denies syncope Resp Denies cough GI Denies abdominal pain and Denies heartburn Reports as per HPI and Denies change in libido Neuro Denies syncope Psych Denies change in libido Endo Denies change in libido Physical Exam Const General: cooperative, healthy appearing, comfortable and no acute distress Orientation/consciousness: patient oriented x3 HEENT Face and sinus: Yes normal facial exam Mouth: moist mucous membranes Neck Neck: Yes normal visual inspection, Yes full ROM and Yes trachea midline Chest Chest palpation & inspection: normal inspection of the chest Resp Effort & Inspection: normal respiratory effort, able to speak in complete sentences and no respiratory distress GI Inspection: Yes normal to inspection Back/Spine/Pelvis Cervical Spine: normal cervical lordosis Thoracic/Lumbar Spine: thoracic and lumbar spine normal to inspection Skin General skin exam: no rashes or lesions noted Neuro General: patient oriented x3, gait normal, tone normal and moves all extremities Extrem General: Yes normal to inspection and Yes capillary refill normal Assessment & Plan Assessment & Plan (1) Urinary urgency: Code(s): R39.15 - Urgency of urination (2) BPH (benign prostatic hyperplasia): Code(s): N40.0 - Benign prostatic hyperplasia without lower urinary tract symptoms Qualifiers: Lower urinary tract symptom presence: symptoms present Lower urinary tract symptom detail: urinary frequency Qualified Code(s): N40.1 - Benign prostatic hyperplasia with lower urinary tract symptoms; R35.0 - Frequency of micturition Plan Twelve month follow-up Medications: Refilled tamsulosin 0.8 mg (2 x 0.4 mg) PO BEDTIME 180 caps 3RF 90 days N40.0 - Benign prostatic hyperplasia without lower urinary tract symptoms Patient Instructions: Imaging studies, laboratory and physical exam results were discussed and reviewed in detail. No major barriers to patient understanding were identified. An opportunity to ask questions regarding the treatment plan was provided. All questions were answered. The patient expressed understanding and agreement with the above treatment plan. The patient is aware they should contact our office by phone for worsening of their current condition or the appearance of new urologic symptoms. Compliance is encouraged with any medications and followup testing that is ordered. It is a privilege to participate in the urologic care of your patient. If you have any questions or concerns regarding treatment for the above conditions, or other urologic issues, please do not hesitate to contact me. The office telephone contact is [phone]. This note is constructed using voice recognition software. While every effort has been made to ensure accuracy assistant professor of archaeology errors may have been included. Yours sincerely, Dr Jamshid Szymanski MD, [facility] - Urology Providers of Expert, Compassionate Care for the Genitourinary System Coding Level of Care Code Est Pt Level 3 (80324) Diagnoses Urinary urgency R39.15 Benign prostatic hyperplasia with urinary frequency N40.1; R35.0 Lower urinary tract symptom presence: symptoms present Lower urinary tract symptom detail: urinary frequency
== END 2023-08-18 12:07 | disposition home or self-care (01) ==
LOC: HO.HUSH 11:17
PROVIDERS: PCP Hospitalist; Visit Provider Urology
DX: N40.1 Benign prostatic hyperplasia with lower urinary tract symptoms (principal); R39.15 Urgency of urination; R35.0 Frequency of micturition
CPT/HCPCS: 99213

== ENCOUNTER → 2023-08-18 11:17 | Outpatient (BNVA) | payer MEDICARE, MEDICAID, SELFPAY | PROVIDERS: PCP Hospitalist; Visit Provider Urology | DX: N40.1 Benign prostatic hyperplasia with lower urinary tract symptoms (principal); N13.8 Other obstructive and reflux uropathy; R39.15 Urgency of urination; R35.0 Frequency of micturition; B20 Human immunodeficiency virus [HIV] disease; F02.80 Dementia in other diseases classified elsewhere, unspecified severity, without behavioral disturbance, psychotic disturbance, mood disturbance, and anxiety; Z79.82 Long term (current) use of aspirin; Z79.899 Other long term (current) drug therapy | CPT/HCPCS: 99212 ==

== ENCOUNTER 2023-09-12 10:14 | Outpatient (REF) | payer MEDICARE, MEDICAID, SELFPAY ==
--- NOTE | ~2023-09-12 | XR_ITS ---
EXAMINATION: XR CHEST 2 VIEW CLINICAL INFORMATION: Elevated white blood cell count, altered mental status COMPARISON: Chest x-ray of 05/11/2023 TECHNIQUE: PA and lateral views of the chest obtained. FINDINGS: There is a moderate size right pleural effusion with underlying right base atelectasis or pneumonia. Small patchy opacities are evident in the left mid and lower lung zone. There is volume loss in the right hemithorax. The aorta is uncoiled. The cardiomediastinal silhouette is not well assessed. XR/XR chest 2V IMPRESSION: 1. Moderate right pleural effusion and underlying right base atelectasis or pneumonia with volume loss in the right hemithorax. Close follow-up is recommended to confirm clearing. If findings persist suggest CT to exclude occult obstructing endobronchial lesion. 2. Smaller patchy opacities in the left mid and lower lung zone.
== END 2023-09-12 10:15 | disposition home or self-care (01) ==
LOC: HO.XRAY 10:14
PROVIDERS: PCP Hospitalist; Visit Provider Hospitalist
DX: Z13.89 Encounter for screening for other disorder (principal)
CPT/HCPCS: 71046

== ENCOUNTER 2023-09-15 02:32 | Inpatient (IN) | payer MEDICARE, MEDICAID, SELFPAY ==
[2023-09-15] VITALS (11 sets, daily range): BP systolic 91–128; BP diastolic 46–74; PULSE 74–88; RESP 16–37; TEMP 36.2–37.2; O2SAT 90–100; BMI 24.9; BMI 24.7
--- NOTE | ~2023-09-15 | CT_ITS ---
EXAMINATION: CT cervical spine wo IV con, CT head/brain wo IV con INDICATION INFORMATION: Additional Information: [id number]. PT UNABLE TO COOPARATE WITH THE EXAM. : COMPARISON: 04/07/2022 TECHNIQUE: Separate noncontrast CT examinations of the head and cervical spine were performed. Coronal and sagittal reformats were obtained at the acquisition workstation. This CT examination was performed using dose optimization techniques as appropriate, variously including the following: * Automated exposure control * Adjustment of mA and/or kV according to patient size (this includes techniques or standardized protocols for targeted exams where dose is matched to indication/reason for exam; i.e. extremities or head) * Use of iterative reconstruction technique DLP: 703.35 mGy-cm FINDINGS: HEAD: There is no evidence of acute intracranial hemorrhage or territorial infarction. Gtz to white matter differentiation is well preserved. No abnormal mass effect or midline shift is seen. Sulci, ventricles, cisterns are prominent due to global volume loss. There are patchy periventricular white matter changes as a sequela of microangiopathy. There is no abnormal attenuation within the brain parenchyma. The cerebellar tonsils are well positioned. No acute osseous or soft tissue abnormality. Visualized portions of the orbits are unremarkable. Mastoid sinuses are well aerated. There is mucosal thickening of the sphenoidal sinuses, complete obliteration of the right maxillary sinus, mucosal thickening of the left maxillary sinus. CERVICAL SPINE: No evidence of acute fracture or traumatic subluxation of the cervical spine. There are multilevel degenerative changes in cervical spine without fractures or subluxations. There is no neuroforaminal encroachment or canal narrowing. Soft tissues unremarkable. The atlantoaxial and atlantooccipital articulations are intact. No prevertebral soft tissue swelling. There is no cervical lymphadenopathy. The visualized thyroid gland is unremarkable. The visualized lung apices are clear. CT/CT head/brain wo IV con IMPRESSION: 1. No acute intracranial pathology. Sequela of microangiopathy and global atrophy 2. Chronic sinus disease. 3. No acute osseous abnormality within the cervical spine. 4. Multilevel degenerative changes in cervical spine. Xiomara Willett DO Stitch Bonding Machine Tender
--- NOTE | ~2023-09-15 | XR_ITS ---
EXAMINATION: XR CHEST CLINICAL INFORMATION: Hypoxia. COMPARISON: 09/17/2023 at 8:13 AM. TECHNIQUE: Frontal view of the chest was obtained. FINDINGS: Endotracheal tube with tip approximately 2.8 cm above the george on this image. Gastric tube tip below the lower limits of the film, but at least into the left upper quadrant of the abdomen. Similar appearance of right hemithorax with near complete opacification with similar small aerated area in the midportion, possibly related to combination of large right pleural effusion with underlying parenchymal process such as atelectasis and/or pneumonia. Similar left basilar consolidation and pleural effusion. Imaged portion of cardiomediastinal silhouette is grossly stable. XR/XR chest 1V IMPRESSION: 1. Endotracheal tube is approximately 2.8 cm above the george. 2. Gastric tube passes below the diaphragm into the left upper quadrant. 3. Similar appearance of complete opacification of right hemithorax with exception of similar appearing small area of aeration centrally.
--- NOTE | ~2023-09-15 | XR_ITS ---
EXAMINATION: XR chest 1V, XR chest 1V CLINICAL INFORMATION: Hypoxia. Status post intubation. COMPARISON: Chest radiograph 09/15/2023. TECHNIQUE: 2 AP chest radiographs 09/16/2023 2:39 PM; 2 AP chest radiograph 09/16/2023 4:06 PM. FINDINGS: Chest radiograph 09/16/2023 2:39 PM: Near complete opacification of the right hemithorax is noted with minimal aeration noted in the right middle lung zone. No gross rightward shift of mediastinal structures identified. No pneumothoraces identified. Mild blunting of left costophrenic sulcus and mild left base airspace opacity partially obscuring the left hemidiaphragmatic margin. Dense aortic calcific atherosclerosis. Chest radiograph 09/16/2023 4:06 PM: The endotracheal tube terminates 3.5 cm superior to the george. Near-complete opacification of the right hemithorax is noted with mild aeration within the right middle lung zone slightly increased in the degree of overall aeration from the most recent comparison exam. No rightward shift of the mediastinal structures visualized. Mild blunting of the left costophrenic sulcus and mild left base airspace opacity obscuring left hemidiaphragmatic margin is again noted. An enteric tube terminates in projection with the upper thoracic esophagus. XR/XR chest 1V IMPRESSION: Chest radiographs 09/16/2023 2:39 PM and 4:06 PM: 1. Final positioning of an endotracheal tube 3.5 cm superior to the george. 2. Final positioning of an enteric tube terminating in projection with the upper thoracic esophagus. The catheter may reside either within the esophagus or trachea. 3. Near-complete opacification of the right hemithorax new compared with 09/15/2023 2:46 PM likely represent a combination an at least moderate right pleural effusion in combination with near complete right lung atelectasis. Minimal right middle lung zone aeration is present and is slightly increased in the interval between 2:39 PM and 4:06 PM. 4. Mild left pleural effusion and mild left lower lobe atelectasis and/or consolidation.
--- NOTE | ~2023-09-15 | US_ITS ---
EXAMINATION: US VENOUS ULTRASOUND WITH DOPPLER LOWER EXTREMITY, BILATERAL CLINICAL INFORMATION: Bilateral lower extremity swelling. COMPARISON: None available. TECHNIQUE: Ultrasound of the deep veins is performed from the hip to the calf with compression sonography and color and pulse Doppler assessment. Spectral analysis with color-flow imaging is performed. FINDINGS: RIGHT: There is normal venous compression and respiratory variation and augmented flow. The visualized common femoral vein, superficial femoral vein, profunda femoral vein, popliteal vein, and the trifurcation region shows no evidence of deep venous thrombosis. LEFT: There is normal venous compression and respiratory variation and augmented flow. The visualized common femoral vein, superficial femoral vein, profunda femoral vein, popliteal vein, and the trifurcation region shows no evidence of deep venous thrombosis. If the patient's symptoms persist, followup ultrasound in 5 days 7 days might be of value to exclude proximal propagation from a non-visualized calf vein. US/US venous duplex LE BI IMPRESSION: No DVT demonstrated in the bilateral lower extremities.
--- NOTE | ~2023-09-15 | XR_ITS ---
EXAMINATION: XR chest 1V CLINICAL INFORMATION: Reason for Exam OGT placement COMPARISON: Same day earlier TECHNIQUE: XR chest 1V Tubes and lines: Endotracheal tube tip is approximately 2 cm above george, gastric tube passing below the diaphragm into the stomach. Lungs and pleura: Redemonstration of complete opacification white out of the right hemithorax except for small aerated area unchanged suggesting large pleural effusion possibly underlying infiltrate or atelectasis. Stable small left subpulmonic pleural effusion. Heart and mediastinum: Unchanged. Bones/soft tissue: Skeletal structures included are normal for patient's age. XR/XR chest 1V IMPRESSION: * Endotracheal tube tip is approximately 2 cm above george. * Gastric tube passing below the diaphragm into the stomach. * Redemonstration of complete opacification of the right hemithorax except for small aerated area suggesting large pleural effusion possibly underlying infiltrate or atelectasis.
--- NOTE | ~2023-09-15 | XR_ITS ---
EXAMINATION: XR CHEST CLINICAL INFORMATION: Shortness of breath. COMPARISON: 09/12/2023. TECHNIQUE: Frontal view of the chest was obtained. FINDINGS: The patient is rotated. The cardiomediastinal silhouette is stable. There is a right mid and lower lung field opacity with layering laterally. There is left lower lung field increased markings similar to previous. There is no new consolidation. The bony structures and soft tissues are unremarkable. XR/XR chest 1V IMPRESSION: Right mid to lower lung field opacity with component of layering. Findings suggest a small to moderate pleural effusion with atelectasis and/or infiltrate similar to previous. Left lower lung field increased markings also similar to previous. No significant change.
--- NOTE | ~2023-09-15 | XR_ITS ---
EXAMINATION: XR CHEST CLINICAL INFORMATION: Questionable mucous spine COMPARISON: September 18 and 09/21/2023 TECHNIQUE: Frontal view of the chest was obtained. FINDINGS: The position of supporting tubes and lines are stable. The endotracheal tube is less than 2 cm away from george there is patchy airspace disease in the left lung and the right lung is almost completely opacified. XR/XR chest 1V IMPRESSION: No interval change
--- NOTE | ~2023-09-15 | XR_ITS ---
EXAMINATION: XR CHEST CLINICAL INFORMATION: TLC central line insertion. COMPARISON: Chest x-ray 09/18/2023 TECHNIQUE: Frontal view of the chest was obtained. FINDINGS: There is near complete whiteout of right lung from underlying right pleural effusion/infiltrate or combination. No mediastinal shift is seen. There is new patchy opacity in the left midlung. There is a new left central venous catheter with its tip in the proximal SVC. Tip of endotracheal tube is 3.4 cm above the george. Enteric tube tip is in the stomach not in the [id number]. Tip of esophageal monitoring lead in the distal esophagus. The heart size is likely enlarged. Vascularity is normal. No gross bony abnormality. XR/XR chest 1V IMPRESSION: 1. New left central venous catheter tip in proximal SVC. No pneumothorax seen. 2. There is near complete whiteout of right lung from underlying infiltrate/atelectasis or effusion. 3. New patchy opacity left midlung. 4. Support lines and catheters are in satisfactory position as described above. 5. No mediastinal shift. ,
--- NOTE | ~2023-09-15 | XR_ITS ---
EXAMINATION: XR CHEST CLINICAL INFORMATION: Post bronchoscopy COMPARISON: Chest 09/29/2023 at 9:19 AM TECHNIQUE: Frontal view of the chest was obtained. FINDINGS: There is complete opacified right lung. There is patchy opacity left upper lung likely infiltrate. Position of endotracheal tube, enteric tube and esophageal monitor with its tip in distal esophagus are stable. Heart size is probably normal. No gross bony abnormality. XR/XR chest 1V IMPRESSION: 1. Complete opacified right lung from effusion and/or atelectasis. 2. Patchy opacity left upper lung likely infiltrate. 3. Support lines and catheters are stable.
--- NOTE | ~2023-09-15 | XR_ITS ---
EXAMINATION: XR CHEST CLINICAL INFORMATION: Right-sided atelectasis COMPARISON: 09/16/2023 TECHNIQUE: Frontal view of the chest was obtained. FINDINGS: Endotracheal tube is in good position above the level the george. Nasogastric tube has been advanced but is still seen in the region of the distal esophagus. There is near complete opacification of the right hemithorax with minimal aerated lung centrally. This is unchanged when the prior exam. Chronic fibrotic changes seen in the left lung. Trace left pleural effusion. XR/XR chest 1V IMPRESSION: 1. Near complete opacification of the right hemithorax with minimal aerated lung centrally. Trace left pleural effusion. 2. Nasogastric tube has been advanced but is still seen in the distal esophagus.
--- NOTE | ~2023-09-15 | CT_ITS ---
EXAMINATION: CT cervical spine wo IV con, CT head/brain wo IV con INDICATION INFORMATION: Additional Information: [id number]. PT UNABLE TO COOPARATE WITH THE EXAM. : COMPARISON: 04/07/2022 TECHNIQUE: Separate noncontrast CT examinations of the head and cervical spine were performed. Coronal and sagittal reformats were obtained at the acquisition workstation. This CT examination was performed using dose optimization techniques as appropriate, variously including the following: * Automated exposure control * Adjustment of mA and/or kV according to patient size (this includes techniques or standardized protocols for targeted exams where dose is matched to indication/reason for exam; i.e. extremities or head) * Use of iterative reconstruction technique DLP: 703.35 mGy-cm FINDINGS: HEAD: There is no evidence of acute intracranial hemorrhage or territorial infarction. Gtz to white matter differentiation is well preserved. No abnormal mass effect or midline shift is seen. Sulci, ventricles, cisterns are prominent due to global volume loss. There are patchy periventricular white matter changes as a sequela of microangiopathy. There is no abnormal attenuation within the brain parenchyma. The cerebellar tonsils are well positioned. No acute osseous or soft tissue abnormality. Visualized portions of the orbits are unremarkable. Mastoid sinuses are well aerated. There is mucosal thickening of the sphenoidal sinuses, complete obliteration of the right maxillary sinus, mucosal thickening of the left maxillary sinus. CERVICAL SPINE: No evidence of acute fracture or traumatic subluxation of the cervical spine. There are multilevel degenerative changes in cervical spine without fractures or subluxations. There is no neuroforaminal encroachment or canal narrowing. Soft tissues unremarkable. The atlantoaxial and atlantooccipital articulations are intact. No prevertebral soft tissue swelling. There is no cervical lymphadenopathy. The visualized thyroid gland is unremarkable. The visualized lung apices are clear. CT/CT cervical spine wo IV con IMPRESSION: 1. No acute intracranial pathology. Sequela of microangiopathy and global atrophy 2. Chronic sinus disease. 3. No acute osseous abnormality within the cervical spine. 4. Multilevel degenerative changes in cervical spine. Xiomara Willett DO [employer]
[2023-09-15 03:14] LABS: Basophils Absolute Auto 0.1 X10*3/uL (0.0-0.2); Basophils Percent Auto 0.3 % (0-2); Eosinophils Percent Auto 0.2 % (0-4); Hemoglobin 12.6 g/dl (14.0-18.0); Imm Gran Abs Auto 0.13 X10*3/uL (0.00-0.03); Imm Gran Pct Auto 0.7 % (0.0-0.4); Lymphocytes Absolute Auto 0.8 X10*3/uL (1.2-4.9); Lymphocytes Percent Auto 4.1 % (20-40); MANUAL DIFF FLAG SCAN; Mean Corpuscular Hemoglobin 32.6 pg (27.0-33.0); Mean Platelet Volume 9.5 fL (9.4-12.4); Monocytes Absolute Auto 0.8 X10*3/uL (0.1-1.2); Monocytes Percent Auto 4.4 % (2-11); Neutrophils Absolute Auto 17.1 x10*3/uL (2.0-8.3); Neutrophils Percent Auto 90.3 % (45-73); Platelet Count 371 X10*3/uL (160-400); Red Blood Count 3.87 X10*6/uL (4.60-5.80); SCAN SMEAR FLAG 1
[2023-09-15 03:14] LABS: Venous Blood Gas Refer to POC result
[2023-09-15 03:18] LABS: VBG Base Excess 3.6 mmol/L; VBG HCO3 27 mmol/L (22-26); VBG pCO2 39 mmHg; VBG pH 7.44 (7.32-7.43); VBG pO2 36 mmHg
[2023-09-15 03:27] LABS: Lactic Acid 1.7 mmol/L (0.5-2.0)
[2023-09-15 03:33] LABS: Alanine Aminotransferase 8 U/L (0-40); Albumin Level 2.2 g/dL (3.5-5.0); Alkaline Phosphatase 84 U/L (39-117); Anion Gap 11 (12-20); Aspartate Amino Transferase 22 U/L (5-37); Bilirubin Direct 0.2 mg/dL (0.0-0.5); Bilirubin Total 0.6 mg/dL (0.0-1.0); Blood Urea Nitrogen 8 mg/dL (9-16); Calcium 8.5 mg/dL (8.4-10.2); Carbon Dioxide 25 mmol/L (22-29); Chloride 98 mmol/L (96-108); Creatinine Clr Calc Pharmacy 79.6; Estimated Glomerular Filt Rate > 60; Glucose Random 83 mg/dL (60-115); Potassium 4.8 mmol/L (3.3-5.1); Sodium 129 mmol/L (135-145); Total Protein 7.4 g/dL (6.5-8.0)
[2023-09-15 03:36] LABS: B Type Natriuretic Peptide 201 pg/mL (<100)
[2023-09-15 03:41] LABS: SLIDE REVIEW VERIFIED
[2023-09-15 03:50] LABS: Influenza A PCR NEGATIVE (Negative); Influenza B PCR NEGATIVE (Negative); Resp Syncy Virus RNA Qual PCR NEGATIVE (Negative); SARS COV2 PCR INHOUSE NEGATIVE (Negative)
--- NOTE | 2023-09-15 07:01 | ED_ITS ---
HPI - SOB/Dyspnea General Chief Complaint: Dyspnea Stated Complaint: SOB Time Seen by Provider: 09/15/23 06:56 Source: EMS and old records reviewed Mode of arrival: EMS Limitations: other (poor historian) History of Present Illness HPI Narrative: 77 yo male with PMH of dementia, recurrent aspiration pneumonia, BPH, HTN, cough, who comes in with c/o shortness of breath, LE edema and low sats in 80s. He is currently on augmentin / doxy since 09/14 for pneumonia as well. He offers no complaints and cannot tell me anything. MD elicited complaint: shortness of breath Pertinent past history: pneumonia Onset (ago): day(s) (1) Context: recent illness Timing: constant Severity: moderate Exacerbating factors: lying flat Relieving factors: nothing Known history of: recurrent pneumonia Associated symptoms: denies other symptoms Treatment prior to arrival: other (antibiotics for 1 day) Related Data Home Medications Medication Instructions Recorded Confirmed abacavir 600 mg-dolutegravir 50 1 tab PO DAILY 07/30/20 08/18/23 mg-lamivudine 300 mg tablet (Triumeq) lactulose 20 gram oral packet 30 ml PO DAILY PRN Constipation 07/30/20 08/18/23 levothyroxine 75 mcg tablet 75 mcg PO DAILY 07/30/20 08/18/23 multivitamin with iron 1 tab PO DAILY 07/30/20 08/18/23 oxcarbazepine 150 mg tablet 150 mg PO BID 07/30/20 08/18/23 (Trileptal) sennosides 8.6 mg capsule 8.6 mg PO BEDTIME PRN Constipation 07/30/20 08/18/23 acetaminophen 325 mg tablet 650 mg PO Q4H PRN Mild Pain (Scale 11/17/20 08/18/23 Score 1-4) OR TEMP >100 albuterol sulfate 90 mcg/actuation 2 puff inhalation Q6H PRN Dyspnea 11/17/20 08/18/23 aerosol inhaler (ProAir HFA) artificial tears solution eye drops 1 drp ophthalmic (eye) Q4H PRN Dry 11/17/20 08/18/23 Eye(S) benztropine 1 mg tablet 1 mg PO BID 11/17/20 08/18/23 guaifenesin 100 mg/5 mL oral liquid 200 mg PO Q4H PRN Cough 11/17/20 08/18/23 loperamide 2 mg tablet 2 mg PO Q6H PRN Diarrhea 11/17/20 08/18/23 megestrol 400 mg/10 mL (10 mL) 400 mg PO DAILY 11/17/20 08/18/23 oral suspension bisacodyl 10 mg rectal suppository 10 mg TN DAILY PRN Constipation 12/15/22 08/18/23 (Dulcolax (bisacodyl)) albuterol sulfate 2.5 mg/3 mL 2.5 mg inhalation Q6H PRN 12/19/22 08/18/23 (0.083 %) solution for nebulization Shortness Of Breath atorvastatin 20 mg tablet 20 mg PO BEDTIME 12/19/22 08/18/23 famotidine 20 mg tablet 20 mg PO BEDTIME 12/19/22 08/18/23 guaifenesin 600 mg tablet, 600 mg PO BID 12/19/22 08/18/23 extended release 12 hr (Mucinex) haloperidol 1 mg tablet 1 mg PO BID 12/19/22 08/18/23 omeprazole 40 mg capsule,delayed 40 mg PO DAILY 12/19/22 08/18/23 release sodium phosphates 19 gram-7 118 ml TN DAILY PRN Constipation 12/19/22 08/18/23 gram/118 mL enema (Fleet Enema) Previous Rx's Medication Instructions Recorded aspirin 81 mg tablet,delayed 81 mg PO DAILY #30 tabs 11/19/20 release metoprolol succinate 25 mg 25 mg PO DAILY #30 tabs 11/19/20 tablet,extended release 24 hr amoxicillin 875 mg-potassium 1 tab PO BID #10 tabs 12/21/22 clavulanate 125 mg tablet amoxicillin 875 mg-potassium 1 tab PO Q12H 10 days #20 tabs 04/21/23 clavulanate 125 mg tablet levofloxacin 750 mg tablet 750 mg PO DAILY #7 tabs 05/31/23 tamsulosin 0.4 mg capsule 0.8 mg (2 x 0.4 mg) PO BEDTIME 90 08/18/23 days #180 caps Allergies Allergy/AdvReac Type Severity Reaction Status Date / Time chlorpromazine Allergy Unknown UNKNOWN Verified 09/15/23 02:40 [From THORAZINE] Review of Systems 2 Review of Systems: ROS unable to be obtained due to altered mental status PMFSH Past Medical History Source: old records reviewed Medical History Recurrent pneumonia Hyperlipidemia Hypothyroid HIV (human immunodeficiency virus infection) Dysphagia Constipation CHF (congestive heart failure) Anemia Dementia Hypertension BPH (benign prostatic hyperplasia) Duodenal ulcer GERD (gastroesophageal reflux disease) Social History Social History Household Members: None Housing: Residential Alcohol intake: never Patient Tobacco Use Status: Former Tobacco user Advance Directives: Yes Advance Directives on File: Yes Advance Directives Date on File: 12/19/22 service: No Current occupational status: disabled Physical Exam 2 Vital Signs: Vital Signs: Last Vital Signs Temp 98.4 F 09/15/23 07:45 Pulse 74 09/15/23 12:03 Resp 24 H 09/15/23 12:41 BP 126/59 L 09/15/23 10:07 Pulse Ox 93 09/15/23 12:03 O2 Del Method Nasal Cannula 09/15/23 12:03 O2 Flow Rate 3 09/15/23 12:03 BMI result Body Mass Index 24.9 Appearance: Alert. confused No acute distress. Eyes: Pupils equal, round and reactive to light. ENT: Pharynx dry MM Neck: Normal inspection. Neck supple. CVS: Normal heart rate and rhythm. Pulses normal. Respiratory: No respiratory distress. Breath sounds diminished RLL Abdomen: Soft and non-tender. Skin: Skin warm and dry. Normal skin color. Normal skin turgor. Extremities: 1-2+ pitting edema lower extremity edema. No calf ttp Neuro: confused, moans when you ask his name, moves all extremities. responds to tactile stimuli Course Course Course Narrative: patient was found behind bed on floor - no signs of head trauma but says ow when you touch his head - CT head and Cspine ordered, no pain with ROM of pelvis or hips Reevaluation(s) Reevaluation #1: had to be given zyprexa for CT scans Medications Administered Discontinued Medications Generic Name Dose Route Start Last Admin Trade Name Freq PRN Reason Stop Dose Admin Piperacillin Sod/Tazobactam 50 mls @ 100 mls/hr 09/15/23 07:01 09/15/23 08:24 Sod 3.375 gm/ Sodium Chloride IV 09/15/23 07:30 Infused ONCE ONE Infusion Vancomycin HCl 1,000 mg/ 535 mls @ 267.5 mls/hr 09/15/23 09:08 09/15/23 11:58 Vancomycin HCl 750 mg/ Sodium IV 09/15/23 11:07 Infused Chloride ONCE ONE Infusion Morphine Sulfate 2 mg 09/15/23 11:56 09/15/23 12:41 Morphine Sulfate 2 Mg/Ml Cartridge IVPUSH 09/15/23 11:57 2 mg ONCE ONE Administration Protocol Olanzapine 10 mg 09/15/23 09:08 09/15/23 09:28 Olanzapine Odt 10 Mg Tab.Rapdis TRANSLINGU 09/15/23 09:09 10 mg ONCE ONE Administration Medical Decision Making Medical Decision Making [facility] Narrative: 77 yo male with PMH of dementia, recurrent aspiration pneumonia, BPH, HTN, cough here with failed outpatient antibiotics and hypoxia - at this time will need basic labs, cultures, lactic acid and start on empiric zosyn and vancomycin - suspect aspiration again. He will get DVT studies as well given LE edema. Anticipate admission given new O2 requirements. Differential Diagnosis Differential Diagnoses: The differential diagnosis associated with the presentation includes pneumonia, VTE, aspiration Admission/Observation Consideration of admission/observation: Escalation of care including admission/observation considered admit given new hypoxia Consult Healthcare Provider Management of the patient was discussed with: Hospitalist (will admit) Lab Data [facility] Lab Attestation statement: I reviewed the patient's lab results. 09/15/23 03:05 09/15/23 03:05 Labs: Lab Results 09/15/23 09/15/23 09/15/23 Range/Units 03:04 03:05 03:10 WBC 19.0 H (4.8-10.8) X10*3/uL RBC 3.87 L D (4.60-5.80) X10*6/uL Hgb 12.6 L (14.0-18.0) g/dl Hct 36.0 L D (42.0-52.0) % MCV 93.0 (80.0-98.0) fL MCH 32.6 (27.0-33.0) pg MCHC 35.0 (31.0-36.0) g/dl RDW 14.0 (11.0-16.0) % Plt Count 371 D (160-400) X10*3/uL MPV 9.5 (9.4-12.4) fL Immature Gran % (Auto) 0.7 H (0.0-0.4) % Neut % (Auto) 90.3 H (45-73) % Lymph % (Auto) 4.1 L (20-40) % Howard % (Auto) 4.4 (2-11) % Eos % (Auto) 0.2 (0-4) % Baso % (Auto) 0.3 (0-2) % Lymph # (Auto) 0.8 L (1.2-4.9) X10*3/uL Howard # (Auto) 0.8 (0.1-1.2) X10*3/uL Eos # (Auto) 0.0 (0.0-0.4) X10*3/uL Baso # (Auto) 0.1 (0.0-0.2) X10*3/uL Abs Immat Gran (auto) 0.13 H (0.00-0.03) X10*3/uL Absolute Neuts (auto) 17.1 H (2.0-8.3) x10*3/uL Absolute Nucleated RBC 0.000 (0.0-0.012) X10*3/uL Nucleated RBC % (auto) 0.0 (0.0-0.2) /100WBC Smear Tech's Comments VERIFIED VBG pH 7.44 H (7.32-7.43) VBG pCO2 39 mmHg VBG pO2 36 mmHg VBG HCO3 27 H (22-26) mmol/L VBG O2 Saturation 59.0 % VBG Base Excess 3.6 mmol/L Sodium 129 L (135-145) mmol/L Potassium 4.8 (3.3-5.1) mmol/L Chloride 98 (96-108) mmol/L Carbon Dioxide 25 (22-29) mmol/L Anion Gap 11 L (12-20) BUN 8 L (9-16) mg/dL Creatinine 0.65 (0.5-1.4) mg/dL Estim Creat Clear Calc 79.6 Estimated GFR > 60 Random Glucose 83 (60-115) mg/dL Lactic Acid 1.7 (0.5-2.0) mmol/L Calcium 8.5 D (8.4-10.2) mg/dL Total Bilirubin 0.6 (0.0-1.0) mg/dL Direct Bilirubin 0.2 (0.0-0.5) mg/dL AST 22 (5-37) U/L ALT 8 (0-40) U/L Alkaline Phosphatase 84 (39-117) U/L Troponin I High Sens 8.3 (<3.5-35.0) ng/L B-Natriuretic Peptide 201 H (<100) pg/mL Total Protein 7.4 (6.5-8.0) g/dL Albumin 2.2 L (3.5-5.0) g/dL Influenza Type A (PCR) NEGATIVE (Negative) Influenza Type B (PCR) NEGATIVE (Negative) RSV RNA Qual (PCR) NEGATIVE (Negative) SARS-CoV-2 RNA (RT-PCR) NEGATIVE (Negative) Independent Interpretation I performed an independent interpretation of an: EKG, Plain X-Ray (RLL opacity), Ultrasound (no DVT) and CT Scan (no acute trauma) Interpretation: Rate: 69 Rhythm: NSR [place]: left Normal P waves. Normal RASHAWN. Normal QRS complex. ST T wave : normal no NEO, nonspecific ST T wave changes qTC: normal prior studies: no acute ischemia The study has been interpreted contemporaneously by me. . Radiology Impression Discussion of test interpretation with radiology: I have reviewed the radiologist's reading. Independent Historian Clinical information obtained from an independent historian. History obtained from or confirmed by: EMS External Record Review External record reviewed: Inpatient record Discharge Plan Discharge Clinical Impression: Hypoxia, Acute hyponatremia Elevated WBC count Qualifiers: Leukocytosis type: unspecified Qualified Code(s): D72.829 - Elevated white blood cell count, unspecified Pneumonia Qualifiers: Pneumonia type: due to unspecified organism Laterality: right Lung location: l ower lobe of lung Qualified Code(s): J18.9 - Pneumonia, unspecified organism Patient Disposition: Admitted As Inpatient
[2023-09-15] MEDS: Piperacillin Sodium/Tazobactam 3.375 GM in 0.9 % Sodium Chloride 50 ML IV ×3 (07:09→20:23)
[2023-09-15 07:43] LABS: Troponin-I High Sensitivity 8.3 ng/L (<3.5-35.0)
--- NOTE | 2023-09-15 07:50 | PC.NURSE ---
pt restless, legs out of the side of the bed. repositioned with PCT Ronny. O2 noted to be at 90% on Room air, placed pt on 2L NC
--- NOTE | 2023-09-15 07:53 | ECG_ITS ---
Test Reason : SOB Blood Pressure : / mmHG Vent. Rate : 069 BPM Atrial Rate : 069 BPM P-R Int : 160 ms QRS Dur : 102 ms QT Int : 428 ms P-R-T Axes : 039 -24 078 degrees QTc Int : 458 ms Normal sinus rhythm Intra-ventricular conduction delay Nonspecific ST and T wave abnormality Abnormal ECG When compared with ECG of 16-JAN-2023 13:21, Premature atrial complexes are no longer Present ST no longer depressed in Anterior leads Nonspecific T wave abnormality no longer evident in Inferior leads T wave inversion no longer evident in Anterolateral leads Referred By: Alexandrea Aleman Electronically Signed By:MANOLO MEYER MD
--- NOTE | 2023-09-15 08:13 | PC.NURSE ---
ULTRASOUND AT BEDSIDE TO SCAN PT
--- NOTE | 2023-09-15 08:51 | PC.NURSE ---
U/S left room, PCT ronny went to get EKG machine, when PCT Ronny entered the room pt was on the ground. appeared to have scooted himself over the back of the bed as both side rails were upon bilateral sides. pt report +HS, no other obvious injuries at this ronny. cattle sprayer Zee made aware, MD Aleman made aware. post fall vitals stable. Head CT ordered at this time.
--- NOTE | 2023-09-15 09:05 | MHC.EDTECH ---
ultrasound completed test with this pct's assistance at approx 845. patient uncooperative during exam. pharmacy technician instructor and this pct leave room after exam; patient is left calm and cooperative, both side rails up, brake engaged. this pct retrieves ekg for ordered exam and places ekg machine at bedside. patient refuses to roll over onto back for exam. this pct steps away to request assistance from umesh craig. upon returning to the room @ approx 850 this pct finds the stretcher to be empty. This pct discovers patient behind the head of the stretcher on the floor. this pct yells for help and several employees show up to assist with patient.
[2023-09-15] MEDS: OLANZapine ODT 10 MG TAB.RAPDIS TRANSLINGU (09:28)
[2023-09-15] MEDS: vancomycin HCL 1,000 MG, vancomycin HCL 750 MG in 0.9 % Sodium Chloride 500 ML 267.5 MG IV (09:28)
--- NOTE | 2023-09-15 11:18 | PC.NURSE ---
1:1 removed from bedside at this time per charger operator, pt with red socks, bed in lowest position, locked, adequate lighting, chair alarm attached to pt, awaiting hospital bed, camera in place. frequent checks by PCT and this RN
[2023-09-15] MEDS: Morphine Sulfate 2 MG/ML CARTRIDGE IVPUSH (12:41)
--- NOTE | 2023-09-15 12:49 | PM.IMHP ---
History of Present Illness Date of Service: 09/15/23 Attending physician on admission: Radha Kirkland Chief Complaint: Aspiration Pt is a 77-year-old male with a PMH significant for?dementia unspecified, recurrent aspiration pneumonia, HFpEF, HTN, HLD, HIV, thyroidism, BPH, who presents to the ED from [facility] for evaluation of?shortness of breath, lower leg edema, and low oxygen saturation in the 80s. Patient with advanced dementia at baseline and thus incapable of providing HPI which is instead taken from chart, provider, and facility review. Staff at [facility] report patient began developing cough, adventitious breath sounds, and SOB last weekend. Patient received a chest x-ray 4 days prior on Monday and then started on doxy and Augmentin for likely aspiration pneumonia. Patient then became hypoxic 2 days later and placed on supplemental O2 which briefly improved his condition. However patient continued to be hypoxic this morning with significant cough and adventitious breath sounds and so was sent to the ED for further evaluation. Staff at facility also note patient began developing lower leg edema 2-3 days ago. He is not on home diuretics. Of note, while in the ED patient fell out of bed and was found lying on the floor. Patient did not have any signs of head trauma but CT of head and C-spine ordered, both negative for acute intracranial pathology or acute fracture or traumatic subluxation. In the ED pt was afebrile but tachypneic up to 37, with soft BP as low as 106/50, satting as low as 89% on RA. Labs were significant for leukocytosis of 19.0, H&H of 12.6/36.0, sodium 129. Lactic acid WNL at 1.7. Patient tested negative for influenza types A and B, RSV, COVID. CXR showed right mid to lower lung field opacity with component of layering, findings suggestive of small to moderate pleural effusion with atelectasis and or infiltrate similar to previous with left lower lung field increased markings. CT?of head negative for acute intracranial pathology, but with sequela of microangiopathy and global atrophy, and also found chronic sinus disease. CT of cervical spine found no acute osseous abnormality but did show multilevel degenerative changes. Lower leg ultrasound found no DVT demonstrated in bilateral lower extremities. EKG demonstrated normal sinus rhythm with intraventricular conduction delay and nonspecific ST and T-wave abnormalities. Pt was treated with Zosyn, olanzapine, vanco, and morphine. Pt will be admitted to the hospital and treated for acute respiratory failure in the setting likely aspiration pneumonia. Review of Systems Review of Systems: Unable to obtain due to patient's mentation [facility] Medical History Recurrent pneumonia Hyperlipidemia Hypothyroid HIV (human immunodeficiency virus infection) Dysphagia Constipation CHF (congestive heart failure) Anemia Dementia Hypertension BPH (benign prostatic hyperplasia) Duodenal ulcer GERD (gastroesophageal reflux disease) Social History Household Members: None Housing: [facility] Unable to assess alcohol history related to: Unable to respond Alcohol intake: never Patient Tobacco Use Status: Former Tobacco user Use of substances other than those prescribed or required for medical reasons: Unknown Substance Use Type: Unknown Last Used Substance: Unknown Advance Directives: Yes Advance Directives on File: Yes Advance Directives Date on File: 12/19/22 Nutrition Risks: Difficulty swallowing and On aspiration precautions service: No Current occupational status: disabled Meds Allergies Allergy/AdvReac Type Severity Reaction Status Date / Time chlorpromazine Allergy Unknown UNKNOWN Verified 09/15/23 02:40 [From THORAZINE] Home Medications Medication Instructions Recorded Confirmed Last Taken Type abacavir 600 mg-dolutegravir 50 1 tab PO DAILY 07/30/20 09/15/23 07/26/20 History mg-lamivudine 300 mg tablet (Triumeq) lactulose 20 gram oral packet 30 ml PO DAILY PRN Constipation 07/30/20 09/15/23 07/26/20 History levothyroxine 75 mcg tablet 75 mcg PO DAILY@0600 07/30/20 09/15/23 07/26/20 History oxcarbazepine 150 mg tablet 150 mg PO BID 07/30/20 09/15/23 07/26/20 History (Trileptal) sennosides 8.6 mg capsule 8.6 mg PO BEDTIME PRN Constipation 07/30/20 09/15/23 07/25/20 History acetaminophen 325 mg tablet 650 mg PO Q4H PRN Mild Pain (Scale 11/17/20 09/15/23 Unknown History Score 1-4) OR TEMP >100 albuterol sulfate 90 mcg/actuation 2 puff inhalation Q6H PRN Dyspnea 11/17/20 09/15/23 Unknown History aerosol inhaler (ProAir HFA) artificial tears solution eye drops 1 drp ophthalmic (eye) Q4H PRN Dry 11/17/20 09/15/23 Unknown History Eye(S) benztropine 1 mg tablet 1 mg PO BID 11/17/20 09/15/23 Unknown History guaifenesin 100 mg/5 mL oral liquid 200 mg PO Q4H PRN Cough 11/17/20 09/15/23 Unknown History loperamide 2 mg tablet 2 mg PO Q6H PRN Diarrhea 11/17/20 09/15/23 Unknown History megestrol 400 mg/10 mL (10 mL) 400 mg PO DAILY 11/17/20 09/15/23 Unknown History oral suspension bisacodyl 10 mg rectal suppository 10 mg MA DAILY PRN Constipation 12/15/22 09/15/23 Unknown History (Dulcolax (bisacodyl)) albuterol sulfate 2.5 mg/3 mL 2.5 mg inhalation Q6H PRN 12/19/22 09/15/23 Unknown History (0.083 %) solution for nebulization Shortness Of Breath atorvastatin 20 mg tablet 20 mg PO BEDTIME 12/19/22 09/15/23 Unknown History famotidine 20 mg tablet 20 mg PO BEDTIME 12/19/22 09/15/23 Unknown History guaifenesin 600 mg tablet, 600 mg PO BID 12/19/22 09/15/23 Unknown History extended release 12 hr (Mucinex) omeprazole 40 mg capsule,delayed 40 mg PO DAILY@0630 12/19/22 09/15/23 Unknown History release sodium phosphates 19 gram-7 118 ml MA DAILY PRN Constipation 12/19/22 09/15/23 Unknown History gram/118 mL enema (Fleet Enema) amoxicillin 875 mg-potassium 1 tab PO BID 09/15/23 09/15/23 Unknown History clavulanate 125 mg tablet benzonatate 100 mg capsule 100 mg PO TID 09/15/23 09/15/23 Unknown History doxycycline hyclate 100 mg tablet 100 mg PO BID 09/15/23 09/15/23 Unknown History sucralfate 100 mg/mL oral 10 ml PO TID 09/15/23 09/15/23 Unknown History suspension Physical Exam Vital Signs and Narrative: Vital Signs: Last Vital Signs Temp 98.4 F 09/15/23 07:45 Pulse 74 09/15/23 12:03 Resp 24 H 09/15/23 12:41 BP 126/59 L 09/15/23 10:07 Pulse Ox 93 09/15/23 12:03 O2 Del Method Nasal Cannula 09/15/23 12:03 O2 Flow Rate 3 09/15/23 12:03 BMI result Body Mass Index 24.9 Constitutional: Alert, confused, in no acute distress. Mental Status: Oriented to person but not place, time, or situation. Eyes: Pupils are equal, round, and reactive to light. Ear, Nose, and Throat: Oropharynx clear, mucous membranes dry. Ears and nose without deformities. Trachea midline. Respiratory: Diffuse coarse breath sounds bilaterally. No respiratory distress Cardiovascular: S1, S2 regular. No murmurs, rubs, or gallops. Gastrointestinal: Abdomen soft, non-tender, non-distended. Normal bowel sounds. Neurologic: Cranial nerves II-XII are grossly intact bilaterally. No focal neurological deficits. Moves all extremities spontaneously. Skin: Warm, dry. Musculoskeletal: No cyanosis or clubbing. Extremities: 2+ bilateral pitting edema. Results Labs 09/16/23 05:19 09/16/23 05:19 Labs: Laboratory Results - last 24 hr 09/15/23 09/15/23 09/15/23 03:04 03:05 03:10 MCV 93.0 MCH 32.6 MCHC 35.0 RDW 14.0 Plt Count 371 D MPV 9.5 Immature Gran % (Auto) 0.7 H Neut % (Auto) 90.3 H Lymph % (Auto) 4.1 L [place] % (Auto) 4.4 Eos % (Auto) 0.2 Baso % (Auto) 0.3 Lymph # (Auto) 0.8 L [place] # (Auto) 0.8 Eos # (Auto) 0.0 Baso # (Auto) 0.1 Abs Immat Gran (auto) 0.13 H Absolute Neuts (auto) 17.1 H Absolute Nucleated RBC 0.000 Nucleated RBC % (auto) 0.0 Smear Tech's Comments VERIFIED VBG pH 7.44 H VBG pCO2 39 VBG pO2 36 VBG HCO3 27 H VBG O2 Saturation 59.0 VBG Base Excess 3.6 Anion Gap 11 L Estim Creat Clear Calc 79.6 Estimated GFR > 60 Random Glucose 83 Lactic Acid 1.7 Calcium 8.5 D Total Bilirubin 0.6 Direct Bilirubin 0.2 AST 22 ALT 8 Alkaline Phosphatase 84 B-Natriuretic Peptide 201 H Total Protein 7.4 Albumin 2.2 L Influenza Type A (PCR) NEGATIVE Influenza Type B (PCR) NEGATIVE RSV RNA Qual (PCR) NEGATIVE SARS-CoV-2 RNA (RT-PCR) NEGATIVE Imaging Radiologist's Impressions: Impressions Chest X-Ray 09/15/23 02:55 IMPRESSION: Right mid to lower lung field opacity with component of layering. Findings suggest a small to moderate pleural effusion with atelectasis and/or infiltrate similar to previous. Left lower lung field increased markings also similar to previous. No significant change. Venous Duplex 09/15/23 08:30 IMPRESSION: No DVT demonstrated in the bilateral lower extremities. Cervical Spine CT 09/15/23 10:50 IMPRESSION: 1. No acute intracranial pathology. Sequela of microangiopathy and global atrophy 2. Chronic sinus disease. 3. No acute osseous abnormality within the cervical spine. 4. Multilevel degenerative changes in cervical spine. Xiomara Willett DO Engraver Apprentice Decorative Head CT 09/15/23 10:50 IMPRESSION: 1. No acute intracranial pathology. Sequela of microangiopathy and global atrophy 2. Chronic sinus disease. 3. No acute osseous abnormality within the cervical spine. 4. Multilevel degenerative changes in cervical spine. Xiomara Willett DO Engraver Apprentice Decorative Assessment and Plan (1) Acute hyponatremia: Status: Acute (2) Aspiration pneumonia: Status: Acute (3) Hypoxia: Status: Acute Plan Pt is a 77-year-old male with a PMH significant for?dementia unspecified, recurrent aspiration pneumonia, HFpEF, HTN, HLD, HIV, thyroidism, BPH, who presents to the ED from [facility] for evaluation of?shortness of breath, lower leg edema, and low oxygen saturation in the 80s. Patient with advanced dementia at baseline and thus incapable of providing HPI which is instead taken from chart, provider, and facility review. Staff at [facility] report patient began developing cough, adventitious breath sounds, and SOB last weekend. Acute hypoxic respiratory failure in the setting of aspiration pneumonia Pt with hx of recurrent aspiration Pt was found to be satting at 89% on RA, improved to 97% on 3L NC CXR showed patchy opacities in right mid to lower lung field Pt initially started on doxy and Augmentin 4 days prior, though conditions have since worsened Patient meets sepsis criteria: Pneumonia, tachycardia, leukocytosis; lactic acid WNL at 1.7 Will treat with Zosyn 3.375g q6 Solu-Medrol 40mg bid Titrate supplemental O2>92, wean as tolerated NPO pending speech swallow eval Aspiration precautions Follow blood cultures Monitor respiration Hyponatremia Sodium 129 at time of presentation Will hold on fluids for now Follow BMP Lower leg edema Will hold on diuretics for now d/t hyponatremia Follow CMP HTN Hold antihypertensives for now d/t soft BP Resume as warranted Hypothyroidism Continue levothyroxine HIV Continue Triumeq Dementia with behavioral issues Continue Haldol, Cogentin, Trileptal BPH Continue tamsulosin Full Code Attending:?Dr. Kirkland DVT Prophylaxis: Lovenox Pt will require a hospitalization of at least two nights for treatment of?acute hypoxic respiratory failure in the setting of likely aspiration pneumonia. Patient required IV antibiotics, supplemental O2, and close observation. Quality Stroke Does the patient have a stroke diagnosis?: No VTE Prior VTE?: No VTE Risk Level:: Medical - moderate - high VTE Device Contraindication: Treatment Not Indicated VTE Drug Contraindication: N/A - Med Ordered
--- NOTE | 2023-09-15 13:55 | MHC.EDTECH ---
pt was found incontinent of urine by this tech. this tech with help with ANI Fonseca had cleaned pt, gave fresh linen, and pt is now comfortable in bed resting
--- NOTE | 2023-09-15 14:42 | PHA.MEDREC ---
Pharmacy Consult ? Medication Reconciliation Pharmacy has completed the medication reconciliation. Called [facility] and had list faxed
[2023-09-15] MEDS: Enoxaparin Sodium 40 MG/0.4 ML SYRINGE SUBCUT (16:13)
[2023-09-15] MEDS: 0.9 % Sodium Chloride Flush 3 ML SYRINGE IVFLUSH ×2 (16:14→20:33)
[2023-09-15] MEDS: methylPREDNISolone Sod Succ 40 MG/ML VIAL IVPUSH (16:14)
--- NOTE | 2023-09-15 16:59 | MHC.SL.SWA ---
Speech Pathologist Impression: Risk of aspiration, oropharyngeal dysphagia Risk of Aspiration Due to: Neurological Condition History of Pneumonia Reduced Cognition Dysphasia Diet Status: start on NDD1/NTL Liquid Consistency and Strategies for Safe Swallow: Liquid Intake Recommendation: Lozano Thick Liquid Intake Strategies: Small Sips No Straws Double Swallow Liquids by Teaspoon Only Solid Food Consistency: Dietary Recommendations: Pureed (NDD1) Additional Modifications to Solid Foods: Recommend continue w/ modified diet PUREED (NDD1) solids and NECTAR THICK liquids with STRICT ASPIRATION PRECAUTIONS: -Take small bites of food -Avoid: hard to chew, tough solids; dry foods; sticky or crunchy textures; mixed consistencies; -Follow each bite with 1-2 additional dry swallows to promote pharyngeal clearance -Maintain upright 90 degree position while eating and drinking and for at least 30 minutes afterwards -Ensure daily oral care routine before first meal and after each subsequent meal -Pills crushed with puree (consult with pharmacy) -Liquid by teaspoon or controlled cup -Avoid the use of straws -Take small, individual sips of liquid -Avoid taking consecutive sips Oral Medication Intake: Crushed with Puree Please contact the pharmacy regarding appropriate crushable or liquid drug formulations that are available whenever modified delivery is recommended. Compensatory Strategies and Precautions to be Taken for Safe Swallow: Sitting Upright (90 deg) Double Swallow No Straw Liquids from Spoon Small Bites and Sips Rate of Ingestion Change Oral Check Supervision While Eating and Drinking for Safe Swallow: Total Assistance (1:1) Swallowing Recommended Treatments: Compens. Strategy Educat. Recommendation for Speech: Inpatient Speech Therapy Speech Therapy through Rehab Facility Comment: Recommend continue speech therapy during hospital stay and at next level of care for dysphagia, pt w/ hx recurrent aspiration pneumonia. If indicated, pt may benefit from a repeat-MBSS. Frequency/Duration: Date Range for Service Req: Timeline to reassess: Compounding Pharmacy Technician Clinican/Clinical Fellow: No Supervisory Statement: I have reviewed and agree with the student/clinical fellow's documentation: N/A Speech Language Pathologist: Nilam Medina M.A., CCC-MUSIC COPYIST
[2023-09-15] MEDS: Famotidine 20 MG TABLET PO (20:32)
[2023-09-15] MEDS: Sucralfate Oral Suspension 1 GM/10 ML ORAL.SUSP PO (20:32)
[2023-09-15] MEDS: Benztropine Mesylate 1 MG TABLET PO (20:32)
[2023-09-15] MEDS: Benzonatate 100 MG CAPSULE PO (20:32)
[2023-09-15] MEDS: guaiFENesin LA 600 MG TAB.ER.12H PO (20:33)
[2023-09-15] MEDS: Tamsulosin HCL 0.4 MG CAPSULE 0.8 MG PO (20:33)
[2023-09-15] MEDS: Atorvastatin Calcium 20 MG TABLET PO (20:33)
[2023-09-15] MEDS: OXcarbazepine 150 MG TABLET PO (21:02)
[2023-09-15] MEDS: OLANZapine 10 MG VIAL 5 MG IM (22:02)
[2023-09-16] VITALS (29 sets, daily range): BP systolic 57–128; BP diastolic 18–67; PULSE 85–112; RESP 14–33; TEMP 35–37.3; O2SAT 91–100
[2023-09-16] MEDS: LORazepam 2 MG/ML VIAL 0.5 MG IVPUSH (01:54)
[2023-09-16] MEDS: methylPREDNISolone Sod Succ 40 MG/ML VIAL IVPUSH (01:56)
[2023-09-16] MEDS: Piperacillin Sodium/Tazobactam 3.375 GM in 0.9 % Sodium Chloride 50 ML IV ×4 (01:56→20:43)
[2023-09-16 05:27] LABS: Hemoglobin 11.3 g/dl (14.0-18.0); Mean Corpuscular HGB Conc 33.2 g/dl (31.0-36.0); Mean Corpuscular Hemoglobin 31.9 pg (27.0-33.0); Mean Platelet Volume 9.2 fL (9.4-12.4); Platelet Count 309 X10*3/uL (160-400); Red Blood Count 3.54 X10*6/uL (4.60-5.80); Red Cell Distribution Width 14.1 % (11.0-16.0); White Blood Count 13.5 X10*3/uL (4.8-10.8)
[2023-09-16 05:42] LABS: Alanine Aminotransferase 9 U/L (0-40); Alkaline Phosphatase 57 U/L (39-117); Anion Gap 13 (12-20); Aspartate Amino Transferase 13 U/L (5-37); Bilirubin Total 0.5 mg/dL (0.0-1.0); Blood Urea Nitrogen 12 mg/dL (9-16); Calcium 8.7 mg/dL (8.4-10.2); Carbon Dioxide 25 mmol/L (22-29); Chloride 101 mmol/L (96-108); Creatinine Clr Calc Pharmacy 77.3; Estimated Glomerular Filt Rate > 60; Glucose Random 91 mg/dL (60-115); Potassium 3.9 mmol/L (3.3-5.1); Sodium 135 mmol/L (135-145); Total Protein 5.9 g/dL (6.5-8.0)
[2023-09-16] MEDS: 0.9 % Sodium Chloride Flush 3 ML SYRINGE IVFLUSH (08:23)
--- NOTE | 2023-09-16 09:42 | PC.NURSE ---
Addendum entered by Macy Morse RN 09/16/23 11:43: notified pt BP trending down 86/48 at 09:52, MD ordered transfer to Tele floor, albumin, and NaCl bolus ordered. Albumin started and infusing as ordered. Pt currently has 1 IV access site, second line attempt failed. Phlebotomy at bedside to draw labs. Report called to ANI Jefferson and pt transferred to room 477. Receiving RN aware pt has 1 IV access. Original Note: MD Kirkland notified via tiger text at 07:24 that pt appears lethargic, groans to sternal rub, Pt temp 95.7 rectal, 84HR, 105/63, 96% on 3L NC. informed that patient had received Zypreza 5mg IM at 2202 and Ativan 0.5mg IVP from previous shift. supervisor screen making Agnes was able to bring Aquilino jazer to bedside. Aquilino Hugger applied per MD orders. MD updated on pts VS at 08:14 Temp 96.0 rectal, RR 29, 93/54, and o2 97% on 3L nc, pt continues to be lethargic at this time and breathing appears to be more labored. MD at bedside to assess pt, front desk monitor applied per MD.
[2023-09-16] MEDS: Albumin Human 25 % 100 ML IV ×2 (10:01→14:13)
--- NOTE | 2023-09-16 10:22 | P.PNIM_ITS ---
Subjective Subjective Date of Service: 09/16/23 Interval History: Altered mentation Hypotensive and tachypneic Agitated overnight requiring Ativan and Zyprexa Review of Systems Unable to obtain due to patient's mentation Physical Exam 2 Vital Signs: Vital Signs: Last Vital Signs Temp 96.9 F 09/16/23 09:56 Pulse 88 09/16/23 09:56 Resp 33 H 09/16/23 10:00 BP 86/48 L 09/16/23 09:56 Pulse Ox 94 09/16/23 09:56 O2 Del Method Nasal Cannula 09/16/23 09:56 O2 Flow Rate 3 09/16/23 09:56 BMI result Body Mass Index 24.7 Const: Other: Constitutional : altered, obtunded, covered with bear hugger Neck : Normal inspection, Supple Cardiovascular : RRR, no JVP, no lower extremity edema Respiratory : decreased bilateral air entry, basal crackles more in right side Gastrointestinal: soft, lax, Normal bowel sounds, Non tender Skin : Warm, Dry Neurological : Obtunded, GCS 9 Objective Data Active Medications Abacavir/Lamivudine (Abacavir/Lamivudine 600/300 Tablet) 1 tab PO DAILY [facility] Last Admin: 09/16/23 10:16 Dose: Not Given Documented By: RODOLFO Non-Admin Reason: NPO Acetaminophen (Acetaminophen 325 Mg Tablet) 650 mg PO Q6H PRN PRN Reason: Pain, Mild (Pain Scale 1-3) Albuterol Sulfate (Albuterol Sulfate (0.083%) 2.5 Mg/3 Ml Vial.Neb) 2.5 mg INHALE Q6H PRN PRN Reason: Shortness Of Breath Albuterol Sulfate (Albuterol Sulfate 90 Mcg 8 Gm Inhaler) 2 puff INHALE Q6H PRN PRN Reason: Dyspnea Artificial Tears (Artificial Tears 15 Ml Drops) 1 drop EYE-BOTH Q4H PRN PRN Reason: Dry Eye(S) Aspirin (Aspirin Enteric Coated 81 Mg Tablet.Dr) 81 mg PO DAILY [facility] Last Admin: 09/16/23 10:16 Dose: Not Given Documented By: RODOLFO Non-Admin Reason: per Atorvastatin Calcium (Atorvastatin Calcium 20 Mg Tablet) 20 mg PO BEDTIME [facility] Last Admin: 09/15/23 20:33 Dose: 20 mg Documented By: HO.OZORALB Benzonatate (Benzonatate 100 Mg Capsule) 100 mg PO TID [facility] Last Admin: 09/16/23 10:16 Dose: Not Given Documented By: RODOLFO Non-Admin Reason: per Benztropine Mesylate (Benztropine Mesylate 1 Mg Tablet) 1 mg PO BID [facility] Last Admin: 09/16/23 10:17 Dose: Not Given Documented By: RODOLFO Non-Admin Reason: per MD hold Bisacodyl (Bisacodyl 10 Mg Supp.Rect) 10 mg AL DAILY PRN PRN Reason: Constipation Docusate Sodium (Docusate Sodium 100 Mg Capsule) 100 mg PO DAILY PRN PRN Reason: Constipation Dolutegravir Sodium (Dolutegravir Sodium 50 Mg Tablet) 50 mg PO DAILY [facility] Last Admin: 09/16/23 10:17 Dose: Not Given Documented By: RODOLFO Non-Admin Reason: per hold Enoxaparin Sodium (Enoxaparin Sodium 40 Mg/0.4 Ml Syringe) 40 mg SUBCUT Q24H [facility] Last Admin: 09/15/23 16:13 Dose: 40 mg Documented By: ELIS Famotidine (Famotidine 20 Mg Tablet) 20 mg PO BEDTIME [facility] Last Admin: 09/15/23 20:32 Dose: 20 mg Documented By: TERA Guaifenesin (Guaifenesin 100 Mg/5 Ml Liquid) 10 ml PO Q4H PRN PRN Reason: Cough Guaifenesin (Guaifenesin La 600 Mg Tab.Er.12h) 600 mg PO BID [facility] Last Admin: 09/16/23 10:17 Dose: Not Given Documented By: RODOLFO Non-Admin Reason: per hold Piperacillin Sod/Tazobactam (Sod 3.375 gm/ Sodium Chloride) 50 mls @ 100 mls/hr IV Q6H [facility] Last Infusion: 09/16/23 09:05 Dose: Infused Documented By: RODOLFO Albumin Human (Kedbumin 25 %) 100 mls @ 100 mls/hr IV Q1H [facility] Stop: 09/16/23 11:59 Last Admin: 09/16/23 10:01 Dose: 100 mls/hr Documented By: RODOLFO Sodium Chloride (Ns) 1,000 mls @ 999 mls/hr IV .Q1H1M [facility] Stop: 09/16/23 11:00 Lactulose (Lactulose 20 Gm/30 Ml Solution) 30 gm PO DAILY PRN PRN Reason: Constipation Levothyroxine Sodium (Levothyroxine Sodium 75 Mcg Tablet) 75 mcg PO DAILY@0600 [facility] Last Admin: 09/16/23 05:29 Dose: Not Given Documented By: TERA Non-Admin Reason: pt unable to follow swallow commands Loperamide HCl (Loperamide Hcl 2 Mg Capsule) 2 mg PO Q6H PRN PRN Reason: Diarrhea Megestrol Acetate (Megestrol Acetate 400 Mg/10 Ml Oral.Susp) 400 mg PO DAILY [facility] Methylprednisolone Sodium Succinate (Methylprednisolone Sod Succ 40 Mg/Ml Vial) 40 mg IVPUSH Q12H [facility] Last Admin: 09/16/23 01:56 Dose: 40 mg Documented By: TERA Metoprolol Succinate (Metoprolol Succinate Er 25 Mg Tab.Er.24h) 25 mg PO DAILY [facility]; Protocol Omeprazole (Omeprazole 40 Mg Capsule.Dr) 40 mg PO DAILY@0630 [facility] Last Admin: 09/16/23 05:29 Dose: Not Given Documented By: TERA Non-Admin Reason: pt unable to follow swallow commands Oxcarbazepine (Oxcarbazepine 150 Mg Tablet) 150 mg PO BID [facility] Last Admin: 09/15/23 21:02 Dose: 150 mg Documented By: TERA Pharmacy Consult (Consult Rx Vancomycin Dosing) 1 each MISCELLANE DAILY PRN PRN Reason: Consult order Senna (Sennosides 8.6 Mg Tablet) 8.6 mg PO BEDTIME PRN PRN Reason: Constipation Sodium Biphosphate/Sodium Phosphate (Sodium Phosphate,[place]-Dibasic 133 Ml Enema) 118 ml AL DAILY PRN PRN Reason: Constipation Sodium Chloride (0.9 % Sodium Chloride Flush 3 Ml Syringe) 3 ml IVFLUSH QSHIFT [facility] Last Admin: 09/16/23 08:23 Dose: 3 ml Documented By: RODOLFO Sucralfate (Sucralfate Oral Suspension 1 Gm/10 Ml Oral.Susp) 1 gm PO TID [facility] Last Admin: 09/15/23 20:32 Dose: 1 gm Documented By: TERA Tamsulosin HCl (Tamsulosin Hcl 0.4 Mg Capsule) 0.8 mg PO BEDTIME [facility] Last Admin: 09/15/23 20:33 Dose: 0.8 mg Documented By: TERA Labs 09/16/23 05:19 09/16/23 05:19 Labs: Laboratory Results - last 24 hr 09/16/23 05:19 MCV 96.0 MCH 31.9 MCHC 33.2 RDW 14.1 Plt Count 309 MPV 9.2 L Absolute Nucleated RBC 0.000 Nucleated RBC % (auto) 0.0 Anion Gap 13 Estim Creat Clear Calc 77.3 Estimated GFR > 60 Random Glucose 91 Calcium 8.7 Total Bilirubin 0.5 AST 13 ALT 9 Alkaline Phosphatase 57 Total Protein 5.9 L Albumin 2.0 L Microbiology Microbiology Results: Microbiology 09/15/23 03:08 Blood Culture - Preliminary Blood - Venous No growth after 24 hours. 09/15/23 03:04 Blood Culture - Preliminary Blood - Venous No growth after 24 hours. Assessment and Plan (1) Acute hyponatremia: Status: Acute (2) Pneumonia: Status: Acute (3) Hypoxia: Status: Acute (4) Sepsis: Status: Acute Plan Pt is a 77-year-old male with a PMH significant for?dementia unspecified, recurrent aspiration pneumonia, HFpEF, HTN, HLD, HIV, thyroidism, BPH, who presents to the ED from [facility] for evaluation of?shortness of breath, lower leg edema, and low oxygen saturation in the 80s. Patient with advanced dementia at baseline and thus incapable of providing HPI which is instead taken from chart, provider, and facility review. Staff at [facility] report patient began developing cough, adventitious breath sounds, and SOB last weekend. Acute hypoxic respiratory failure in the setting of Sepsis 2/2 aspiration pneumonia Hypotensive and hypothermic this morning repeat LA and Cx CXR showed patchy opacities in right mid to lower lung field Continue Zosyn 4.5g q6 Start Vancomycin Solu-Medrol 40mg bid Titrate supplemental O2>92, wean as tolerated [employer] team following Aspiration precautions Toxic metabolic encephalopathy 2/2 Infection, medications, advance dementia treat infection avoid meds that migh affect his mentation recurrent reorientation Hyponatremia resolved Lower leg edema hold on lasix Follow CMP HTN Hold antihypertensives for now d/t soft BP Resume as warranted Hypothyroidism Continue levothyroxine HIV Continue Triumeq Dementia with behavioral issues Continue Haldol, Cogentin, Trileptal BPH Continue tamsulosin Full Code DVT Prophylaxis: Lovenox Pt will require a hospitalization overnight for treatment of?acute hypoxic respiratory failure in the setting of likely aspiration pneumonia. Patient required IV antibiotics, supplemental O2, and close observation. Quality Stroke Does the patient have a stroke diagnosis?: No VTE Prior VTE?: No VTE Risk Level:: Medical - moderate - high VTE Device Contraindication: Treatment Not Indicated VTE Drug Contraindication: N/A - Med Ordered
[2023-09-16] MEDS: 0.9 % Sodium Chloride 1,000 ML 999 ML IV ×2 (10:28→15:21)
--- NOTE | 2023-09-16 10:56 | PHA.PROG ---
Admission Date/Time: September 15, 2023 13:54 Indication: resp Weight in k.2 kg Adjusted body weight in K.6 [place] body weight in Kg: Obesity Dosing Indication % IBW: Serum Creatinine - Last 168 Hours 09/15/23 09/16/23 03:05 05:19 Creatinine 0.65 0.67 Estimated CrCl and GFR - Last 168 Hours 09/15/23 09/16/23 03:05 05:19 Estim Creat Clear Calc 79.6 77.3 Estimated GFR > 60 > 60 Vancomycin Loading Dose: 1750 mg Current Vancomycin Dosing Regimen: 750 mg q12h Vancomycin Monitoring using AUC goal of 400 - 600 range with trough as surrogate marker: auc 435, trough 13.6 Date and Time for next Vancomycin Level to be drawn: 09/17 @0900 Pharmacist Comments on Vancomycin Plan: Vancomycin dosing will take advantage of [employer] as a clinical decision support tool that uses Bayesian modeling to calculate individual patient's pharmacokinetic parameters and forecast the patient's drug concentration time course with the target goal AUC 24 range of 400 - 600 mg/L/hr.
[2023-09-16 11:30] LABS: Lactic Acid 1.4 mmol/L (0.5-2.0)
[2023-09-16 14:45] LABS: ABG HCO3 27 mmol/L (22-26); ABG pCO2 54 mmHg (32-45); ABG pO2 74 mmHg (83-108)
[2023-09-16] MEDS: Enoxaparin Sodium 40 MG/0.4 ML SYRINGE SUBCUT (15:26)
[2023-09-16] MEDS: propofoL 200 MG/20 ML VIAL 50 MG IVPUSH (15:47)
[2023-09-16] MEDS: Norepinephrine Bitartrate/D5W 8 MG/250 ML PLAST..BAG 6.11 MG IV (15:47)
[2023-09-16] MEDS: propofoL 1,000 MG/100 ML VIAL 7.82 MG IVCONT (15:55)
[2023-09-16 15:57] LABS: ABG Refer to POC result
--- NOTE | 2023-09-16 16:21 | W.PM.CCHP ---
Procedures Date of Service Date of Service: 09/16/23 Intubation Intubation Comments: Patient with progressive lethargy, CO2 retention on arterial blood gas, complete collapse of the left lung, unable to protect his airway, transferred to the intensive care unit and emergently intubated with 8.0 cuffed ET tube under glide scope guidance with no immediate complications. ET tube position verified on chest x-ray.
[2023-09-16 16:25] LABS: Glucose, Whole Blood 83 mg/dL (60-115)
--- NOTE | 2023-09-16 16:27 | P.PNCC_ITS ---
Subjective Subjective Date of Service: 09/16/23 Interval History: 77-year-old gentleman with underlying dementia, recurrent pulmonary aspiration, diastolic heart failure, HIV, BPH admitted on 09/15/2023 with dyspnea, lower extremity edema, hypoxia, and worsening alteration of mental status. Patient with treated with empiric antibiotics for aspiration pneumonia. hospital course is significant for worsening alteration of mental status with. On 09/15/2023 arterial blood gas was obtained that showed acute CO2 retention and chest x-ray demonstrated whiteout of left lung. Nasotracheal suction was attempted, but was unsuccessful. Patient was not able to protect his airway. He was transferred to intensive care unit and emergently intubated with copious in-line secretions suctioned out after intubation. Critical Care Time (minutes): 60 Physical Exam 2 Vital Signs: Vital Signs: Last Vital Signs Temp 97.5 F 09/16/23 11:41 Pulse 107 H 09/16/23 11:41 Resp 20 09/16/23 11:41 BP 102/55 L 09/16/23 11:41 Pulse Ox 91 L 09/16/23 11:41 O2 Del Method Nasal Cannula 09/16/23 11:41 O2 Flow Rate 3 09/16/23 11:41 BMI result Body Mass Index 24.7 Const: General: no acute distress and other ( Sedated on the vent) Eyes: Sclerae: sclerae normal Neck: Neck: Yes no lymphadenopathy, Yes trachea midline and Yes supple Resp: Auscultation: other ( no air movement on the left) Cardio: Rate: regular rate Rhythm: regular rhythm Heart sounds: no gallops, no murmurs and no rubs GI: Palpation (GI): Soft to palpation and Other GI palpation findings present ( Nontender) Auscultation: normal bowel sounds Extrem: General: Yes no pedal edema, No clubbing and No cyanosis Objective Data Labs 09/16/23 05:19 09/16/23 05:19 Labs: Laboratory Results - last 24 hr 09/16/23 09/16/23 09/16/23 05:19 10:47 14:38 WBC 13.5 H RBC 3.54 L Hgb 11.3 L Hct 34.0 L MCV 96.0 MCH 31.9 MCHC 33.2 RDW 14.1 Plt Count 309 MPV 9.2 L Absolute Nucleated RBC 0.000 Nucleated RBC % (auto) 0.0 O2 Saturation 93.0 ABG pH at Pt Temp 7.30 L ABG pCO2 at Pt Temp 54 H ABG pO2 at Pt Temp 74 L ABG HCO3 27 H ABG Base Excess (Actual) 0.0 Sodium 135 Potassium 3.9 Chloride 101 Carbon Dioxide 25 Anion Gap 13 BUN 12 Creatinine 0.67 Estim Creat Clear Calc 77.3 Estimated GFR > 60 POC Glucose Random Glucose 91 Lactic Acid 1.4 Calcium 8.7 Total Bilirubin 0.5 AST 13 ALT 9 Alkaline Phosphatase 57 Total Protein 5.9 L Albumin 2.0 L 09/16/23 16:22 WBC RBC Hgb Hct MCV MCH MCHC RDW Plt Count MPV Absolute Nucleated RBC Nucleated RBC % (auto) O2 Saturation ABG pH at Pt Temp ABG pCO2 at Pt Temp ABG pO2 at Pt Temp ABG HCO3 ABG Base Excess (Actual) Sodium Potassium Chloride Carbon Dioxide Anion Gap BUN Creatinine Estim Creat Clear Calc Estimated GFR POC Glucose 83 Random Glucose Lactic Acid Calcium Total Bilirubin AST ALT Alkaline Phosphatase Total Protein Albumin Microbiology Microbiology Results: Microbiology 09/15/23 03:08 Blood - Venous Blood Culture - Preliminary No growth after 24 hours. 09/15/23 03:04 Blood - Venous Blood Culture - Preliminary No growth after 24 hours. Progress Note: A&P Assessment and plan (1) Aspiration pneumonia: Status: Acute (2) Acute respiratory failure with hypoxia and hypercapnia: Status: Acute (3) Dementia: Status: Acute (4) Dysphagia: Status: Acute (5) HIV (human immunodeficiency virus infection): Status: Acute Plan Assessment: 77-year-old gentleman with dementia, HIV, recurrent pulmonary aspiration admitted with encephalopathy and recurrent pulmonary aspiration, now requiring ventilatory support Plan: Neuro: acute metabolic encephalopathy secondary to CO2 narcosis on the background of known advanced dementia. Cardiac: No acute issues. Underlying chronic diastolic congestive heart failure. Pulmonary: Recurrent pulmonary aspiration, now with complete white out of the left lung. Intubated for airway protection. Continue to titrate of ventilatory support as tolerated. Renal: No acute issues. Endo: No acute issues. GI: No acute issues. ID: Aspiration pneumonitis versus pneumonia. Empirically covered with broad- spectrum antibiotics. Heme/Onc: No acute issues. Psych: No acute issues. Miscellaneous: No acute issues. Prophylaxis: Lovenox, famotidine Diet: nothing by mouth Critical care time spent: 60 minutes excluding separately billable procedures Quality Stroke Does the patient have a stroke diagnosis?: No VTE Prior VTE?: No VTE Risk Level:: Medical - moderate - high VTE Device Contraindication: Treatment Not Indicated VTE Drug Contraindication: N/A - Med Ordered
--- NOTE | 2023-09-16 16:46 | PC.NURSE ---
Addendum entered by José Miguel Dey RN 09/17/23 12:04: pt had 6 bt VT after being suctioned. md informed. Addendum entered by José Miguel Dey RN 09/17/23 09:02: Sedation vacation performed per md verbal order this AM. pt was restless, moved all extremities, did not open eyes or follow commands. MD at bedside, attempted to place pt on PSV but pt tidal volumes were to low ~140. Pt placed back on ACVC and sedation turned on. Addendum entered by José Miguel Dey RN 09/16/23 17:22: contacted pharmacy to reschedule abx d/t late administration on prev unit Original Note: Pt arrived to ICU obtunded. Uneven chest rise noted - L chest down R chest up w/ tracheal deviation. No lung sounds to L side. ICU team at bedside intubating pt and administering meds. See MAR for more details. Drips titrated per MD verbal order and for vent compliance. Large amt of thick, yellow secretions suctioned from ETT. Failed to place OGT and NGT, multiple RNs and MD attemped. Pt bathed and rider placed as ordered. Hematuria w/ blood clots noted. Urine concentrated yellow. pt withdraws all extremities to pain. does not follow commands or open eyes. +cough and gag. ETT 8 25 @ lip. CXR confirmed placement w/ MD at bedside. Scabs to b/l LE's. redness to buttocks - blanchable. Wrist restraints placed.
[2023-09-16 17:20] LABS: ABG Base Excess -2.5 mmol/L; ABG HCO3 25 mmol/L (22-26); ABG pCO2 54 mmHg (32-45); ABG pH 7.26 (7.35-7.45); ABG pO2 57 mmHg (83-108)
[2023-09-16] MEDS: vancomycin HCL 750 MG in 0.9 % Sodium Chloride 250 ML 265 MG IV (17:21)
[2023-09-16] MEDS: Lactated Ringers 1,000 ML 999 ML IV (17:22)
[2023-09-16 17:23] LABS: VBG HCO3 23 mmol/L (22-26); VBG pCO2 51 mmHg; VBG pH 7.26 (7.32-7.43); VBG pO2 55 mmHg
[2023-09-16] MEDS: propofoL 1,000 MG/100 ML VIAL 11.74 MG IVCONT (20:39)
[2023-09-16] MEDS: Chlorhexidine Gluc Oral Rinse 15 ML MOUTHWASH BUCCAL (20:46)
[2023-09-16 21:55] LABS: Anion Gap 16 (12-20); Blood Urea Nitrogen 14 mg/dL (9-16); Calcium 8.7 mg/dL (8.4-10.2); Carbon Dioxide 19 mmol/L (22-29); Chloride 105 mmol/L (96-108); Creatinine Clr Calc Pharmacy 55.6; Estimated Glomerular Filt Rate > 60; Glucose Random 98 mg/dL (60-115); Magnesium 1.8 mg/dL (1.6-2.6); Potassium 3.8 mmol/L (3.3-5.1); Sodium 136 mmol/L (135-145)
[2023-09-16] MEDS: Norepinephrine Bitartrate/D5W 8 MG/250 ML PLAST..BAG 29.34 MG IV (22:18)
[2023-09-17] VITALS (39 sets, daily range): BP systolic 75–138; BP diastolic 51–89; PULSE 85–168; RESP 16–27; TEMP 34.6–38.9; O2SAT 92–100; BMI 26.0
--- NOTE | 2023-09-17 | ECG_ITS ---
Test Reason : afib rvr Blood Pressure : / mmHG Vent. Rate : 182 BPM Atrial Rate : 000 BPM P-R Int : 000 ms QRS Dur : 090 ms QT Int : 242 ms P-R-T Axes : 000 -01 197 degrees QTc Int : 421 ms Atrial fibrillation with rapid ventricular response ST & T wave abnormality, consider inferolateral ischemia Abnormal ECG No previous ECGs available Referred By: Mora Yuan Electronically Signed By:MANOLO MEYER MD
[2023-09-17] MEDS: 0.9 % Sodium Chloride Flush 3 ML SYRINGE IVFLUSH ×2 (00:10→20:10)
[2023-09-17] MEDS: Piperacillin Sodium/Tazobactam 3.375 GM in 0.9 % Sodium Chloride 50 ML IV ×4 (02:20→19:29)
[2023-09-17] MEDS: propofoL 1,000 MG/100 ML VIAL 9.78 MG IVCONT ×2 (03:30→12:05)
[2023-09-17 05:29] LABS: VBG Base Excess 0.5 mmol/L; VBG HCO3 21 mmol/L (22-26); VBG pCO2 26 mmHg; VBG pH 7.53 (7.32-7.43); VBG pO2 53 mmHg
[2023-09-17 06:16] LABS: Albumin Level 2.4 g/dL (3.5-5.0); Anion Gap 15 (12-20); Blood Urea Nitrogen 15 mg/dL (9-16); Calcium 8.4 mg/dL (8.4-10.2); Carbon Dioxide 20 mmol/L (22-29); Chloride 105 mmol/L (96-108); Creatinine Clr Calc Pharmacy 58.8; Estimated Glomerular Filt Rate > 60; Glucose Random 97 mg/dL (60-115); Magnesium 1.7 mg/dL (1.6-2.6); Phosphorus 2.2 mg/dL (2.7-4.5); Potassium 3.6 mmol/L (3.3-5.1); Sodium 136 mmol/L (135-145)
[2023-09-17] MEDS: Norepinephrine Bitartrate/D5W 8 MG/250 ML PLAST..BAG 26.9 MG IV ×2 (06:25→16:40)
[2023-09-17] MEDS: vancomycin HCL 750 MG in 0.9 % Sodium Chloride 250 ML 265 MG IV ×2 (06:32→17:42)
[2023-09-17 06:40] LABS: Hematocrit 32.2 % (42.0-52.0); Mean Corpuscular HGB Conc 34.2 g/dl (31.0-36.0); Mean Corpuscular Hemoglobin 31.8 pg (27.0-33.0); Mean Corpuscular Volume 93.1 fL (80.0-98.0); Mean Platelet Volume 9.5 fL (9.4-12.4); Platelet Count 390 X10*3/uL (160-400); Red Blood Count 3.46 X10*6/uL (4.60-5.80); Red Cell Distribution Width 14.3 % (11.0-16.0); White Blood Count 18.9 X10*3/uL (4.8-10.8)
[2023-09-17 06:50] LABS: Venous Blood Gas Refer to POC result
[2023-09-17 07:12] LABS: ABG Refer to POC result
[2023-09-17] MEDS: Potassium Phosphate/NS 15 MMOL/250 ML PLAST..BAG 62.5 MMOL IV (07:51)
[2023-09-17 07:52] LABS: Band Neutrophils Percent 23 % (3-5); Lymphocytes Absolute Manual 0.2 X10*3/uL (1.2-4.9); Lymphocytes Percent Manual 1 % (20-40); Metamyelocytes Absolute 0.2 X10*3/uL; Metamyelocytes Percent 1 %; Monocytes Absolute Manual 0.2 X10*3/uL (0.1-1.2); Monocytes Percent Manual 1 % (2-11); Neutrophils Absolute Manual 18.3 X10*3/uL (2.0-8.3); Neutrophils Percent Manual 74 % (45-73)
[2023-09-17 07:54] LABS: Burr Cells 2+ (3-5) /OIF; RBC Morphology NOTED; Schistocytes 1+ (0-2) /OIF; Spherocytes 1+ (0-2) /OIF
[2023-09-17 07:56] LABS: Platelet Estimate NORMAL (NORMAL); Platelet Morphology Comment NORMAL
[2023-09-17] MEDS: Chlorhexidine Gluc Oral Rinse 15 ML MOUTHWASH BUCCAL ×3 (07:56→19:29)
[2023-09-17] MEDS: Famotidine/PF 20 MG/2 ML VIAL IVPUSH (07:56)
[2023-09-17] MEDS: Abacavir/lamiVUDine 600/300 TABLET 1 TAB PO (09:50)
[2023-09-17] MEDS: Levothyroxine Sodium 75 MCG TABLET PO (09:50)
[2023-09-17] MEDS: Dolutegravir Sodium 50 MG TABLET PO (09:50)
--- NOTE | 2023-09-17 10:26 | PM.CCPN ---
Subjective Subjective Date of Service: 09/17/23 Interval History: 77-year-old gentleman with underlying dementia, recurrent pulmonary aspiration, diastolic heart failure, HIV, BPH admitted on 09/15/2023 with dyspnea, lower extremity edema, hypoxia, and worsening alteration of mental status. Patient with treated with empiric antibiotics for aspiration pneumonia. hospital course is significant for worsening alteration of mental status with. On 09/15/2023 arterial blood gas was obtained that showed acute CO2 retention and chest x-ray demonstrated whiteout of the right lung. Nasotracheal suction was attempted, but was unsuccessful. Patient was not able to protect his airway. He was transferred to intensive care unit and emergently intubated with copious in-line secretions suctioned out after intubation. No events overnight. Critical Care Time (minutes): 45 Physical Exam Vital Signs: Vital Signs: Last Vital Signs Temp 96.8 F 09/17/23 09:53 Pulse 95 09/17/23 10:16 Resp 18 09/17/23 09:53 BP 90/52 L 09/17/23 10:16 Pulse Ox 94 09/17/23 09:53 O2 Del Method Mechanical Ventil ation 09/17/23 09:53 O2 Flow Rate 30 09/17/23 09:00 FiO2 30 09/17/23 09:53 BMI result Body Mass Index 26.0 Const: General: no acute distress and other (Sedated on the vent) Eyes: Sclerae: sclerae normal EOM: EOMs intact bilaterally Neck: Neck: Yes no lymphadenopathy, Yes trachea midline and Yes supple Resp: Effort & Inspection: normal respiratory effort and no respiratory distress Auscultation: other (Poor right-sided air movement) Cardio: Rate: regular rate Rhythm: regular rhythm Heart sounds: no gallops, no murmurs and no rubs GI: Palpation (GI): Soft to palpation and Other GI palpation findings present ( Nontender) Auscultation: normal bowel sounds Extrem: General: Yes no pedal edema, No clubbing and No cyanosis Objective Data Labs 09/17/23 05:16 09/17/23 05:16 Labs: Laboratory Results - last 24 hr 09/16/23 09/16/23 09/16/23 10:47 14:38 16:22 WBC RBC Hgb Hct MCV MCH MCHC RDW Plt Count MPV Immature Gran % (Auto) Neut % (Auto) Lymph % (Auto) [place] % (Auto) Eos % (Auto) Baso % (Auto) Lymph # (Auto) [place] # (Auto) Eos # (Auto) Baso # (Auto) Abs Immat Gran (auto) Absolute Neuts (auto) Absolute Nucleated RBC Nucleated RBC % (auto) Neutrophils % (Manual) Band Neutrophils % Lymphocytes % (Manual) Monocytes % (Manual) Metamyelocytes % Abs Neuts (Manual) Lymphocytes # (Manual) Monocytes # (Manual) Metamyelocytes # Platelet Estimate Plt Morphology Comment RBC Morphology Spherocytes [place] Cells Schistocytes O2 Saturation 93.0 ABG pH at Pt Temp 7.30 L ABG pCO2 at Pt Temp 54 H ABG pO2 at Pt Temp 74 L ABG HCO3 27 H ABG Base Excess (Actual) 0.0 VBG pH VBG pCO2 VBG pO2 VBG HCO3 VBG O2 Saturation VBG Base Excess Sodium Potassium Chloride Carbon Dioxide Anion Gap BUN Creatinine Estim Creat Clear Calc Estimated GFR POC Glucose 83 Random Glucose Lactic Acid 1.4 Calcium Phosphorus Magnesium Albumin 09/16/23 09/16/23 09/16/23 17:14 17:18 20:50 WBC RBC Hgb Hct MCV MCH MCHC RDW Plt Count MPV Immature Gran % (Auto) Neut % (Auto) Lymph % (Auto) [place] % (Auto) Eos % (Auto) Baso % (Auto) Lymph # (Auto) [place] # (Auto) Eos # (Auto) Baso # (Auto) Abs Immat Gran (auto) Absolute Neuts (auto) Absolute Nucleated RBC Nucleated RBC % (auto) Neutrophils % (Manual) Band Neutrophils % Lymphocytes % (Manual) Monocytes % (Manual) Metamyelocytes % Abs Neuts (Manual) Lymphocytes # (Manual) Monocytes # (Manual) Metamyelocytes # Platelet Estimate Plt Morphology Comment RBC Morphology Spherocytes [place] Cells Schistocytes O2 Saturation 81.0 ABG pH at Pt Temp 7.26 L ABG pCO2 at Pt Temp 54 H ABG pO2 at Pt Temp 57 L ABG HCO3 25 ABG Base Excess (Actual) -2.5 VBG pH 7.26 L VBG pCO2 51 VBG pO2 55 VBG HCO3 23 VBG O2 Saturation 83.0 VBG Base Excess -4.0 Sodium 136 Potassium 3.8 Chloride 105 Carbon Dioxide 19 L Anion Gap 16 BUN 14 Creatinine 0.93 Estim Creat Clear Calc 55.6 Estimated GFR > 60 POC Glucose Random Glucose 98 Lactic Acid Calcium 8.7 Phosphorus 4.0 Magnesium 1.8 Albumin 09/17/23 09/17/23 05:16 05:23 WBC 18.9 H RBC 3.46 L Hgb 11.0 L Hct 32.2 L MCV 93.1 MCH 31.8 MCHC 34.2 RDW 14.3 Plt Count 390 D MPV 9.5 Immature Gran % (Auto) Cancelled Neut % (Auto) Cancelled Lymph % (Auto) Cancelled [place] % (Auto) Cancelled Eos % (Auto) Cancelled Baso % (Auto) Cancelled Lymph # (Auto) Cancelled [place] # (Auto) Cancelled Eos # (Auto) Cancelled Baso # (Auto) Cancelled Abs Immat Gran (auto) Cancelled Absolute Neuts (auto) Cancelled Absolute Nucleated RBC 0.000 Nucleated RBC % (auto) 0.0 Neutrophils % (Manual) 74 H Band Neutrophils % 23 H Lymphocytes % (Manual) 1 L Monocytes % (Manual) 1 L Metamyelocytes % 1 Abs Neuts (Manual) 18.3 H Lymphocytes # (Manual) 0.2 L Monocytes # (Manual) 0.2 Metamyelocytes # 0.2 Platelet Estimate NORMAL Plt Morphology Comment NORMAL RBC Morphology NOTED Spherocytes 1+ (0-2) [place] Cells 2+ (3-5) Schistocytes 1+ (0-2) O2 Saturation ABG pH at Pt Temp ABG pCO2 at Pt Temp ABG pO2 at Pt Temp ABG HCO3 ABG Base Excess (Actual) VBG pH 7.53 H VBG pCO2 26 VBG pO2 53 VBG HCO3 21 L VBG O2 Saturation 87.0 VBG Base Excess 0.5 Sodium 136 Potassium 3.6 Chloride 105 Carbon Dioxide 20 L Anion Gap 15 BUN 15 Creatinine 0.88 Estim Creat Clear Calc 58.8 Estimated GFR > 60 POC Glucose Random Glucose 97 Lactic Acid Calcium 8.4 Phosphorus 2.2 L Magnesium 1.7 Albumin 2.4 L Microbiology Microbiology Results: Microbiology 09/15/23 03:08 Blood - Venous Blood Culture - Preliminary No growth after 48 hours. 09/15/23 03:04 Blood - Venous Blood Culture - Preliminary No growth after 48 hours. Progress Note: A&P Assessment and plan (1) Dementia: Status: Acute (2) Dysphagia: Status: Acute (3) HIV (human immunodeficiency virus infection): Status: Acute (4) Acute respiratory failure with hypoxia and hypercapnia: Status: Acute (5) Aspiration pneumonia: Status: Acute Plan Assessment: 77-year-old gentleman with dementia, HIV, recurrent pulmonary aspiration admitted with encephalopathy and recurrent pulmonary aspiration, now requiring ventilatory support Plan: Neuro: acute metabolic encephalopathy secondary to CO2 narcosis on the background of known advanced dementia. Cardiac: No acute issues. Underlying chronic diastolic congestive heart failure. Pulmonary: Recurrent pulmonary aspiration, now with complete white out of the right lung. Intubated for airway protection. Continue to titrate of ventilatory support as tolerated. Renal: No acute issues. Endo: No acute issues. GI: No acute issues. ID: Aspiration pneumonitis versus pneumonia. Empirically covered with broad-spectrum antibiotics. Heme/Onc: No acute issues. Psych: No acute issues. Miscellaneous: No acute issues. Prophylaxis: Lovenox, famotidine Diet: Tube feeds Critical care time spent: 45 minutes Quality Stroke Does the patient have a stroke diagnosis?: No VTE Prior VTE?: No VTE Risk Level:: Medical - moderate - high VTE Device Contraindication: Treatment Not Indicated VTE Drug Contraindication: N/A - Med Ordered
[2023-09-17] MEDS: Acetaminophen 325 MG TABLET 650 MG PO ×2 (14:09→20:09)
[2023-09-17] MEDS: Enoxaparin Sodium 40 MG/0.4 ML SYRINGE SUBCUT (14:09)
--- NOTE | 2023-09-17 15:57 | MHC.CM.PN ---
Attempted to meet with patient in regards to discharge planning. Patient is currently intuated/vented in ICU. Patient also has a guardian, Dian Charles. Attempted to speak with Dian via telephone at [phone]. Left voicemail requesting a return telephone call and explaining IMM will be mailed via certified mail. Case Management assessment completed medical record. Patient is a [facility] resident [facility]. Anticipate patient will return when medically stable via BLS. Copy of guardianship verified to be on file. Patient received 5 Pfizer vaccines. Continue to monitor for d/c needs.
[2023-09-17 17:05] LABS: Vancomycin Random 14.3 mcg/mL (15-20)
[2023-09-17] MEDS: propofoL 1,000 MG/100 ML VIAL 11.74 MG IVCONT (19:29)
[2023-09-17] MEDS: Amiodarone/Dextrose 150 MG/100 ML PLAST..BAG 600 MG IV (21:02)
[2023-09-17] MEDS: Amiodarone HCL 900 MG in 0.9 % Sodium Chloride 500 ML 34.53 MG IVCONT (21:07)
[2023-09-17 22:29] LABS: Anion Gap 15 (12-20); Blood Urea Nitrogen 17 mg/dL (9-16); Carbon Dioxide 20 mmol/L (22-29); Chloride 104 mmol/L (96-108); Creatinine Clr Calc Pharmacy 56.3; Estimated Glomerular Filt Rate > 60; Glucose Random 152 mg/dL (60-115); Magnesium 1.6 mg/dL (1.6-2.6); Phosphorus 1.7 mg/dL (2.7-4.5); Potassium 3.7 mmol/L (3.3-5.1); Sodium 135 mmol/L (135-145)
[2023-09-17] MEDS: Furosemide 40 MG/4 ML VIAL IVPUSH (22:57)
[2023-09-18] VITALS (41 sets, daily range): BP systolic 86–151; BP diastolic 45–71; PULSE 75–147; RESP 15–24; TEMP 33.8–38; O2SAT 90–100; BMI 28.5
--- NOTE | 2023-09-18 | PC.NURSE ---
At 2049 pt afib rvr 180-190s on tele. EKG completed to confirm. Amiodorone loading dose and continuous drip ordered?and administered. Pt converted back sinus rhythm at 2129.? 2353 -pt back into afib rvr 120-140s. WALL STEAMER aware, no new orders at this time. Amiodorone running at ordered rate - 1 mg/min.
[2023-09-18] MEDS: Magnesium Sulfate/D5W 1 GM/100 ML PIGGYBACK IV (00:25)
[2023-09-18] MEDS: Potassium Phosphate/NS 15 MMOL/250 ML PLAST..BAG 62.5 MMOL IV (00:31)
[2023-09-18] MEDS: propofoL 1,000 MG/100 ML VIAL 11.74 MG IVCONT ×4 (00:37→23:04)
[2023-09-18] MEDS: Norepinephrine Bitartrate/D5W 8 MG/250 ML PLAST..BAG 29.34 MG IV (00:37)
[2023-09-18] MEDS: Piperacillin Sodium/Tazobactam 3.375 GM in 0.9 % Sodium Chloride 50 ML IV ×4 (01:24→19:22)
[2023-09-18 05:13] LABS: VBG Base Excess -2.8 mmol/L; VBG HCO3 20 mmol/L (22-26); VBG pCO2 29 mmHg; VBG pH 7.44 (7.32-7.43); VBG pO2 54 mmHg
[2023-09-18] MEDS: vancomycin HCL 750 MG in 0.9 % Sodium Chloride 250 ML 265 MG IV ×2 (05:13→17:44)
[2023-09-18 05:14] LABS: Venous Blood Gas Refer to POC result
[2023-09-18] MEDS: Levothyroxine Sodium 75 MCG TABLET PO (05:14)
[2023-09-18 05:15] LABS: Hematocrit 32.6 % (42.0-52.0); Hemoglobin 11.4 g/dl (14.0-18.0); Mean Corpuscular Hemoglobin 31.6 pg (27.0-33.0); Mean Corpuscular Volume 90.3 fL (80.0-98.0); Mean Platelet Volume 9.5 fL (9.4-12.4); Platelet Count 343 X10*3/uL (160-400); Red Blood Count 3.61 X10*6/uL (4.60-5.80); WBC ABN SCTR FOR CBC 1
[2023-09-18 05:31] LABS: Anion Gap 14 (12-20); Blood Urea Nitrogen 17 mg/dL (9-16); Calcium 7.9 mg/dL (8.4-10.2); Carbon Dioxide 20 mmol/L (22-29); Chloride 104 mmol/L (96-108); Creatinine Clr Calc Pharmacy 66.8; Estimated Glomerular Filt Rate > 60; Glucose Random 160 mg/dL (60-115); Magnesium 1.8 mg/dL (1.6-2.6); Potassium 3.5 mmol/L (3.3-5.1); Sodium 134 mmol/L (135-145)
[2023-09-18 05:58] LABS: Band Neutrophils Percent 0 % (3-5); Lymphocytes Percent Manual 4 % (20-40); Metamyelocytes Percent 2 %; Monocytes Percent Manual 3 % (2-11); Myelocytes Percent 1 %; Neutrophils Percent Manual 90 % (45-73)
[2023-09-18 05:59] LABS: Platelet Estimate INCREASED (NORMAL); Platelet Morphology Comment NORMAL; RBC Morphology NORMAL
--- NOTE | 2023-09-18 07:23 | HE.PHANOTE ---
RE:VANCO AUC s 573 and trough is 19.2. Will continue dose of 750mg q12h until random value comes back @1600 on 09/18/23 and will adjust accordingly.
[2023-09-18] MEDS: Norepinephrine Bitartrate/D5W 8 MG/250 ML PLAST..BAG 31.79 MG IV (08:33)
[2023-09-18] MEDS: 0.9 % Sodium Chloride Flush 3 ML SYRINGE IVFLUSH ×3 (08:36→23:04)
[2023-09-18] MEDS: Potassium Chloride/H20 10 MEQ/100 ML PIGGYBACK 100 MEQ IV ×2 (08:44→10:02)
--- NOTE | 2023-09-18 08:48 | MHC.SLORD ---
Speech Language Pathology Order Status: Pt intubated and vented in ICU, not appropriate for bedside swallow at this time. CONCEPTOR will continue to follow, evaluation deferred pending 24-48 hours post-extubation.
[2023-09-18] MEDS: Albumin Human 25 % 100 ML IV ×3 (08:49→19:26)
--- NOTE | 2023-09-18 09:05 | P.PNCC_ITS ---
Subjective Subjective Date of Service: 09/18/23 Interval History: 77-year-old gentleman with underlying dementia, recurrent pulmonary aspiration, diastolic heart failure, HIV, BPH admitted on 09/15/2023 with dyspnea, lower extremity edema, hypoxia, and worsening alteration of mental status. Patient with treated with empiric antibiotics for aspiration pneumonia. hospital course is significant for worsening alteration of mental status with. On 09/15/2023 arterial blood gas was obtained that showed acute CO2 retention and chest x-ray demonstrated whiteout of the right lung. Nasotracheal suction was attempted, but was unsuccessful. Patient was not able to protect his airway. He was transferred to intensive care unit and emergently intubated with copious in-line secretions suctioned out after intubation. No events overnight. Critical Care Time (minutes): 45 Physical Exam 2 Vital Signs: Vital Signs: Last Vital Signs Temp 100.2 F 09/18/23 08:00 Pulse 85 09/18/23 08:33 Resp 20 09/18/23 08:00 BP 117/58 L 09/18/23 08:33 Pulse Ox 96 09/18/23 08:00 O2 Del Method Mechanical Ventil ation 09/18/23 08:00 O2 Flow Rate 30 09/17/23 09:00 FiO2 30 09/18/23 08:15 BMI result Body Mass Index 28.5 Const: General: no acute distress and other ( sedated on the vent) Eyes: Sclerae: sclerae normal EOM: EOMs intact bilaterally Neck: Neck: Yes no lymphadenopathy, Yes trachea midline and Yes supple Resp: Auscultation: clear to auscultation bilaterally ( diminished air movement on the right) Cardio: Rate: regular rate Rhythm: regular rhythm Heart sounds: no gallops, no murmurs and no rubs GI: Palpation (GI): Soft to palpation and Other GI palpation findings present ( Nontender) Auscultation: normal bowel sounds Extrem: General: No clubbing, No cyanosis and Yes edema ( trace bilateral) Objective Data Labs 09/18/23 05:05 09/18/23 05:05 Labs: Laboratory Results - last 24 hr 09/17/23 09/17/23 09/18/23 16:03 21:55 05:05 WBC RBC 3.61 L Hgb 11.4 L Hct 32.6 L MCV 90.3 MCH 31.6 MCHC 35.0 RDW 14.0 Plt Count 343 MPV 9.5 Immature Gran % (Auto) Cancelled Neut % (Auto) Cancelled Lymph % (Auto) Cancelled [place] % (Auto) Cancelled Eos % (Auto) Cancelled Baso % (Auto) Cancelled Lymph # (Auto) Cancelled [place] # (Auto) Cancelled Eos # (Auto) Cancelled Baso # (Auto) Cancelled Abs Immat Gran (auto) Cancelled Absolute Neuts (auto) Cancelled Absolute Nucleated RBC 0.000 Nucleated RBC % (auto) 0.0 Neutrophils % (Manual) 90 H Band Neutrophils % 0 L Lymphocytes % (Manual) 4 L Monocytes % (Manual) 3 Metamyelocytes % 2 Myelocytes % 1 Platelet Estimate INCREASED Plt Morphology Comment NORMAL RBC Morphology NORMAL VBG pH VBG pCO2 VBG pO2 VBG HCO3 VBG O2 Saturation VBG Base Excess Sodium 135 134 L Potassium 3.7 3.5 Chloride 104 104 Carbon Dioxide 20 L 20 L Anion Gap 15 14 BUN 17 H 17 H Creatinine 0.92 0.86 Estim Creat Clear Calc 56.3 66.8 Estimated GFR > 60 > 60 Random Glucose 152 H 160 H Calcium 8.0 L 7.9 L Phosphorus 1.7 L 3.0 Magnesium 1.6 1.8 Albumin 2.0 L Random Vancomycin 14.3 L 09/18/23 05:08 WBC RBC Hgb Hct MCV MCH MCHC RDW Plt Count MPV Immature Gran % (Auto) Neut % (Auto) Lymph % (Auto) [place] % (Auto) Eos % (Auto) Baso % (Auto) Lymph # (Auto) [place] # (Auto) Eos # (Auto) Baso # (Auto) Abs Immat Gran (auto) Absolute Neuts (auto) Absolute Nucleated RBC Nucleated RBC % (auto) Neutrophils % (Manual) Band Neutrophils % Lymphocytes % (Manual) Monocytes % (Manual) Metamyelocytes % Myelocytes % Platelet Estimate Plt Morphology Comment RBC Morphology VBG pH 7.44 H VBG pCO2 29 VBG pO2 54 VBG HCO3 20 L VBG O2 Saturation 85.0 VBG Base Excess -2.8 Sodium Potassium Chloride Carbon Dioxide Anion Gap BUN Creatinine Estim Creat Clear Calc Estimated GFR Random Glucose Calcium Phosphorus Magnesium Albumin Random Vancomycin Microbiology Microbiology Results: Microbiology 09/16/23 10:47 Blood - Venous Blood Culture - Preliminary No growth after 24 hours. 09/16/23 10:47 Blood - Venous Blood Culture - Preliminary No growth after 24 hours. 09/15/23 03:08 Blood - Venous Blood Culture - Preliminary No growth after 48 hours. 09/15/23 03:04 Blood - Venous Blood Culture - Preliminary No growth after 48 hours. Progress Note: A&P Assessment and plan (1) Dementia: Status: Acute (2) Dysphagia: Status: Acute (3) HIV (human immunodeficiency virus infection): Status: Acute (4) Acute respiratory failure with hypoxia and hypercapnia: Status: Acute (5) Aspiration pneumonia: Status: Acute Plan Assessment: 77-year-old gentleman with dementia, HIV, recurrent pulmonary aspiration admitted with encephalopathy and recurrent pulmonary aspiration, now requiring ventilatory support Plan: Neuro: acute metabolic encephalopathy secondary to CO2 narcosis on the background of known advanced dementia. Cardiac: No acute issues. Underlying chronic diastolic congestive heart failure. Pulmonary: Recurrent pulmonary aspiration, with complete white out of the right lung. Intubated for airway protection. Continue to titrate off ventilatory support as tolerated. Renal: No acute issues. Endo: No acute issues. GI: No acute issues. ID: Aspiration pneumonitis versus pneumonia. Empirically covered with broad- spectrum antibiotics. Heme/Onc: No acute issues. Psych: No acute issues. Miscellaneous: No acute issues. Prophylaxis: Lovenox, famotidine Diet: Tube feeds Critical care time spent: 45 minutes Quality Stroke Does the patient have a stroke diagnosis?: No VTE Prior VTE?: No VTE Risk Level:: Medical - moderate - high VTE Device Contraindication: Treatment Not Indicated VTE Drug Contraindication: N/A - Med Ordered
[2023-09-18] MEDS: Famotidine/PF 20 MG/2 ML VIAL IVPUSH (09:06)
[2023-09-18 09:43] LABS: Lymphocytes Absolute Manual 1.4 X10*3/uL (1.2-4.9); Metamyelocytes Absolute 0.7 X10*3/uL; Myelocytes Absolute 0.3 X10*/uL; Neutrophils Absolute Manual 31.3 X10*3/uL (2.0-8.3); White Blood Count 34.8 X10*3/uL (4.8-10.8)
[2023-09-18] MEDS: Abacavir/lamiVUDine 600/300 TABLET 1 TAB PO (09:51)
[2023-09-18] MEDS: Chlorhexidine Gluc Oral Rinse 15 ML MOUTHWASH BUCCAL ×3 (09:51→19:26)
[2023-09-18] MEDS: Dolutegravir Sodium 50 MG TABLET PO (09:51)
[2023-09-18 10:26] LABS: Dohle Bodies PRESENT; Toxic Vacuolation PRESENT
[2023-09-18] MEDS: Enoxaparin Sodium 40 MG/0.4 ML SYRINGE SUBCUT (13:40)
[2023-09-18] MEDS: Amiodarone HCL 900 MG in 0.9 % Sodium Chloride 500 ML 17.27 MG IVCONT (14:39)
--- NOTE | 2023-09-18 16:04 | MHC.CM.PN ---
Pt continues care in ICU: now w/JOÃO on Amiodorone gtt: pt is not responsive to commands and is flacid. Call placed to pt's guardian, Dian Melvin : message left requesting call back to inquire on guardianship expansion to allow for code status change per MD discussion at rounds. Pt is a LTC resident at [facility]. CM to follow.
[2023-09-18 16:43] LABS: IgA 582 mg/dL (70-320); IgG 1567 mg/dL (600-1540); IgM 65 mg/dL (50-300)
[2023-09-18] MEDS: Norepinephrine Bitartrate/D5W 8 MG/250 ML PLAST..BAG 26.9 MG IV (16:50)
[2023-09-18 17:12] LABS: Vancomycin Random 13.7 mcg/mL (15-20)
--- NOTE | 2023-09-18 17:18 | HE.PHANOTE ---
vancomycin addendum: Level came back at 13.7, will keep same regimen. Predicted AUC of 527.
[2023-09-18 18:23] LABS: Prot Elec - Albumin 2.3 g/dL (3.8-4.8); Prot Elec - Alpha1 0.6 g/dL (0.2-0.3); Prot Elec - Alpha2 0.7 g/dL (0.5-0.9); Prot Elec - Beta 1 0.3 g/dL (0.4-0.6); Prot Elec - Beta 2 0.5 g/dL (0.2-0.5); Prot Elec - Gamma 1.6 g/dL (0.8-1.7); Prot Elec - Total Protein 5.9 g/dL (6.1-8.1)
[2023-09-19] VITALS (41 sets, daily range): BP systolic 86–136; BP diastolic 46–92; PULSE 71–150; RESP 16–23; TEMP 34.1–38.2; O2SAT 90–100; BMI 29.2
[2023-09-19] MEDS: Piperacillin Sodium/Tazobactam 3.375 GM in 0.9 % Sodium Chloride 50 ML IV ×4 (01:16→19:35)
[2023-09-19] MEDS: Albumin Human 25 % 100 ML IV ×4 (01:49→20:07)
[2023-09-19] MEDS: Norepinephrine Bitartrate/D5W 8 MG/250 ML PLAST..BAG 17.12 MG IV ×2 (03:01→13:59)
[2023-09-19 05:24] LABS: VBG Base Excess 0.8 mmol/L; VBG HCO3 22 mmol/L (22-26); VBG pCO2 26 mmHg; VBG pH 7.53 (7.32-7.43); VBG pO2 66 mmHg
[2023-09-19 05:29] LABS: Venous Blood Gas Refer to POC result
[2023-09-19 05:29] LABS: Basophils Absolute Auto 0.2 X10*3/uL (0.0-0.2); Basophils Percent Auto 0.5 % (0-2); Eosinophils Percent Auto 0.1 % (0-4); Hematocrit 28.9 % (42.0-52.0); Hemoglobin 10.2 g/dl (14.0-18.0); Imm Gran Abs Auto 0.78 X10*3/uL (0.00-0.03); Imm Gran Pct Auto 2.5 % (0.0-0.4); Lymphocytes Absolute Auto 0.6 X10*3/uL (1.2-4.9); Lymphocytes Percent Auto 2.1 % (20-40); MANUAL DIFF FLAG SCAN; Mean Corpuscular HGB Conc 35.3 g/dl (31.0-36.0); Mean Corpuscular Hemoglobin 31.9 pg (27.0-33.0); Mean Corpuscular Volume 90.3 fL (80.0-98.0); Monocytes Absolute Auto 0.7 X10*3/uL (0.1-1.2); Monocytes Percent Auto 2.4 % (2-11); Neutrophils Absolute Auto 28.6 x10*3/uL (2.0-8.3); Neutrophils Percent Auto 92.4 % (45-73); Platelet Count 241 X10*3/uL (160-400); Red Cell Distribution Width 14.2 % (11.0-16.0); SCAN SMEAR FLAG 1
[2023-09-19] MEDS: vancomycin HCL 750 MG in 0.9 % Sodium Chloride 250 ML 265 MG IV ×2 (05:38→16:52)
[2023-09-19] MEDS: Levothyroxine Sodium 75 MCG TABLET PO (05:39)
[2023-09-19] MEDS: propofoL 1,000 MG/100 ML VIAL 11.74 MG IVCONT ×3 (05:42→19:35)
[2023-09-19 05:45] LABS: Alanine Aminotransferase 6 U/L (0-40); Albumin Level 2.9 g/dL (3.5-5.0); Alkaline Phosphatase 92 U/L (39-117); Anion Gap 10 (12-20); Aspartate Amino Transferase 13 U/L (5-37); Bilirubin Total 0.8 mg/dL (0.0-1.0); Blood Urea Nitrogen 14 mg/dL (9-16); Calcium 8.3 mg/dL (8.4-10.2); Carbon Dioxide 22 mmol/L (22-29); Chloride 107 mmol/L (96-108); Creatinine Clr Calc Pharmacy 90.8; Estimated Glomerular Filt Rate > 60; Glucose Random 128 mg/dL (60-115); Phosphorus 1.7 mg/dL (2.7-4.5); Potassium 3.4 mmol/L (3.3-5.1); Sodium 136 mmol/L (135-145); Total Protein 5.6 g/dL (6.5-8.0)
[2023-09-19 05:59] LABS: SLIDE REVIEW VERIFIED
[2023-09-19] MEDS: Potassium Phosphate/NS 15 MMOL/250 ML PLAST..BAG 62.5 MMOL IV ×2 (06:10→10:39)
[2023-09-19] MEDS: 0.9 % Sodium Chloride Flush 3 ML SYRINGE IVFLUSH (07:36)
[2023-09-19] MEDS: Chlorhexidine Gluc Oral Rinse 15 ML MOUTHWASH BUCCAL ×3 (08:46→20:07)
[2023-09-19] MEDS: Famotidine/PF 20 MG/2 ML VIAL IVPUSH (08:46)
--- NOTE | 2023-09-19 09:06 | P.PNCC_ITS ---
Subjective Subjective Date of Service: 09/19/23 Interval History: 77-year-old gentleman with underlying dementia, recurrent pulmonary aspiration, diastolic heart failure, HIV, BPH admitted on 09/15/2023 with dyspnea, lower extremity edema, hypoxia, and worsening alteration of mental status. Patient with treated with empiric antibiotics for aspiration pneumonia. hospital course is significant for worsening alteration of mental status with. On 09/15/2023 arterial blood gas was obtained that showed acute CO2 retention and chest x-ray demonstrated whiteout of the right lung. Nasotracheal suction was attempted, but was unsuccessful. Patient was not able to protect his airway. He was transferred to intensive care unit and emergently intubated with copious in-line secretions suctioned out after intubation. overnight with development of AFib with RVR, later transitioning into tachy- sophie syndrome. Critical Care Time (minutes): 60 Physical Exam 2 Vital Signs: Vital Signs: Last Vital Signs Temp 99.5 F 09/19/23 08:00 Pulse 114 H 09/19/23 08:01 Resp 20 09/19/23 08:00 BP 86/58 L 09/19/23 08:01 Pulse Ox 96 09/19/23 08:00 O2 Del Method Mechanical Ventil ation 09/19/23 08:00 O2 Flow Rate 30 09/17/23 09:00 FiO2 30 09/19/23 08:00 BMI result Body Mass Index 29.2 Const: General: no acute distress and other ( Sedated on the vent, poor arousal with sedation vacation) Eyes: Sclerae: sclerae normal EOM: EOMs intact bilaterally Neck: Neck: Yes no lymphadenopathy, Yes trachea midline and Yes supple Resp: Effort & Inspection: normal respiratory effort and no respiratory distress Auscultation: clear to auscultation bilaterally ( poor air movement on the right) Cardio: Rate: tachycardic Rhythm: abnormal rhythm irregularly irregular Heart sounds: no gallops, no murmurs and no rubs GI: Palpation (GI): Soft to palpation and Other GI palpation findings present ( Nontender) Auscultation: normal bowel sounds Extrem: General: Yes no pedal edema, No clubbing and No cyanosis Objective Data Labs 09/19/23 05:13 09/19/23 05:13 Labs: Laboratory Results - last 24 hr 09/16/23 09/18/23 09/18/23 13:18 05:05 16:31 WBC 34.8 H* RBC Hgb Hct MCV MCH MCHC RDW Plt Count MPV Immature Gran % (Auto) Neut % (Auto) Lymph % (Auto) [place] % (Auto) Eos % (Auto) Baso % (Auto) Lymph # (Auto) [place] # (Auto) Eos # (Auto) Baso # (Auto) Abs Immat Gran (auto) Absolute Neuts (auto) Absolute Nucleated RBC Nucleated RBC % (auto) Abs Neuts (Manual) 31.3 H Lymphocytes # (Manual) 1.4 Monocytes # (Manual) 1.0 Metamyelocytes # 0.7 Myelocytes # 0.3 Toxic Vacuolation PRESENT Dohle Bodies PRESENT Smear Tech's Comments VBG pH VBG pCO2 VBG pO2 VBG HCO3 VBG O2 Saturation VBG Base Excess Sodium Potassium Chloride Carbon Dioxide Anion Gap BUN Creatinine Estim Creat Clear Calc Estimated GFR Random Glucose Calcium Phosphorus Magnesium Total Bilirubin AST ALT Alkaline Phosphatase Total Protein Total Protein (PEP) 5.9 L Albumin Albumin (PEP) 2.3 L Hfcoz-5-Bbwavgoty 0.6 H Dospo-9-Aqpvgenba 0.7 Iime-0-Kpfmleif 0.3 L [place]-8-Owjanopr 0.5 Gamma Globulins 1.6 PEP Interpretation SEE NOTE Random Vancomycin 13.7 L IgG Total 1567 H IgA Total 582 H IgM 65 DEVIN Interpretation SEE NOTE 09/19/23 09/19/23 05:13 05:17 WBC 31.0 H* RBC 3.20 L Hgb 10.2 L Hct 28.9 L MCV 90.3 MCH 31.9 MCHC 35.3 RDW 14.2 Plt Count 241 D MPV 10.0 Immature Gran % (Auto) 2.5 H Neut % (Auto) 92.4 H Lymph % (Auto) 2.1 L [place] % (Auto) 2.4 Eos % (Auto) 0.1 Baso % (Auto) 0.5 Lymph # (Auto) 0.6 L [place] # (Auto) 0.7 Eos # (Auto) 0.0 Baso # (Auto) 0.2 Abs Immat Gran (auto) 0.78 H Absolute Neuts (auto) 28.6 H Absolute Nucleated RBC 0.000 Nucleated RBC % (auto) 0.0 Abs Neuts (Manual) Lymphocytes # (Manual) Monocytes # (Manual) Metamyelocytes # Myelocytes # Toxic Vacuolation Dohle Bodies Smear Tech's Comments VERIFIED VBG pH 7.53 H VBG pCO2 26 VBG pO2 66 VBG HCO3 22 VBG O2 Saturation 93.0 VBG Base Excess 0.8 Sodium 136 Potassium 3.4 Chloride 107 Carbon Dioxide 22 Anion Gap 10 L BUN 14 Creatinine 0.64 Estim Creat Clear Calc 90.8 Estimated GFR > 60 Random Glucose 128 H Calcium 8.3 L Phosphorus 1.7 L Magnesium 2.0 Total Bilirubin 0.8 AST 13 ALT 6 Alkaline Phosphatase 92 Total Protein 5.6 L Total Protein (PEP) Albumin 2.9 L Albumin (PEP) Akthk-9-Upppmoasz Btrys-9-Izwrfmtjx Pouh-1-Pvwbmypu Tyzo-2-Zqkjglcs Gamma Globulins PEP Interpretation Random Vancomycin IgG Total IgA Total IgM DEVIN Interpretation Microbiology Microbiology Results: Microbiology 09/16/23 10:47 Blood - Venous Blood Culture - Preliminary No growth after 48 hours. 09/16/23 10:47 Blood - Venous Blood Culture - Preliminary No growth after 48 hours. 09/15/23 03:08 Blood - Venous Blood Culture - Preliminary No growth after 48 hours. 09/15/23 03:04 Blood - Venous Blood Culture - Preliminary No growth after 48 hours. Progress Note: A&P Assessment and plan (1) Dementia: Status: Acute (2) Dysphagia: Status: Acute (3) HIV (human immunodeficiency virus infection): Status: Acute (4) Acute respiratory failure with hypoxia and hypercapnia: Status: Acute (5) Aspiration pneumonia: Status: Acute (6) Atrial fibrillation with RVR: Status: Acute (7) CHF (congestive heart failure): Status: Acute Plan Assessment: 77-year-old gentleman with dementia, HIV, recurrent pulmonary aspiration admitted with encephalopathy and recurrent pulmonary aspiration, now requiring ventilatory support Plan: Neuro: acute metabolic encephalopathy secondary to CO2 narcosis on the background of known advanced dementia. Cardiac: AFib with RVR improved on amiodarone drip. Underlying chronic diastolic congestive heart failure. Pulmonary: Recurrent pulmonary aspiration, with complete white out of the right lung. Intubated for airway protection. Continue to titrate off ventilatory support as tolerated. Chest physiotherapy. Renal: No acute issues. Endo: No acute issues. GI: No acute issues. ID: Aspiration pneumonia. Empirically covered with broad-spectrum antibiotics. Heme/Onc: No acute issues. Psych: No acute issues. Miscellaneous: Overall very poor prognosis for any meaningful clinical recovery. Discussion with guardian about goals of care. Prophylaxis: Lovenox, famotidine Diet: Tube feeds Critical care time spent: 60 minutes Quality Stroke Does the patient have a stroke diagnosis?: No VTE Prior VTE?: No VTE Risk Level:: Medical - moderate - high VTE Device Contraindication: Treatment Not Indicated VTE Drug Contraindication: N/A - Med Ordered
[2023-09-19] MEDS: Enoxaparin Sodium 40 MG/0.4 ML SYRINGE SUBCUT (13:04)
[2023-09-19] MEDS: Amiodarone HCL 900 MG in 0.9 % Sodium Chloride 500 ML 17.27 MG IVCONT (13:37)
--- NOTE | 2023-09-19 14:16 | PC.NURSE ---
Assumed care at 0700 - Patient in Afib RVR HR maintaining 110-14's. 0728 & 07 HR dropped to 40's but back to 110-140's quickly. notified - no new orders. Amio gtt continuing at 0.5 mg/min. Pacer pads in place. VSS.
--- NOTE | 2023-09-19 15:06 | MHC.CM.PN ---
Pt continues care in ICU: on ventilatory support and pressors. Message left again for pt's guardian Dian Charles requesting a call back. Call placed to [facility] where pt is a LTC resident: Facility has not pursued code status change. Will discuss with MD. ALLEN to follow
--- NOTE | 2023-09-19 16:11 | PC.NURSE ---
Late Entry for Novemeber 2022 @1020 Patient transferred from med surg due to decompensation around 1000, fluids started at bolus rate of 999/hr . albumin started along with bolus, md notified do to patient increased work of breathing and o2 decompensation, , asseesd patient around 1410 ordered additional fluid bolus, patient was transferred to icu
[2023-09-20] VITALS (44 sets, daily range): BP systolic 72–120; BP diastolic 44–87; PULSE 130–154; RESP 20–27; TEMP 26.7–39.2; O2SAT 90–95; BMI 29.6
[2023-09-20] MEDS: 0.9 % Sodium Chloride Flush 3 ML SYRINGE IVFLUSH ×3 (00:50→14:39)
[2023-09-20] MEDS: Furosemide 40 MG/4 ML VIAL IVPUSH (01:45)
[2023-09-20] MEDS: Metoprolol Tartrate 5 MG/5 ML VIAL 2.5 MG IVPUSH (01:45)
[2023-09-20] MEDS: Piperacillin Sodium/Tazobactam 3.375 GM in 0.9 % Sodium Chloride 50 ML IV ×4 (01:56→19:25)
[2023-09-20] MEDS: Norepinephrine Bitartrate/D5W 8 MG/250 ML PLAST..BAG 19.56 MG IV (02:14)
[2023-09-20] MEDS: Albumin Human 25 % 100 ML IV (02:18)
[2023-09-20] MEDS: propofoL 1,000 MG/100 ML VIAL 11.74 MG IVCONT ×4 (02:45→23:40)
[2023-09-20 04:47] LABS: VBG HCO3 21 mmol/L (22-26); VBG pCO2 27 mmHg; VBG pH 7.48 (7.32-7.43); VBG pO2 66 mmHg
[2023-09-20 04:51] LABS: Venous Blood Gas Refer to POC result
[2023-09-20 04:58] LABS: Hematocrit 27.9 % (42.0-52.0); Hemoglobin 9.6 g/dl (14.0-18.0); Mean Corpuscular HGB Conc 34.4 g/dl (31.0-36.0); Mean Corpuscular Hemoglobin 31.2 pg (27.0-33.0); Mean Corpuscular Volume 90.6 fL (80.0-98.0); Mean Platelet Volume 10.5 fL (9.4-12.4); NRBC Pct Auto 0.2 /100WBC (0.0-0.2); Platelet Count 250 X10*3/uL (160-400); Red Blood Count 3.08 X10*6/uL (4.60-5.80); Red Cell Distribution Width 14.6 % (11.0-16.0)
[2023-09-20 05:06] LABS: WBC ABN SCTR FOR CBC 1
[2023-09-20 05:17] LABS: Albumin Level 3.5 g/dL (3.5-5.0); Anion Gap 14 (12-20); Blood Urea Nitrogen 16 mg/dL (9-16); Calcium 8.5 mg/dL (8.4-10.2); Carbon Dioxide 20 mmol/L (22-29); Chloride 108 mmol/L (96-108); Creatinine Clr Calc Pharmacy 75.5; Estimated Glomerular Filt Rate > 60; Glucose Random 131 mg/dL (60-115); Magnesium 1.9 mg/dL (1.6-2.6); Phosphorus 2.5 mg/dL (2.7-4.5); Potassium 4.1 mmol/L (3.3-5.1); Sodium 138 mmol/L (135-145)
[2023-09-20 05:18] LABS: Band Neutrophils Percent 8 % (3-5); Lymphocytes Percent Manual 4 % (20-40); Metamyelocytes Absolute 0.2 X10*3/uL; Metamyelocytes Percent 1 %; Monocytes Absolute Manual 0.5 X10*3/uL (0.1-1.2); Monocytes Percent Manual 2 % (2-11); Neutrophils Absolute Manual 22.3 X10*3/uL (2.0-8.3); Neutrophils Percent Manual 85 % (45-73)
[2023-09-20 05:21] LABS: Dohle Bodies PRESENT; Ovalocytes 1+ (5-14) /OIF; RBC Morphology NOTED; Target Cells 1+ (5-14) /OIF; Toxic Granulation PRESENT
[2023-09-20 05:26] LABS: Platelet Estimate NORMAL (NORMAL); Platelet Morphology Comment NORMAL; Schistocytes 1+ (0-2) /OIF
[2023-09-20] MEDS: Levothyroxine Sodium 75 MCG TABLET PO (06:06)
[2023-09-20] MEDS: vancomycin HCL 750 MG in 0.9 % Sodium Chloride 250 ML 265 MG IV ×2 (06:06→17:10)
[2023-09-20] MEDS: Chlorhexidine Gluc Oral Rinse 15 ML MOUTHWASH BUCCAL ×3 (07:40→20:46)
[2023-09-20] MEDS: Famotidine/PF 20 MG/2 ML VIAL IVPUSH (07:40)
[2023-09-20] MEDS: Potassium Phosphate/NS 15 MMOL/250 ML PLAST..BAG 62.5 MMOL IV (09:06)
--- NOTE | 2023-09-20 09:34 | PM.CCPN ---
Subjective Subjective Date of Service: 09/20/23 Interval History: 77-year-old gentleman with underlying dementia, recurrent pulmonary aspiration, diastolic heart failure, HIV, BPH admitted on 09/15/2023 with dyspnea, lower extremity edema, hypoxia, and worsening alteration of mental status. Patient with treated with empiric antibiotics for aspiration pneumonia. hospital course is significant for worsening alteration of mental status with. On 09/15/2023 arterial blood gas was obtained that showed acute CO2 retention and chest x-ray demonstrated whiteout of the right lung. Nasotracheal suction was attempted, but was unsuccessful. Patient was not able to protect his airway. He was transferred to intensive care unit and emergently intubated with copious in-line secretions suctioned out after intubation. Now with aspiration pneumonia, further complicated by AFib with RVR/sick sinus syndrome. No events overnight. Essentially no arousal with sedation vacation. Critical Care Time (minutes): 45 Physical Exam Vital Signs: Vital Signs: Last Vital Signs Temp 99.7 F 09/20/23 09:00 Pulse 137 H 09/20/23 09:00 Resp 21 H 09/20/23 09:00 BP 102/56 L 09/20/23 09:00 Pulse Ox 92 09/20/23 09:00 O2 Del Method Mechanical Ventil ation 09/20/23 09:00 O2 Flow Rate 30 09/17/23 09:00 FiO2 40 09/20/23 09:00 BMI result Body Mass Index 29.6 Const: General: no acute distress and other ( Sedated on the vent, no arousal with sedation vacation) Eyes: Sclerae: sclerae normal EOM: EOMs intact bilaterally Neck: Neck: Yes no lymphadenopathy, Yes trachea midline and Yes supple Resp: Auscultation: rales ( right-sided) Cardio: Rate: tachycardic Rhythm: abnormal rhythm irregularly irregular Heart sounds: no gallops, no murmurs and no rubs GI: Palpation (GI): Soft to palpation and Other GI palpation findings present ( Nontender) Auscultation: normal bowel sounds Extrem: General: Yes no pedal edema, No clubbing and No cyanosis Objective Data Labs 09/20/23 04:39 09/20/23 04:39 Labs: Laboratory Results - last 24 hr 09/20/23 09/20/23 04:39 04:41 WBC 24.0 H RBC 3.08 L Hgb 9.6 L Hct 27.9 L MCV 90.6 MCH 31.2 MCHC 34.4 RDW 14.6 Plt Count 250 MPV 10.5 Immature Gran % (Auto) Cancelled Neut % (Auto) Cancelled Lymph % (Auto) Cancelled [place] % (Auto) Cancelled Eos % (Auto) Cancelled Baso % (Auto) Cancelled Lymph # (Auto) Cancelled [place] # (Auto) Cancelled Eos # (Auto) Cancelled Baso # (Auto) Cancelled Abs Immat Gran (auto) Cancelled Absolute Neuts (auto) Cancelled Absolute Nucleated RBC 0.040 H Nucleated RBC % (auto) 0.2 Neutrophils % (Manual) 85 H Band Neutrophils % 8 H Lymphocytes % (Manual) 4 L Monocytes % (Manual) 2 Metamyelocytes % 1 Abs Neuts (Manual) 22.3 H Lymphocytes # (Manual) 1.0 L Monocytes # (Manual) 0.5 Metamyelocytes # 0.2 Toxic Granulation PRESENT Dohle Bodies PRESENT Platelet Estimate NORMAL Plt Morphology Comment NORMAL RBC Morphology NOTED Target Cells 1+ (5-14) Ovalocytes 1+ (5-14) Schistocytes 1+ (0-2) VBG pH 7.48 H VBG pCO2 27 VBG pO2 66 VBG HCO3 21 L VBG O2 Saturation 93.0 VBG Base Excess -1.0 Sodium 138 Potassium 4.1 D Chloride 108 Carbon Dioxide 20 L Anion Gap 14 BUN 16 Creatinine 0.77 Estim Creat Clear Calc 75.5 Estimated GFR > 60 Random Glucose 131 H Calcium 8.5 Phosphorus 2.5 L Magnesium 1.9 Albumin 3.5 Microbiology Microbiology Results: Microbiology 09/15/23 03:08 Blood - Venous Blood Culture - Final No growth after 5 days. 09/15/23 03:04 Blood - Venous Blood Culture - Final No growth after 5 days. 09/16/23 10:47 Blood - Venous Blood Culture - Preliminary No growth after 48 hours. 09/16/23 10:47 Blood - Venous Blood Culture - Preliminary No growth after 48 hours. Progress Note: A&P Assessment and plan (1) Tachy-sophie syndrome: Status: Acute (2) CHF (congestive heart failure): Status: Acute (3) Dementia: Status: Acute (4) Dysphagia: Status: Acute (5) HIV (human immunodeficiency virus infection): Status: Acute (6) Acute respiratory failure with hypoxia and hypercapnia: Status: Acute (7) Aspiration pneumonia: Status: Acute Plan Assessment: 77-year-old gentleman with dementia, HIV, recurrent pulmonary aspiration admitted with encephalopathy and recurrent pulmonary aspiration, now requiring ventilatory support Plan: Neuro: acute metabolic encephalopathy secondary to CO2 narcosis on the background of known advanced dementia. Cardiac: AFib with RVR improved on amiodarone drip. Now with tachy-sophie syndrome. Underlying chronic diastolic congestive heart failure. Pulmonary: Recurrent pulmonary aspiration, with complete white out of the right lung. Intubated for airway protection. Continue to titrate off ventilatory support as tolerated. Chest physiotherapy. Renal: No acute issues. Endo: No acute issues. GI: No acute issues. ID: Aspiration pneumonia. Empirically covered with broad-spectrum antibiotics. Heme/Onc: No acute issues. Psych: No acute issues. Miscellaneous: Overall very poor prognosis for any meaningful clinical recovery secondary to underlying advanced dementia, likely with compinent ofHIV dementia, and worsening recurrent aspirations requiring multiple evaluations/hospitalizations, now resulting aspiration pneumonia, so far with failure to wean from mechanical ventilation. Discussion with guardian about goals of care. Prophylaxis: Lovenox, famotidine Diet: Tube feeds Critical care time spent: 45 minutes Quality Stroke Does the patient have a stroke diagnosis?: No VTE Prior VTE?: No VTE Risk Level:: Medical - moderate - high VTE Device Contraindication: Treatment Not Indicated VTE Drug Contraindication: N/A - Med Ordered
--- NOTE | 2023-09-20 10:50 | MHC.CLN ---
F/U PT REMAINS INTUBATED AND SEDATED PT RECEIVING TF PROMOTE AT MAX GOAL RATE 50ML/HR PROVIDES 1200KCALS (1510KCALS WITH SEDATION; 23KCALS/KG), 75G PROTEIN (1.15G/KG), 1007ML FREE WATER FROM FORMULA RECOMMEND ADDING 120ML FREE WATER FLUSHES Q 6 HRS TO PROVIDE 1487ML TOTAL FROM FORMULA AND FLUSHES (23ML/KG) MONITOR TOLERANCE, RESIDUALS AND LYTES
[2023-09-20] MEDS: Norepinephrine Bitartrate/D5W 8 MG/250 ML PLAST..BAG 31.79 MG IV (12:26)
[2023-09-20] MEDS: Amiodarone HCL 900 MG in 0.9 % Sodium Chloride 500 ML 17.27 MG IVCONT (12:32)
[2023-09-20] MEDS: Digoxin 0.5 MG/2 ML AMPUL 0.25 MG IVPUSH (12:48)
[2023-09-20] MEDS: Enoxaparin Sodium 40 MG/0.4 ML SYRINGE SUBCUT (13:09)
--- NOTE | 2023-09-20 15:54 | MHC.CM.PN ---
PT REMAINS IN ICU ON VENTILATORY SUPPORT. PT'S GUARDIAN RETURNED CALL AND SPOKE WITH MD REGARDING GOC. CM WILL CONTINUE TO FOLLOW FOR PLAN.
[2023-09-20 16:26] LABS: Vancomycin Trough 15.7 mcg/mL (10.0-20.0)
--- NOTE | 2023-09-20 16:40 | HE.PHANOTE ---
RE: VANCO Based on trough level of 15.7 and AUC of 492, continue with current dose of 750mg q12h and will draw random trough on 09/21/23 @1600.
[2023-09-20] MEDS: Norepinephrine Bitartrate/D5W 8 MG/250 ML PLAST..BAG 36.68 MG IV (19:25)
[2023-09-20] MEDS: Acetaminophen 325 MG TABLET 650 MG PO (19:35)
[2023-09-21] VITALS (48 sets, daily range): BP systolic 62–142; BP diastolic 43–87; PULSE 116–156; RESP 18–25; TEMP 34.9–38.9; O2SAT 88–95; BMI 30.3
[2023-09-21] MEDS: Furosemide 40 MG/4 ML VIAL IVPUSH (00:42)
[2023-09-21] MEDS: 0.9 % Sodium Chloride Flush 3 ML SYRINGE IVFLUSH ×4 (00:42→23:06)
[2023-09-21] MEDS: Norepinephrine Bitartrate/D5W 8 MG/250 ML PLAST..BAG 36.68 MG IV ×2 (02:02→22:57)
[2023-09-21] MEDS: Piperacillin Sodium/Tazobactam 3.375 GM in 0.9 % Sodium Chloride 50 ML IV ×4 (02:03→20:14)
[2023-09-21] MEDS: vancomycin HCL 750 MG in 0.9 % Sodium Chloride 250 ML 265 MG IV ×2 (05:01→17:27)
[2023-09-21] MEDS: Acetaminophen 325 MG TABLET 650 MG PO (05:01)
[2023-09-21] MEDS: Levothyroxine Sodium 75 MCG TABLET PO (05:01)
[2023-09-21] MEDS: propofoL 1,000 MG/100 ML VIAL 11.74 MG IVCONT (05:09)
[2023-09-21 05:14] LABS: VBG Base Excess -5.4 mmol/L; VBG HCO3 18 mmol/L (22-26); VBG pCO2 30 mmHg; VBG pH 7.39 (7.32-7.43); VBG pO2 55 mmHg
[2023-09-21 05:16] LABS: Venous Blood Gas Refer to POC result
[2023-09-21 05:21] LABS: Hematocrit 31.1 % (42.0-52.0); Hemoglobin 10.7 g/dl (14.0-18.0); Mean Corpuscular HGB Conc 34.4 g/dl (31.0-36.0); Mean Corpuscular Hemoglobin 31.7 pg (27.0-33.0); NRBC Pct Auto 0.2 /100WBC (0.0-0.2); Platelet Count 309 X10*3/uL (160-400); Red Blood Count 3.38 X10*6/uL (4.60-5.80); WBC ABN SCTR FOR CBC 1; White Blood Count 22.8 X10*3/uL (4.8-10.8)
[2023-09-21 05:31] LABS: Albumin Level 2.8 g/dL (3.5-5.0); Anion Gap 16 (12-20); Blood Urea Nitrogen 21 mg/dL (9-16); Calcium 8.4 mg/dL (8.4-10.2); Carbon Dioxide 19 mmol/L (22-29); Chloride 106 mmol/L (96-108); Creatinine Clr Calc Pharmacy 63.5; Estimated Glomerular Filt Rate > 60; Glucose Random 129 mg/dL (60-115); Magnesium 1.8 mg/dL (1.6-2.6); Phosphorus 3.4 mg/dL (2.7-4.5); Potassium 4.8 mmol/L (3.3-5.1); Sodium 136 mmol/L (135-145)
[2023-09-21 05:35] LABS: Band Neutrophils Percent 7 % (3-5); Lymphocytes Absolute Manual 1.4 X10*3/uL (1.2-4.9); Lymphocytes Percent Manual 6 % (20-40); Metamyelocytes Absolute 0.2 X10*3/uL; Metamyelocytes Percent 1 %; Monocytes Absolute Manual 0.9 X10*3/uL (0.1-1.2); Monocytes Percent Manual 4 % (2-11); Neutrophils Absolute Manual 20.3 X10*3/uL (2.0-8.3); Neutrophils Percent Manual 82 % (45-73)
[2023-09-21 05:39] LABS: Burr Cells 1+ (0-2) /OIF; Dohle Bodies PRESENT; Large Platelet PRESENT; Platelet Estimate NORMAL (NORMAL); Platelet Morphology Comment NOTED; RBC Morphology NOTED; Spherocytes 1+ (0-2) /OIF; Target Cells 1+ (5-14) /OIF
[2023-09-21 05:40] LABS: Toxic Vacuolation PRESENT
[2023-09-21] MEDS: Metoprolol Tartrate 5 MG/5 ML VIAL IVPUSH (06:22)
[2023-09-21] MEDS: Albumin Human 25 % 100 ML IV ×3 (07:40→20:09)
[2023-09-21] MEDS: Famotidine/PF 20 MG/2 ML VIAL IVPUSH (07:49)
[2023-09-21] MEDS: Norepinephrine Bitartrate/D5W 8 MG/250 ML PLAST..BAG 61.13 MG IV (07:52)
[2023-09-21] MEDS: Chlorhexidine Gluc Oral Rinse 15 ML MOUTHWASH BUCCAL ×3 (08:01→20:14)
[2023-09-21] MEDS: Dolutegravir Sodium 50 MG TABLET PO (08:01)
[2023-09-21] MEDS: Abacavir/lamiVUDine 600/300 TABLET 1 TAB PO (08:01)
[2023-09-21] MEDS: Digoxin 0.5 MG/2 ML AMPUL 0.25 MG IVPUSH (10:23)
--- NOTE | 2023-09-21 10:58 | P.PNCC_ITS ---
Subjective Subjective Date of Service: 09/21/23 Interval History: 77-year-old gentleman with underlying dementia, recurrent pulmonary aspiration, diastolic heart failure, HIV, BPH admitted on 09/15/2023 with dyspnea, lower extremity edema, hypoxia, and worsening alteration of mental status. Patient with treated with empiric antibiotics for aspiration pneumonia. hospital course is significant for worsening alteration of mental status with. On 09/15/2023 arterial blood gas was obtained that showed acute CO2 retention and chest x-ray demonstrated whiteout of the right lung. Nasotracheal suction was attempted, but was unsuccessful. Patient was not able to protect his airway. He was transferred to intensive care unit and emergently intubated with copious in-line secretions suctioned out after intubation. Now with aspiration pneumonia, further complicated by AFib with RVR/sick sinus syndrome. poor prognosis for meaningful clinical recovery discussed with patient's guardian and healthcare proxy who both agree with switching goals of care to palliation, continue working with case management to request court approval. No events overnight. Critical Care Time (minutes): 45 Physical Exam 2 Vital Signs: Vital Signs: Last Vital Signs Temp 101.3 F H 09/21/23 10:00 Pulse 133 H 09/21/23 10:28 Resp 22 H 09/21/23 10:00 BP 110/78 09/21/23 10:28 Pulse Ox 92 09/21/23 10:00 O2 Del Method Mechanical Ventil ation 09/21/23 10:00 O2 Flow Rate 30 09/17/23 09:00 FiO2 50 09/21/23 10:00 BMI result Body Mass Index 30.3 Const: General: no acute distress and other ( sedated on the vent) Eyes: Sclerae: sclerae normal EOM: EOMs intact bilaterally Neck: Neck: Yes no lymphadenopathy, Yes trachea midline and Yes supple Resp: Auscultation: clear to auscultation bilaterally ( poor right-sided air movement) Cardio: Rate: tachycardic Rhythm: abnormal rhythm irregularly irregular Heart sounds: no gallops, no murmurs and no rubs GI: Palpation (GI): Soft to palpation and Other GI palpation findings present ( Nontender) Auscultation: normal bowel sounds Extrem: General: No clubbing, No cyanosis and Yes edema ( trace bilateral) Objective Data Labs 09/21/23 05:04 09/21/23 05:04 Labs: Laboratory Results - last 24 hr 09/20/23 09/21/23 09/21/23 16:05 05:04 05:07 WBC 22.8 H RBC 3.38 L Hgb 10.7 L Hct 31.1 L MCV 92.0 MCH 31.7 MCHC 34.4 RDW 15.0 Plt Count 309 MPV 11.0 Immature Gran % (Auto) Cancelled Neut % (Auto) Cancelled Lymph % (Auto) Cancelled [place] % (Auto) Cancelled Eos % (Auto) Cancelled Baso % (Auto) Cancelled Lymph # (Auto) Cancelled [place] # (Auto) Cancelled Eos # (Auto) Cancelled Baso # (Auto) Cancelled Abs Immat Gran (auto) Cancelled Absolute Neuts (auto) Cancelled Absolute Nucleated RBC 0.050 H Nucleated RBC % (auto) 0.2 Neutrophils % (Manual) 82 H Band Neutrophils % 7 H Lymphocytes % (Manual) 6 L Monocytes % (Manual) 4 Metamyelocytes % 1 Abs Neuts (Manual) 20.3 H Lymphocytes # (Manual) 1.4 Monocytes # (Manual) 0.9 Metamyelocytes # 0.2 Toxic Vacuolation PRESENT Dohle Bodies PRESENT Platelet Estimate NORMAL Large Platelets PRESENT Plt Morphology Comment NOTED RBC Morphology NOTED Spherocytes 1+ (0-2) Target Cells 1+ (5-14) [place] Cells 1+ (0-2) VBG pH 7.39 VBG pCO2 30 VBG pO2 55 VBG HCO3 18 L VBG O2 Saturation 85.0 VBG Base Excess -5.4 Sodium 136 Potassium 4.8 Chloride 106 Carbon Dioxide 19 L Anion Gap 16 BUN 21 H Creatinine 0.92 Estim Creat Clear Calc 63.5 Estimated GFR > 60 Random Glucose 129 H Calcium 8.4 Phosphorus 3.4 Magnesium 1.8 Albumin 2.8 L Vancomycin Trough 15.7 Microbiology Microbiology Results: Microbiology 09/15/23 03:08 Blood - Venous Blood Culture - Final No growth after 5 days. 09/15/23 03:04 Blood - Venous Blood Culture - Final No growth after 5 days. 09/16/23 10:47 Blood - Venous Blood Culture - Preliminary No growth after 48 hours. 09/16/23 10:47 Blood - Venous Blood Culture - Preliminary No growth after 48 hours. Progress Note: A&P Assessment and plan (1) Tachy-sophie syndrome: Status: Acute (2) CHF (congestive heart failure): Status: Acute (3) Dementia: Status: Acute (4) Dysphagia: Status: Acute (5) HIV (human immunodeficiency virus infection): Status: Acute (6) Acute respiratory failure with hypoxia and hypercapnia: Status: Acute (7) Aspiration pneumonia: Status: Acute Plan Assessment: 77-year-old gentleman with dementia, HIV, recurrent pulmonary aspiration admitted with encephalopathy and recurrent pulmonary aspiration, now requiring ventilatory support Plan: Neuro: acute metabolic encephalopathy secondary to CO2 narcosis on the background of known advanced dementia. Cardiac: AFib with RVR improved on amiodarone drip. Now with tachy-sophie syndrome. Underlying chronic diastolic congestive heart failure. Pulmonary: Recurrent pulmonary aspiration, with complete white out of the right lung. Intubated for airway protection. Continue to titrate off ventilatory support as tolerated. Chest physiotherapy. Renal: No acute issues. Endo: No acute issues. GI: No acute issues. ID: Aspiration pneumonia. Empirically covered with broad-spectrum antibiotics. Heme/Onc: No acute issues. Psych: No acute issues. Miscellaneous: Overall very poor prognosis for any meaningful clinical recovery secondary to underlying advanced dementia, likely with compinent of HIV dementia, and worsening recurrent aspirations requiring multiple evaluations/hospitalizations, now resulting aspiration pneumonia, so far with failure to wean from mechanical ventilation. Pending court request to change goals of care. Prophylaxis: Lovenox, famotidine Diet: Tube feeds Critical care time spent: 45 minutes Quality Stroke Does the patient have a stroke diagnosis?: No VTE Prior VTE?: No VTE Risk Level:: Medical - moderate - high VTE Device Contraindication: Treatment Not Indicated VTE Drug Contraindication: N/A - Med Ordered
[2023-09-21] MEDS: Norepinephrine Bitartrate/D5W 8 MG/250 ML PLAST..BAG 56.24 MG IV (12:03)
[2023-09-21] MEDS: Amiodarone HCL 900 MG in 0.9 % Sodium Chloride 500 ML 17.27 MG IVCONT (12:47)
[2023-09-21] MEDS: propofoL 1,000 MG/100 ML VIAL 3.91 MG IVCONT (12:48)
--- NOTE | 2023-09-21 14:33 | W.PM.CCHP ---
Procedures Date of Service Date of Service: 09/21/23 Central Line Placement Left IJ: Central Line Comments: Secondary to escalating pressor requirements and being unable to contact legal guardian, emergent left internal jugular triple-lumen central venous catheter placed under ultrasound guidance and usual sterile conditions with no immediate complications. X-ray for line position is pending.
[2023-09-21] MEDS: Enoxaparin Sodium 40 MG/0.4 ML SYRINGE SUBCUT (15:25)
[2023-09-21 16:26] LABS: Vancomycin Random 17.1 mcg/mL (15-20)
[2023-09-21] MEDS: Norepinephrine Bitartrate/D5W 8 MG/250 ML PLAST..BAG 44.01 MG IV (16:37)
--- NOTE | 2023-09-21 18:27 | PC.NURSE ---
14:20 Plan for TLC central line insertion due to high levophed requirements. Pre-procedure started, pt verified, time out performed. 14:25 TLC inserted to LEFT IJ 16:00 Pt desat to 86-88%. Cough assist performed by RT with suction. SaO2 improved to 91%
[2023-09-22] VITALS (38 sets, daily range): BP systolic 84–115; BP diastolic 50–78; PULSE 99–137; RESP 16–24; TEMP 35.2–38.6; O2SAT 88–94; BMI 30.4
[2023-09-22] MEDS: Piperacillin Sodium/Tazobactam 3.375 GM in 0.9 % Sodium Chloride 50 ML IV ×4 (01:53→19:33)
[2023-09-22] MEDS: Albumin Human 25 % 100 ML IV (01:53)
[2023-09-22] MEDS: propofoL 1,000 MG/100 ML VIAL 7.82 MG IVCONT ×3 (02:19→21:52)
[2023-09-22 05:33] LABS: MANUAL DIFF FLAG NO
[2023-09-22] MEDS: vancomycin HCL 750 MG in 0.9 % Sodium Chloride 250 ML 265 MG IV (05:35)
[2023-09-22 05:36] LABS: VBG Base Excess -2.1 mmol/L; VBG HCO3 21 mmol/L (22-26); VBG pCO2 34 mmHg; VBG pH 7.41 (7.32-7.43); VBG pO2 47 mmHg
[2023-09-22 05:38] LABS: Basophils Absolute Auto 0.1 X10*3/uL (0.0-0.2); Basophils Percent Auto 0.4 % (0-2); Eosinophils Absolute Auto 0.1 X10*3/uL (0.0-0.4); Eosinophils Percent Auto 0.4 % (0-4); Hematocrit 25.9 % (42.0-52.0); Hemoglobin 8.6 g/dl (14.0-18.0); Imm Gran Abs Auto 0.67 X10*3/uL (0.00-0.03); Imm Gran Pct Auto 3.8 % (0.0-0.4); Lymphocytes Absolute Auto 0.9 X10*3/uL (1.2-4.9); Lymphocytes Percent Auto 5.1 % (20-40); Mean Corpuscular HGB Conc 33.2 g/dl (31.0-36.0); Mean Corpuscular Hemoglobin 30.4 pg (27.0-33.0); Mean Corpuscular Volume 91.5 fL (80.0-98.0); Mean Platelet Volume 11.3 fL (9.4-12.4); Monocytes Absolute Auto 0.7 X10*3/uL (0.1-1.2); Monocytes Percent Auto 3.9 % (2-11); NRBC Pct Auto 0.5 /100WBC (0.0-0.2); Neutrophils Absolute Auto 15.4 x10*3/uL (2.0-8.3); Neutrophils Percent Auto 86.4 % (45-73); Platelet Count 227 X10*3/uL (160-400); Red Blood Count 2.83 X10*6/uL (4.60-5.80); Red Cell Distribution Width 15.1 % (11.0-16.0); White Blood Count 17.8 X10*3/uL (4.8-10.8)
[2023-09-22 05:38] LABS: Venous Blood Gas Refer to POC result
[2023-09-22] MEDS: Norepinephrine Bitartrate/D5W 8 MG/250 ML PLAST..BAG 31.79 MG IV ×2 (05:38→13:13)
[2023-09-22] MEDS: Levothyroxine Sodium 75 MCG TABLET PO (05:39)
[2023-09-22 05:57] LABS: Alanine Aminotransferase 90 U/L (0-40); Albumin Level 3.5 g/dL (3.5-5.0); Alkaline Phosphatase 73 U/L (39-117); Anion Gap 13 (12-20); Aspartate Amino Transferase 361 U/L (5-37); Bilirubin Total 1.4 mg/dL (0.0-1.0); Blood Urea Nitrogen 24 mg/dL (9-16); Calcium 8.5 mg/dL (8.4-10.2); Carbon Dioxide 23 mmol/L (22-29); Chloride 104 mmol/L (96-108); Creatinine Clr Calc Pharmacy 65.7; Estimated Glomerular Filt Rate > 60; Glucose Random 133 mg/dL (60-115); Magnesium 1.8 mg/dL (1.6-2.6); Phosphorus 2.8 mg/dL (2.7-4.5); Potassium 4.8 mmol/L (3.3-5.1); Sodium 135 mmol/L (135-145); Total Protein 6.3 g/dL (6.5-8.0)
[2023-09-22] MEDS: Chlorhexidine Gluc Oral Rinse 15 ML MOUTHWASH BUCCAL ×3 (07:59→21:53)
[2023-09-22] MEDS: Dolutegravir Sodium 50 MG TABLET PO (07:59)
[2023-09-22] MEDS: Abacavir/lamiVUDine 600/300 TABLET 1 TAB PO (07:59)
[2023-09-22] MEDS: Famotidine/PF 20 MG/2 ML VIAL IVPUSH (07:59)
[2023-09-22] MEDS: 0.9 % Sodium Chloride Flush 3 ML SYRINGE IVFLUSH ×2 (08:00→15:17)
--- NOTE | 2023-09-22 09:00 | P.PNCC_ITS ---
Subjective Subjective Date of Service: 09/22/23 Interval History: 77-year-old gentleman with underlying dementia, recurrent pulmonary aspiration, diastolic heart failure, HIV, BPH admitted on 09/15/2023 with dyspnea, lower extremity edema, hypoxia, and worsening alteration of mental status. Patient with treated with empiric antibiotics for aspiration pneumonia. hospital course is significant for worsening alteration of mental status with. On 09/15/2023 arterial blood gas was obtained that showed acute CO2 retention and chest x-ray demonstrated whiteout of the right lung. Nasotracheal suction was attempted, but was unsuccessful. Patient was not able to protect his airway. He was transferred to intensive care unit and emergently intubated with copious in-line secretions suctioned out after intubation. Now with aspiration pneumonia, further complicated by AFib with RVR/sick sinus syndrome. Underlying advanced dementia with chronic pulmonary aspiration now resulting in aspiration pneumonia with underlying overall poor quality of life and poor prognosis for meaningful clinical recovery discussed with patient's guardian and healthcare proxy who both agree with switching goals of care to palliation, continue working with case management to request court approval. No events overnight. Critical Care Time (minutes): 45 Physical Exam 2 Vital Signs: Vital Signs: Last Vital Signs Temp 100.0 F 09/22/23 08:00 Pulse 133 H 09/22/23 08:00 Resp 18 09/22/23 08:00 BP 115/76 09/22/23 08:00 Pulse Ox 93 09/22/23 07:00 O2 Del Method Mechanical Ventil ation 09/22/23 08:00 O2 Flow Rate 30 09/17/23 09:00 FiO2 50 09/22/23 08:00 BMI result Body Mass Index 30.4 Const: General: no acute distress and other ( sedated on the vent, no arousal with sedation vacation) Eyes: Sclerae: sclerae normal Neck: Neck: Yes no lymphadenopathy, Yes trachea midline and Yes supple Resp: Auscultation: rales (right sided) Cardio: Rate: regular rate Rhythm: regular rhythm Heart sounds: no gallops, no murmurs and no rubs GI: Palpation (GI): Soft to palpation and Other GI palpation findings present ( Nontender) Auscultation: normal bowel sounds Extrem: General: No clubbing, No cyanosis and Yes edema ( trace bilateral) Objective Data Labs 09/22/23 05:26 09/22/23 05:26 Labs: Laboratory Results - last 24 hr 09/21/23 09/22/23 09/22/23 15:59 05:26 05:30 WBC 17.8 H RBC 2.83 L Hgb 8.6 L Hct 25.9 L MCV 91.5 MCH 30.4 MCHC 33.2 RDW 15.1 Plt Count 227 D MPV 11.3 Immature Gran % (Auto) 3.8 H Neut % (Auto) 86.4 H Lymph % (Auto) 5.1 L [place] % (Auto) 3.9 Eos % (Auto) 0.4 Baso % (Auto) 0.4 Lymph # (Auto) 0.9 L [place] # (Auto) 0.7 Eos # (Auto) 0.1 Baso # (Auto) 0.1 Abs Immat Gran (auto) 0.67 H Absolute Neuts (auto) 15.4 H Absolute Nucleated RBC 0.090 H Nucleated RBC % (auto) 0.5 H VBG pH 7.41 VBG pCO2 34 VBG pO2 47 VBG HCO3 21 L VBG O2 Saturation 77.0 VBG Base Excess -2.1 Sodium 135 Potassium 4.8 Chloride 104 Carbon Dioxide 23 Anion Gap 13 BUN 24 H Creatinine 0.90 Estim Creat Clear Calc 65.7 Estimated GFR > 60 Random Glucose 133 H Calcium 8.5 Phosphorus 2.8 Magnesium 1.8 Total Bilirubin 1.4 H AST 361 H ALT 90 H Alkaline Phosphatase 73 Total Protein 6.3 L Albumin 3.5 Random Vancomycin 17.1 Microbiology Microbiology Results: Microbiology 09/16/23 10:47 Blood - Venous Blood Culture - Final No growth after 5 days. 09/16/23 10:47 Blood - Venous Blood Culture - Final No growth after 5 days. 09/15/23 03:08 Blood - Venous Blood Culture - Final No growth after 5 days. 09/15/23 03:04 Blood - Venous Blood Culture - Final No growth after 5 days. Progress Note: A&P Assessment and plan (1) Tachy-sophie syndrome: Status: Acute (2) CHF (congestive heart failure): Status: Acute (3) Dementia: Status: Acute (4) Dysphagia: Status: Acute (5) HIV (human immunodeficiency virus infection): Status: Acute (6) Acute respiratory failure with hypoxia and hypercapnia: Status: Acute (7) Aspiration pneumonia: Status: Acute Plan Assessment: 77-year-old gentleman with dementia, HIV, recurrent pulmonary aspiration admitted with encephalopathy and recurrent pulmonary aspiration, now requiring ventilatory support Plan: Neuro: acute metabolic encephalopathy secondary to CO2 narcosis on the background of known advanced dementia. Cardiac: AFib with RVR improved on amiodarone drip. Now with tachy-sophie syndrome. Underlying chronic diastolic congestive heart failure. Pulmonary: Recurrent pulmonary aspiration, with complete white out of the right lung. Intubated for airway protection. Continue to titrate off ventilatory support as tolerated. Chest physiotherapy. Renal: No acute issues. Endo: No acute issues. GI: No acute issues. ID: Aspiration pneumonia. Empirically covered with broad-spectrum antibiotics. Heme/Onc: No acute issues. Psych: No acute issues. Miscellaneous: Overall very poor prognosis for any meaningful clinical recovery secondary to underlying advanced dementia, likely with compinent of HIV dementia, and worsening recurrent aspirations requiring multiple evaluations/hospitalizations, now resulting in aspiration pneumonia, so far with failure to wean from mechanical ventilation. Pending court request to change goals of care. Prophylaxis: Lovenox, famotidine Diet: Tube feeds Critical care time spent: 45 minutes Quality Stroke Does the patient have a stroke diagnosis?: No VTE Prior VTE?: No VTE Risk Level:: Medical - moderate - high VTE Device Contraindication: Treatment Not Indicated VTE Drug Contraindication: N/A - Med Ordered
--- NOTE | 2023-09-22 09:01 | P.CDIM_ITS ---
PROVIDER RESPONSE TEXT: To clarify, the appropriate diagnosis supported by the clinical indicators: Acute blood loss anemia QUERY TEXT: PHYSICIAN'S DOCUMENTATION REQUEST Date of Query: 09/22/2023 08:37 AM EST Patient Name: Javi Hardy Admit Date: 09/15/2023 Dear Jarad Mora, A review of the medical record indicates additional documentation may be needed. Please review below and update the documentation accordingly. Clinical Indicators: On 09/21/23, H&H: 10.7/31.1 On 09/22/23: H&H: 8.6/25.9 On 09/22/23, total protein 6.3 Based on the above, could you clarify which of the following is the most likely type of anemia you ar e evaluating, treating, and/or monitoring? Acute blood loss anemia Acute blood loss anemia with baseline chronic anemia (specify type) Anemia of chronic disease indicate if neoplastic disease, CKD, or other Chronic iron deficiency anemia due to blood loss Vitamin B12 deficiency anemia indicate etiology, such as intrinsic factor deficiency, malabsorption, transcobalamin II deficiency, dietary, etc Folate deficiency anemia indicate etiology, such as dietary, drug-induced, etc Protein deficiency anemia Other (explain) Clinically unable to determine (explain) Thank you, Cee Zuleta RN Use of terms such as suspected, likely, concern for, or probable (associated with a specific diagnosi s that is being evaluated, monitored, or treated as if it exists) are acceptable and can be coded in the inpatient se tting, when documented at the time of discharge. Please use your independent medical judgment in providing your response. THIS QUERY IS PART OF THE PERMANENT MEDICAL RECORD
--- NOTE | 2023-09-22 10:25 | MHC.CLN ---
F/U PT REMAINS INTUBATED AND SEDATED. DISCUSSED WITH TEAM AT MD ROUNDS. PT RECEIVING TF PROMOTE AT MAX GOAL RATE 50ML/HR WITH 120 ML FREE WATER FLUSHES Q 6 HOURS. PROVIDES 1200KCALS (1406KCALS WITH SEDATION; 21.6KCALS/KG), 75G PROTEIN (1.15G/KG), 1487ML FREE WATER FROM FORMULA AND FLUSHES (23ML/KG). MONITOR TOLERANCE, RESIDUALS AND LYTES.
[2023-09-22] MEDS: Enoxaparin Sodium 40 MG/0.4 ML SYRINGE SUBCUT (13:34)
--- NOTE | 2023-09-22 14:05 | MHC.SLORD ---
Speech Language Pathology Order Status: Patient continues to be intubated/vented. INSULATION POWER UNIT TENDER will continue to follow, re-assess when appropriate.
[2023-09-22] MEDS: Amiodarone HCL 900 MG in 0.9 % Sodium Chloride 500 ML 17.27 MG IVCONT (15:42)
--- NOTE | 2023-09-22 15:57 | MHC.CM.PN ---
EMR REVIEWED AND PER MD ROUNDS, PT REMAINS ON VENTILATORY SUPPORT IN ICU. GUARDIAN AND HCP HAVE BEEN IN COMMUNICATIONS WITH MD REGARDING GOC TO PALLIATIVE. CM TEAM AWARE AND WILL TAKE STEPS 09/25/23 TO FACILITATE THIS WITH THE COURT AND F/U WITH GUARDIAN.
[2023-09-22 16:26] LABS: Vancomycin Random 20.6 mcg/mL (15-20)
--- NOTE | 2023-09-22 16:52 | HE.PHANOTE ---
RE: VANCO Based on random trough result comes back as 20.6 which is higher than predicted 17.3, dose was decreased to 500mg q12h and another random was scheduled for 11/23/22@1600.
[2023-09-22] MEDS: vancomycin HCL 500 MG in 0.9 % Sodium Chloride 100 ML 110 MG IV (17:48)
[2023-09-22] MEDS: Norepinephrine Bitartrate/D5W 8 MG/250 ML PLAST..BAG 29.34 MG IV (21:25)
[2023-09-22] MEDS: Furosemide 40 MG/4 ML VIAL IVPUSH (22:50)
[2023-09-23] VITALS (44 sets, daily range): BP systolic 78–142; BP diastolic 41–81; PULSE 86–116; RESP 15–28; TEMP 35.3–38.5; O2SAT 88–98; BMI 32.5
[2023-09-23] MEDS: Piperacillin Sodium/Tazobactam 3.375 GM in 0.9 % Sodium Chloride 50 ML IV ×4 (01:54→19:36)
[2023-09-23] MEDS: Norepinephrine Bitartrate/D5W 8 MG/250 ML PLAST..BAG 31.79 MG IV (05:19)
[2023-09-23] MEDS: Levothyroxine Sodium 75 MCG TABLET PO (05:19)
[2023-09-23] MEDS: propofoL 1,000 MG/100 ML VIAL 7.82 MG IVCONT ×3 (05:19→23:52)
[2023-09-23] MEDS: vancomycin HCL 500 MG in 0.9 % Sodium Chloride 100 ML 110 MG IV (05:21)
[2023-09-23 05:24] LABS: VBG HCO3 16 mmol/L (22-26); VBG pCO2 30 mmHg; VBG pH 7.34 (7.32-7.43); VBG pO2 42 mmHg
[2023-09-23 05:31] LABS: Hemoglobin 9.3 g/dl (14.0-18.0); Mean Corpuscular HGB Conc 33.2 g/dl (31.0-36.0); Mean Corpuscular Volume 93.3 fL (80.0-98.0); NRBC Pct Auto 1.4 /100WBC (0.0-0.2); Platelet Count 278 X10*3/uL (160-400); Red Cell Distribution Width 15.7 % (11.0-16.0); Venous Blood Gas Refer to POC result; White Blood Count 27.7 X10*3/uL (4.8-10.8)
[2023-09-23 05:48] LABS: Anion Gap 21 (12-20); Blood Urea Nitrogen 38 mg/dL (9-16); Calcium 8.7 mg/dL (8.4-10.2); Carbon Dioxide 16 mmol/L (22-29); Chloride 101 mmol/L (96-108); Creatinine Clr Calc Pharmacy 39.4; Estimated Glomerular Filt Rate 44; Glucose Random 86 mg/dL (60-115); Magnesium 2.2 mg/dL (1.6-2.6); Phosphorus 4.9 mg/dL (2.7-4.5); Potassium 6.2 mmol/L (3.3-5.1); Sodium 132 mmol/L (135-145)
[2023-09-23 06:05] LABS: Atypical Lymph Absolute Manual 0.3 x10*3/uL; Atypical Lymphs Percent Manual 1 % (0-6); Band Neutrophils Percent 16 % (3-5); Lymphocytes Absolute Manual 1.1 X10*3/uL (1.2-4.9); Lymphocytes Percent Manual 4 % (20-40); Metamyelocytes Absolute 0.3 X10*3/uL; Metamyelocytes Percent 1 %; Monocytes Absolute Manual 1.7 X10*3/uL (0.1-1.2); Monocytes Percent Manual 6 % (2-11); Neutrophils Absolute Manual 24.4 X10*3/uL (2.0-8.3); Neutrophils Percent Manual 72 % (45-73); Nucleated Red Blood Cells 3 /100WBC (0-0)
[2023-09-23] MEDS: Lactulose 20 GM/30 ML SOLUTION 30 GM PO (06:06)
[2023-09-23 06:07] LABS: Acanthocytes 1+ (0-2) /OIF; Large Platelet PRESENT; Macrocytosis 1+ (5-14) /OIF; Ovalocytes 1+ (5-14) /OIF; Platelet Estimate NORMAL (NORMAL); Platelet Morphology Comment NOTED; RBC Morphology NOTED; Spherocytes 1+ (0-2) /OIF; Target Cells 1+ (5-14) /OIF
[2023-09-23 06:08] LABS: Basophilic Stippling 1+ (0-2) /OIF; Burr Cells 1+ (0-2) /OIF; Dohle Bodies PRESENT; Polychromasia 1+ (0-2) /OIF; Smudge Cells PRESENT; Toxic Granulation PRESENT; Toxic Vacuolation PRESENT
[2023-09-23] MEDS: 0.9 % Sodium Chloride Flush 3 ML SYRINGE IVFLUSH ×3 (07:51→22:28)
[2023-09-23] MEDS: Abacavir/lamiVUDine 600/300 TABLET 1 TAB PO (08:00)
[2023-09-23] MEDS: Famotidine/PF 20 MG/2 ML VIAL IVPUSH (08:00)
[2023-09-23] MEDS: Chlorhexidine Gluc Oral Rinse 15 ML MOUTHWASH BUCCAL ×3 (08:00→19:36)
[2023-09-23] MEDS: Dolutegravir Sodium 50 MG TABLET PO (08:00)
--- NOTE | 2023-09-23 10:23 | P.PNCC_ITS ---
Subjective Subjective Date of Service: 09/23/23 Interval History: 77-year-old gentleman with underlying dementia, recurrent pulmonary aspiration, diastolic heart failure, HIV, BPH admitted on 09/15/2023 with dyspnea, lower extremity edema, hypoxia, and worsening alteration of mental status. Patient with treated with empiric antibiotics for aspiration pneumonia. hospital course is significant for worsening alteration of mental status with. On 09/15/2023 arterial blood gas was obtained that showed acute CO2 retention and chest x-ray demonstrated whiteout of the right lung. Nasotracheal suction was attempted, but was unsuccessful. Patient was not able to protect his airway. He was transferred to intensive care unit and emergently intubated with copious in-line secretions suctioned out after intubation. Now with aspiration pneumonia, further complicated by AFib with RVR/sick sinus syndrome. Underlying advanced dementia with chronic pulmonary aspiration now resulting in aspiration pneumonia with underlying overall poor quality of life and poor prognosis for meaningful clinical recovery discussed with patient's guardian and healthcare proxy who both agree with switching goals of care to palliation, continue working with case management to request court approval. Overnight with worsening septic shock, kidney injury and urine output and increasing pressor requirements. Critical Care Time (minutes): 60 Physical Exam 2 Vital Signs: Vital Signs: Last Vital Signs Temp 100.2 F 09/23/23 09:00 Pulse 93 09/23/23 09:44 Resp 20 09/23/23 09:00 BP 100/50 L 09/23/23 09:44 Pulse Ox 96 09/23/23 09:00 O2 Del Method Mechanical Ventil ation 09/23/23 09:00 O2 Flow Rate 30 09/17/23 09:00 FiO2 40 09/23/23 09:00 BMI result Body Mass Index 32.5 Const: General: no acute distress and other ( sedated on the vent) Eyes: Sclerae: sclerae normal EOM: EOMs intact bilaterally Neck: Neck: Yes no lymphadenopathy, Yes trachea midline and Yes supple Resp: Auscultation: other ( who right-sided air movement) Cardio: Rate: regular rate Rhythm: regular rhythm Heart sounds: no gallops, no murmurs and no rubs GI: Palpation (GI): Soft to palpation and Other GI palpation findings present ( Nontender) Auscultation: normal bowel sounds Extrem: General: No clubbing, No cyanosis and Yes edema (1+ bilateral) Objective Data Labs 09/23/23 05:06 09/23/23 05:06 Labs: Laboratory Results - last 24 hr 09/22/23 09/23/23 09/23/23 16:04 05:06 05:18 WBC 27.7 H RBC 3.00 L Hgb 9.3 L Hct 28.0 L MCV 93.3 MCH 31.0 MCHC 33.2 RDW 15.7 Plt Count 278 MPV 12.0 Immature Gran % (Auto) Cancelled Neut % (Auto) Cancelled Lymph % (Auto) Cancelled [place] % (Auto) Cancelled Eos % (Auto) Cancelled Baso % (Auto) Cancelled Lymph # (Auto) Cancelled [place] # (Auto) Cancelled Eos # (Auto) Cancelled Baso # (Auto) Cancelled Abs Immat Gran (auto) Cancelled Absolute Neuts (auto) Cancelled Absolute Nucleated RBC 0.390 H Nucleated RBC % (auto) 1.4 H Neutrophils % (Manual) 72 Band Neutrophils % 16 H Lymphocytes % (Manual) 4 L Atypical Lymphs % (Man) 1 Monocytes % (Manual) 6 Metamyelocytes % 1 Abs Neuts (Manual) 24.4 H Lymphocytes # (Manual) 1.1 L Atyp Lymphs # (Manual) 0.3 Monocytes # (Manual) 1.7 H Metamyelocytes # 0.3 Nucleated RBCs 3 H Smudge Cells PRESENT Toxic Granulation PRESENT Toxic Vacuolation PRESENT Dohle Bodies PRESENT Platelet Estimate NORMAL Large Platelets PRESENT Plt Morphology Comment NOTED RBC Morphology NOTED Polychromasia 1+ (0-2) Basophilic Stippling 1+ (0-2) Macrocytosis 1+ (5-14) Spherocytes 1+ (0-2) Target Cells 1+ (5-14) Ovalocytes 1+ (5-14) [place] Cells 1+ (0-2) Acanthocytes (Spur) 1+ (0-2) VBG pH 7.34 VBG pCO2 30 VBG pO2 42 VBG HCO3 16 L VBG O2 Saturation 70.0 VBG Base Excess -8.0 Sodium 132 L Potassium 6.2 H* D Chloride 101 Carbon Dioxide 16 L Anion Gap 21 H BUN 38 H Creatinine 1.55 H Estim Creat Clear Calc 39.4 Estimated GFR 44 Random Glucose 86 Calcium 8.7 Phosphorus 4.9 H Magnesium 2.2 Albumin 3.0 L Random Vancomycin 20.6 H Microbiology Microbiology Results: Microbiology 09/16/23 10:47 Blood - Venous Blood Culture - Final No growth after 5 days. 09/16/23 10:47 Blood - Venous Blood Culture - Final No growth after 5 days. 09/15/23 03:08 Blood - Venous Blood Culture - Final No growth after 5 days. 09/15/23 03:04 Blood - Venous Blood Culture - Final No growth after 5 days. Progress Note: A&P Assessment and plan (1) Tachy-sophie syndrome: Status: Acute (2) CHF (congestive heart failure): Status: Acute (3) Dementia: Status: Acute (4) HIV (human immunodeficiency virus infection): Status: Acute (5) Acute respiratory failure with hypoxia and hypercapnia: Status: Acute (6) Aspiration pneumonia: Status: Acute (7) Acute kidney injury: Status: Acute Plan Assessment: 77-year-old gentleman with dementia, HIV, recurrent pulmonary aspiration admitted with encephalopathy and recurrent pulmonary aspiration, now requiring ventilatory support Plan: Neuro: acute metabolic encephalopathy secondary to CO2 narcosis on the background of known advanced dementia. Cardiac: AFib with RVR improved on amiodarone drip. Now with tachy-sophie syndrome. Underlying chronic diastolic congestive heart failure. Pulmonary: Recurrent pulmonary aspiration, with complete white out of the right lung. Intubated for airway protection. Continue to titrate off ventilatory support as tolerated. Chest physiotherapy. Renal: acute renal failure with oliguria secondary to septic shock. Continue to monitor renal indices and urine output. Endo: No acute issues. GI: No acute issues. ID: Aspiration pneumonia. Empirically covered with broad-spectrum antibiotics. Heme/Onc: No acute issues. Psych: No acute issues. Miscellaneous: Overall very poor prognosis for any meaningful clinical recovery secondary to underlying advanced dementia, likely with compinent of HIV dementia, and worsening recurrent aspirations requiring multiple evaluations/hospitalizations, now resulting in aspiration pneumonia with profound septic shock and worsening renal function, so far with failure to wean from mechanical ventilation. Pending court request to change goals of care. Prophylaxis: Lovenox, famotidine Diet: Tube feeds Critical care time spent: 60 minutes Quality Stroke Does the patient have a stroke diagnosis?: No VTE Prior VTE?: No VTE Risk Level:: Medical - moderate - high VTE Device Contraindication: Treatment Not Indicated VTE Drug Contraindication: N/A - Med Ordered
[2023-09-23] MEDS: Albumin Human 25 % 100 ML IV ×3 (10:34→21:24)
[2023-09-23] MEDS: Amiodarone HCL 900 MG in 0.9 % Sodium Chloride 500 ML 17.27 MG IVCONT (11:51)
[2023-09-23] MEDS: Norepinephrine Bitartrate/D5W 8 MG/250 ML PLAST..BAG 44.01 MG IV ×2 (11:55→17:06)
[2023-09-23] MEDS: Enoxaparin Sodium 40 MG/0.4 ML SYRINGE SUBCUT (14:01)
[2023-09-23 16:28] LABS: Vancomycin Random 25.8 mcg/mL (15-20)
--- NOTE | 2023-09-23 16:48 | HE.PHANOTE ---
VANCO DOSE ADJUSTMENT BASED ON LEVEL OF 25.8 DOSE HELD AND NEW TROUGH PUT IN 09/24 @ 0600
[2023-09-23 19:22] LABS: VBG Base Excess -5.2 mmol/L; VBG HCO3 19 mmol/L (22-26); VBG pCO2 34 mmHg; VBG pH 7.36 (7.32-7.43); VBG pO2 52 mmHg
[2023-09-23 19:38] LABS: Albumin Level 3.6 g/dL (3.5-5.0); Anion Gap 15 (12-20); Blood Urea Nitrogen 48 mg/dL (9-16); Calcium 8.3 mg/dL (8.4-10.2); Carbon Dioxide 19 mmol/L (22-29); Chloride 101 mmol/L (96-108); Estimated Glomerular Filt Rate 36; Glucose Random 171 mg/dL (60-115); Magnesium 2.2 mg/dL (1.6-2.6); Phosphorus 4.4 mg/dL (2.7-4.5); Potassium 6.1 mmol/L (3.3-5.1); Sodium 129 mmol/L (135-145)
[2023-09-23] MEDS: Lactulose 20 GM/30 ML SOLUTION OG-TUBE (19:54)
[2023-09-23] MEDS: Calcium Gluconate/NaCl,Iso-Osm 2 GM/100 ML PLAST..BAG IV (19:54)
[2023-09-23 20:03] LABS: Venous Blood Gas Refer to POC result
[2023-09-23] MEDS: Sodium Zirconium Cyclosilicate 10 GM POWD.PACK OG-TUBE (20:31)
[2023-09-23] MEDS: Norepinephrine Bitartrate/D5W 8 MG/250 ML PLAST..BAG 41.57 MG IV (22:22)
[2023-09-24] VITALS (42 sets, daily range): BP systolic 87–143; BP diastolic 54–75; PULSE 89–120; RESP 12–30; TEMP 35.3–38.1; O2SAT 91–100; BMI 33.1
[2023-09-24] MEDS: Piperacillin Sodium/Tazobactam 3.375 GM in 0.9 % Sodium Chloride 50 ML IV ×4 (01:26→19:25)
[2023-09-24] MEDS: Albumin Human 25 % 100 ML IV (03:42)
--- NOTE | 2023-09-24 04:34 | HO.SKINPHOTO ---
Location: Coccyx Category: Pressure Stage: II Length: Width: Depth: cm
[2023-09-24] MEDS: Norepinephrine Bitartrate/D5W 8 MG/250 ML PLAST..BAG 36.68 MG IV (04:53)
[2023-09-24] MEDS: Levothyroxine Sodium 75 MCG TABLET PO (05:01)
[2023-09-24 05:24] LABS: VBG Base Excess -4.8 mmol/L; VBG HCO3 19 mmol/L (22-26); VBG pCO2 32 mmHg; VBG pH 7.38 (7.32-7.43); VBG pO2 44 mmHg
[2023-09-24 05:38] LABS: Basophils Absolute Auto 0.2 X10*3/uL (0.0-0.2); Basophils Percent Auto 0.6 % (0-2); Eosinophils Percent Auto 0.1 % (0-4); Hematocrit 24.5 % (42.0-52.0); Hemoglobin 8.4 g/dl (14.0-18.0); Imm Gran Abs Auto 0.95 X10*3/uL (0.00-0.03); Imm Gran Pct Auto 3.4 % (0.0-0.4); Lymphocytes Absolute Auto 0.5 X10*3/uL (1.2-4.9); Lymphocytes Percent Auto 1.7 % (20-40); MANUAL DIFF FLAG SCAN; Mean Corpuscular HGB Conc 34.3 g/dl (31.0-36.0); Mean Corpuscular Hemoglobin 31.9 pg (27.0-33.0); Mean Corpuscular Volume 93.2 fL (80.0-98.0); Mean Platelet Volume 12.4 fL (9.4-12.4); Monocytes Absolute Auto 0.5 X10*3/uL (0.1-1.2); Monocytes Percent Auto 1.8 % (2-11); Neutrophils Absolute Auto 25.7 x10*3/uL (2.0-8.3); Neutrophils Percent Auto 92.4 % (45-73); Platelet Count 244 X10*3/uL (160-400); Red Blood Count 2.63 X10*6/uL (4.60-5.80); Red Cell Distribution Width 15.6 % (11.0-16.0); SCAN SMEAR FLAG 1; White Blood Count 27.9 X10*3/uL (4.8-10.8)
[2023-09-24 05:40] LABS: NRBC Pct Auto 1.1 /100WBC (0.0-0.2)
[2023-09-24 05:50] LABS: Venous Blood Gas Refer to POC result
[2023-09-24 05:55] LABS: Vancomycin Random 22.9 mcg/mL (15-20)
[2023-09-24 06:01] LABS: Alanine Aminotransferase 285 U/L (0-40); Albumin Level 3.6 g/dL (3.5-5.0); Alkaline Phosphatase 93 U/L (39-117); Anion Gap 15 (12-20); Aspartate Amino Transferase 1048 U/L (5-37); Bilirubin Total 1.5 mg/dL (0.0-1.0); Blood Urea Nitrogen 52 mg/dL (9-16); Calcium 8.3 mg/dL (8.4-10.2); Carbon Dioxide 20 mmol/L (22-29); Chloride 99 mmol/L (96-108); Creatinine Clr Calc Pharmacy 30.6; Estimated Glomerular Filt Rate 32; Glucose Random 142 mg/dL (60-115); Magnesium 2.2 mg/dL (1.6-2.6); Phosphorus 4.2 mg/dL (2.7-4.5); Potassium 5.8 mmol/L (3.3-5.1); Sodium 128 mmol/L (135-145); Total Protein 6.7 g/dL (6.5-8.0)
[2023-09-24] MEDS: Calcium Gluconate/NaCl,Iso-Osm 2 GM/100 ML PLAST..BAG IV (06:30)
[2023-09-24 06:32] LABS: SLIDE REVIEW VERIFIED
[2023-09-24] MEDS: 0.9 % Sodium Chloride Flush 3 ML SYRINGE IVFLUSH ×2 (07:23→15:14)
[2023-09-24] MEDS: Famotidine/PF 20 MG/2 ML VIAL IVPUSH (07:24)
[2023-09-24] MEDS: Dolutegravir Sodium 50 MG TABLET PO (07:34)
[2023-09-24] MEDS: Chlorhexidine Gluc Oral Rinse 15 ML MOUTHWASH BUCCAL ×3 (07:35→21:38)
[2023-09-24] MEDS: Abacavir/lamiVUDine 600/300 TABLET 1 TAB PO (07:35)
[2023-09-24] MEDS: propofoL 1,000 MG/100 ML VIAL 7.82 MG IVCONT ×2 (09:47→18:43)
[2023-09-24] MEDS: Bumetanide 1 MG/4 ML VIAL IVPUSH (09:59)
--- NOTE | 2023-09-24 10:03 | PM.CCPN ---
Subjective Subjective Date of Service: 09/24/23 Interval History: 77-year-old gentleman with underlying dementia, recurrent pulmonary aspiration, diastolic heart failure, HIV, BPH admitted on 09/15/2023 with dyspnea, lower extremity edema, hypoxia, and worsening alteration of mental status. Patient with treated with empiric antibiotics for aspiration pneumonia. hospital course is significant for worsening alteration of mental status with. On 09/15/2023 arterial blood gas was obtained that showed acute CO2 retention and chest x-ray demonstrated whiteout of the right lung. Nasotracheal suction was attempted, but was unsuccessful. Patient was not able to protect his airway. He was transferred to intensive care unit and emergently intubated with copious in-line secretions suctioned out after intubation. Now with aspiration pneumonia, further complicated by AFib with RVR/sick sinus syndrome. Underlying advanced dementia with chronic pulmonary aspiration now resulting in aspiration pneumonia with underlying overall poor quality of life and poor prognosis for meaningful clinical recovery discussed with patient's guardian and healthcare proxy who both agree with switching goals of care to palliation, continue working with case management to request court approval. Overnight with worsening ischemic hepatitis and ATN. Critical Care Time (minutes): 60 Physical Exam Vital Signs: Vital Signs: Last Vital Signs Temp 100.6 F H 09/24/23 09:00 Pulse 117 H 09/24/23 09:00 Resp 25 H 09/24/23 09:00 BP 124/62 09/24/23 09:00 Pulse Ox 94 09/24/23 09:00 O2 Del Method Mechanical Ventil ation 09/24/23 09:00 O2 Flow Rate 30 09/17/23 09:00 FiO2 60 09/24/23 09:00 BMI result Body Mass Index 33.1 Const: General: no acute distress and other ( sedated on the vent) Nutritional Appearance: Edematous Eyes: Sclerae: sclerae normal Neck: Neck: Yes no lymphadenopathy, Yes trachea midline and Yes supple Resp: Auscultation: crackles ( bilateral) Cardio: Rate: tachycardic Rhythm: regular rhythm Heart sounds: no gallops, no murmurs and no rubs GI: Palpation (GI): Soft to palpation and Other GI palpation findings present ( Nontender) Auscultation: normal bowel sounds Extrem: General: No clubbing, No cyanosis and Yes edema ( 2+ bilateral) Objective Data Labs 09/24/23 05:11 09/24/23 05:11 Labs: Laboratory Results - last 24 hr 09/23/23 09/23/23 09/23/23 15:54 19:07 19:12 WBC RBC Hgb Hct MCV MCH MCHC RDW Plt Count MPV Immature Gran % (Auto) Neut % (Auto) Lymph % (Auto) [place] % (Auto) Eos % (Auto) Baso % (Auto) Lymph # (Auto) [place] # (Auto) Eos # (Auto) Baso # (Auto) Abs Immat Gran (auto) Absolute Neuts (auto) Absolute Nucleated RBC Nucleated RBC % (auto) Smear Tech's Comments VBG pH 7.36 VBG pCO2 34 VBG pO2 52 VBG HCO3 19 L VBG O2 Saturation 82.0 VBG Base Excess -5.2 Sodium 129 L Potassium 6.1 H* Chloride 101 Carbon Dioxide 19 L Anion Gap 15 BUN 48 H Creatinine 1.85 H Estim Creat Clear Calc 33.0 Estimated GFR 36 Random Glucose 171 H Calcium 8.3 L Phosphorus 4.4 Magnesium 2.2 Total Bilirubin AST ALT Alkaline Phosphatase Total Protein Albumin 3.6 Random Vancomycin 25.8 H* 09/24/23 09/24/23 05:11 05:19 WBC 27.9 H RBC 2.63 L Hgb 8.4 L Hct 24.5 L MCV 93.2 MCH 31.9 MCHC 34.3 RDW 15.6 Plt Count 244 MPV 12.4 Immature Gran % (Auto) 3.4 H Neut % (Auto) 92.4 H Lymph % (Auto) 1.7 L [place] % (Auto) 1.8 L Eos % (Auto) 0.1 Baso % (Auto) 0.6 Lymph # (Auto) 0.5 L [place] # (Auto) 0.5 Eos # (Auto) 0.0 Baso # (Auto) 0.2 Abs Immat Gran (auto) 0.95 H Absolute Neuts (auto) 25.7 H Absolute Nucleated RBC 0.300 H Nucleated RBC % (auto) 1.1 H Smear Tech's Comments VERIFIED VBG pH 7.38 VBG pCO2 32 VBG pO2 44 VBG HCO3 19 L VBG O2 Saturation 75.0 VBG Base Excess -4.8 Sodium 128 L Potassium 5.8 H Chloride 99 Carbon Dioxide 20 L Anion Gap 15 BUN 52 H Creatinine 2.01 H Estim Creat Clear Calc 30.6 Estimated GFR 32 Random Glucose 142 H Calcium 8.3 L Phosphorus 4.2 Magnesium 2.2 Total Bilirubin 1.5 H AST 1048 H ALT 285 H Alkaline Phosphatase 93 Total Protein 6.7 Albumin 3.6 Random Vancomycin 22.9 H Microbiology Microbiology Results: Microbiology 09/16/23 10:47 Blood - Venous Blood Culture - Final No growth after 5 days. 09/16/23 10:47 Blood - Venous Blood Culture - Final No growth after 5 days. 09/15/23 03:08 Blood - Venous Blood Culture - Final No growth after 5 days. 09/15/23 03:04 Blood - Venous Blood Culture - Final No growth after 5 days. Progress Note: A&P Assessment and plan (1) Acute kidney injury: Status: Acute (2) Tachy-sophie syndrome: Status: Acute (3) Ischemic hepatitis: Status: Acute (4) CHF (congestive heart failure): Status: Acute (5) Dementia: Status: Acute (6) Dysphagia: Status: Acute (7) HIV (human immunodeficiency virus infection): Status: Acute (8) Acute respiratory failure with hypoxia and hypercapnia: Status: Acute (9) Aspiration pneumonia: Status: Acute Plan Assessment: 77-year-old gentleman with dementia, HIV, recurrent pulmonary aspiration admitted with encephalopathy and recurrent pulmonary aspiration, now requiring ventilatory support Plan: Neuro: acute metabolic encephalopathy secondary to CO2 narcosis on the background of known advanced dementia. Cardiac: AFib with RVR improved on amiodarone drip. Now with tachy-sophie syndrome. Underlying chronic diastolic congestive heart failure. Pulmonary: Recurrent pulmonary aspiration, with complete white out of the right lung. Intubated for airway protection. Continue to titrate off ventilatory support as tolerated. Chest physiotherapy. Renal: acute renal failure with oliguria secondary to septic shock. Continue to monitor renal indices and urine output. Endo: No acute issues. GI: Ischemic hepatitis ID: Aspiration pneumonia. Empirically covered with broad-spectrum antibiotics. Heme/Onc: No acute issues. Psych: No acute issues. Miscellaneous: Overall very poor prognosis for any meaningful clinical recovery secondary to underlying advanced dementia, likely with compinent of HIV dementia, and worsening recurrent aspirations requiring multiple evaluations/hospitalizations, now resulting in aspiration pneumonia with profound septic shock and worsening renal function, so far with failure to wean from mechanical ventilation. Pending court request to change goals of care. Prophylaxis: Lovenox, famotidine Diet: Tube feeds Critical care time spent: 60 minutes Quality Stroke Does the patient have a stroke diagnosis?: No VTE Prior VTE?: No VTE Risk Level:: Medical - moderate - high VTE Device Contraindication: Treatment Not Indicated VTE Drug Contraindication: N/A - Med Ordered
[2023-09-24] MEDS: Amiodarone HCL 900 MG in 0.9 % Sodium Chloride 500 ML 17.27 MG IVCONT (12:01)
[2023-09-24] MEDS: Norepinephrine Bitartrate/D5W 8 MG/250 ML PLAST..BAG 24.45 MG IV (12:34)
[2023-09-24] MEDS: Enoxaparin Sodium 40 MG/0.4 ML SYRINGE SUBCUT (14:07)
--- NOTE | 2023-09-24 16:20 | MHC.CM.PN ---
Pt continues on ventilatory support: overall prognosis is poor per notes and discussion w/MD. Guardian [place] given [place] [facility] [place]: DNR/WEIGHER AND CHARGER/DNI through the court. This will be initiated and pursued on 09/25.
[2023-09-24 18:32] LABS: Vancomycin Random 20.8 mcg/mL (15-20)
--- NOTE | 2023-09-24 18:59 | HE.PHANOTE ---
VANCO DOSE ADJUSTMENT BASED ON SCR AND TROUGH OF 20.8. DOSE HELD NEXT TROUGH 09/25 @ 1800
[2023-09-24] MEDS: Norepinephrine Bitartrate/D5W 8 MG/250 ML PLAST..BAG 17.12 MG IV (23:34)
[2023-09-25] VITALS (33 sets, daily range): BP systolic 91–110; BP diastolic 53–69; PULSE 96–108; RESP 20–34; TEMP 34.9–38.1; O2SAT 92–100; BMI 33.0
--- NOTE | 2023-09-25 | ECG_ITS ---
Test Reason : routine Blood Pressure : / mmHG Vent. Rate : 101 BPM Atrial Rate : 104 BPM P-R Int : 000 ms QRS Dur : 136 ms QT Int : 380 ms P-R-T Axes : 000 -59 051 degrees QTc Int : 492 ms Undetermined rhythm Right bundle branch block Left anterior fascicular block Bifascicular block Abnormal ECG When compared with ECG of 17-SEP-2023 20:52, Current undetermined rhythm precludes rhythm comparison, needs review (RBBB and left anterior fascicular block) is now Present Referred By: Ruby Kiran Electronically Signed By:
[2023-09-25] MEDS: 0.9 % Sodium Chloride Flush 3 ML SYRINGE IVFLUSH ×4 (00:15→22:48)
[2023-09-25] MEDS: Piperacillin Sodium/Tazobactam 3.375 GM in 0.9 % Sodium Chloride 50 ML IV ×2 (02:08→07:37)
[2023-09-25] MEDS: propofoL 1,000 MG/100 ML VIAL 11.74 MG IVCONT ×3 (02:11→18:13)
[2023-09-25 04:42] LABS: VBG Base Excess -5.4 mmol/L; VBG HCO3 19 mmol/L (22-26); VBG pCO2 34 mmHg; VBG pH 7.35 (7.32-7.43); VBG pO2 42 mmHg
[2023-09-25 04:44] LABS: Venous Blood Gas Refer to POC result
[2023-09-25 04:46] LABS: Hematocrit 26.3 % (42.0-52.0); Hemoglobin 9.1 g/dl (14.0-18.0); Mean Corpuscular HGB Conc 34.6 g/dl (31.0-36.0); Mean Corpuscular Hemoglobin 31.8 pg (27.0-33.0); Mean Platelet Volume 12.5 fL (9.4-12.4); NRBC Pct Auto 0.9 /100WBC (0.0-0.2); Platelet Count 252 X10*3/uL (160-400); Red Blood Count 2.86 X10*6/uL (4.60-5.80); Red Cell Distribution Width 15.7 % (11.0-16.0); WBC ABN SCTR FOR CBC 1
[2023-09-25 04:47] LABS: White Blood Count 25.5 X10*3/uL (4.8-10.8)
[2023-09-25 05:09] LABS: Band Neutrophils Percent 5 % (3-5); Lymphocytes Absolute Manual 0.8 X10*3/uL (1.2-4.9); Lymphocytes Percent Manual 3 % (20-40); Monocytes Absolute Manual 0.8 X10*3/uL (0.1-1.2); Monocytes Percent Manual 3 % (2-11); Neutrophils Percent Manual 89 % (45-73); Nucleated Red Blood Cells 3 /100WBC (0-0)
[2023-09-25 05:10] LABS: RBC Morphology NOTED
[2023-09-25 05:11] LABS: Acanthocytes 1+ (0-2) /OIF; Large Platelet PRESENT; Platelet Estimate NORMAL (NORMAL); Platelet Morphology Comment NOTED; Polychromasia 1+ (0-2) /OIF; Target Cells 1+ (5-14) /OIF; Toxic Granulation PRESENT; Toxic Vacuolation PRESENT
[2023-09-25 05:16] LABS: Alanine Aminotransferase 315 U/L (0-40); Alkaline Phosphatase 95 U/L (39-117); Anion Gap 18 (12-20); Aspartate Amino Transferase 833 U/L (5-37); Bilirubin Total 1.4 mg/dL (0.0-1.0); Blood Urea Nitrogen 62 mg/dL (9-16); Calcium 8.3 mg/dL (8.4-10.2); Carbon Dioxide 18 mmol/L (22-29); Chloride 98 mmol/L (96-108); Creatinine Clr Calc Pharmacy 27.1; Estimated Glomerular Filt Rate 28; Glucose Random 123 mg/dL (60-115); Magnesium 2.2 mg/dL (1.6-2.6); Potassium 6.3 mmol/L (3.3-5.1); Sodium 128 mmol/L (135-145); Total Protein 6.7 g/dL (6.5-8.0)
[2023-09-25] MEDS: Calcium Gluconate/NaCl,Iso-Osm 2 GM/100 ML PLAST..BAG IV (05:40)
[2023-09-25] MEDS: Albumin Human 25 % 100 ML IV ×4 (05:41→22:45)
[2023-09-25] MEDS: Levothyroxine Sodium 75 MCG TABLET PO (05:52)
[2023-09-25] MEDS: Sodium Zirconium Cyclosilicate 10 GM POWD.PACK PO (05:52)
[2023-09-25] MEDS: Chlorhexidine Gluc Oral Rinse 15 ML MOUTHWASH BUCCAL ×3 (07:58→20:44)
[2023-09-25] MEDS: Abacavir/lamiVUDine 600/300 TABLET 1 TAB PO (07:58)
[2023-09-25] MEDS: Famotidine/PF 20 MG/2 ML VIAL IVPUSH (07:58)
[2023-09-25] MEDS: Dolutegravir Sodium 50 MG TABLET PO (07:59)
--- NOTE | 2023-09-25 08:00 | PM.CCPN ---
Subjective Subjective Date of Service: 09/25/23 Critical Care Time (minutes): 90 Physical Exam Vital Signs: Vital Signs: Last Vital Signs Temp 100.2 F 09/25/23 07:00 Pulse 103 H 09/25/23 07:00 Resp 25 H 09/25/23 07:00 BP 110/64 09/25/23 07:00 Pulse Ox 96 09/25/23 07:00 O2 Del Method Mechanical Ventil ation 09/25/23 07:00 O2 Flow Rate 30 09/17/23 09:00 FiO2 60 09/25/23 07:00 BMI result Body Mass Index 33.0 Const: Other: intubated, sedated General: comfortable and no acute distress HEENT: Head: Yes normal to inspection, Yes normocephalic and Yes atraumatic Eyes: General: appearance normal, both eyes and all related structures Neck: Neck: Yes normal visual inspection, Yes full ROM, Yes no meningeal signs and Yes supple Chest: Chest palpation & inspection: normal inspection of the chest Resp: Other: no appreciable rales, rhonchi, wheezing Cardio: Rate: regular rate Rhythm: regular rhythm GI: Inspection: Yes normal to inspection, No Abdominal wall edema and No distended Palpation (GI): Soft to palpation, not firm, nontender, no guarding and not rigid Neuro: Other: intubated, sedated General: no meningeal signs Extrem: Other: 2+ pitting edema to bilateral knees General: Yes capillary refill normal Psych: Other: unable to assess Objective Data Labs 09/25/23 04:35 09/25/23 04:35 Labs: Laboratory Results - last 24 hr 09/24/23 09/25/23 09/25/23 18:04 04:35 04:37 WBC 25.5 H RBC 2.86 L Hgb 9.1 L Hct 26.3 L MCV 92.0 MCH 31.8 MCHC 34.6 RDW 15.7 Plt Count 252 MPV 12.5 H Immature Gran % (Auto) Cancelled Neut % (Auto) Cancelled Lymph % (Auto) Cancelled [place] % (Auto) Cancelled Eos % (Auto) Cancelled Baso % (Auto) Cancelled Lymph # (Auto) Cancelled [place] # (Auto) Cancelled Eos # (Auto) Cancelled Baso # (Auto) Cancelled Abs Immat Gran (auto) Cancelled Absolute Neuts (auto) Cancelled Absolute Nucleated RBC 0.220 H Nucleated RBC % (auto) 0.9 H Neutrophils % (Manual) 89 H Band Neutrophils % 5 Lymphocytes % (Manual) 3 L Monocytes % (Manual) 3 Abs Neuts (Manual) 24.0 H Lymphocytes # (Manual) 0.8 L Monocytes # (Manual) 0.8 Nucleated RBCs 3 H Toxic Granulation PRESENT Toxic Vacuolation PRESENT Platelet Estimate NORMAL Large Platelets PRESENT Plt Morphology Comment NOTED RBC Morphology NOTED Polychromasia 1+ (0-2) Target Cells 1+ (5-14) Acanthocytes (Spur) 1+ (0-2) VBG pH 7.35 VBG pCO2 34 VBG pO2 42 VBG HCO3 19 L VBG O2 Saturation 69.0 VBG Base Excess -5.4 Sodium 128 L Potassium 6.3 H* Chloride 98 Carbon Dioxide 18 L Anion Gap 18 BUN 62 H Creatinine 2.27 H Estim Creat Clear Calc 27.1 Estimated GFR 28 Random Glucose 123 H Calcium 8.3 L Phosphorus 5.0 H Magnesium 2.2 Total Bilirubin 1.4 H AST 833 H ALT 315 H Alkaline Phosphatase 95 Total Protein 6.7 Albumin 3.0 L Random Vancomycin 20.8 H Microbiology Microbiology Results: Microbiology 09/16/23 10:47 Blood - Venous Blood Culture - Final No growth after 5 days. 09/16/23 10:47 Blood - Venous Blood Culture - Final No growth after 5 days. 09/15/23 03:08 Blood - Venous Blood Culture - Final No growth after 5 days. 09/15/23 03:04 Blood - Venous Blood Culture - Final No growth after 5 days. Progress Note: A&P Assessment and plan (1) Ischemic hepatitis: Status: Acute (2) Acute kidney injury: Status: Acute (3) Tachy-sophie syndrome: Status: Acute (4) CHF (congestive heart failure): Status: Acute (5) Dementia: Status: Acute (6) HIV (human immunodeficiency virus infection): Status: Acute (7) Acute respiratory failure with hypoxia and hypercapnia: Status: Acute (8) Aspiration pneumonia: Status: Acute Plan Patient is a 77 Y M with advanced dementia, c/b recurrent aspiration pneumonia, HFpEF, HIV, presenting on 09/15 w/ dyspnea, found to be hypoxic, admitted floor; hospital course c/b mucus plugging, c/b aspiration pneumonia, mixed respiratory failure, intubated; ICU course c/b sick sinus syndrome N: intubated, sedated; advanced dementia CV: hypotension, likely d/t sedation, possibly infection; norepinephrine gtt; sick sinus syndrome, on amiodarone gtt; HFpEF P: recurrent aspiration pneumonia; intubated, wean ventilator as tolerated GI: ischemic hepatitis; to continue to monitor : acute renal insufficiency, c/b frequent hyperkalemia; to continue to monitor closely H: leukocytosis, likely d/t infection ID: c/f aspiration pneumonia; empiric vancomycin, zosyn E: no acute issues P: no acute issues S: given overall poor prognosis, pending court approval for possible change in code status/philosophy of care to comfort-focused care Quality Stroke Does the patient have a stroke diagnosis?: No VTE Prior VTE?: No VTE Risk Level:: Medical - moderate - high VTE Device Contraindication: Treatment Not Indicated VTE Drug Contraindication: N/A - Med Ordered
[2023-09-25] MEDS: Albuterol Sulfate 2.5 MG, Albuterol Sulfate (0.083%) 2.5 MG 5 MG INHALE (08:32)
[2023-09-25] MEDS: Bumetanide 1 MG/4 ML VIAL IVPUSH (08:42)
--- NOTE | 2023-09-25 10:04 | MHC.CLN ---
F/U PT REMAINS INTUBATED AND SEDATED DISCUSSED WITH TEAM AT MD ROUNDS PT RECEIVING TF PROMOTE AT MAX GOAL RATE 50ML/HR WITH 120 ML FREE WATER FLUSHES Q 6 HOURS PROVIDES 1200KCALS (1406KCALS WITH SEDATION; 21.6KCALS/KG), 75G PROTEIN (1.15G/KG), 1487ML FREE WATER FROM FORMULA AND FLUSHES (23ML/KG) DUE TO CHANGES IN ELECTROLYTES; RECOMMEND CHANGING TF FORMULA TO NEPRO AT MAX GOAL RATE 30ML/HR WITH 120ML FWF Q 6 HRS TO PROVIDE 1296KCALS, 58G PROTEIN, 1003ML TOTAL WATER FROM FORMULA AND FLUSHES MONITOR TOLERANCE, RESIDUALS AND LYTES
[2023-09-25] MEDS: Amiodarone HCL 900 MG in 0.9 % Sodium Chloride 500 ML 17.27 MG IVCONT (11:32)
[2023-09-25] MEDS: Norepinephrine Bitartrate/D5W 8 MG/250 ML PLAST..BAG 19.56 MG IV (12:59)
--- NOTE | 2023-09-25 14:40 | HO.WOUND ---
Wound Consult: Initial 77yr old [place] [facility] [place] - See progress notes and H&P for detailed history. Wound consult placed for wound noted to sacrum - Chart review reveals pt remains critically ill and ICU Provider is pursuing Goals of Care change to have courts consider Comfort Measures Only based on clinical picture and outlook. The wound located at the sacrum pictured below is likely caused in part by Ischemia. Acute Skin Failure can be caused by ischemia secondary to poor perfusion related to septic shock with multiorgan faliure. The patients ICU stay is marked by septic shock necessitating vasopressors, respiratory failure necessitating ventilatory support, and renal insufficiency, per chart review Dr. Kiran note from 09/25/23. Acute Skin Failure may occur despite the implementation of proper preventative measures. The scattered areas of irregular shapes and patterns are not typical of those found in pressure injuries alone. Sacrum Etiology: Deep Tissue Injury in Evolution with Ischemia component suspected Measurements: 7cm x 4cm x 0.1cm Wound Bed: epidermal layer lifted - dark nonblanchable dry wound bed remains nonblanchable - surrounded by intact dark purple nonblanchable tissue Drainage / Odor: None Edges: ? Irregular [place] wound: ? Scattered areas of dark maroon purple intact tissue not consistent with pressure injury No Odor,No Induration, No Fluctuance and No ascending erythema noted There is significant scrotal and perianal firm swelling noted - Flexiseal failed while at bedside - direct care team to determine if candidate for reapplication. Pain: pt is intubated and sedated Goals of Treatment: ? Off Load Pressure - Triad to act as a barrier to friction and moisture - continue to use all preventative measures in place (Currently in place - SANTOSH mattress, Off Loading with pillows - chart review turns and repositions were consistently carried out leading up to first observation of sacral wound. Nutrition recommendations in place and following. Urinary and fecal containment devices in place along with disposable dry flow pads in place. Inpatient wound care nurse will continue to follow. Recommendations: 1.Turn and Reposition every 2 hours and as needed for patient comfort consider use of wedges available in the storeroom. 2. Off Load all bony prominences with use of pillows, wedges and heel boots - preventative foams when needed. 3. Monitor for incontinence and moisture control - Barrier cream to be used 4. Provide adequate and supplemental nutrition - Nutrition is following and recommendations in place. 5. Continue low air loss mattress and specialty mattress in place. 6. Sacrum - Cleanse with NS or PH balanced wipes, pat dry. Apply Triad layer to wound bed and surrounding tissue. Do not remove all of paste between applications as this may cause further damage to wound bed. Cover with foam dressing to aid in off loading and protection from friction however if pt remains without Flexiseal in palce may use Triad alone if Foam is repeatedly soiled. Re-consult wound care Nurse for wound deterioration or wound changes.
[2023-09-25] MEDS: Enoxaparin Sodium 40 MG/0.4 ML SYRINGE SUBCUT (15:07)
[2023-09-25 18:20] LABS: Vancomycin Random 18.4 mcg/mL (15-20)
--- NOTE | 2023-09-25 18:43 | HE.PHANOTE ---
RE: VANCO, BASED ON TROUGH OF 18.4 WITHOUT A DOSE OF VANCO SINCE 09/23/23@0521, HOLD DOSE AND RECHECK LEVEL AND SCR 09/26/23
[2023-09-26] VITALS (41 sets, daily range): BP systolic 80–130; BP diastolic 53–78; PULSE 93–125; RESP 26–35; TEMP 34.3–38.1; O2SAT 91–98; BMI 32.2
[2023-09-26] MEDS: propofoL 1,000 MG/100 ML VIAL 11.74 MG IVCONT ×4 (01:38→22:46)
[2023-09-26] MEDS: Norepinephrine Bitartrate/D5W 8 MG/250 ML PLAST..BAG 19.56 MG IV (01:40)
[2023-09-26 04:41] LABS: Basophils Absolute Auto 0.1 X10*3/uL (0.0-0.2); Basophils Percent Auto 0.4 % (0-2); Eosinophils Absolute Auto 0.1 X10*3/uL (0.0-0.4); Eosinophils Percent Auto 0.5 % (0-4); Hemoglobin 8.6 g/dl (14.0-18.0); Imm Gran Abs Auto 0.89 X10*3/uL (0.00-0.03); Imm Gran Pct Auto 3.5 % (0.0-0.4); Lymphocytes Absolute Auto 0.6 X10*3/uL (1.2-4.9); Lymphocytes Percent Auto 2.5 % (20-40); MANUAL DIFF FLAG SCAN; Mean Corpuscular HGB Conc 35.8 g/dl (31.0-36.0); Mean Corpuscular Volume 89.2 fL (80.0-98.0); Monocytes Percent Auto 3.9 % (2-11); NRBC Pct Auto 0.8 /100WBC (0.0-0.2); Neutrophils Absolute Auto 22.4 x10*3/uL (2.0-8.3); Neutrophils Percent Auto 89.2 % (45-73); Platelet Count 278 X10*3/uL (160-400); Red Blood Count 2.69 X10*6/uL (4.60-5.80); Red Cell Distribution Width 16.2 % (11.0-16.0); SCAN SMEAR FLAG 1; White Blood Count 25.2 X10*3/uL (4.8-10.8)
[2023-09-26 04:47] LABS: VBG Base Excess -3.3 mmol/L; VBG HCO3 19 mmol/L (22-26); VBG pCO2 25 mmHg; VBG pH 7.47 (7.32-7.43); VBG pO2 43 mmHg
[2023-09-26 04:53] LABS: Anion Gap 20 (12-20); Blood Urea Nitrogen 69 mg/dL (9-16); Calcium 8.7 mg/dL (8.4-10.2); Carbon Dioxide 19 mmol/L (22-29); Chloride 95 mmol/L (96-108); Creatinine Clr Calc Pharmacy 26.2; Estimated Glomerular Filt Rate 27; Glucose Random 101 mg/dL (60-115); Magnesium 2.2 mg/dL (1.6-2.6); Phosphorus 4.7 mg/dL (2.7-4.5); Potassium 5.6 mmol/L (3.3-5.1); Sodium 128 mmol/L (135-145)
[2023-09-26 04:53] LABS: Venous Blood Gas Refer to POC result
[2023-09-26 05:01] LABS: SLIDE REVIEW VERIFIED
[2023-09-26] MEDS: Levothyroxine Sodium 75 MCG TABLET PO (05:53)
[2023-09-26] MEDS: Chlorhexidine Gluc Oral Rinse 15 ML MOUTHWASH BUCCAL ×3 (07:39→22:31)
[2023-09-26] MEDS: Abacavir/lamiVUDine 600/300 TABLET 1 TAB PO (07:39)
[2023-09-26] MEDS: 0.9 % Sodium Chloride Flush 3 ML SYRINGE IVFLUSH ×3 (07:39→22:50)
[2023-09-26] MEDS: Dolutegravir Sodium 50 MG TABLET PO (07:39)
[2023-09-26] MEDS: Famotidine/PF 20 MG/2 ML VIAL IVPUSH (07:39)
[2023-09-26] MEDS: Sodium Zirconium Cyclosilicate 10 GM POWD.PACK PO (08:07)
[2023-09-26] MEDS: Sodium Bicarbonate 8.4% 50 MEQ/50 ML VIAL IVPUSH (08:07)
--- NOTE | 2023-09-26 08:15 | PM.CCPN ---
Subjective Subjective Date of Service: 09/26/23 Interval History: no significant overnight events Critical Care Time (minutes): 90 Physical Exam Vital Signs: Vital Signs: Last Vital Signs Temp 97.9 F 09/26/23 08:00 Pulse 99 09/26/23 08:00 Resp 29 H 09/26/23 08:00 BP 118/72 09/26/23 08:00 Pulse Ox 95 09/26/23 08:00 O2 Del Method Mechanical Ventil ation 09/26/23 08:00 O2 Flow Rate 30 09/17/23 09:00 FiO2 40 09/26/23 08:01 BMI result Body Mass Index 32.2 Const: Other: intubated, sedated General: no acute distress HEENT: Head: Yes normal to inspection, Yes normocephalic and Yes atraumatic Eyes: General: appearance normal, both eyes and all related structures Neck: Neck: Yes normal visual inspection, Yes full ROM and Yes supple Chest: Chest palpation & inspection: normal inspection of the chest Resp: Other: no appreciable rales, rhonchi, wheezing Cardio: Rate: tachycardic Rhythm: abnormal rhythm GI: Inspection: Yes normal to inspection, No Abdominal wall edema and No distended Palpation (GI): Soft to palpation, not firm, nontender, no guarding and not rigid : Other: appreciable scrotal edema with oozing Skin: General skin exam: no rashes or lesions noted Neuro: Other: intubated, sedated General: no focal motor deficits Extrem: Other: 2+ pitting edema to bilateral knees General: Yes capillary refill normal Psych: Other: unable to assess Objective Data Labs 09/26/23 04:33 09/26/23 04:33 Labs: Laboratory Results - last 24 hr 09/23/23 09/25/23 09/25/23 05:06 08:31 17:58 WBC RBC Hgb Hct MCV MCH MCHC RDW Plt Count MPV Immature Gran % (Auto) Neut % (Auto) Lymph % (Auto) [place] % (Auto) Eos % (Auto) Baso % (Auto) Lymph # (Auto) [place] # (Auto) Eos # (Auto) Baso # (Auto) Abs Immat Gran (auto) Absolute Neuts (auto) Absolute Nucleated RBC Nucleated RBC % (auto) Smear Tech's Comments Smear Path Review SEE NOTE VBG pH VBG pCO2 VBG pO2 VBG HCO3 VBG O2 Saturation VBG Base Excess Sodium Potassium Chloride Carbon Dioxide Anion Gap BUN Creatinine Estim Creat Clear Calc Estimated GFR Random Glucose Lactic Acid 2.0 Calcium Phosphorus Magnesium Random Vancomycin 18.4 09/26/23 09/26/23 04:33 04:41 WBC 25.2 H RBC 2.69 L Hgb 8.6 L Hct 24.0 L MCV 89.2 MCH 32.0 MCHC 35.8 RDW 16.2 H Plt Count 278 MPV 12.0 Immature Gran % (Auto) 3.5 H Neut % (Auto) 89.2 H Lymph % (Auto) 2.5 L [place] % (Auto) 3.9 Eos % (Auto) 0.5 Baso % (Auto) 0.4 Lymph # (Auto) 0.6 L [place] # (Auto) 1.0 Eos # (Auto) 0.1 Baso # (Auto) 0.1 Abs Immat Gran (auto) 0.89 H Absolute Neuts (auto) 22.4 H Absolute Nucleated RBC 0.210 H Nucleated RBC % (auto) 0.8 H Smear Tech's Comments VERIFIED Smear Path Review VBG pH 7.47 H VBG pCO2 25 VBG pO2 43 VBG HCO3 19 L VBG O2 Saturation 75.0 VBG Base Excess -3.3 Sodium 128 L Potassium 5.6 H Chloride 95 L Carbon Dioxide 19 L Anion Gap 20 BUN 69 H Creatinine 2.35 H Estim Creat Clear Calc 26.2 Estimated GFR 27 Random Glucose 101 Lactic Acid Calcium 8.7 Phosphorus 4.7 H Magnesium 2.2 Random Vancomycin Microbiology Microbiology Results: Microbiology 09/16/23 10:47 Blood - Venous Blood Culture - Final No growth after 5 days. 09/16/23 10:47 Blood - Venous Blood Culture - Final No growth after 5 days. 09/15/23 03:08 Blood - Venous Blood Culture - Final No growth after 5 days. 09/15/23 03:04 Blood - Venous Blood Culture - Final No growth after 5 days. Progress Note: A&P Assessment and plan (1) Acute kidney injury: Status: Acute (2) CHF (congestive heart failure): Status: Acute (3) Atrial fibrillation with RVR: Status: Acute (4) HIV (human immunodeficiency virus infection): Status: Acute (5) Acute respiratory failure with hypoxia and hypercapnia: Status: Acute (6) Aspiration pneumonia: Status: Acute Plan Patient is a 77 Y M with advanced dementia, c/b recurrent aspiration pneumonia, HFpEF, HIV, presenting on 09/15 w/ dyspnea, found to be hypoxic, admitted floor; hospital course c/b mucus plugging, c/b aspiration pneumonia, mixed respiratory failure, intubated; ICU course c/b sick sinus syndrome N: intubated, sedated; to perform daily sedation interruptions for neurological exam and spontaneous breathing trial; advanced dementia CV: hypotension, likely d/t sedation, possibly infection; norepinephrine gtt; sick sinus syndrome, on amiodarone gtt; HFpEF P: recurrent aspiration pneumonia; intubated, wean ventilator as tolerated GI: ischemic hepatitis, stable; to continue to monitor : acute renal insufficiency, c/b frequent hyperkalemia; to start bumetanide gtt H: leukocytosis, likely d/t infection ID: c/f aspiration pneumonia; empiric vancomycin, zosyn E: no acute issues P: no acute issues S: given overall poor prognosis, pending court approval for possible change in code status/philosophy of care to comfort-focused care Quality Stroke Does the patient have a stroke diagnosis?: No VTE Prior VTE?: No VTE Risk Level:: Medical - moderate - high VTE Device Contraindication: Treatment Not Indicated VTE Drug Contraindication: N/A - Med Ordered
[2023-09-26] MEDS: Bumetanide 25 MG in Container,Empty 0 ML IVCONT (09:57)
[2023-09-26] MEDS: Enoxaparin Sodium 40 MG/0.4 ML SYRINGE SUBCUT (14:26)
[2023-09-26] MEDS: Norepinephrine Bitartrate/D5W 8 MG/250 ML PLAST..BAG 18.34 MG IV (14:48)
[2023-09-26] MEDS: Amiodarone HCL 900 MG in 0.9 % Sodium Chloride 500 ML 17.27 MG IVCONT (14:48)
--- NOTE | 2023-09-26 16:18 | MHC.CM.PN ---
Pt continues on vent support: not making significant clinical progress: Code status guardianship amendment in progress: Pt from [facility]: clinical update given via phone to SW. TIFFANY Velazquez to follow for d/c planning needs
[2023-09-26 17:10] LABS: Vancomycin Random 15.9 mcg/mL (15-20)
[2023-09-26] MEDS: DAPTOmycin 700 MG in 0.9 % Sodium Chloride 50 ML 100 MG IV (18:40)
[2023-09-26 18:46] LABS: Anion Gap 19 (12-20); Blood Urea Nitrogen 72 mg/dL (9-16); Calcium 8.4 mg/dL (8.4-10.2); Carbon Dioxide 15 mmol/L (22-29); Chloride 98 mmol/L (96-108); Creatinine Clr Calc Pharmacy 26.3; Estimated Glomerular Filt Rate 28; Glucose Random 106 mg/dL (60-115); Magnesium 2.2 mg/dL (1.6-2.6); Phosphorus 4.9 mg/dL (2.7-4.5); Potassium 5.8 mmol/L (3.3-5.1); Sodium 126 mmol/L (135-145)
[2023-09-26] MEDS: Metoprolol Tartrate 5 MG/5 ML VIAL IVPUSH (19:57)
[2023-09-26] MEDS: Sodium Bicarbonate 8.4% 150 MEQ in Dextrose 5 % 850 ML 100 MEQ IV (20:30)
[2023-09-26] MEDS: Sodium Zirconium Cyclosilicate 5 GM POWD.PACK 15 GM PO (20:33)
[2023-09-27] VITALS (35 sets, daily range): BP systolic 92–122; BP diastolic 54–70; PULSE 96–127; RESP 21–32; TEMP 34.7–38.9; O2SAT 92–100; BMI 33.2
[2023-09-27] MEDS: Norepinephrine Bitartrate/D5W 8 MG/250 ML PLAST..BAG 24.45 MG IV (01:38)
[2023-09-27] MEDS: Sodium Bicarbonate 8.4% 150 MEQ in Dextrose 5 % 850 ML 100 MEQ IV ×2 (04:45→17:20)
[2023-09-27 04:53] LABS: VBG Base Excess 0.5 mmol/L; VBG HCO3 23 mmol/L (22-26); VBG pCO2 34 mmHg; VBG pH 7.45 (7.32-7.43); VBG pO2 35 mmHg
[2023-09-27 04:59] LABS: Venous Blood Gas Refer to POC result
--- NOTE | 2023-09-27 05:10 | PC.NURSE ---
CARE ASSUMED 7PM...REMAINS INTUBATED/VCV VENT SUPPORT....PROPOFOL/LEVOPHED/AMIODARONE DRIPS PER DEC...NRESPONSIVE...EXTREMETIES FLACCID...NO GAG/WEAK COUGH...REMAINS TACHYPNEIC...RR 30-32...SAO2 94% WITH FIO2 40%...ATRIAL FIB HR 120'S 7-8PM...AMIODARONE DRIP 0.5 MG/MIN...LOPRESSOR 5MG IV X1 PER ICU PA WITH DECREASED HR 100'S-110'S...BUMEX DRIP 0.25 MG/HR...FRAUSTO YELLOW URINE..REMAINS WITH ANASARCA...BLISTERED AREA/SKIN TEAR/ TO SCROTUM WEEPING LARGE AMOUNT SEROUS FLUID...INCONTINANT SOFT BROWN STOOL X3 OVERNIGHT...ZIRCONIUM VIA OG-TUBE GIVEN AND STARTED BIAACARB DRIP PER ICU PA...WATER BOLUSES VIA OG-TUBE HELD PER ICU PA
[2023-09-27 05:47] LABS: MANUAL DIFF FLAG NO
[2023-09-27 05:49] LABS: Basophils Absolute Auto 0.1 X10*3/uL (0.0-0.2); Basophils Percent Auto 0.4 % (0-2); Eosinophils Absolute Auto 0.1 X10*3/uL (0.0-0.4); Eosinophils Percent Auto 0.3 % (0-4); Hematocrit 25.7 % (42.0-52.0); Hemoglobin 9.1 g/dl (14.0-18.0); Imm Gran Abs Auto 0.49 X10*3/uL (0.00-0.03); Imm Gran Pct Auto 2.7 % (0.0-0.4); Lymphocytes Absolute Auto 1.2 X10*3/uL (1.2-4.9); Lymphocytes Percent Auto 6.4 % (20-40); Mean Corpuscular HGB Conc 35.4 g/dl (31.0-36.0); Mean Corpuscular Hemoglobin 31.7 pg (27.0-33.0); Mean Corpuscular Volume 89.5 fL (80.0-98.0); Monocytes Absolute Auto 0.9 X10*3/uL (0.1-1.2); Monocytes Percent Auto 4.7 % (2-11); NRBC Pct Auto 1.7 /100WBC (0.0-0.2); Neutrophils Absolute Auto 15.6 x10*3/uL (2.0-8.3); Neutrophils Percent Auto 85.5 % (45-73); Platelet Count 350 X10*3/uL (160-400); Red Blood Count 2.87 X10*6/uL (4.60-5.80); Red Cell Distribution Width 17.3 % (11.0-16.0); White Blood Count 18.3 X10*3/uL (4.8-10.8)
[2023-09-27] MEDS: Levothyroxine Sodium 75 MCG TABLET PO (06:12)
[2023-09-27 06:14] LABS: Anion Gap 16 (12-20); Blood Urea Nitrogen 75 mg/dL (9-16); Calcium 8.3 mg/dL (8.4-10.2); Carbon Dioxide 22 mmol/L (22-29); Chloride 94 mmol/L (96-108); Creatinine Clr Calc Pharmacy 27.1; Estimated Glomerular Filt Rate 28; Glucose Random 126 mg/dL (60-115); Magnesium 2.2 mg/dL (1.6-2.6); Potassium 4.4 mmol/L (3.3-5.1); Sodium 128 mmol/L (135-145)
[2023-09-27] MEDS: 0.9 % Sodium Chloride Flush 3 ML SYRINGE IVFLUSH ×3 (07:45→21:07)
[2023-09-27] MEDS: Dolutegravir Sodium 50 MG TABLET PO (08:00)
[2023-09-27] MEDS: Abacavir/lamiVUDine 600/300 TABLET 1 TAB PO (08:00)
[2023-09-27] MEDS: Chlorhexidine Gluc Oral Rinse 15 ML MOUTHWASH BUCCAL ×3 (08:00→19:45)
[2023-09-27] MEDS: Sodium Zirconium Cyclosilicate 5 GM POWD.PACK 15 GM PO (08:01)
--- NOTE | 2023-09-27 08:09 | P.PNCC_ITS ---
Subjective Subjective Date of Service: 09/27/23 Interval History: no significant overnight events Critical Care Time (minutes): 90 Physical Exam 2 Vital Signs: Vital Signs: Last Vital Signs Temp 101.8 F H 09/27/23 07:00 Pulse 119 H 09/27/23 07:52 Resp 28 H 09/27/23 07:52 BP 114/54 L 09/27/23 07:00 Pulse Ox 95 09/27/23 07:52 O2 Del Method Mechanical Ventil ation 09/27/23 07:00 O2 Flow Rate 30 09/17/23 09:00 FiO2 40 09/27/23 07:52 BMI result Body Mass Index 33.2 Const: Other: intubated, sedated; no appreciable purposeful movements HEENT: Head: Yes normal to inspection, Yes normocephalic and Yes atraumatic Eyes: General: appearance normal, both eyes and all related structures Neck: Neck: Yes normal visual inspection, Yes no meningeal signs and Yes supple Chest: Chest palpation & inspection: normal inspection of the chest Resp: Other: no appreciable rales, rhonchi, wheezing Cardio: Rate: regular rate Rhythm: abnormal rhythm GI: Inspection: No Abdominal wall edema and No distended Palpation (GI): S oft to palpation, not firm, nontender, no guarding and not rigid : Other: interval improvement of scrotal edema Skin: General skin exam: no rashes or lesions noted Neuro: Other: no appreciable purposeful movements General: no meningeal signs and no focal motor deficits Extrem: Other: 2+ pitting edema bilateral forearms Psych: Other: unable to assess Objective Data Labs 09/27/23 04:55 09/27/23 04:55 Labs: Laboratory Results - last 24 hr 09/26/23 09/26/23 09/27/23 16:08 18:07 04:47 WBC RBC Hgb Hct MCV MCH MCHC RDW Plt Count MPV Immature Gran % (Auto) Neut % (Auto) Lymph % (Auto) [place] % (Auto) Eos % (Auto) Baso % (Auto) Lymph # (Auto) [place] # (Auto) Eos # (Auto) Baso # (Auto) Abs Immat Gran (auto) Absolute Neuts (auto) Absolute Nucleated RBC Nucleated RBC % (auto) VBG pH 7.45 H VBG pCO2 34 VBG pO2 35 VBG HCO3 23 VBG O2 Saturation 58.0 VBG Base Excess 0.5 Sodium 126 L Potassium 5.8 H Chloride 98 Carbon Dioxide 15 L Anion Gap 19 BUN 72 H Creatinine 2.31 H Estim Creat Clear Calc 26.3 Estimated GFR 28 Random Glucose 106 Calcium 8.4 Phosphorus 4.9 H Magnesium 2.2 Random Vancomycin 15.9 09/27/23 04:55 WBC 18.3 H RBC 2.87 L Hgb 9.1 L Hct 25.7 L MCV 89.5 MCH 31.7 MCHC 35.4 RDW 17.3 H Plt Count 350 D MPV 12.0 Immature Gran % (Auto) 2.7 H Neut % (Auto) 85.5 H Lymph % (Auto) 6.4 L [place] % (Auto) 4.7 Eos % (Auto) 0.3 Baso % (Auto) 0.4 Lymph # (Auto) 1.2 [place] # (Auto) 0.9 Eos # (Auto) 0.1 Baso # (Auto) 0.1 Abs Immat Gran (auto) 0.49 H Absolute Neuts (auto) 15.6 H Absolute Nucleated RBC 0.310 H Nucleated RBC % (auto) 1.7 H VBG pH VBG pCO2 VBG pO2 VBG HCO3 VBG O2 Saturation VBG Base Excess Sodium 128 L Potassium 4.4 D Chloride 94 L Carbon Dioxide 22 Anion Gap 16 BUN 75 H Creatinine 2.28 H Estim Creat Clear Calc 27.1 Estimated GFR 28 Random Glucose 126 H Calcium 8.3 L Phosphorus 5.0 H Magnesium 2.2 Random Vancomycin Microbiology Microbiology Results: Microbiology 09/16/23 10:47 Blood - Venous Blood Culture - Final No growth after 5 days. 09/16/23 10:47 Blood - Venous Blood Culture - Final No growth after 5 days. 09/15/23 03:08 Blood - Venous Blood Culture - Final No growth after 5 days. 09/15/23 03:04 Blood - Venous Blood Culture - Final No growth after 5 days. Progress Note: A&P Assessment and plan (1) Acute kidney injury: Status: Acute (2) Tachy-sophie syndrome: Status: Acute (3) CHF (congestive heart failure): Status: Acute (4) HIV (human immunodeficiency virus infection): Status: Acute (5) Aspiration pneumonia: Status: Acute Plan Patient is a 77 Y M with advanced dementia, c/b recurrent aspiration pneumonia, HFpEF, HIV, presenting on 09/15 w/ dyspnea, found to be hypoxic, admitted floor; hospital course c/b mucus plugging, c/b aspiration pneumonia, mixed respiratory failure, intubated; ICU course c/b sick sinus syndrome N: intubated, sedated; to perform daily sedation interruptions for neurological exam and spontaneous breathing trial; advanced dementia CV: hypotension, likely d/t sedation, possibly infection; norepinephrine gtt; sick sinus syndrome, on amiodarone gtt; HFpEF P: recurrent aspiration pneumonia; intubated, wean ventilator as tolerated GI: ischemic hepatitis, stable; to continue to monitor : acute renal insufficiency, c/b frequent hyperkalemia; bumetanide gtt, bicarbonate gtt; to continue to monitor closely H: leukocytosis, likely d/t infection ID: c/f aspiration pneumonia; empiric vancomycin, zosyn E: no acute issues P: no acute issues S: given overall poor prognosis, pending court approval for possible change in code status/philosophy of care to comfort-focused care Quality Stroke Does the patient have a stroke diagnosis?: No VTE Prior VTE?: No VTE Risk Level:: Medical - moderate - high VTE Device Contraindication: Treatment Not Indicated VTE Drug Contraindication: N/A - Med Ordered
[2023-09-27] MEDS: propofoL 1,000 MG/100 ML VIAL 7.82 MG IVCONT ×2 (08:57→19:44)
[2023-09-27] MEDS: Bumetanide 25 MG in Container,Empty 0 ML IVCONT (09:43)
--- NOTE | 2023-09-27 09:47 | MHC.CLN ---
F/U PT REMAINS INTUBATED AND SEDATED DISCUSSED AT ROUNDS WITH PT RECEIVING NEPRO AT MAX GOAL RATE 30ML/HR WITH 120ML FWF Q 6 HRS TO PROVIDE 1296KCALS (1502KCALS WITH SEDATION; 23KCALS/KG), 58G PROTEIN (.89G/KG), 1003ML TOTAL WATER FROM FORMULA AND FLUSHES MONITOR TOLERANCE, RESIDUALS AND LYTES
--- NOTE | 2023-09-27 11:30 | MHC.CM.PN ---
Received call from Dian Charles, pt's guardian. She is aware of the expansion request and supports CUSTOMER ENGAGEMENT MANAGER status. Informed MD of conversation.
[2023-09-27] MEDS: Norepinephrine Bitartrate/D5W 8 MG/250 ML PLAST..BAG 22.01 MG IV ×2 (11:32→21:02)
[2023-09-27] MEDS: Enoxaparin Sodium 40 MG/0.4 ML SYRINGE SUBCUT (13:57)
[2023-09-27] MEDS: Amiodarone HCL 900 MG in 0.9 % Sodium Chloride 500 ML 17.27 MG IVCONT (15:11)
[2023-09-27 19:14] LABS: Anion Gap 22 (12-20); Blood Urea Nitrogen 74 mg/dL (9-16); Calcium 7.7 mg/dL (8.4-10.2); Carbon Dioxide 21 mmol/L (22-29); Chloride 92 mmol/L (96-108); Creatinine Clr Calc Pharmacy 27.4; Estimated Glomerular Filt Rate 28; Glucose Random 133 mg/dL (60-115); Magnesium 2.4 mg/dL (1.6-2.6); Phosphorus 5.8 mg/dL (2.7-4.5); Potassium 5.7 mmol/L (3.3-5.1); Sodium 129 mmol/L (135-145)
[2023-09-27] MEDS: DAPTOmycin 700 MG in 0.9 % Sodium Chloride 50 ML 100 MG IV (19:41)
[2023-09-27] MEDS: Metoprolol Tartrate 5 MG/5 ML VIAL IVPUSH (21:02)
[2023-09-28] VITALS (36 sets, daily range): BP systolic 80–130; BP diastolic 51–84; PULSE 105–130; RESP 14–31; TEMP 34.7–38.5; O2SAT 89–97; BMI 33.6
[2023-09-28] MEDS: Sodium Bicarbonate 8.4% 150 MEQ in Dextrose 5 % 850 ML 100 MEQ IV ×3 (03:14→23:23)
[2023-09-28 05:07] LABS: VBG HCO3 30 mmol/L (22-26); VBG pCO2 37 mmHg; VBG pH 7.51 (7.32-7.43); VBG pO2 49 mmHg
[2023-09-28 05:11] LABS: Venous Blood Gas Refer to POC result
[2023-09-28] MEDS: propofoL 1,000 MG/100 ML VIAL 7.82 MG IVCONT ×2 (05:27→16:32)
[2023-09-28] MEDS: Levothyroxine Sodium 75 MCG TABLET PO (05:27)
[2023-09-28 05:38] LABS: MANUAL DIFF FLAG NO
[2023-09-28 05:39] LABS: Basophils Absolute Auto 0.1 X10*3/uL (0.0-0.2); Basophils Percent Auto 0.7 % (0-2); Eosinophils Absolute Auto 0.1 X10*3/uL (0.0-0.4); Eosinophils Percent Auto 0.5 % (0-4); Hematocrit 25.6 % (42.0-52.0); Imm Gran Abs Auto 0.29 X10*3/uL (0.00-0.03); Imm Gran Pct Auto 1.7 % (0.0-0.4); Lymphocytes Percent Auto 6.1 % (20-40); Mean Corpuscular HGB Conc 35.2 g/dl (31.0-36.0); Mean Corpuscular Hemoglobin 32.4 pg (27.0-33.0); Mean Corpuscular Volume 92.1 fL (80.0-98.0); Mean Platelet Volume 11.8 fL (9.4-12.4); Monocytes Absolute Auto 0.8 X10*3/uL (0.1-1.2); Monocytes Percent Auto 4.8 % (2-11); NRBC Pct Auto 0.7 /100WBC (0.0-0.2); Neutrophils Absolute Auto 14.3 x10*3/uL (2.0-8.3); Neutrophils Percent Auto 86.2 % (45-73); Platelet Count 375 X10*3/uL (160-400); Red Blood Count 2.78 X10*6/uL (4.60-5.80); Red Cell Distribution Width 19.1 % (11.0-16.0); White Blood Count 16.6 X10*3/uL (4.8-10.8)
[2023-09-28 06:04] LABS: Anion Gap 17 (12-20); Blood Urea Nitrogen 71 mg/dL (9-16); Carbon Dioxide 24 mmol/L (22-29); Chloride 91 mmol/L (96-108); Creatinine Clr Calc Pharmacy 29.3; Estimated Glomerular Filt Rate 30; Glucose Random 154 mg/dL (60-115); Magnesium 2.4 mg/dL (1.6-2.6); Phosphorus 5.3 mg/dL (2.7-4.5); Potassium 3.1 mmol/L (3.3-5.1); Sodium 129 mmol/L (135-145)
[2023-09-28] MEDS: Norepinephrine Bitartrate/D5W 8 MG/250 ML PLAST..BAG 22.01 MG IV (07:30)
--- NOTE | 2023-09-28 07:45 | P.PNCC_ITS ---
Subjective Subjective Date of Service: 09/28/23 Interval History: no significant overnight events Critical Care Time (minutes): 90 Physical Exam 2 Vital Signs: Vital Signs: Last Vital Signs Temp 99.3 F 09/28/23 07:00 Pulse 118 H 09/28/23 07:30 Resp 23 H 09/28/23 07:00 BP 128/78 09/28/23 07:30 Pulse Ox 93 09/28/23 07:00 O2 Del Method Mechanical Ventil ation 09/28/23 07:00 O2 Flow Rate 30 09/17/23 09:00 FiO2 40 09/28/23 07:00 BMI result Body Mass Index 33.6 Const: Other: intubated, minimally sedated General: comfortable HEENT: Head: Yes normocephalic and Yes atraumatic Eyes: General: appearance normal, both eyes and all related structures Neck: Neck: Yes normal visual inspection, Yes no meningeal signs and Yes supple Chest: Chest palpation & inspection: normal inspection of the chest Resp: Other: some appreciable rhonchi; no appreciable rales, wheezing Cardio: Rate: tachycardic Rhythm: abnormal rhythm GI: Inspection: Yes normal to inspection, No Abdominal wall edema and No distended Palpation (GI): Soft to palpation, not firm, nontender, no guarding and not rigid : Other: scrotal edema, improved from prior Skin: General skin exam: no rashes or lesions noted Neuro: Other: no appreciable spontaneous movements General: no meningeal signs Extrem: Other: 2+ pitting edema bilateral forearms Psych: Other: unable to assess Objective Data Labs 09/28/23 04:56 09/28/23 04:56 Labs: Laboratory Results - last 24 hr 09/27/23 09/28/23 09/28/23 18:19 04:56 05:00 WBC 16.6 H RBC 2.78 L Hgb 9.0 L Hct 25.6 L MCV 92.1 MCH 32.4 MCHC 35.2 RDW 19.1 H Plt Count 375 MPV 11.8 Immature Gran % (Auto) 1.7 H Neut % (Auto) 86.2 H Lymph % (Auto) 6.[address] [place] % (Auto) 4.8 Eos % (Auto) 0.5 Baso % (Auto) 0.7 Lymph # (Auto) 1.[address] [place] # (Auto) 0.8 Eos # (Auto) 0.1 Baso # (Auto) 0.1 Abs Immat Gran (auto) 0.29 H Absolute Neuts (auto) 14.3 H Absolute Nucleated RBC 0.110 H Nucleated RBC % (auto) 0.7 H VBG pH 7.51 H VBG pCO2 37 VBG pO2 49 VBG HCO3 30 H VBG O2 Saturation 76.0 VBG Base Excess 7.0 Sodium 129 L 129 L Potassium 5.7 H D 3.1 L D Chloride 92 L 91 L Carbon Dioxide 21 L 24 Anion Gap 22 H 17 BUN 74 H 71 H Creatinine 2.25 H 2.12 H Estim Creat Clear Calc 27.4 29.3 Estimated GFR 28 30 Random Glucose 133 H 154 H Calcium 7.7 L D 8.0 L Phosphorus 5.8 H 5.3 H Magnesium 2.4 2.4 Microbiology Microbiology Results: Microbiology 09/16/23 10:47 Blood - Venous Blood Culture - Final No growth after 5 days. 09/16/23 10:47 Blood - Venous Blood Culture - Final No growth after 5 days. 09/15/23 03:08 Blood - Venous Blood Culture - Final No growth after 5 days. 09/15/23 03:04 Blood - Venous Blood Culture - Final No growth after 5 days. Progress Note: A&P Assessment and plan (1) Acute kidney injury: Status: Acute (2) CHF (congestive heart failure): Status: Acute (3) Tachy-sophie syndrome: Status: Acute (4) HIV (human immunodeficiency virus infection): Status: Acute (5) Acute respiratory failure with hypoxia and hypercapnia: Status: Acute (6) Aspiration pneumonia: Status: Acute Plan Patient is a 77 Y M with advanced dementia, c/b recurrent aspiration pneumonia, HFpEF, HIV, presenting on 09/15 w/ dyspnea, found to be hypoxic, admitted floor; hospital course c/b mucus plugging, c/b aspiration pneumonia, mixed respiratory failure, intubated; ICU course c/b sick sinus syndrome N: intubated, sedated; to perform daily sedation interruptions for neurological exam and spontaneous breathing trial; advanced dementia CV: hypotension, likely d/t sedation, possibly infection; norepinephrine gtt; sick sinus syndrome, on amiodarone gtt; HFpEF P: recurrent aspiration pneumonia; intubated, wean ventilator as tolerated GI: ischemic hepatitis, stable; to continue to monitor : acute renal insufficiency, c/b frequent hyperkalemia; bumetanide gtt, bicarbonate gtt; to continue to monitor closely H: leukocytosis, likely d/t infection, improving ID: c/f aspiration pneumonia; empiric vancomycin, zosyn E: no acute issues P: no acute issues S: given overall poor prognosis, pending court approval for possible change in code status/philosophy of care to comfort-focused care Quality Stroke Does the patient have a stroke diagnosis?: No VTE Prior VTE?: No VTE Risk Level:: Medical - moderate - high VTE Device Contraindication: Treatment Not Indicated VTE Drug Contraindication: N/A - Med Ordered
[2023-09-28] MEDS: Calcium Chloride 1 GM/10 ML SYRINGE IVPUSH (08:15)
[2023-09-28] MEDS: 0.9 % Sodium Chloride Flush 3 ML SYRINGE IVFLUSH ×3 (08:15→23:10)
[2023-09-28] MEDS: Dolutegravir Sodium 50 MG TABLET PO (08:15)
[2023-09-28] MEDS: Abacavir/lamiVUDine 600/300 TABLET 1 TAB PO (08:15)
[2023-09-28] MEDS: Famotidine/PF 20 MG/2 ML VIAL 10 MG IVPUSH (08:15)
[2023-09-28] MEDS: Chlorhexidine Gluc Oral Rinse 15 ML MOUTHWASH BUCCAL ×3 (08:15→20:24)
[2023-09-28] MEDS: Bumetanide 25 MG in Container,Empty 0 ML IVCONT (09:41)
[2023-09-28] MEDS: Amiodarone HCL 900 MG in 0.9 % Sodium Chloride 500 ML 17.27 MG IVCONT (13:33)
[2023-09-28] MEDS: Enoxaparin Sodium 40 MG/0.4 ML SYRINGE SUBCUT (13:33)
--- NOTE | 2023-09-28 15:35 | MHC.CM.PN ---
LEGAL'S FILINGS FOR EXPANSION HAS BEEN ACCEPTED BY THE COURT AND AWAITING A HEARING DATE. CM WILL CONTINUE TO FOLLOW/AWAIT COURT HEARING DATE.
[2023-09-28] MEDS: Norepinephrine Bitartrate/D5W 8 MG/250 ML PLAST..BAG 29.34 MG IV ×2 (15:36→22:39)
[2023-09-28 18:23] LABS: Anion Gap 16 (12-20); Blood Urea Nitrogen 73 mg/dL (9-16); Carbon Dioxide 29 mmol/L (22-29); Chloride 88 mmol/L (96-108); Creatinine Clr Calc Pharmacy 31.3; Estimated Glomerular Filt Rate 33; Glucose Random 162 mg/dL (60-115); Magnesium 2.3 mg/dL (1.6-2.6); Phosphorus 5.3 mg/dL (2.7-4.5); Potassium 2.7 mmol/L (3.3-5.1); Sodium 130 mmol/L (135-145)
[2023-09-28] MEDS: DAPTOmycin 700 MG in 0.9 % Sodium Chloride 50 ML 100 MG IV (18:33)
[2023-09-28] MEDS: Acetaminophen 325 MG TABLET 650 MG PO (20:24)
[2023-09-28] MEDS: Metoprolol Tartrate 5 MG/5 ML VIAL IVPUSH (22:47)
[2023-09-29] VITALS (38 sets, daily range): BP systolic 77–167; BP diastolic 50–87; PULSE 102–128; RESP 23–33; TEMP 34.7–38.8; O2SAT 92–100; BMI 34.2
[2023-09-29] MEDS: propofoL 1,000 MG/100 ML VIAL 7.82 MG IVCONT ×2 (01:33→20:59)
[2023-09-29 05:19] LABS: VBG Base Excess 16.1 mmol/L; VBG HCO3 37 mmol/L (22-26); VBG pCO2 33 mmHg; VBG pH 7.65 (7.32-7.43); VBG pO2 43 mmHg
[2023-09-29 05:20] LABS: Venous Blood Gas Refer to POC result
[2023-09-29] MEDS: Levothyroxine Sodium 75 MCG TABLET PO (05:39)
[2023-09-29 05:41] LABS: MANUAL DIFF FLAG NO
[2023-09-29 05:51] LABS: Basophils Absolute Auto 0.1 X10*3/uL (0.0-0.2); Basophils Percent Auto 0.6 % (0-2); Eosinophils Absolute Auto 0.1 X10*3/uL (0.0-0.4); Eosinophils Percent Auto 0.7 % (0-4); Hematocrit 26.3 % (42.0-52.0); Imm Gran Abs Auto 0.15 X10*3/uL (0.00-0.03); Imm Gran Pct Auto 1.3 % (0.0-0.4); Lymphocytes Percent Auto 8.3 % (20-40); Mean Corpuscular HGB Conc 34.2 g/dl (31.0-36.0); Mean Corpuscular Hemoglobin 31.4 pg (27.0-33.0); Mean Corpuscular Volume 91.6 fL (80.0-98.0); Mean Platelet Volume 11.7 fL (9.4-12.4); Monocytes Absolute Auto 0.8 X10*3/uL (0.1-1.2); Monocytes Percent Auto 7.1 % (2-11); NRBC Pct Auto 0.5 /100WBC (0.0-0.2); Neutrophils Absolute Auto 9.8 x10*3/uL (2.0-8.3); Platelet Count 377 X10*3/uL (160-400); Red Blood Count 2.87 X10*6/uL (4.60-5.80); Red Cell Distribution Width 19.3 % (11.0-16.0); White Blood Count 11.9 X10*3/uL (4.8-10.8)
[2023-09-29 07:19] LABS: Anion Gap 15 (12-20); Blood Urea Nitrogen 69 mg/dL (9-16); Calcium 7.9 mg/dL (8.4-10.2); Carbon Dioxide 32 mmol/L (22-29); Chloride 88 mmol/L (96-108); Creatinine Clr Calc Pharmacy 33.9; Estimated Glomerular Filt Rate 36; Glucose Random 134 mg/dL (60-115); Magnesium 2.3 mg/dL (1.6-2.6); Phosphorus 4.9 mg/dL (2.7-4.5); Potassium 2.4 mmol/L (3.3-5.1); Sodium 133 mmol/L (135-145)
[2023-09-29] MEDS: Norepinephrine Bitartrate/D5W 8 MG/250 ML PLAST..BAG 24.45 MG IV (07:23)
[2023-09-29] MEDS: 0.9 % Sodium Chloride Flush 3 ML SYRINGE IVFLUSH ×3 (07:24→23:42)
[2023-09-29] MEDS: Potassium Chloride/H20 40 MEQ/100 ML PIGGYBACK 100 MEQ IV ×2 (07:30→20:04)
--- NOTE | 2023-09-29 07:48 | PM.CCPN ---
Subjective Subjective Date of Service: 09/29/23 Interval History: no significant overnight events Critical Care Time (minutes): 60 Physical Exam Vital Signs: Vital Signs: Last Vital Signs Temp 100.4 F 09/29/23 07:00 Pulse 128 H 09/29/23 07:23 Resp 31 H 09/29/23 07:00 BP 111/66 09/29/23 07:23 Pulse Ox 96 09/29/23 07:00 O2 Del Method Mechanical Ventil ation 09/29/23 07:00 O2 Flow Rate 30 09/17/23 09:00 FiO2 50 09/29/23 07:39 BMI result Body Mass Index 34.2 Const: Other: intubated, minimally sedated General: no acute distress HEENT: Head: Yes normal to inspection, Yes normocephalic and Yes atraumatic Eyes: General: appearance normal, both eyes and all related structures Neck: Neck: Yes normal visual inspection, Yes full ROM and Yes supple Chest: Chest palpation & inspection: normal inspection of the chest Resp: Other: no appreciable rales, rhonchi, wheezing Cardio: Rate: tachycardic Rhythm: abnormal rhythm GI: Inspection: Yes normal to inspection, No Abdominal wall edema and No distended Palpation (GI): Soft to palpation, not firm, nontender, no guarding and not rigid : Other: appreciable scrotal edema, stable Skin: General skin exam: no rashes or lesions noted Neuro: Other: no appreciable spontaneous movements Extrem: Other: 2+ pitting edema bilateral hands Psych: Other: unable to assess Objective Data Labs 09/29/23 05:07 09/29/23 06:14 Labs: Laboratory Results - last 24 hr 09/28/23 09/29/23 09/29/23 17:57 05:07 05:12 WBC 11.9 H RBC 2.87 L Hgb 9.0 L Hct 26.3 L MCV 91.6 MCH 31.4 MCHC 34.2 RDW 19.3 H Plt Count 377 MPV 11.7 Immature Gran % (Auto) 1.3 H Neut % (Auto) 82.0 H Lymph % (Auto) 8.3 L [place] % (Auto) 7.1 Eos % (Auto) 0.7 Baso % (Auto) 0.6 Lymph # (Auto) 1.0 L [place] # (Auto) 0.8 Eos # (Auto) 0.1 Baso # (Auto) 0.1 Abs Immat Gran (auto) 0.15 H Absolute Neuts (auto) 9.8 H Absolute Nucleated RBC 0.060 H Nucleated RBC % (auto) 0.5 H VBG pH 7.65 H* VBG pCO2 33 VBG pO2 43 VBG HCO3 37 H VBG O2 Saturation 74.0 VBG Base Excess 16.1 Sodium 130 L Potassium 2.7 L Chloride 88 L Carbon Dioxide 29 Anion Gap 16 BUN 73 H Creatinine 1.98 H Estim Creat Clear Calc 31.3 Estimated GFR 33 Random Glucose 162 H Calcium 8.0 L Phosphorus 5.3 H Magnesium 2.3 09/29/23 06:14 WBC RBC Hgb Hct MCV MCH MCHC RDW Plt Count MPV Immature Gran % (Auto) Neut % (Auto) Lymph % (Auto) [place] % (Auto) Eos % (Auto) Baso % (Auto) Lymph # (Auto) [place] # (Auto) Eos # (Auto) Baso # (Auto) Abs Immat Gran (auto) Absolute Neuts (auto) Absolute Nucleated RBC Nucleated RBC % (auto) VBG pH VBG pCO2 VBG pO2 VBG HCO3 VBG O2 Saturation VBG Base Excess Sodium 133 L Potassium 2.4 L* Chloride 88 L Carbon Dioxide 32 H Anion Gap 15 BUN 69 H Creatinine 1.85 H Estim Creat Clear Calc 33.9 Estimated GFR 36 Random Glucose 134 H Calcium 7.9 L Phosphorus 4.9 H Magnesium 2.3 Microbiology Microbiology Results: Microbiology 09/16/23 10:47 Blood - Venous Blood Culture - Final No growth after 5 days. 09/16/23 10:47 Blood - Venous Blood Culture - Final No growth after 5 days. 09/15/23 03:08 Blood - Venous Blood Culture - Final No growth after 5 days. 09/15/23 03:04 Blood - Venous Blood Culture - Final No growth after 5 days. Progress Note: A&P Assessment and plan (1) Acute kidney injury: Status: Acute (2) Tachy-sophie syndrome: Status: Acute (3) HIV (human immunodeficiency virus infection): Status: Acute (4) Acute respiratory failure with hypoxia and hypercapnia: Status: Acute (5) Aspiration pneumonia: Status: Acute (6) Sepsis: Status: Acute Plan Patient is a 77 Y M with advanced dementia, c/b recurrent aspiration pneumonia, HFpEF, HIV, presenting on 09/15 w/ dyspnea, found to be hypoxic, admitted floor; hospital course c/b mucus plugging, c/b aspiration pneumonia, mixed respiratory failure, intubated; ICU course c/b sick sinus syndrome N: intubated, sedated; to perform daily sedation interruptions for neurological exam and spontaneous breathing trial; advanced dementia CV: hypotension, likely d/t sedation, possibly infection; norepinephrine gtt; sick sinus syndrome, on amiodarone gtt; HFpEF P: recurrent aspiration pneumonia; intubated, wean ventilator as tolerated GI: ischemic hepatitis, stable; to continue to monitor : acute renal insufficiency, c/b frequent hyperkalemia; bumetanide gtt, bicarbonate gtt; to continue to monitor closely H: leukocytosis, likely d/t infection, improving ID: c/f aspiration pneumonia; empiric vancomycin, zosyn E: no acute issues P: no acute issues S: given overall poor prognosis, pending court approval for possible change in code status/philosophy of care to comfort-focused care Quality Stroke Does the patient have a stroke diagnosis?: No VTE Prior VTE?: No VTE Risk Level:: Medical - moderate - high VTE Device Contraindication: Treatment Not Indicated VTE Drug Contraindication: N/A - Med Ordered
[2023-09-29] MEDS: Chlorhexidine Gluc Oral Rinse 15 ML MOUTHWASH BUCCAL ×3 (08:11→20:05)
[2023-09-29] MEDS: Calcium Chloride 1 GM/10 ML SYRINGE IVPUSH (08:12)
[2023-09-29] MEDS: Abacavir/lamiVUDine 600/300 TABLET 1 TAB PO (08:12)
[2023-09-29] MEDS: Dolutegravir Sodium 50 MG TABLET PO (08:12)
[2023-09-29] MEDS: Sodium Bicarbonate 8.4% 150 MEQ in Dextrose 5 % 850 ML 50 MEQ IV (09:28)
[2023-09-29] MEDS: Bumetanide 25 MG in Container,Empty 0 ML IVCONT (09:29)
--- NOTE | 2023-09-29 10:18 | MHC.CLN ---
F/U PT REMAINS INTUBATED AND SEDATED DISCUSSED AT ROUNDS WITH MD NIEVES WITH DTI TO COCCYX. PT RECEIVING NEPRO AT MAX GOAL RATE 30ML/HR WITH 120ML FWF Q 6 HRS TO PROVIDE 1296KCALS (1502KCALS WITH SEDATION; 23KCALS/KG), 58G PROTEIN (.89G/KG), 1003ML TOTAL WATER FROM FORMULA AND FLUSHES NOTE FREE WATER FLUSHES CURRENTLY ON HOLD. MONITOR TOLERANCE, RESIDUALS AND LYTES.
--- NOTE | 2023-09-29 11:33 | W.PM.CCHP ---
Procedures Date of Service Date of Service: 09/29/23 Bronchoscopy Consent for Procedure: Elective - informed consent obtained Procedure: all segmental and subsegmental anatomy appreciated bilaterally; copious secretions throughout, right greater than left, which were suctioned with some improvement; appreciable malacia throughout Route: endotracheal tube Monitor: EKG and pulse oximetry Complications: none
[2023-09-29] MEDS: propofoL 1,000 MG/100 ML VIAL 11.74 MG IVCONT (12:15)
[2023-09-29] MEDS: Enoxaparin Sodium 40 MG/0.4 ML SYRINGE SUBCUT (13:18)
[2023-09-29] MEDS: Amiodarone HCL 900 MG in 0.9 % Sodium Chloride 500 ML 17.27 MG IVCONT (14:07)
--- NOTE | 2023-09-29 16:17 | MHC.CM.PN ---
EMR REVIEWED, CM STILL AWAITING HEARING DATE TO EXPAND GUARDIANSHIP TO CHANGE CODE STATUS, CM WILL CONT TO FOLLOW.
[2023-09-29] MEDS: Norepinephrine Bitartrate/D5W 8 MG/250 ML PLAST..BAG 22.01 MG IV (17:39)
[2023-09-29] MEDS: DAPTOmycin 700 MG in 0.9 % Sodium Chloride 50 ML 100 MG IV (18:01)
[2023-09-29 18:24] LABS: Anion Gap 16 (12-20); Blood Urea Nitrogen 69 mg/dL (9-16); Carbon Dioxide 33 mmol/L (22-29); Chloride 88 mmol/L (96-108); Creatinine Clr Calc Pharmacy 30.7; Estimated Glomerular Filt Rate 32; Glucose Random 141 mg/dL (60-115); Magnesium 2.2 mg/dL (1.6-2.6); Phosphorus 5.1 mg/dL (2.7-4.5); Potassium 2.9 mmol/L (3.3-5.1); Sodium 134 mmol/L (135-145)
[2023-09-29] MEDS: Potassium Chloride Packet 20 MEQ PACKET 40 MEQ PO (20:05)
[2023-09-30] VITALS (35 sets, daily range): BP systolic 93–121; BP diastolic 60–83; PULSE 108–128; RESP 13–33; TEMP 34.4–38.7; O2SAT 94–98; BMI 33.1
[2023-09-30] MEDS: Norepinephrine Bitartrate/D5W 8 MG/250 ML PLAST..BAG 24.45 MG IV (04:16)
[2023-09-30] MEDS: Sodium Bicarbonate 8.4% 150 MEQ in Dextrose 5 % 850 ML 50 MEQ IV (05:15)
[2023-09-30] MEDS: Levothyroxine Sodium 75 MCG TABLET PO (05:26)
[2023-09-30 05:34] LABS: VBG Base Excess 19.1 mmol/L; VBG HCO3 42 mmol/L (22-26); VBG pCO2 43 mmHg; VBG pO2 43 mmHg
[2023-09-30 05:35] LABS: Venous Blood Gas Refer to POC result
[2023-09-30 06:15] LABS: MANUAL DIFF FLAG NO
[2023-09-30 06:36] LABS: Anion Gap 17 (12-20); Blood Urea Nitrogen 67 mg/dL (9-16); Calcium 8.1 mg/dL (8.4-10.2); Carbon Dioxide 31 mmol/L (22-29); Chloride 89 mmol/L (96-108); Creatinine Clr Calc Pharmacy 30.8; Estimated Glomerular Filt Rate 33; Glucose Random 121 mg/dL (60-115); Magnesium 2.3 mg/dL (1.6-2.6); Phosphorus 4.9 mg/dL (2.7-4.5); Potassium 3.4 mmol/L (3.3-5.1); Sodium 134 mmol/L (135-145)
[2023-09-30 06:41] LABS: Basophils Absolute Auto 0.1 X10*3/uL (0.0-0.2); Basophils Percent Auto 0.8 % (0-2); Eosinophils Absolute Auto 0.1 X10*3/uL (0.0-0.4); Eosinophils Percent Auto 0.7 % (0-4); Hematocrit 27.2 % (42.0-52.0); Imm Gran Abs Auto 0.17 X10*3/uL (0.00-0.03); Imm Gran Pct Auto 1.5 % (0.0-0.4); Lymphocytes Absolute Auto 0.9 X10*3/uL (1.2-4.9); Lymphocytes Percent Auto 7.8 % (20-40); Mean Corpuscular HGB Conc 33.1 g/dl (31.0-36.0); Mean Corpuscular Hemoglobin 31.4 pg (27.0-33.0); Mean Corpuscular Volume 94.8 fL (80.0-98.0); Mean Platelet Volume 11.4 fL (9.4-12.4); Monocytes Absolute Auto 0.9 X10*3/uL (0.1-1.2); Monocytes Percent Auto 7.6 % (2-11); NRBC Pct Auto 0.3 /100WBC (0.0-0.2); Neutrophils Absolute Auto 9.5 x10*3/uL (2.0-8.3); Neutrophils Percent Auto 81.6 % (45-73); Platelet Count 381 X10*3/uL (160-400); Red Blood Count 2.87 X10*6/uL (4.60-5.80); Red Cell Distribution Width 20.8 % (11.0-16.0); White Blood Count 11.7 X10*3/uL (4.8-10.8)
[2023-09-30] MEDS: propofoL 1,000 MG/100 ML VIAL 7.82 MG IVCONT ×2 (07:05→20:21)
--- NOTE | 2023-09-30 07:50 | P.PNCC_ITS ---
Subjective Subjective Date of Service: 09/30/23 Interval History: no significant overnight events Critical Care Time (minutes): 60 Physical Exam 2 Vital Signs: Vital Signs: Last Vital Signs Temp 99.0 F 09/30/23 07:00 Pulse 128 H 09/30/23 07:00 Resp 29 H 09/30/23 07:00 BP 107/73 09/30/23 07:00 Pulse Ox 96 09/30/23 07:00 O2 Del Method Mechanical Ventil ation 09/30/23 07:00 O2 Flow Rate 30 09/17/23 09:00 FiO2 50 09/30/23 07:00 BMI result Body Mass Index 33.1 Const: Other: intubated, minimally sedated General: comfortable and no acute distress HEENT: Head: Yes normal to inspection, Yes normocephalic and Yes atraumatic Eyes: General: appearance normal, both eyes and all related structures Neck: Neck: Yes normal visual inspection, Yes full ROM and Yes supple Chest: Chest palpation & inspection: normal inspection of the chest Resp: Other: slightly diminished breath sounds R greater than L; no appreciable rales, rhonchi, wheezing Cardio: Rate: tachycardic Rhythm: abnormal rhythm GI: Inspection: No Abdominal wall edema and No distended Palpation (GI): S oft to palpation, not firm, nontender, no guarding and not rigid : Other: appreciable scrotal edema Skin: General skin exam: no rashes or lesions noted Neuro: Other: no appreciable purposeful movements Extrem: Other: appreciable 2+ pitting edema throughout General: Yes normal to inspection and Yes capillary refill normal Psych: Other: unable to assess Objective Data Labs 09/30/23 05:22 09/30/23 05:22 Labs: Laboratory Results - last 24 hr 09/29/23 09/30/23 09/30/23 17:55 05:22 05:27 WBC 11.7 H RBC 2.87 L Hgb 9.0 L Hct 27.2 L MCV 94.8 MCH 31.4 MCHC 33.1 RDW 20.8 H Plt Count 381 MPV 11.4 Immature Gran % (Auto) 1.5 H Neut % (Auto) 81.6 H Lymph % (Auto) 7.8 L [place] % (Auto) 7.6 Eos % (Auto) 0.7 Baso % (Auto) 0.8 Lymph # (Auto) 0.9 L [place] # (Auto) 0.9 Eos # (Auto) 0.1 Baso # (Auto) 0.1 Abs Immat Gran (auto) 0.17 H Absolute Neuts (auto) 9.5 H Absolute Nucleated RBC 0.030 H Nucleated RBC % (auto) 0.3 H VBG pH 7.60 H* VBG pCO2 43 VBG pO2 43 VBG HCO3 42 H VBG O2 Saturation 68.0 VBG Base Excess 19.1 Sodium 134 L 134 L Potassium 2.9 L D 3.4 Chloride 88 L 89 L Carbon Dioxide 33 H 31 H Anion Gap 16 17 BUN 69 H 67 H Creatinine 2.04 H 2.00 H Estim Creat Clear Calc 30.7 30.8 Estimated GFR 32 33 Random Glucose 141 H 121 H Calcium 8.0 L 8.1 L Phosphorus 5.1 H 4.9 H Magnesium 2.2 2.3 Microbiology Microbiology Results: Microbiology 09/16/23 10:47 Blood - Venous Blood Culture - Final No growth after 5 days. 09/16/23 10:47 Blood - Venous Blood Culture - Final No growth after 5 days. 09/15/23 03:08 Blood - Venous Blood Culture - Final No growth after 5 days. 09/15/23 03:04 Blood - Venous Blood Culture - Final No growth after 5 days. Progress Note: A&P Assessment and plan (1) Acute kidney injury: Status: Acute (2) Tachy-sophie syndrome: Status: Acute (3) HIV (human immunodeficiency virus infection): Status: Acute (4) Aspiration pneumonia: Status: Acute Plan Patient is a 77 Y M with advanced dementia, c/b recurrent aspiration pneumonia, HFpEF, HIV, presenting on 09/15 w/ dyspnea, found to be hypoxic, admitted floor; hospital course c/b mucus plugging, c/b aspiration pneumonia, mixed respiratory failure, intubated; ICU course c/b sick sinus syndrome N: intubated, sedated; to perform daily sedation interruptions for neurological exam and spontaneous breathing trial; advanced dementia CV: hypotension, likely d/t sedation, possibly infection; norepinephrine gtt; sick sinus syndrome, on amiodarone gtt; HFpEF P: recurrent aspiration pneumonia; intubated, wean ventilator as tolerated GI: ischemic hepatitis, stable; to continue to monitor : acute renal insufficiency, c/b frequent hyperkalemia, hyperphosphatemia; bumetanide gtt; to continue to monitor closely H: leukocytosis, likely d/t infection, improving ID: c/f aspiration pneumonia; empiric vancomycin, zosyn E: no acute issues P: no acute issues S: given overall poor prognosis, pending court approval for possible change in code status/philosophy of care to comfort-focused care Quality Stroke Does the patient have a stroke diagnosis?: No VTE Prior VTE?: No VTE Risk Level:: Medical - moderate - high VTE Device Contraindication: Treatment Not Indicated VTE Drug Contraindication: N/A - Med Ordered
[2023-09-30] MEDS: Abacavir/lamiVUDine 600/300 TABLET 1 TAB PO (08:16)
[2023-09-30] MEDS: Chlorhexidine Gluc Oral Rinse 15 ML MOUTHWASH BUCCAL ×3 (08:16→21:12)
[2023-09-30] MEDS: Sodium Zirconium Cyclosilicate 5 GM POWD.PACK 15 GM PO (08:16)
[2023-09-30] MEDS: Famotidine/PF 20 MG/2 ML VIAL 10 MG IVPUSH (08:17)
[2023-09-30] MEDS: Dolutegravir Sodium 50 MG TABLET PO (08:17)
--- NOTE | 2023-09-30 13:00 | P.CDIM_ITS ---
PROVIDER RESPONSE TEXT: To clarify, the appropriate diagnosis supported by the clinical indicators: Deep tissue injury sacrum with ischemia component QUERY TEXT: PHYSICIAN'S DOCUMENTATION REQUEST Date of Query: 09/27/2023 10:35 AM EST Patient Name: Javi Hardy Admit Date: 09/15/2023 Dear Ruby Kiran, A review of the medical record indicates additional documentation may be needed. Please review below and update the documentation accordingly. Clinical Indicators: Per Nursing Pressure Injury Assessment 09/25/23: Coccyx stage 2 wound, foam dressing Per Wound Note 09/25/23: Sacrum Etiology: Deep Tissue Injury in Evolution with Ischemia component suspected Measurements: 7cm x 4cm x 0.1cm Wound Bed: epidermal layer lifted - dark nonblanchable dry wound bed remains nonblanchable - surround ed by intact dark purple nonblanchable tissue Drainage / Odor: None Edges: Irregular Tracy wound: Scattered areas of dark maroon purple intact tissue not consistent with pressure injury N o Odor,No Induration, No Fluctuance and No ascending erythema noted There is significant scrotal and perianal firm swelling noted - Flexiseal failed while at bedside - d irect care team to determine if candidate for reapplication. Pain: pt is intubated and sedated Goals of Treatment: Off Load Pressure - [place] to act as a barrier to friction and moisture - continue to use all preventative measures in place (Currently in place - SANTOSH mattress, Off Loading with pillows - chart review turns a nd repositions were consistently carried out leading up to first observation of sacral wound. Nutrition recommendations i n place and following. Urinary and fecal containment devices in place along with disposable dry flow pads in place. Based on the above, could you please provide further information regarding the ulcer/wound: Deep tissue injury sacrum with ischemia component Pressure (decubitus) ulcer Please include the stage of the ulcer Other (explain) Clinically unable to determine (explain) Thank you, Cee Zuleta RN Use of terms such as suspected, likely, concern for, or probable (associated with a specific diagnosi s that is being evaluated, monitored, or treated as if it exists) are acceptable and can be coded in the inpatient se tting, when documented at the time of discharge. Please use your independent medical judgment in providing your response. THIS QUERY IS PART OF THE PERMANENT MEDICAL RECORD
[2023-09-30] MEDS: Enoxaparin Sodium 40 MG/0.4 ML SYRINGE SUBCUT (14:08)
[2023-09-30] MEDS: Norepinephrine Bitartrate/D5W 8 MG/250 ML PLAST..BAG 22.01 MG IV (14:09)
[2023-09-30] MEDS: Acetaminophen 325 MG TABLET 650 MG PO (17:25)
[2023-09-30] MEDS: DAPTOmycin 700 MG in 0.9 % Sodium Chloride 50 ML 100 MG IV (18:09)
[2023-09-30] MEDS: Bumetanide 25 MG in Container,Empty 0 ML IVCONT (18:09)
[2023-09-30] MEDS: Amiodarone HCL 900 MG in 0.9 % Sodium Chloride 500 ML 17.27 MG IVCONT (20:21)
[2023-09-30] MEDS: Metoprolol Tartrate 5 MG/5 ML VIAL IVPUSH (21:12)
[2023-10-01] VITALS (38 sets, daily range): BP systolic 88–126; BP diastolic 50–71; PULSE 81–114; RESP 20–31; TEMP 34.5–39.7; O2SAT 92–98; BMI 33.3
[2023-10-01] MEDS: Norepinephrine Bitartrate/D5W 8 MG/250 ML PLAST..BAG 22.01 MG IV (00:01)
[2023-10-01] MEDS: 0.9 % Sodium Chloride Flush 3 ML SYRINGE IVFLUSH ×2 (00:03→23:44)
[2023-10-01] MEDS: propofoL 1,000 MG/100 ML VIAL 7.82 MG IVCONT ×2 (02:59→15:23)
--- NOTE | 2023-10-01 04:57 | PC.NURSE ---
CARE ASSUMED 7PM..REMAINS INTUBATED/VCV VENT SUPPORT....PROPOFOL 20 MCG/KG/MIN..NO GAG REFLEX...MINIMAL COUGH REFLEX...EXTREMETIES FLACCID...OVERBREATHES VENT IN AC MODE..SUCTIONED MINIMAL SECRETIONS VIA ETT....REMAINS ATRIAL FIB...HR 120'S 7-8PM...LOPRESSOR 5 MG IV ORDERED BY ICU PA AND FOR SCHEDULED LOPRESSOR Q8HR...HR 90'S-100'S AFTER LOPRESSOR...REMAINS GENERALIZED EDEMA...MARKED SCROTAL EDEMA...REMAINS WITH OLD SCROTAL SKIN TEAR WEEPING LARGE AMOUNTS SEROUS FLUID...UNCHANGED FROM 7P-7AM 09/28-09/29....PADS CHANGED X2 FOR LARGE AMOUNT SEROUS DRAINAGE...OSTOMY DRAINAGE APPLIANCE APPLIED TO SCROTUM APPROX 9PM...APPLIANCE HAS COLLECTED 700ml SEROUS DRAINAGE 9PM-5AM
[2023-10-01] MEDS: Levothyroxine Sodium 75 MCG TABLET PO (05:21)
[2023-10-01] MEDS: Metoprolol Tartrate 5 MG/5 ML VIAL IVPUSH ×3 (05:21→20:10)
[2023-10-01] MEDS: Acetaminophen 325 MG TABLET 650 MG PO ×3 (05:22→20:10)
[2023-10-01 05:31] LABS: VBG Base Excess 17.9 mmol/L; VBG HCO3 41 mmol/L (22-26); VBG pCO2 45 mmHg; VBG pH 7.56 (7.32-7.43); VBG pO2 43 mmHg
[2023-10-01 05:33] LABS: Venous Blood Gas Refer to POC result
[2023-10-01 06:06] LABS: MANUAL DIFF FLAG NO
[2023-10-01 06:08] LABS: Basophils Absolute Auto 0.1 X10*3/uL (0.0-0.2); Basophils Percent Auto 0.6 % (0-2); Eosinophils Absolute Auto 0.1 X10*3/uL (0.0-0.4); Eosinophils Percent Auto 0.5 % (0-4); Hematocrit 27.8 % (42.0-52.0); Hemoglobin 9.1 g/dl (14.0-18.0); Imm Gran Abs Auto 0.13 X10*3/uL (0.00-0.03); Imm Gran Pct Auto 1.1 % (0.0-0.4); Lymphocytes Percent Auto 8.5 % (20-40); Mean Corpuscular HGB Conc 32.7 g/dl (31.0-36.0); Mean Corpuscular Hemoglobin 31.7 pg (27.0-33.0); Mean Corpuscular Volume 96.9 fL (80.0-98.0); Mean Platelet Volume 11.1 fL (9.4-12.4); Monocytes Absolute Auto 0.9 X10*3/uL (0.1-1.2); Monocytes Percent Auto 7.2 % (2-11); NRBC Pct Auto 0.2 /100WBC (0.0-0.2); Neutrophils Absolute Auto 9.9 x10*3/uL (2.0-8.3); Neutrophils Percent Auto 82.1 % (45-73); Platelet Count 426 X10*3/uL (160-400); Red Blood Count 2.87 X10*6/uL (4.60-5.80); Red Cell Distribution Width 21.6 % (11.0-16.0); White Blood Count 12.1 X10*3/uL (4.8-10.8)
[2023-10-01 06:22] LABS: Anion Gap 17 (12-20); Blood Urea Nitrogen 68 mg/dL (9-16); Calcium 8.4 mg/dL (8.4-10.2); Carbon Dioxide 32 mmol/L (22-29); Chloride 89 mmol/L (96-108); Creatinine Clr Calc Pharmacy 30.6; Estimated Glomerular Filt Rate 32; Glucose Random 108 mg/dL (60-115); Magnesium 2.2 mg/dL (1.6-2.6); Sodium 135 mmol/L (135-145)
[2023-10-01] MEDS: Chlorhexidine Gluc Oral Rinse 15 ML MOUTHWASH BUCCAL ×3 (08:04→20:10)
[2023-10-01] MEDS: Dolutegravir Sodium 50 MG TABLET PO (08:04)
[2023-10-01] MEDS: Abacavir/lamiVUDine 600/300 TABLET 1 TAB PO (08:04)
--- NOTE | 2023-10-01 08:19 | P.PNCC_ITS ---
Subjective Subjective Date of Service: 10/01/23 Interval History: no significant overnight events Critical Care Time (minutes): 60 Physical Exam 2 Vital Signs: Vital Signs: Last Vital Signs Temp 102.9 F H 10/01/23 08:00 Pulse 97 10/01/23 08:00 Resp 30 H 10/01/23 08:00 BP 106/57 L 10/01/23 08:00 Pulse Ox 96 10/01/23 08:00 O2 Del Method Mechanical Ventil ation 10/01/23 08:00 O2 Flow Rate 30 09/17/23 09:00 FiO2 50 10/01/23 08:00 BMI result Body Mass Index 33.3 Const: Other: intubated, sedated General: comfortable and no acute distress HEENT: Head: Yes normal to inspection, Yes normocephalic and Yes atraumatic Eyes: General: appearance normal, both eyes and all related structures Neck: Neck: Yes normal visual inspection Chest: Chest palpation & inspection: normal inspection of the chest Resp: Other: no appreciable rales, rhonchi, wheezing Cardio: Rate: regular rate Rhythm: abnormal rhythm GI: Inspection: Yes normal to inspection, No Abdominal wall edema and No distended Palpation (GI): Soft to palpation, not firm, nontender, no guarding and not rigid : Other: appreciable scrotal edema Skin: General skin exam: no rashes or lesions noted Neuro: Other: intubated, minimally sedated; no appreciable spontaneous movements General: tone normal and no focal motor deficits Extrem: Other: 2+ pitting edema bilateral forearms Psych: Other: unable to assess Objective Data Labs 10/01/23 05:18 10/01/23 05:18 Labs: Laboratory Results - last 24 hr 10/01/23 10/01/23 05:18 05:26 WBC 12.1 H RBC 2.87 L Hgb 9.1 L Hct 27.8 L MCV 96.9 MCH 31.7 MCHC 32.7 RDW 21.6 H Plt Count 426 H MPV 11.1 Immature Gran % (Auto) 1.1 H Neut % (Auto) 82.1 H Lymph % (Auto) 8.5 L [place] % (Auto) 7.2 Eos % (Auto) 0.5 Baso % (Auto) 0.6 Lymph # (Auto) 1.0 L [place] # (Auto) 0.9 Eos # (Auto) 0.1 Baso # (Auto) 0.1 Abs Immat Gran (auto) 0.13 H Absolute Neuts (auto) 9.9 H Absolute Nucleated RBC 0.020 H Nucleated RBC % (auto) 0.2 VBG pH 7.56 H VBG pCO2 45 VBG pO2 43 VBG HCO3 41 H VBG O2 Saturation 68.0 VBG Base Excess 17.9 Sodium 135 Potassium 3.0 L Chloride 89 L Carbon Dioxide 32 H Anion Gap 17 BUN 68 H Creatinine 2.02 H Estim Creat Clear Calc 30.6 Estimated GFR 32 Random Glucose 108 Calcium 8.4 Phosphorus 5.0 H Magnesium 2.2 Microbiology Microbiology Results: Microbiology 09/16/23 10:47 Blood - Venous Blood Culture - Final No growth after 5 days. 09/16/23 10:47 Blood - Venous Blood Culture - Final No growth after 5 days. 09/15/23 03:08 Blood - Venous Blood Culture - Final No growth after 5 days. 09/15/23 03:04 Blood - Venous Blood Culture - Final No growth after 5 days. Progress Note: A&P Assessment and plan (1) Acute kidney injury: Status: Acute (2) Tachy-sophie syndrome: Status: Acute (3) HIV (human immunodeficiency virus infection): Status: Acute (4) Aspiration pneumonia: Status: Acute Plan Patient is a 77 Y M with advanced dementia, c/b recurrent aspiration pneumonia, HFpEF, HIV, presenting on 09/15 w/ dyspnea, found to be hypoxic, admitted floor; hospital course c/b mucus plugging, c/b aspiration pneumonia, mixed respiratory failure, intubated; ICU course c/b sick sinus syndrome N: intubated, sedated; to perform daily sedation interruptions for neurological exam and spontaneous breathing trial; advanced dementia CV: hypotension, likely d/t sedation, possibly infection; norepinephrine gtt; sick sinus syndrome, on amiodarone gtt; HFpEF P: recurrent aspiration pneumonia; intubated, wean ventilator as tolerated GI: ischemic hepatitis, stable; to continue to monitor : acute renal insufficiency, c/b frequent hyperkalemia, hyperphosphatemia; bumetanide gtt; to continue to monitor closely H: leukocytosis, likely d/t infection, improving ID: c/f aspiration pneumonia; empiric vancomycin, zosyn E: no acute issues P: no acute issues S: given overall poor prognosis, pending court approval for possible change in code status/philosophy of care to comfort-focused care Quality Stroke Does the patient have a stroke diagnosis?: No VTE Prior VTE?: No VTE Risk Level:: Medical - moderate - high VTE Device Contraindication: Treatment Not Indicated VTE Drug Contraindication: N/A - Med Ordered
[2023-10-01] MEDS: Norepinephrine Bitartrate/D5W 8 MG/250 ML PLAST..BAG 26.9 MG IV (09:21)
[2023-10-01] MEDS: Bumetanide 25 MG in Container,Empty 0 ML IVCONT (09:21)
--- NOTE | 2023-10-01 13:10 | MHC.CM.PN ---
PER LEGAL, A TENTATIVELY SCHEDULED HEARING WILL TAKE PLACE 10/06/23 AT 11 AM VIA [employer] PENDING GUARDIAN AVAILABILITY. A PROVIDER WILL NEED TO BE PRESENT WELL. CM WILL CONTINUE TO FOLLOW FOR PLAN.
[2023-10-01] MEDS: Enoxaparin Sodium 40 MG/0.4 ML SYRINGE SUBCUT (14:08)
--- NOTE | 2023-10-01 14:34 | W.MHC.ACPN ---
Advanced Care Planning Note Advanced Care Planning Note Discussed with: family member(s) Time spent (in minutes): 30 Narrative: Mr. Moran daughter and grandaugther are at bedside. Mr. Mroan daughter reports she has always been Mr. Hardy' healthcare proxy for his entire life. Unfortunately due to his alcoholism, Mr. Hardy is often absent from her life. It was during this time that he necessitated a guardian. However, Mr. Moran daugher was able to obtain a copy of Mr. Hardy' signed healthcare proxy and has been in communication with his guardian. Thus, Mr. Luisa holt will be his decision maker ongoing. Mr. Moran daughter reports he would not have wanted this life support and would like to transition him to comfort-focused care. She will be communicating with her daughters to decide a time when they can all be present. Problems Discussed (1) Acute kidney injury: (2) Tachy-sophie syndrome: (3) HIV (human immunodeficiency virus infection): (4) Aspiration pneumonia:
[2023-10-01] MEDS: Norepinephrine Bitartrate/D5W 8 MG/250 ML PLAST..BAG 28.12 MG IV ×2 (17:42→19:25)
[2023-10-01] MEDS: Amiodarone HCL 900 MG in 0.9 % Sodium Chloride 500 ML 17.27 MG IVCONT (20:08)
[2023-10-02] VITALS (38 sets, daily range): BP systolic 81–142; BP diastolic 53–85; PULSE 82–123; RESP 21–29; TEMP 34.5–39.2; O2SAT 89–97; BMI 31.1
[2023-10-02] MEDS: propofoL 1,000 MG/100 ML VIAL 7.82 MG IVCONT ×3 (02:45→23:47)
[2023-10-02] MEDS: Norepinephrine Bitartrate/D5W 8 MG/250 ML PLAST..BAG 28.12 MG IV (04:04)
[2023-10-02] MEDS: Metoprolol Tartrate 5 MG/5 ML VIAL IVPUSH (04:35)
[2023-10-02] MEDS: Chlorhexidine Gluc Oral Rinse 15 ML MOUTHWASH BUCCAL ×3 (08:59→20:17)
--- NOTE | 2023-10-02 10:10 | P.PNCC_ITS ---
Subjective Subjective Date of Service: 10/02/23 Interval History: 77-year-old gentleman with underlying dementia, recurrent pulmonary aspiration, diastolic heart failure, HIV, BPH admitted on 09/15/2023 with dyspnea, lower extremity edema, hypoxia, and worsening alteration of mental status. Patient with treated with empiric antibiotics for aspiration pneumonia. hospital course is significant for worsening alteration of mental status with. On 09/15/2023 arterial blood gas was obtained that showed acute CO2 retention and chest x-ray demonstrated whiteout of the right lung. Nasotracheal suction was attempted, but was unsuccessful. Patient was not able to protect his airway. He was transferred to intensive care unit and emergently intubated with copious in-line secretions suctioned out after intubation. Now with aspiration pneumonia, further complicated by AFib with RVR/sick sinus syndrome. Underlying advanced dementia with chronic pulmonary aspiration now resulting in aspiration pneumonia with underlying overall poor quality of life and poor prognosis for meaningful clinical recovery discussed with patient's guardian and healthcare proxy who both agree with switching goals of care to palliation, continue working with case management to request court approval. Essentially no significant improvement in clinical status over the last 7 days. No events overnight. Critical Care Time (minutes): 60 Physical Exam 2 Vital Signs: Vital Signs: Last Vital Signs Temp 101.3 F H 10/02/23 10:00 Pulse 123 H 10/02/23 10:00 Resp 29 H 10/02/23 10:00 BP 107/64 10/02/23 10:00 Pulse Ox 89 L 10/02/23 10:00 O2 Del Method Mechanical Ventil ation 10/02/23 10:00 O2 Flow Rate 30 09/17/23 09:00 FiO2 50 10/02/23 10:00 BMI result Body Mass Index 31.1 Const: General: no acute distress and other (Sedated on the vent) Eyes: Sclerae: sclerae normal Neck: Neck: Yes no lymphadenopathy, Yes trachea midline and Yes supple Resp: Auscultation: other (Poor right-sided air movement) Cardio: Rate: regular rate Rhythm: regular rhythm Heart sounds: no gallops, no murmurs and no rubs GI: Palpation (GI): Soft to palpation and Other GI palpation findings present ( Nontender) Auscultation: normal bowel sounds Extrem: General: No clubbing, No cyanosis and Yes edema (2+ bilateral) Objective Data Labs 10/01/23 05:18 10/01/23 05:18 Microbiology Microbiology Results: Microbiology 09/16/23 10:47 Blood - Venous Blood Culture - Final No growth after 5 days. 09/16/23 10:47 Blood - Venous Blood Culture - Final No growth after 5 days. 09/15/23 03:08 Blood - Venous Blood Culture - Final No growth after 5 days. 09/15/23 03:04 Blood - Venous Blood Culture - Final No growth after 5 days. Progress Note: A&P Assessment and plan (1) Acute kidney injury: Status: Acute (2) Tachy-sophie syndrome: Status: Acute (3) CHF (congestive heart failure): Status: Acute (4) Atrial fibrillation with RVR: Status: Acute (5) Dementia: Status: Acute (6) Dysphagia: Status: Acute (7) HIV (human immunodeficiency virus infection): Status: Acute (8) Acute respiratory failure with hypoxia and hypercapnia: Status: Acute (9) Aspiration pneumonia: Status: Acute Plan Assessment: 77-year-old gentleman with dementia, HIV, recurrent pulmonary aspiration admitted with encephalopathy and recurrent pulmonary aspiration, now requiring ventilatory support Plan: Neuro: acute metabolic encephalopathy secondary to CO2 narcosis on the background of known advanced dementia. Cardiac: AFib with RVR improved on amiodarone drip. Now with tachy-sophie syndrome. Underlying chronic diastolic congestive heart failure. Continues to require vasopressor support with no significant improvement. Pulmonary: Recurrent pulmonary aspiration, with complete white out of the right lung. Intubated for airway protection. Continue to titrate off ventilatory support as tolerated. Chest physiotherapy. No significant improvement with bronchoscopic secretion clearance. Renal: acute renal failure with oliguria secondary to septic shock. Continue to monitor renal indices and urine output. Endo: No acute issues. GI: No acute issues. ID: Recurrent aspiration pneumonia. Empirically covered with broad-spectrum antibiotics. Heme/Onc: No acute issues. Psych: No acute issues. Miscellaneous: Overall very poor prognosis for any meaningful clinical recovery secondary to underlying advanced dementia, likely with compinent of HIV dementia, and worsening recurrent aspirations requiring multiple evaluations/hospitalizations, now resulting in aspiration pneumonia with profound septic shock and worsening renal function, so far with failure to wean from mechanical ventilation. Pending court request to change goals of care. Prophylaxis: Lovenox, famotidine Diet: Tube feeds Critical care time spent: 60 minutes Quality Stroke Does the patient have a stroke diagnosis?: No VTE Prior VTE?: No VTE Risk Level:: Medical - moderate - high VTE Device Contraindication: Treatment Not Indicated VTE Drug Contraindication: N/A - Med Ordered
--- NOTE | 2023-10-02 10:26 | MHC.CLN ---
F/U PT REMAINS INTUBATED AND SEDATED DISCUSSED AT ROUNDS WITH MD NIEVES WITH DTI TO COCCYX PT RECEIVING NEPRO AT MAX GOAL RATE 30ML/HR WITH 120ML FWF Q 6 HRS TO PROVIDE 1296KCALS (1502KCALS WITH SEDATION; 23KCALS/KG), 58G PROTEIN (.89G/KG), 1003ML TOTAL WATER FROM FORMULA AND FLUSHES MONITOR TOLERANCE, RESIDUALS AND LYTES AWAITING COURT HEARING FOR UPDATED ADVANCED DIRECTIVES FOLLOWING WITH TEAM
[2023-10-02] MEDS: cefTRIAXone sodium 1 GM in 0.9 % Sodium Chloride 50 ML IV (11:32)
[2023-10-02] MEDS: Norepinephrine Bitartrate/D5W 8 MG/250 ML PLAST..BAG 33.01 MG IV (11:35)
[2023-10-02] MEDS: 0.9 % Sodium Chloride Flush 3 ML SYRINGE IVFLUSH ×2 (14:06→23:51)
[2023-10-02] MEDS: Norepinephrine Bitartrate/D5W 8 MG/250 ML PLAST..BAG 30.56 MG IV (18:24)
[2023-10-02 20:31] LABS: Albumin Level 2.4 g/dL (3.5-5.0); Anion Gap 17 (12-20); Blood Urea Nitrogen 66 mg/dL (9-16); Calcium 8.3 mg/dL (8.4-10.2); Carbon Dioxide 30 mmol/L (22-29); Chloride 90 mmol/L (96-108); Creatinine Clr Calc Pharmacy 33.6; Estimated Glomerular Filt Rate 37; Glucose Random 129 mg/dL (60-115); Magnesium 2.3 mg/dL (1.6-2.6); Phosphorus 4.5 mg/dL (2.7-4.5); Potassium 2.7 mmol/L (3.3-5.1); Sodium 134 mmol/L (135-145)
[2023-10-02] MEDS: Potassium Chloride Packet 20 MEQ PACKET 40 MEQ PO (21:20)
[2023-10-02] MEDS: Albumin Human 25 % 100 ML IV ×2 (21:24→22:32)
[2023-10-02] MEDS: Amiodarone HCL 900 MG in 0.9 % Sodium Chloride 500 ML 17.27 MG IVCONT (21:42)
[2023-10-03] VITALS (17 sets, daily range): BP systolic 98–139; BP diastolic 74–88; PULSE 80–122; RESP 23–26; TEMP 34.5–38.5; O2SAT 93–99; BMI 31.9
[2023-10-03] MEDS: Norepinephrine Bitartrate/D5W 8 MG/250 ML PLAST..BAG 30.56 MG IV ×2 (02:20→09:22)
[2023-10-03 04:49] LABS: VBG Base Excess 13.2 mmol/L; VBG HCO3 38 mmol/L (22-26); VBG pCO2 47 mmHg; VBG pO2 46 mmHg
[2023-10-03 05:05] LABS: MANUAL DIFF FLAG NO
[2023-10-03 05:06] LABS: Basophils Absolute Auto 0.1 X10*3/uL (0.0-0.2); Basophils Percent Auto 0.5 % (0-2); Eosinophils Percent Auto 0.4 % (0-4); Hematocrit 27.6 % (42.0-52.0); Hemoglobin 8.9 g/dl (14.0-18.0); Imm Gran Abs Auto 0.07 X10*3/uL (0.00-0.03); Imm Gran Pct Auto 0.7 % (0.0-0.4); Lymphocytes Percent Auto 8.9 % (20-40); Mean Corpuscular HGB Conc 32.2 g/dl (31.0-36.0); Mean Corpuscular Volume 99.3 fL (80.0-98.0); Mean Platelet Volume 10.9 fL (9.4-12.4); Monocytes Absolute Auto 0.8 X10*3/uL (0.1-1.2); Monocytes Percent Auto 7.6 % (2-11); Neutrophils Absolute Auto 8.7 x10*3/uL (2.0-8.3); Neutrophils Percent Auto 81.9 % (45-73); Platelet Count 366 X10*3/uL (160-400); Red Blood Count 2.78 X10*6/uL (4.60-5.80); Red Cell Distribution Width 21.7 % (11.0-16.0); White Blood Count 10.6 X10*3/uL (4.8-10.8)
[2023-10-03 05:22] LABS: Albumin Level 3.1 g/dL (3.5-5.0); Anion Gap 16 (12-20); Blood Urea Nitrogen 67 mg/dL (9-16); Calcium 8.6 mg/dL (8.4-10.2); Carbon Dioxide 31 mmol/L (22-29); Chloride 90 mmol/L (96-108); Creatinine Clr Calc Pharmacy 34.2; Estimated Glomerular Filt Rate 38; Glucose Random 132 mg/dL (60-115); Magnesium 2.3 mg/dL (1.6-2.6); Sodium 134 mmol/L (135-145)
[2023-10-03 05:40] LABS: Venous Blood Gas Refer to POC result
[2023-10-03] MEDS: Potassium Chloride Packet 20 MEQ PACKET 40 MEQ PO (06:17)
[2023-10-03] MEDS: 0.9 % Sodium Chloride Flush 3 ML SYRINGE IVFLUSH (07:47)
[2023-10-03] MEDS: Chlorhexidine Gluc Oral Rinse 15 ML MOUTHWASH BUCCAL (07:47)
[2023-10-03] MEDS: Heparin Sodium,Porcine 5,000 UNIT/ML VIAL 5000 UNIT SUBCUT (08:18)
[2023-10-03] MEDS: propofoL 1,000 MG/100 ML VIAL 7.82 MG IVCONT (08:21)
--- NOTE | 2023-10-03 09:51 | P.PNCC_ITS ---
Subjective Subjective Date of Service: 10/03/23 Interval History: 77-year-old gentleman with underlying dementia, recurrent pulmonary aspiration, diastolic heart failure, HIV, BPH admitted on 09/15/2023 with dyspnea, lower extremity edema, hypoxia, and worsening alteration of mental status. Patient with treated with empiric antibiotics for aspiration pneumonia. hospital course is significant for worsening alteration of mental status with. On 09/15/2023 arterial blood gas was obtained that showed acute CO2 retention and chest x-ray demonstrated whiteout of the right lung. Nasotracheal suction was attempted, but was unsuccessful. Patient was not able to protect his airway. He was transferred to intensive care unit and emergently intubated with copious in-line secretions suctioned out after intubation. Now with aspiration pneumonia, further complicated by AFib with RVR/sick sinus syndrome. Underlying advanced dementia with chronic pulmonary aspiration now resulting in aspiration pneumonia with underlying overall poor quality of life and poor prognosis for meaningful clinical recovery discussed with patient's guardian and healthcare proxy who both agree with switching goals of care to palliation, continue working with case management to request court approval. Essentially no significant improvement in clinical status after intubation. No events overnight. Critical Care Time (minutes): 45 Physical Exam 2 Vital Signs: Vital Signs: Last Vital Signs Temp 101.3 F H 10/03/23 09:00 Pulse 121 H 10/03/23 09:22 Resp 26 H 10/03/23 09:00 BP 123/79 10/03/23 09:22 Pulse Ox 97 10/03/23 09:00 O2 Del Method Mechanical Ventil ation 10/03/23 09:00 O2 Flow Rate 30 09/17/23 09:00 FiO2 50 10/03/23 09:00 BMI result Body Mass Index 31.9 Const: General: no acute distress and other (Sedated on the vent) Eyes: Sclerae: sclerae normal Neck: Neck: Yes no lymphadenopathy, Yes trachea midline and Yes supple Resp: Auscultation: other (Poor right-sided air movement) Cardio: Rate: tachycardic Rhythm: regular rhythm Heart sounds: no gallops, no murmurs and no rubs GI: Palpation (GI): Soft to palpation and Other GI palpation findings present ( Nontender) Auscultation: normal bowel sounds Extrem: General: Yes no pedal edema, No clubbing and No cyanosis Objective Data Labs 10/03/23 04:43 10/03/23 04:43 Labs: Laboratory Results - last 24 hr 10/02/23 10/03/23 10/03/23 19:49 04:43 04:44 WBC 10.6 RBC 2.78 L Hgb 8.9 L Hct 27.6 L MCV 99.3 H MCH 32.0 MCHC 32.2 RDW 21.7 H Plt Count 366 MPV 10.9 Immature Gran % (Auto) 0.7 H Neut % (Auto) 81.9 H Lymph % (Auto) 8.9 L [place] % (Auto) 7.6 Eos % (Auto) 0.4 Baso % (Auto) 0.5 Lymph # (Auto) 1.0 L [place] # (Auto) 0.8 Eos # (Auto) 0.0 Baso # (Auto) 0.1 Abs Immat Gran (auto) 0.07 H Absolute Neuts (auto) 8.7 H Absolute Nucleated RBC 0.000 Nucleated RBC % (auto) 0.0 VBG pH 7.50 H VBG pCO2 47 VBG pO2 46 VBG HCO3 38 H VBG O2 Saturation 74.0 VBG Base Excess 13.2 Sodium 134 L 134 L Potassium 2.7 L 3.0 L Chloride 90 L 90 L Carbon Dioxide 30 H 31 H Anion Gap 17 16 BUN 66 H 67 H Creatinine 1.78 H 1.75 H Estim Creat Clear Calc 33.6 34.2 Estimated GFR 37 38 Random Glucose 129 H 132 H Calcium 8.3 L 8.6 Phosphorus 4.5 4.0 Magnesium 2.3 2.3 Albumin 2.4 L 3.1 L Microbiology Microbiology Results: Microbiology 09/16/23 10:47 Blood - Venous Blood Culture - Final No growth after 5 days. 09/16/23 10:47 Blood - Venous Blood Culture - Final No growth after 5 days. 09/15/23 03:08 Blood - Venous Blood Culture - Final No growth after 5 days. 09/15/23 03:04 Blood - Venous Blood Culture - Final No growth after 5 days. Progress Note: A&P Assessment and plan (1) Acute kidney injury: Status: Acute (2) Tachy-sophie syndrome: Status: Acute (3) CHF (congestive heart failure): Status: Acute (4) Dementia: Status: Acute (5) Dysphagia: Status: Acute (6) HIV (human immunodeficiency virus infection): Status: Acute (7) Acute respiratory failure with hypoxia and hypercapnia: Status: Acute (8) Aspiration pneumonia: Status: Acute Plan Assessment: 77-year-old gentleman with dementia, HIV, recurrent pulmonary aspiration admitted with encephalopathy and recurrent pulmonary aspiration, now requiring ventilatory support Plan: Neuro: acute metabolic encephalopathy secondary to CO2 narcosis on the background of known advanced dementia. Cardiac: AFib with RVR improved on amiodarone drip. Now with tachy-sophie syndrome. Underlying chronic diastolic congestive heart failure. Continues to require vasopressor support with no significant improvement. Pulmonary: Recurrent pulmonary aspiration, with complete white out of the right lung. Intubated for airway protection. Continue to titrate off ventilatory support as tolerated. Chest physiotherapy. No significant improvement with bronchoscopic secretion clearance. Renal: acute renal failure with oliguria secondary to septic shock. Continue to monitor renal indices and urine output. Endo: No acute issues. GI: No acute issues. ID: Recurrent aspiration pneumonia. Empirically covered with broad-spectrum antibiotics. Heme/Onc: No acute issues. Psych: No acute issues. Miscellaneous: Overall very poor prognosis for any meaningful clinical recovery secondary to underlying advanced dementia, likely with compinent of HIV dementia, and worsening recurrent aspirations requiring multiple evaluations/hospitalizations, now resulting in aspiration pneumonia with profound septic shock and worsening renal function, so far with failure to wean from mechanical ventilation. Pending court request to change goals of care. Prophylaxis: heparin. famotidine Diet: Tube feeds Critical care time spent: 45 minutes Quality Stroke Does the patient have a stroke diagnosis?: No VTE Prior VTE?: No VTE Risk Level:: Medical - moderate - high VTE Device Contraindication: Treatment Not Indicated VTE Drug Contraindication: N/A - Med Ordered
--- NOTE | 2023-10-03 10:29 | MHC.CM.PN ---
Over weekend pt's daughter supplied Healthcare Proxy to care team. Due to active guardianship in-place, this junior underwriter placed call to [facility] as to honoring HCP versus guardianship. Daughter in agreement with guardian as to plan of care for pt, it is recommended to honor the HCP. At this time court hearing will be cancelled for 10/06
[2023-10-03] MEDS: cefTRIAXone sodium 1 GM in 0.9 % Sodium Chloride 50 ML IV (10:47)
--- NOTE | 2023-10-03 11:50 | PM.CCN ---
Critical Care Event Note Summary Date of Service: 10/03/23 Code activated: No Narrative: Authority of healthcare proxy to make code status changes clarified by case management with guardian. After reviewing clinical status and poor chance of meaningful clinical recovery healthcare proxy decided to switch goals of care to palliation. Code status changed to comfort measures only. Critical Care Time (minutes): 0
[2023-10-03] MEDS: Midazolam HCl/PF 2 MG/2 ML VIAL IVPUSH (12:12)
[2023-10-03] MEDS: fentaNYL citrate/NS 1,000 MCG/100 ML PLAST..BAG 10 MCG IVCONT (12:12)
--- NOTE | 2023-10-03 12:30 | PM.CCN ---
Critical Care Event Note Summary Date of Service: 10/03/23 Code activated: No Narrative: Notified by nurse patient in comfort measures cause status has passed. On my exam, no spontaneous respirations, no corneal reflex, no pulse. Time of 12:23. Family at the bedside. Critical Care Time (minutes): 0
--- NOTE | 2023-10-03 12:36 | PM.DDS ---
Discharge Sum: Prov Provider Primary care physician: Adrián Singh DO Consults: 09/24/23 09:26 Consult to Wound Care Routine Reason for consultation: pressure injury to coccyx Has provider been notified: No Discharge Sum: Diag PCOD Cause of : Aspiration pneumonia Contributing Factors (1) Aspiration pneumonia: (2) Dysphagia: (3) Dementia: (4) HIV (human immunodeficiency virus infection): (5) Acute kidney injury: (6) Tachy-sophie syndrome: (7) CHF (congestive heart failure): (8) Acute respiratory failure with hypoxia and hypercapnia: Discharge Sum: Summary Date and Time Date of admission: 09/15/23 13:54 Summary Details: 77-year-old gentleman with underlying dementia, recurrent pulmonary aspiration, diastolic heart failure, HIV, BPH admitted on 09/15/2023 with dyspnea, lower extremity edema, hypoxia, and worsening alteration of mental status. Patient with treated with empiric antibiotics for aspiration pneumonia. hospital course is significant for worsening alteration of mental status with. On 09/15/2023 arterial blood gas was obtained that showed acute CO2 retention and chest x-ray demonstrated whiteout of the right lung. Nasotracheal suction was attempted, but was unsuccessful. Patient was not able to protect his airway. He was transferred to intensive care unit and emergently intubated with copious in-line secretions suctioned out after intubation. Patient with aspiration pneumonia, further complicated by AFib with RVR/sick sinus syndrome. Underlying advanced dementia with chronic pulmonary aspiration now resulting in aspiration pneumonia with underlying overall poor quality of life and poor prognosis for meaningful clinical recovery discussed with patient's guardian and healthcare proxy who both agree with switching goals of care to palliation. Patient with essentially no significant improvement in clinical status after intubation, several rounds of bronchoscopic secretion clearance, and 2 weeks of ventilatory support. Authority of healthcare proxy to make code status changes clarified by case management with guardian. After reviewing clinical status and poor chance of meaningful clinical recovery healthcare proxy decided to switch goals of care to palliation. Code status changed to comfort measures only. Patient was terminally extubated and passed peacefully at 12:23 with the family at the bedside. Additional Data Attending physician: Jarad Mora MD
--- NOTE | 2023-10-04 12:36 | MHC.CM.PN ---
This marketing copywriter placed call to Dian Charles to confirm her knowledge of pt's expiration. Dian confirmed family placed call to Dian 10/03/23.
== END 2023-10-03 12:23 | disposition expired | DRG 974 ==
LOC: HO.ED 11:24 → HO.EDOVER 14:11 → HO.S3 19:03 → HO.IMC 09-16 10:19 → HO.ICU 09-16 15:15
PROVIDERS: Internal Medicine Critical Care Medicine; Nurse Practitioner Family; Physician Assistant Medical; Registered Nurse Community Health; Student in an Organized Health Care Education/Training Program; Admitting Provider Student in an Organized Health Care Education/Training Program; Emergency Provider Emergency Medicine; PCP Hospitalist; Visit Provider Internal Medicine Pulmonary Disease
DX: A41.9 Sepsis, unspecified organism (principal); G92.8 Other toxic encephalopathy; B20 Human immunodeficiency virus [HIV] disease; J69.0 Pneumonitis due to inhalation of food and vomit; J96.01 Acute respiratory failure with hypoxia; J96.02 Acute respiratory failure with hypercapnia; K72.00 Acute and subacute hepatic failure without coma; R65.21 Severe sepsis with septic shock; F02.818 Dementia in other diseases classified elsewhere, unspecified severity, with other behavioral disturbance; I50.32 Chronic diastolic (congestive) heart failure; E87.1 Hypo-osmolality and hyponatremia; J98.19 Other pulmonary collapse; D62 Acute posthemorrhagic anemia; N17.9 Acute kidney failure, unspecified; I49.5 Sick sinus syndrome; I48.91 Unspecified atrial fibrillation; E87.5 Hyperkalemia; Z51.5 Encounter for palliative care; L89.156 Pressure-induced deep tissue damage of sacral region; R13.10 Dysphagia, unspecified; I11.0 Hypertensive heart disease with heart failure; E03.9 Hypothyroidism, unspecified; N40.0 Benign prostatic hyperplasia without lower urinary tract symptoms; Z20.822 Contact with and (suspected) exposure to COVID-19; Z79.890 Hormone replacement therapy; Z79.899 Other long term (current) drug therapy
CPT/HCPCS: 0241U; 36415; 36600; 70450; 71045; 71046; 72125; 80048; 80053; 80076; 80202; 82040; 82784; 82803; 82947; 83605; 83735; 83880; 84100; 84165; 84484; 85007; 85025; 85027; 86334; 87040; 92610; 93005; 93970; 94002; 94003; 94640; 94799; 99285; C1758; J0282; J0283; J0613; J0696; J0878; J1160; J1644; J1650; J1940; J2060; J2250; J2270; J2359; J2543; J2704; J2920; J3010; J3370; J3475; J3480; J7120; P9047

== ENCOUNTER → 2023-09-15 13:54 | Outpatient (BNV) | payer MEDICARE, MEDICAID, SELFPAY | PROVIDERS: Admitting Provider Student in an Organized Health Care Education/Training Program; Emergency Provider Emergency Medicine; PCP Hospitalist; Visit Provider Internal Medicine Critical Care Medicine | DX: N17.9 Acute kidney failure, unspecified (principal); I49.5 Sick sinus syndrome; B20 Human immunodeficiency virus [HIV] disease; J69.0 Pneumonitis due to inhalation of food and vomit | CPT/HCPCS: 31622; 99291; 99292 ==

== ENCOUNTER → 2023-09-15 13:54 | Outpatient (BNV) | payer MEDICARE, MEDICAID, SELFPAY | PROVIDERS: Admitting Provider Student in an Organized Health Care Education/Training Program; Emergency Provider Emergency Medicine; PCP Hospitalist; Visit Provider Internal Medicine Pulmonary Disease | DX: J69.0 Pneumonitis due to inhalation of food and vomit (principal); R13.10 Dysphagia, unspecified; F03.90 Unspecified dementia, unspecified severity, without behavioral disturbance, psychotic disturbance, mood disturbance, and anxiety; B20 Human immunodeficiency virus [HIV] disease; N17.9 Acute kidney failure, unspecified; I49.5 Sick sinus syndrome; I50.9 Heart failure, unspecified; J96.01 Acute respiratory failure with hypoxia; J96.02 Acute respiratory failure with hypercapnia | CPT/HCPCS: 31500; 36556; 99238; 99291 ==

== ENCOUNTER → 2023-09-15 13:54 | Outpatient (BNV) | payer MEDICARE, MEDICAID, SELFPAY | PROVIDERS: Admitting Provider Student in an Organized Health Care Education/Training Program; Emergency Provider Emergency Medicine; PCP Hospitalist; Visit Provider Student in an Organized Health Care Education/Training Program | DX: J96.01 Acute respiratory failure with hypoxia (principal); J69.0 Pneumonitis due to inhalation of food and vomit; E87.1 Hypo-osmolality and hyponatremia; A41.9 Sepsis, unspecified organism | CPT/HCPCS: 99223; 99233 ==